=== PATIENT | female | born 1950 | race Caucasian/White ===

== ENCOUNTER 2016-10-21 10:14 | Inpatient (IN) | payer OTHER, MEDICARE ==
[~2016-10-21] VITALS: Ht 152.4 cm; Wt 81.5 kg
[~2016-10-21 10:14] MED LIST: ASPI81TA28 PO; Amaryl PO; Atorvastatin PO; DILT-113 PO; DILT30TA PO; Eliquis PO; Gabapentin PO; INSHNI SUBCON; Iron PO; LEVO75TA5 PO; Lasix PO; Lomotil PO; Medrol PO; OSEL75CA12 PO; POTA-65 PO; SITA100T3 PO
[2016-10-21] MEDS ORDERED: ONDANSETRON INJ 2 MG/ML 2 ML VIAL IV STA (10:34)
[2016-10-21] MEDS ORDERED: SODIUM CHLORIDE 0.9% 1000ML 1,000 ML IV STA (10:34)
--- NOTE | 2016-10-21 10:56 | EMERGENCY ROOM VISIT NOTE ---
History Report prepared by Amadou: Dylan Peter Under the Supervision of: Dr. Calixto Figueroa D.O. First contact with patient: 10:26 Chief Complaint: PEG TUBE REPLACEMENT Stated Complaint: PAIN IN AROUND AND IN PEG TUBE AREA History of Present Illness The patient is a 66 year old female who presents to the Emergency Room with complaints of persistent pain around her PEG tube for the past two days. The pain is worsened with movement of the tube. The patient was sent to the ED by Claudettekayy Tubbs for a possible infection around the PEG tube. She is staying at [facility] s/p mitral valve replacement at [facility]. The mitral valve surgical site has not healed. The tube was checked yesterday and did not appear to be infected then. Per nursing staff, the patient had a low-grade fever prior to arrival and was given 2 doses of Tylenol. The patient had the PEG tube placed 6- 7 weeks ago at [facility], as per the patient's . She is no longer using the tube and is eating normally. The patient has not followed up with her [facility] surgeon for the PEG tube. The patient denies chest pain, shortness of breath, nausea, or vomiting. She does note increased leg swelling bilaterally. The patient is on blood thinners. The patient has a history of diabetes mellitus, rheumatoid arthritis, and cancer. Source of History: patient, spouse/significant other, nursing staff Onset: two days ago Position: abdomen (PEG tube) Quality: other (pain around tube) Timing: other (persistent) Modifying Factors (Worsening): movement Associated Symptoms: + fevers, No SOB, No chest pain, No nausea, No vomiting Review of Systems See HPI for pertinent positives & negatives. A total of 10 systems reviewed and were otherwise negative. Past Medical & Surgical Medical Problems: (1) Abdominal pain (2) Diabetes (3) Rheumatoid arthritis Surgical Problems: (1) Mitral valve replaced Family History Patient reports no known family medical history. Social History Smoking Status: Never Smoker Drug Use: none Marital Status: Occupation Status: retired Current/Historical Medications Scheduled Acetaminophen (Tylenol), 325 MG PO Q4H Apixaban (Eliquis), 5 MG PO BID Aspirin (Aspirin Chewable), 81 MG PO DAILY Atorvastatin (Lipitor), 20 MG PO HS Cephalexin Monohydrate (Keflex), 500 MG PO TID Diltiazem Hcl (Cardizem), 30 MG PO Q6H Epoetin [place] (Procrit), 10,000 ML SQ q sharon Famotidine (Pepcid), 20 MG PO DAILY Furosemide (Lasix), 40 MG PO bid17 Gabapentin (Gabapentin), 1 CAP PO DAILY Insulin Human NPH (Novolin N), 10 UNITS SQ Q12 Insulin Lispro (Human) (Humalog Kwikpen), 8 UNITS SQ AC Ipratropium [place] (Atrovent Hfa), 2 PUFFS INH QID Levetiracetam (Keppra), 500 MG PO BID Levothyroxine Sodium (Synthroid), 1 TAB PO DAILY Methylprednisolone (Medrol), 4 MG PO DAILY Metoprolol Tartrate (Lopressor) (Lopressor), 1 TAB PO BID Oseltamivir Phosphate (Tamiflu), 75 MG PO DAILY Potassium Chloride (Micro-K Ext Rel), 10 MEQ PO DAILY Saline (Deep Sea Nasal [place]), 2 SPRAYS LESTER TID Trazodone Hcl (Trazodone), 50 MG PO HS Allergies Coded Allergies: No Known Allergies (Unverified , 10/21/16) Physical Exam Vital Signs Date Time Temp Pulse Resp B/P Pulse Ox O2 Delivery O2 Flow Rate FiO2 10/21/16 15:00 77 18 116/59 94 Nasal Cannula 1.0 10/21/16 13:34 82 12 104/52 96 Nasal Cannula 1.0 10/21/16 13:09 85 10/21/16 12:31 80 16 120/62 96 Nasal Cannula 1.0 10/21/16 11:16 93 Nasal Cannula 1.0 10/21/16 11:13 80 16 111/51 93 Nasal Cannula 1.0 10/21/16 10:22 36.7 78 20 99/49 94 Nasal Cannula 1.0 10/21/16 10:21 81 Physical Exam GENERAL: Patient is awake, alert, and in no acute distress. Patient is resting comfortably and showing no signs of anxiety EYES: The conjunctivae are clear. The pupils are round and reactive. EARS, NOSE, MOUTH AND THROAT: The nose is without any evidence of any deformity. Mucous membranes are moist tongue is midline NECK: The neck is nontender and supple. Healing scar in the suprasternal region , wound dressing in place. RESPIRATORY: Lung sounds diminished in the right lung field with rales in the right base. CARDIOVASCULAR: Regular rate and rhythm noted to auscultation, systolic murmur is suggested. GASTROINTESTINAL: Mildly distended and diffusely tender abdomen. Wound which was not healed under the right breast with purulent drainage. Dressed wound in the right upper quadrant. PEG site noted in the left side of thee abdomen, tender to palpation with mild erythema and scant discharge around he tube. Rectal examination showed brown stool trace heme positive. MUSCULOSKELETAL/EXTREMITIES: There is no evidence of gross deformity full range of motion is noted in the hips and shoulders SKIN: There is no obvious evidence of any rash. There are no petechiae, pallor or cyanosis noted. NEUROLOGIC: Patient is awake alert and oriented x3. Medical Decision & Procedures ER Provider Diagnostic Interpretation: X-ray results as stated below per interpretation by me and the radiologist. CHEST ONE VIEW PORTABLE CLINICAL HISTORY: Sepsis COMPARISON STUDY: No previous studies for comparison. FINDINGS: There is a left subclavian dual-chamber central venous pacemaker. There are postsurgical changes of a midline sternotomy. The heart is mildly enlarged. There is radiographic evidence of mild congestive failure. There is a small right pleural effusion. There is a small amount of fluid tracking into the minor fissure. There is no lobar consolidation.[ IMPRESSION: Cardiomegaly and mild congestive failure. Electronically signed by: Jose Antoine M.D. 10/21/2016 11:18 AM Dictated Date/Time: 10/21/2016 11:17 AM KUB CLINICAL HISTORY: pain in peg tube site COMPARISON STUDY: No previous studies for comparison. FINDINGS: Nonobstructive bowel pattern. PEG tube overlying left upper quadrant. Moderate degenerative change of the osseous structures. IMPRESSION: Negative study. PEG tube left upper quadrant overlying the gastric outline. Electronically signed by: Milan Ashraf M.D. 10/21/2016 11:18 AM Dictated Date/Time: 10/21/2016 11:17 AM Laboratory Results 10/21/16 10:50 Red Blood Count 2.70, Mean Corpuscular Volume 93.0, Mean Corpuscular Hemoglobin 30.0, Mean Corpuscular Hemoglobin Concent 32.3, Mean Platelet Volume 8.2, Neutrophils (%) (Auto) 58.6, Lymphocytes (%) (Auto) 34.4, Monocytes (%) (Auto) 6.2, Eosinophils (%) (Auto) 0.5, Basophils (%) (Auto) 0.3, Neutrophils # (Auto) 2.28, Lymphocytes # (Auto) 1.34, Monocytes # (Auto) 0.24, Eosinophils # (Auto) 0.02, Basophils # (Auto) 0.01 10/21/16 10:50 Test 10/21/16 10:50 10/21/16 10:57 10/21/16 13:10 White Blood Count 3.89 K/uL (4.8-10.8) Red Blood Count 2.70 M/uL (4.2-5.4) Hemoglobin 8.1 g/dL (12.0-16.0) Hematocrit 25.1 % (37-47) Mean Corpuscular Volume 93.0 fL (80-100) Mean Corpuscular Hemoglobin 30.0 pg (25-34) Mean Corpuscular Hemoglobin Concent 32.3 g/dl (32-36) Platelet Count 124 K/uL (130-400) Mean Platelet Volume 8.2 fL (7.4-10.4) Neutrophils (%) (Auto) 58.6 % Lymphocytes (%) (Auto) 34.4 % Monocytes (%) (Auto) 6.2 % Eosinophils (%) (Auto) 0.5 % Basophils (%) (Auto) 0.3 % Neutrophils # (Auto) 2.28 K/uL (1.4-6.5) Lymphocytes # (Auto) 1.34 K/uL (1.2-3.4) Monocytes # (Auto) 0.24 K/uL (0.11-0.59) Eosinophils # (Auto) 0.02 K/uL (0-0.5) Basophils # (Auto) 0.01 K/uL (0-0.2) RDW Standard Deviation 67.9 fL (36.4-46.3) RDW Coefficient of Variation 20.2 % (11.5-14.5) Immature Granulocyte % (Auto) 0.0 % Immature Granulocyte # (Auto) 0.00 K/uL (0.00-0.02) Anisocytosis PRESENT Erythrocyte Sedimentation Rate 20 mm/hr (0-21) Prothrombin Time 12.1 SECONDS (9.0-12.0) Prothromb Time International Ratio 1.1 (0.9-1.1) Activated Partial Thromboplast Time 31.7 SECONDS (21.0-31.0) Partial Thromboplastin Ratio 1.2 Anion Gap 7.0 mmol/L (3-11) Est Creatinine Clear Calc Drug Dose 60.9 ml/min Estimated GFR () 77.2 Estimated GFR (Non- 66.6 BUN/Creatinine Ratio 19.8 (10-20) Calcium Level 8.0 mg/dl (8.5-10.1) Phosphorus Level 2.9 mg/dl (2.5-4.9) Magnesium Level 1.5 mg/dl (1.8-2.4) Total Bilirubin 0.7 mg/dl (0.2-1) Aspartate Amino Transf (AST/SGOT) 21 U/L (15-37) Alanine Aminotransferase (ALT/SGPT) 16 U/L (12-78) Alkaline Phosphatase 70 U/L (45-117) Total Creatine Kinase 9 U/L (26-192) Creatine Kinase MB < 0.5 ng/ml (0.5-3.6) Creatine Kinase MB Ratio (0-3.0) Troponin I < 0.015 ng/ml (0-0.045) C-Reactive Protein 2.46 mg/dl (0-0.29) Pro-B-Type Natriuretic Peptide 3246 pg/ml (0-900) Total Protein 6.4 gm/dl (6.4-8.2) Albumin 2.8 gm/dl (3.4-5.0) Globulin 3.6 gm/dl (2.5-4.0) Albumin/Globulin Ratio 0.8 (0.9-2) Lipase 172 U/L (73-393) Bedside Lactic Acid Venous 1.11 mmol/L (0.90-1.70) Urine Color YELLOW Urine Appearance CLEAR (CLEAR) Urine pH 5.0 (4.5-7.5) Urine Specific [place] 1.002 (1.000-1.030) Urine Protein NEG (NEG) Urine Glucose (UA) NEG (NEG) Urine Ketones NEG (NEG) Urine Occult Blood 2+ (NEG) Urine Nitrite NEG (NEG) Urine Bilirubin NEG (NEG) Urine Urobilinogen NEG (NEG) Urine Leukocyte Esterase SMALL (NEG) Urine WBC (Auto) 1-5 /hpf (0-5) Urine RBC (Auto) 0-4 /hpf (0-4) Urine Hyaline Casts (Auto) 1-5 /lpf (0-5) Urine Epithelial Cells (Auto) 5-10 /lpf (0-5) Urine Bacteria (Auto) NEG (NEG) Laboratory results per my review. Medications Administered Medications (Trade) Dose Ordered Sig/Shirley Route Start Time Stop Time Status Last Admin Dose Admin Sodium Chloride (Nss 1000ml) 1,000 ml @ 125 mls/hr Q8H STAT IV 10/21/16 10:34 10/21/16 18:33 DC 10/21/16 11:10 125 MLS/HR Morphine Sulfate (MoRPHine SULFATE INJ) 4 mg Q15M PRN IV 10/21/16 10:45 11/04/16 10:44 10/21/16 11:11 4 MG Ondansetron HCl (Zofran Inj) 4 mg NOW STAT IV 10/21/16 10:34 10/21/16 10:38 DC 10/21/16 11:11 4 MG Famotidine 20 mg 20 mg ONE STAT IV 10/21/16 13:57 10/21/16 13:59 DC 10/21/16 15:16 20 MG Pantoprazole Sodium/Syringe (Protonix Inj/ Syringe) 10 ml @ 5 mls/min NOW ONCE IV 10/21/16 14:00 10/21/16 14:01 DC 10/21/16 15:16 5 MLS/MIN Magnesium Sulfate (Magnesium Sulfate) 1 gm NOW STAT IV 10/21/16 14:10 10/21/16 14:11 DC 10/21/16 18:05 1 GM Diltiazem HCl (Cardizem Tab) 30 mg Q6H PO 10/21/16 15:30 11/20/16 15:29 10/21/16 18:04 30 MG ECG Indication: abdominal pain Rate (beats per minute): 79 Rhythm: other (dual chamber pacemaker) Findings: no ectopy (no PVC), other (ventricular paced beats noted) Comparison ECG Date: no prior available ED Course 1030: The patient was evaluated in room B9. A complete history and physical examination were performed. 1034: Zofran 4 mg IV, NSS 1000 ml @ 125 mls/hr. 1045: Morphine Sulfate 4 mg IV. 1328: Spoke with Dr. Schmitt, General Surgeon. He agreed to consult on the case. 1345: Rectal examination performed. 1357: Famotidine 20 mg IV. 1400: Protonix 40 mg / syringe 10 ml @ 5 mls/hr. 1408: [facility] The patient will be evaluated. 1410: Magnesium Sulfate 1 gm IV. Medical Decision Prior records/ancillary studies reviewed. Triage Nursing notes reviewed. Additional history obtained from . The patient's history was concerning for fever. Differential diagnosis: Etiologies such as viral syndrome, otitis, pharyngitis, pneumonia, influenza, meningitis, urinary tract infection, sepsis, bacteremia, as well as others were entertained. The patient is a 66-year-old female who presented to the emergency department for an evaluation of multiple complaints. The patient recently had a mitral valve replacement in her postoperative course was very complicated. She had a feeding tube placed but at this time appears to be eating and drinking well. She is concerned because the erythema around the feeding tube site and the drainage. The patient also has a nonhealing wound under her right breast. This is currently being evaluated the wound care center. The patient was also found have anemia and signs of upper GI bleeding on rectal exam. The patient has multiple issues at this time. I discussed patient's laboratory and radiographic studies with her and her . I also discussed his case with the on-call general surgeon as well as the on-call [facility]. They've agreed to evaluate the patient for further management and disposition. Consults Time Called: 1320 Consulting Physician: Dr. Schmitt General Surgeon. Returned Call: [phone]: Spoke with Dr. Schmitt General Surgeon. He agreed to consult on the case. Additional Consults: Time Called: 1400 [facility] Return[facility] Call: 1408 Additional Comments: 1408: [facility] The patient will be evaluated. Impression Primary Impression: Anemia Additional Impressions: Upper GI bleeding Infection of PEG site Diffuse abdominal pain Scribe Attestation The scribe's documentation has been prepared under my direction and personally reviewed by me in its entirety. I confirm that the note above accurately reflects all work, treatment, procedures, and medical decision making performed by me. Departure Information Dispostion Being Evaluated By Hospitalist Referrals Aneesh Palm M.D. (PCP) Patient Instructions My [facility] Problem Qualifiers Primary Impression: Anemia Anemia type: unspecified type Qualified Codes: D64.9 - Anemia, unspecified
[2016-10-21 11:07] LABS: BASO % 0.3 %; BASO ABS # 0.01 K/uL (0-0.2); EOS % 0.5 %; HEMATOCRIT 25.1 % (37-47); LYMPH % 34.4 %; LYMPH ABS # 1.34 K/uL (1.2-3.4); MEAN CORPUSCULAR HGB CONC 32.3 g/dl (32-36); MEAN PLATELET VOLUME 8.2 fL (7.4-10.4); MONO % 6.2 %; NEUT % 58.6 %; PLATELET COUNT 124 K/uL (130-400); WHITE BLOOD COUNT 3.89 K/uL (4.8-10.8)
[2016-10-21] MEDS: MoRPHine SULFATE 4 MG/ML 1 ML CARP\\VIAL IV PRN ×3 (11:11→23:57)
[2016-10-21 11:17] LABS: INR 1.1 (0.9-1.1); PARTIAL THROMBOPLASTIN RATIO 1.2; PROTHROMBIN TIME (PATIENT) 12.1 SECONDS (9.0-12.0)
--- NOTE | 2016-10-21 11:19 | DIAGNOSTIC IMAGING REPORT ---
KUB CLINICAL HISTORY: pain in peg tube site COMPARISON STUDY: No previous studies for comparison. FINDINGS: Nonobstructive bowel pattern. PEG tube overlying left upper quadrant. Moderate degenerative change of the osseous structures. IMPRESSION: Negative study. PEG tube left upper quadrant overlying the gastric outline. Electronically signed by: Milan Ashraf M.D. 10/21/2016 11:18 AM Dictated Date/Time: 10/21/2016 11:17 AM
--- NOTE | 2016-10-21 11:19 | DIAGNOSTIC IMAGING REPORT ---
CHEST ONE VIEW PORTABLE CLINICAL HISTORY: Sepsis COMPARISON STUDY: No previous studies for comparison. FINDINGS: There is a left subclavian dual-chamber central venous pacemaker. There are postsurgical changes of a midline sternotomy. The heart is mildly enlarged. There is radiographic evidence of mild congestive failure. There is a small right pleural effusion. There is a small amount of fluid tracking into the minor fissure. There is no lobar consolidation.[ IMPRESSION: Cardiomegaly and mild congestive failure. Electronically signed by: Jose Antoine M.D. 10/21/2016 11:18 AM Dictated Date/Time: 10/21/2016 11:17 AM
[2016-10-21 11:25] LABS: ALT/SGPT 16 U/L (12-78); AST/SGOT 21 U/L (15-37); BLOOD UREA NITROGEN 18 mg/dl (7-18); BUN/CREATININE RATIO 19.8 (10-20); CARBON DIOXIDE 32 mmol/L (21-32); CHLORIDE 101 mmol/L (98-107); GLUCOSE 156 mg/dl (70-99); MAGNESIUM 1.5 mg/dl (1.8-2.4); POTASSIUM 3.8 mmol/L (3.5-5.1); SODIUM 140 mmol/L (136-145)
[2016-10-21 11:27] LABS: ALB/GLOB RATIO 0.8 (0.9-2); ALKALINE PHOSPHATASE 70 U/L (45-117); C-REACTIVE PROTEIN 2.46 mg/dl (0-0.29); PHOSPHORUS 2.9 mg/dl (2.5-4.9)
[2016-10-21 11:31] LABS: ANISOCYTOSIS PRESENT; COMPLETE YES
[2016-10-21] MEDS ORDERED: NF406 PO (11:49)
[2016-10-21] MEDS ORDERED: INSU100I2 SQ (11:49)
[2016-10-21] MEDS ORDERED: FURO40TA3 PO (11:49)
[2016-10-21] MEDS ORDERED: NVLNI SQ (11:49)
[2016-10-21] MEDS ORDERED: METH4TAB31 PO (11:49)
[2016-10-21] MEDS ORDERED: POTA10CA28 PO (11:49)
[2016-10-21] MEDS ORDERED: APIX1TAB3 PO (11:49)
[2016-10-21 13:51] LABS: URINE APPEARANCE CLEAR (CLEAR); URINE BILIRUBIN NEG (NEG); URINE COLOR YELLOW; URINE NITRITE NEG (NEG); URINE SPECIFIC GRAVITY 1.002 (1.000-1.030); UROBILINOGEN NEG (NEG); ZZUR CULT IF INDIC CLEAN CATCH NO
[2016-10-21 13:55] LABS: MANUAL MICROSCOPIC REQUIRED? NO; REVIEW REQ? NO
[2016-10-21] MEDS ORDERED: FAMOTIDINE 20MG/102 ML D5W IV STA (13:57)
[2016-10-21] MEDS ORDERED: PANTOprazole INJ 40 MG in SYRINGE 0 ML IV ONE (14:00)
[2016-10-21] MEDS ORDERED: MAGNESIUM SULFATE 1GM / D5W 1 GM BAG IV STA (14:10)
[2016-10-21] MEDS ORDERED: CEPH500C2 PO (15:11)
[2016-10-21] MEDS ORDERED: GLUCOSE 40% GEL 15 GM TUBE PO PRN (15:30)
[2016-10-21] MEDS ORDERED: GLUCAGON FOR INJ 1 MG VIAL SQ PRN (15:30)
[2016-10-21] MEDS ORDERED: ONDANSETRON INJ 2 MG/ML 2 ML VIAL IV PRN (15:30)
[2016-10-21] MEDS ORDERED: DEXTROSE 50% 50 ML SYR IV PRN (15:30)
[2016-10-21] MEDS ORDERED: MAGNESIUM HYDROXIDE SUSP 30 ML UDC PO PRN (15:30)
[2016-10-21] MEDS ORDERED: DILTIAZEM HCL 30 MG TAB PO SCH (15:30)
[2016-10-21] MEDS ORDERED: ACETAMINOPHEN 325 MG TAB PO PRN ×2 (15:30)
[2016-10-21] MEDS ORDERED: ALUMINUM/MAGNESIUM/SIMETH (MAALOX MAX) 30 ML UDC PO PRN (15:30)
[2016-10-21] MEDS ORDERED: GLUCOSE 10 TABS/TUBE PO PRN (15:30)
--- NOTE | 2016-10-21 16:10 | Pharmacy Progress Note ---
Pharmacy Antibiotic Consult Date of Service: Oct 21, 2016. Pharmacy Dosing Scope Pharmacy is consulted to initiate vancomycin IV dosing therapy, order appropriate labs and adjust drug dose/frequency. Subjective The patient is a 66 year old female admitted on 10-21. Objective Height (Feet): 5 Height (Inches): 0 Weight (Kilograms): 88.500 Lab Results (24hrs): Laboratory Tests Test 10/21/16 10:50 BUN/Creatinine Ratio 19.8 Blood Urea Nitrogen 18 mg/dl Creatinine 0.90 mg/dl White Blood Count 3.89 K/uL Red Blood Count 2.70 M/uL Hemoglobin 8.1 g/dL Hematocrit 25.1 % Mean Corpuscular Volume 93.0 fL Mean Corpuscular Hemoglobin 30.0 pg Mean Corpuscular Hemoglobin Concent 32.3 g/dl Platelet Count 124 K/uL Mean Platelet Volume 8.2 fL Neutrophils (%) (Auto) 58.6 % Lymphocytes (%) (Auto) 34.4 % Monocytes (%) (Auto) 6.2 % Eosinophils (%) (Auto) 0.5 % Basophils (%) (Auto) 0.3 % Neutrophils # (Auto) 2.28 K/uL Lymphocytes # (Auto) 1.34 K/uL Monocytes # (Auto) 0.24 K/uL Eosinophils # (Auto) 0.02 K/uL Basophils # (Auto) 0.01 K/uL Assessment & Plan Patient started on vancomycin empirically for possible infection around PEG tube. BC x 2 are ordered. Vancomycin: * [place] 2200 mg (~25 mg/kg) iv x 1 * Will start MD of 1 gm (~11 mg/kg) iv q 18 hrs to achieve an estimated trough 15-20 mcg/ml * Estimated kinetics: t/12~14 hrs, ke~0.06 hr-1 * If abx are to be continued >48 hrs will consider monitoring trough level Pharmacy will continue to follow and will adjust dose/frequency as necessary. Thank you
[2016-10-21] MEDS ORDERED: VANCOMYCIN CONSULT ACTIVE PRN (16:15)
--- NOTE | 2016-10-21 16:23 | History and Physical ---
History & Physical Date & Time of Service: Oct 21, 2016 at 14:34 Chief Complaint: Pain In Around And In Peg Tube Area Primary Care Physician: Aneesh Palm M.D. History of Present Illness Source: patient, family Patient is a 66 year old female that presents from [facility] with a 2 day history of abdominal pain. 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 2 Days ago the patient began to have abdominal pain surrounding the site of her Peg tube. The pain began Tuesday morning when she woke up and when they tried to get her out of bed and she had a left sided burning abdominal pain. She also described a fever since Tuesday as well. Last night the pain acutely worsened, and this morning when the nursing staff came to see the patient they felt the Peg site was acutely infected. The patient received tylenol for the pain and said it slightly helped with the pain. The PEG tube remains in place since her surgery ( described below) but the patient has been eating and drinking well. Her HPI from [facility] states that the patient was admitted to [facility] in [place] on August 26 for a tricuspid and mitral valve replacement via transthoracic approach under the right breast. After surgery the patient had multiple post-operative complications including ARDS/respiratory failure, prolonged ventilation, tracheostomy placement and PEG tube placement. She was transferred to [facility] in [place] on . There she was treated for pneumonia with IV antibiotics and subsequently developed C Diff and was discharged on oral vancomycin to [facility] on . The patient also suffered seizures postoperatively and was placed on Keppra. She has not experienced any seizures since discharge and EEGs have been negative. Since coming off of the Ventilator at [facility] the patient has required oxygen therapy. Patient has had chronic anemia 2/2 chemotherapy and received Procrit Injections 1-2x/week. She also received a blood transfusion [facility]. Hgb usually around 9 during hospitalization. Patient denies nausea, vomiting, diarrhea, chills, lightheadedness, chest pain, burning with urination. Past Medical/Surgical History Medical Problems: (1) Diabetes Status: Chronic (2) Rheumatoid arthritis Status: Chronic Surgical Problems: (1) Mitral valve replaced Status: Chronic Family History Patient reports no known family medical history. Social History Smoking Status: Never Smoker Drug Use: none Marital Status: Occupational Status: retired Immunizations History of Influenza Vaccine: Yes Influenza Vaccine Date: Jul 22, 2015 History of Tetanus Vaccine?: Unknown History of Pneumococcal: Yes Pneumococcal Date: Jul 22, 2015 History of Hepatitis B Vaccine: Unknown Multi-Drug Resistant Organisms History of MDRO: Yes Type of MDRO: MRSA Allergies Coded Allergies: No Known Allergies (Unverified , 10/21/16) Home Medications Scheduled Acetaminophen (Tylenol), 325 MG PO Q4H Apixaban (Eliquis), 5 MG PO BID Aspirin (Aspirin Chewable), 81 MG PO DAILY Atorvastatin (Lipitor), 20 MG PO HS Cephalexin Monohydrate (Keflex), 500 MG PO TID Diltiazem Hcl (Cardizem), 30 MG PO Q6H Epoetin [place] (Procrit), 10,000 ML SQ q sharon Famotidine (Pepcid), 20 MG PO DAILY Furosemide (Lasix), 40 MG PO bid17 Gabapentin (Gabapentin), 1 CAP PO DAILY Insulin Human NPH (Novolin N), 10 UNITS SQ Q12 Insulin Lispro (Human) (Humalog Kwikpen), 8 UNITS SQ AC Ipratropium [place] (Atrovent Hfa), 2 PUFFS INH QID Levetiracetam (Keppra), 500 MG PO BID Levothyroxine Sodium (Synthroid), 1 TAB PO DAILY Methylprednisolone (Medrol), 4 MG PO DAILY Metoprolol Tartrate (Lopressor) (Lopressor), 1 TAB PO BID Oseltamivir Phosphate (Tamiflu), 75 MG PO DAILY Potassium Chloride (Micro-K Ext Rel), 10 MEQ PO DAILY Saline (Deep Sea Nasal [place]), 2 SPRAYS ELSTER TID Trazodone Hcl (Trazodone), 50 MG PO HS Review of Systems Constitutional: No chills, No fever Respiratory: No cough, No shortness of breath Cardiovascular: No chest pain Abdomen: + pain, No GI bleeding, No constipation, No diarrhea, No nausea, No vomiting Genitourinary - Female: No dysuria Physical Exam Vital Signs Date Time Temp Pulse Resp B/P Pulse Ox O2 Delivery O2 Flow Rate FiO2 10/21/16 13:34 82 12 104/52 96 Nasal Cannula 1.0 10/21/16 13:09 85 10/21/16 12:31 80 16 120/62 96 Nasal Cannula 1.0 10/21/16 11:16 93 Nasal Cannula 1.0 10/21/16 11:13 80 16 111/51 93 Nasal Cannula 1.0 10/21/16 10:22 36.7 78 20 99/49 94 Nasal Cannula 1.0 10/21/16 10:21 81 General Appearance: WD/WN, + mild distress Respiratory/Chest: chest non-tender, lungs clear, normal breath sounds, + pertinent finding (6cm x 2cm ulcerative wound inferior to right breast at site of surgical entry for previous surgery. There is purulent discharge over the wound with minor erythema. No bleeding evident.) Cardiovascular: no gallop, + extra beats, + abnormal rhythm Abdomen/GI: normal bowel sounds, soft, + tenderness (Tenderness around PEG tube site at LUQ, Tenderness on left side of abdomen with deep palpation), + pertinent finding (Ecchymosis at left lower quadrant, PEG tube at LUQ) Extremities/Musculoskelatal: + pertinent finding (Edema of the legs moving up to the pelvis bilaterally, pitting up to the knees) Neurologic/Psych: alert, normal mood/affect, oriented x 3 Diagnostics Laboratory Results Results Past 24 Hours Test 10/21/16 10:50 10/21/16 10:57 10/21/16 13:10 Range/Units White Blood Count 3.89 4.8-10.8 K/uL Red Blood Count 2.70 4.2-5.4 M/uL Hemoglobin 8.1 12.0-16.0 g/dL Hematocrit 25.1 37-47 % Mean Corpuscular Volume 93.0 80-100 fL Mean Corpuscular Hemoglobin 30.0 25-34 pg Mean Corpuscular Hemoglobin Concent 32.3 32-36 g/dl Platelet Count 124 130-400 K/uL Mean Platelet Volume 8.2 7.4-10.4 fL Neutrophils (%) (Auto) 58.6 % Lymphocytes (%) (Auto) 34.4 % Monocytes (%) (Auto) 6.2 % Eosinophils (%) (Auto) 0.5 % Basophils (%) (Auto) 0.3 % Neutrophils # (Auto) 2.28 1.4-6.5 K/uL Lymphocytes # (Auto) 1.34 1.2-3.4 K/uL Monocytes # (Auto) 0.24 0.11-0.59 K/uL Eosinophils # (Auto) 0.02 0-0.5 K/uL Basophils # (Auto) 0.01 0-0.2 K/uL RDW Standard Deviation 67.9 36.4-46.3 fL RDW Coefficient of Variation 20.2 11.5-14.5 % Immature Granulocyte % (Auto) 0.0 % Immature Granulocyte # (Auto) 0.00 0.00-0.02 K/uL Anisocytosis PRESENT Erythrocyte Sedimentation Rate 20 0-21 mm/hr Prothrombin Time 12.1 9.0-12.0 SECONDS Prothromb Time International Ratio 1.1 0.9-1.1 Activated Partial Thromboplast Time 31.7 21.0-31.0 SECONDS Partial Thromboplastin Ratio 1.2 Sodium Level 140 136-145 mmol/L Potassium Level 3.8 3.5-5.1 mmol/L Chloride Level 101 98-107 mmol/L Carbon Dioxide Level 32 21-32 mmol/L Anion Gap 7.0 3-11 mmol/L Blood Urea Nitrogen 18 7-18 mg/dl Creatinine 0.90 0.60-1.20 mg/dl Est Creatinine Clear Calc Drug Dose 60.9 ml/min Estimated GFR () 77.2 Estimated GFR (Non- 66.6 BUN/Creatinine Ratio 19.8 10-20 Random Glucose 156 70-99 mg/dl Calcium Level 8.0 8.5-10.1 mg/dl Phosphorus Level 2.9 2.5-4.9 mg/dl Magnesium Level 1.5 1.8-2.4 mg/dl Total Bilirubin 0.7 0.2-1 mg/dl Aspartate Amino Transf (AST/SGOT) 21 15-37 U/L Alanine Aminotransferase (ALT/SGPT) 16 12-78 U/L Alkaline Phosphatase 70 45-117 U/L Total Creatine Kinase 9 26-192 U/L Creatine Kinase MB < 0.5 0.5-3.6 ng/ml Creatine Kinase MB Ratio 0-3.0 Troponin I < 0.015 0-0.045 ng/ml C-Reactive Protein 2.46 0-0.29 mg/dl Pro-B-Type Natriuretic Peptide 3246 0-900 pg/ml Total Protein 6.4 6.4-8.2 gm/dl Albumin 2.8 3.4-5.0 gm/dl Globulin 3.6 2.5-4.0 gm/dl Albumin/Globulin Ratio 0.8 0.9-2 Lipase 172 73-393 U/L Bedside Lactic Acid Venous 1.11 0.90-1.70 mmol/L Urine Color YELLOW Urine Appearance CLEAR CLEAR Urine pH 5.0 4.5-7.5 Urine Specific [place] 1.002 1.000-1.030 Urine Protein NEG NEG Urine Glucose (UA) NEG NEG Urine Ketones NEG NEG Urine Occult Blood 2+ NEG Urine Nitrite NEG NEG Urine Bilirubin NEG NEG Urine Urobilinogen NEG NEG Urine Leukocyte Esterase SMALL NEG Urine WBC (Auto) 1-5 0-5 /hpf Urine RBC (Auto) 0-4 0-4 /hpf Urine Hyaline Casts (Auto) 1-5 0-5 /lpf Urine Epithelial Cells (Auto) 5-10 0-5 /lpf Urine Bacteria (Auto) NEG NEG Microbiology Results 10/21/16 Blood Culture, Received Pending 10/21/16 Blood Culture, Received Pending Normal EKG Impression Assessment and Plan Patient is a 66 year old female that presents with a 2 day history of abdominal pain 1) Surgical Site Infection - Vancomycin IV - NPO After Midnight - Holding Eliquis - Heparin 5,000 units q12 - Consult to Dr. Schmitt for potential PEG removal tomorrow 2) Wound Infection - Right Sided wound located at the inferior right breast fold at location of entry for valve repair surgery - Wound Care Consult - Possible wound vac placement during this stay - Vancomycin IV 3) Diabetes - 15 Units Lantus BID - Accuchecks with Novolog coverage - Diabetic Diet 4) Atrial Fibrillation - Cardizem - Metoprolol - Holding Eliquis prior to surgery - Admit to telemetry 5) Post-operative Seizures - Keppra 6) Chronic Anemia - Heme in Stool - History of Anemia 2/2 Chemotherapy - Hgb 8.1 - Make sure to evaluate for Procrit Injection because in history was scheduled to receive injection this Tuesday 7) History of C Diff - Stool C Diff Toxin ordered - No current complaints of diarrhea - Recent treatment with Oral Vancomycin 8) Hypertension - Lasix 9) Rheumatoid Arthritis/ Sarcoidosis - Methylprednisolone 10) Hyperlipidemia - Atorvastatin 11) GERD - Pepcid 12) Hypothyroidism - Synthroid 13) Insomnia - Trazodone 14) Flu Virus - Day 5 of Tamiflu 15) DVT - Heparin 5,000 units q12 16) Disposition - [facility] on discharge, has called facility to try to hold a bed at this time Level of Care Telemetry Resuscitation Status FULL RESUSCITATION VTE Prophylaxis Given or contraindicated: Unfractionated heparin SQ
[2016-10-21 16:30] VITALS: BP 107/62; PULSE 86; TEMP 36.5; O2SAT 93; Ht 152.4 cm; Wt 81.5 kg
[2016-10-21] MEDS ORDERED: FUROSEMIDE 40 MG TAB PO SCH (17:00)
[2016-10-21] MEDS ORDERED: VANCOMYCIN INJ 2,200 MG in SODIUM CHLORIDE 0.9% 500ML 500 ML IV ONE (17:30)
[2016-10-21] MEDS: IPRATROPIUM BROMIDE HFA INHALER INH SCH ×2 (18:05→21:06)
[2016-10-21] MEDS: INSULIN ASPART 100 UNITS/ML 3 ML PEN SC SCH ×2 (18:57→22:02)
[2016-10-21 20:00] VITALS: O2SAT 93
[2016-10-21 20:10] VITALS: BP 117/63; PULSE 80; TEMP 36.5; O2SAT 97
[2016-10-21] MEDS: METOPROLOL TARTRATE 25 MG TAB PO SCH (21:05)
[2016-10-21] MEDS: LEVETIRACETAM 500 MG TAB PO SCH (21:05)
[2016-10-21] MEDS: ATORVASTATIN 20 MG TAB PO SCH (21:06)
[2016-10-21] MEDS: TRAZODONE HCL 50 MG TAB PO SCH (21:06)
[2016-10-21] MEDS: HEPARIN SOD 5000 UNIT/0.5 ML CARP SQ SCH (21:07)
--- NOTE | 2016-10-21 21:37 | DIAGNOSTIC IMAGING REPORT ---
CT SCAN OF THE CHEST WITHOUT IV CONTRAST CLINICAL HISTORY: Surgical site infection in the right chest. COMPARISON STUDY: Chest x-ray dated 10/21/2016. TECHNIQUE: CT scan of the thorax was performed from the thoracic inlet to the upper abdomen. Images are reviewed in the axial, sagittal, and coronal planes. IV contrast was not administered for this examination as per the referring clinician. Note that the examination was performed in suboptimal fashion without IV contrast for the reported clinical history. CT DOSE: 789.26 mGy.cm FINDINGS: Thyroid: Imaged portions of the thyroid gland are normal in size and attenuation. Thoracic aorta: There is atherosclerotic calcification of the thoracic aorta, which is normal in caliber and demonstrates standard 3-vessel arch anatomy. Heart: The patient is status post midline sternotomy. A 2-lead cardiac pacemaker is present in left chest wall. Leads terminate in the right atrial appendage and the right ventricle. The heart is enlarged and without pericardial effusion. Postoperative change is suggested involving the aortic and mitral valves. The coronary arteries are densely calcified. The pulmonary trunk is dilated, measuring 4.3 cm in diameter. This suggests pulmonary artery hypertension. Lungs and pleural spaces: There are small pleural effusions with bibasilar atelectasis, right greater than left. Intralobular septal thickening is noted. There are patchy groundglass opacities present throughout both lungs. No pneumothorax is seen. The trachea and central airways are clear. Mediastinum: There are scattered subcentimeter mediastinal lymph nodes. These are not pathologically enlarged by size criteria. Debbie: Not well assessed without IV contrast. Axillae: There is no axillary lymphadenopathy. Upper abdomen: A gastrostomy tube is noted in the stomach. The spleen is enlarged. A tiny hiatal hernia is identified. Skeletal structures: The skeletal structures are osteopenic. No lytic or blastic bony lesions are seen. Arthritic change is noted in the shoulders. There are healed right-sided rib fractures. Soft tissues: There is induration of the deep soft tissues of the right chest wall and right breast with small foci of subcutaneous gas. No organized fluid collection is identified. IMPRESSION: 1. Cardiomegaly and cardiac pacemaker. Intralobular septal thickening suggests congestive failure. 2. There are bilateral patchy groundglass opacities. This likely represents a component of interstitial edema. An infectious or inflammatory pneumonitis could have a similar appearance and clinical correlation will be required. 3. Small pleural effusions with bibasilar atelectasis, right larger than left. 4. There is induration of the deep soft tissues of the right chest wall and right breast with small foci of subcutaneous gas. This could represent normal postoperative change if there has been recent surgery. Infection would be impossible to exclude as clinically queried. No organized fluid collection is seen on this unenhanced examination to suggest abscess. 5. Splenomegaly. 6. Additional findings as above. Electronically signed by: Aaron Higgins M.D. 10/21/2016 9:36 PM Dictated Date/Time: 10/21/2016 9:29 PM
[2016-10-21] MEDS ORDERED: NURSING VERBAL MED ORDER ONE (22:00)
[2016-10-21] MEDS: INSULIN GLARGINE SOLOSTAR 100 UNITS/ML 3 ML PEN SC SCH (22:02)
--- NOTE | 2016-10-21 23:28 | SURGICAL CONSULTATION ---
DATE OF CONSULTATION: 10/21/2016 I have been asked by Dr. Lacey to see this 66-year-old female who was a resident at [facility]. Her history goes back to the beginning of August when she underwent a transthoracic mitral valve and triscuspid valve replacement. She previously had had 2 aortic valve replacements. She had multiple complications following that procedure that included 21 days in the intensive care unit with prolonged ventilation and placement of tracheostomy and a PEG tube. She at one point developed pneumonia and developed C. diff after being placed on antibiotics for that. That is all resolved. She has a history of chronic anemia, felt to be due to long-term effects of chemotherapy for colon cancer that was treated in 2008. She was complaining of pain in the site of the PEG tube. She said that at one time 2 days ago it was erythematous. The discomfort was exacerbated when she moves. She has not required use of the PEG tube and has been taking a regular diet for some time, but the PEG tube was only placed about 6 weeks ago. She stated that there was some drainage. There was no nausea or vomiting. She thinks she had a fever over the last 2 days. Her bowels have been moving without melena or hematochezia. PAST MEDICAL HISTORY: Includes the valvular heart disease, pneumonia, C. diff, diabetes type 2 requiring insulin, atrial fibrillation, chronic anemia, hypertension, rheumatoid arthritis, sarcoidosis, TIA, peptic ulcer disease, and GERD. PAST SURGICAL HISTORY: Two aortic valve replacements, mitral valve replacement, tricuspid valve replacement, cholecystectomy, 2 C-sections, colon resection. MEDICATIONS AT HOME: Included Eliquis, Lipitor, Keflex, Cardizem, Procrit, Pepcid, Lasix, gabapentin, Humalog, Novolin, Atrovent, Keppra, Synthroid, Medrol, Lopressor, Tamiflu, Micro-K, trazodone, Tylenol. ALLERGIES: No known drug allergies. PHYSICAL EXAMINATION: GENERAL: Reveals an overweight female who appears in no acute distress. VITAL SIGNS: Blood pressure 117/63, heart rate 80, respirations 17, temperature 36.5. Pulse oximetry is 97% on 1 liter nasal cannula. HEENT: Reveals the sclerae to be anicteric. Mucous membranes are moist. HEART: Has irregularity to it. ABDOMEN: Has normoactive bowel sounds. It is soft and nondistended. The PEG site has no erythema, fluctuance, although it is tender. There is no diffuse abdominal tenderness. LABORATORY DATA: WBC 3.89, H\T\H is 8.1 and 25.1, platelet count 124,000. Sodium 140, potassium 3.8, chloride 101, CO2 of 32, BUN 18, creatinine 0.9, glucose 156. Liver function tests are normal. ASSESSMENT AND PLAN: The PEG tube site is painful, but there is no obvious infection at the present time. She is not using it, so it can be removed at some point, but she would need to be off her Eliquis for at least 3-4 days. The timing for that will need to be discussed with GI. Add only 6 weeks if there is a chance that there is not adherent adequate enough of the stomach wall to the abdominal wall, and if it was removed, then the stomach wall could fall away, then would require surgical intervention to close the gastrotomy site. I will discuss this with GI. Thank you for allowing me to see this patient and participate in her care.
[2016-10-21 23:44] VITALS: BP 113/60; PULSE 80; TEMP 36.9; O2SAT 72
[2016-10-21 23:48] VITALS: O2SAT 92
[2016-10-21] MEDS: DILTIAZEM HCL 30 MG TAB PO SCH (23:57)
[2016-10-22] VITALS (8 sets, daily range): BP systolic 106–114; BP diastolic 54–65; PULSE 80–81; TEMP 36.8–37.8; O2SAT 93–97
[2016-10-22] MEDS: VANCOMYCIN INJ 1,000 MG in SODIUM CHLORIDE 0.9% 250ML 250 ML IV SCH ×2 (04:00→22:00)
[2016-10-22] MEDS: DILTIAZEM HCL 30 MG TAB PO SCH ×3 (05:58→17:47)
[2016-10-22] MEDS: LEVOTHYROXINE 25 MCG TAB PO SCH (05:58)
[2016-10-22 06:13] LABS: BASO % 0.3 %; BASO ABS # 0.01 K/uL (0-0.2); COMPLETE YES; EOS % 1.8 %; HEMATOCRIT 28.9 % (37-47); IG% 0.3 %; LYMPH % 32.2 %; LYMPH ABS # 1.05 K/uL (1.2-3.4); MEAN CELL VOLUME 95.1 fL (80-100); MEAN CORPUSCULAR HEMOGLOBIN 29.9 pg (25-34); MEAN CORPUSCULAR HGB CONC 31.5 g/dl (32-36); MEAN PLATELET VOLUME 8.9 fL (7.4-10.4); MONO % 4.9 %; NEUT % 60.5 %; PLATELET COUNT 126 K/uL (130-400); RED BLOOD COUNT 3.04 M/uL (4.2-5.4); WHITE BLOOD COUNT 3.26 K/uL (4.8-10.8)
[2016-10-22 06:40] LABS: BUN/CREATININE RATIO 20.3 (10-20); CALCIUM 8.3 mg/dl (8.5-10.1); CREATININE 0.76 mg/dl (0.60-1.20); MAGNESIUM 1.8 mg/dl (1.8-2.4); POTASSIUM 3.6 mmol/L (3.5-5.1)
[2016-10-22] MEDS: INSULIN ASPART 100 UNITS/ML 3 ML PEN SC SCH ×4 (07:00→21:00)
[2016-10-22] MEDS: ASPIRIN 81 MG ECTAB PO SCH (09:00)
[2016-10-22] MEDS: IPRATROPIUM BROMIDE HFA INHALER INH SCH ×4 (09:00→20:43)
[2016-10-22] MEDS: HEPARIN SOD 5000 UNIT/0.5 ML CARP SQ SCH ×2 (09:00→21:00)
[2016-10-22] MEDS: METOPROLOL TARTRATE 25 MG TAB PO SCH ×2 (09:00→20:47)
[2016-10-22] MEDS: INSULIN GLARGINE SOLOSTAR 100 UNITS/ML 3 ML PEN SC SCH ×2 (09:00→21:00)
[2016-10-22] MEDS ORDERED: OSELTAMIVIR PHOSPHATE 75 MG CAP PO SCH (09:00)
[2016-10-22] MEDS: GABAPENTIN 300 MG CAP PO SCH (09:00)
[2016-10-22] MEDS ORDERED: METHYLPREDNISOLONE 4 MG TAB PO SCH (09:00)
[2016-10-22] MEDS ORDERED: FAMOTIDINE 20 MG TAB PO SCH (09:00)
[2016-10-22] MEDS: LEVETIRACETAM 500 MG TAB PO SCH ×2 (09:00→20:48)
[2016-10-22] MEDS ORDERED: POTASSIUM CHLORIDE 10 MEQ TABCR PO SCH (09:00)
[2016-10-22] MEDS ORDERED: CEROVITE ADV FORMULA TAB PO ONE (12:30)
[2016-10-22] MEDS: MAGNESIUM OXIDE 400 MG TAB PO SCH (12:30)
[2016-10-22] MEDS: POTASSIUM CHLORIDE 20 MEQ TABCR PO SCH ×2 (12:30→20:48)
--- NOTE | 2016-10-22 13:05 | Gastrointestinal Consultation ---
Gastrointestinal Consultation Date of Consultation: Oct 22, 2016 Attending Physician: Buddy Valdez Consulting Physician: Lc Lowe Reason for Consultation: PEG site pain History of Present Illness Patient is a 66 year old female seen today for c/o PEG site pain. She underwent a mitral and tricuspid valve replacement at [facility] in [place] on 08/26/16. She had multiple post op complications including ARDS/ respiratory failure requiring prolonged ventilation, tracheostomy and PEG tube placement for nutrition. She also had developed Cdiff and pneumonia recently, just transferred to [place]. She had been not using the PEG tube, and having good PO intake of food, fluids. Her tracheostomy is also now removed. She is c/o pain at PEG site w movement. Denies any pain after eating, nor nausea , vomiting. She denies any fever, chills. 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 Past Surgical History: Aortic valve replacement x 2, mitral valve replacement, tracheostomy, PEG placement. Family History Patient reports no known family medical history. Unrelated to current admission Social History Smoking Status: Never Smoker Drug Use: none Marital Status: Occupation Status: retired Allergies Coded Allergies: No Known Allergies (Unverified , 10/21/16) Current Medications Home Meds and Scripts Medications Dose Route/Sig Max Daily Dose Days Date Category Keflex (Cephalexin Monohydrate) 500 Mg Cap 500 Mg PO TID 10/21/16 Reported Micro-K Ext Rel (Potassium Chloride) 10 Meq Capcr 10 Meq PO DAILY 10/21/16 Reported Tamiflu (Oseltamivir Phosphate) 75 Mg Cap 75 Mg PO DAILY 10/21/16 Reported Novolin N (Insulin Human NPH) 100 Units/Ml Susp 10 Units SQ Q12 10/21/16 Reported Medrol (Methylprednisolone) 4 Mg Tab 4 Mg PO DAILY 10/21/16 Reported Synthroid (Levothyroxine Sodium) 25 Mcg Tab 1 Tab PO DAILY 30 10/21/16 Reported Keppra (Levetiracetam) 500 Mg Tab 500 Mg PO BID 10/21/16 Reported Humalog Kwikpen (Insulin Lispro (Human)) 100 Unit/Ml Inj 8 Units SQ AC 10/21/16 Reported Gabapentin 300 Mg Cap 1 Cap PO DAILY 10/21/16 Reported Lasix (Furosemide) 40 Mg Tab 40 Mg PO BID17 10/21/16 Reported Eliquis (Apixaban) 5 Mg Tab 5 Mg PO BID 10/21/16 Reported Deep Sea Nasal [place] (Saline) 0.65 % Spr 2 Sprays LESTER TID 10/21/16 Reported Lipitor (Atorvastatin) 20 Mg Tab 20 Mg PO HS 10/21/16 Reported Aspirin Chewable (Aspirin) 81 Mg Chew 81 Mg PO DAILY 10/21/16 Reported Atrovent Hfa (Ipratropium [place]) 200 Puffs/3400 Mcg Aers 2 Puffs INH QID 10/19/16 Reported Procrit (Epoetin [place]) 2,000 Units Inj 10,000 Ml SQ Q Tuesday10/19/16 Reported Cardizem (Diltiazem Hcl) 30 Mg Tab 30 Mg PO Q6H 10/19/16 Reported Lopressor (Metoprolol Tartrate) 25 Mg Tab 1 Tab PO BID 90 10/19/16 Reported Pepcid (Famotidine) 20 Mg Tab 20 Mg PO DAILY 10/19/16 Reported Trazodone (Trazodone HCl) 50 Mg Tab 50 Mg PO HS 10/19/16 Reported Tylenol (Acetaminophen) 325 Mg Tab 325 Mg PO Q4H 10/19/16 Reported Review of Systems Constitutional: No chills, No fever Abdomen: + pain, + see HPI, No nausea, No vomiting Physical Exam Date Time Temp Pulse Resp B/P Pulse Ox O2 Delivery O2 Flow Rate FiO2 10/22/16 12:00 Nasal Cannula 1.5 10/22/16 11:54 37.6 81 16 106/57 96 Nasal Cannula 2.0 10/22/16 08:13 37.7 80 16 114/62 97 Room Air 10/22/16 08:00 Nasal Cannula 1.5 10/22/16 04:02 93 Room Air 10/22/16 03:56 37.0 81 15 112/54 95 Nasal Cannula 1.5 10/22/16 00:00 93 Room Air 10/21/16 23:48 92 Nasal Cannula 1.0 10/21/16 23:44 36.9 80 15 113/60 72 Room Air 10/21/16 20:10 36.5 80 17 117/63 97 Nasal Cannula 1.0 10/21/16 20:00 93 Room Air 10/21/16 16:30 36.5 86 17 107/62 93 Nasal Cannula 2.0 10/21/16 16:11 79 15 114/59 95 10/21/16 15:00 77 18 116/59 94 Nasal Cannula 1.0 10/21/16 13:34 82 12 104/52 96 Nasal Cannula 1.0 10/21/16 13:09 85 General Appearance: WD/WN, no apparent distress Neck: supple, no JVD, trachea midline Abdomen: + pertinent finding (PEG site w residual tape, bumper is very tight, causing a wound into abd skin which is erythematous. No signs of bleeding or infection, warmth. PEG flushes easil w/o signs of leaking or pain. ) Neurologic/Psych: alert, normal mood/affect, oriented x 3 Laboratory Results Last 24 Hours Test 10/21/16 13:10 10/21/16 17:13 10/21/16 21:59 10/22/16 05:55 Urine Color YELLOW Urine Appearance CLEAR Urine pH 5.0 Urine Specific [place] 1.002 Urine Protein NEG Urine Glucose (UA) NEG Urine Ketones NEG Urine Occult Blood 2+ Urine Nitrite NEG Urine Bilirubin NEG Urine Urobilinogen NEG Urine Leukocyte Esterase SMALL Urine WBC (Auto) 1-5 /hpf Urine RBC (Auto) 0-4 /hpf Urine Hyaline Casts (Auto) 1-5 /lpf Urine Epithelial Cells (Auto) 5-10 /lpf Urine Bacteria (Auto) NEG Bedside Glucose 203 mg/dl 165 mg/dl White Blood Count 3.26 K/uL Red Blood Count 3.04 M/uL Hemoglobin 9.1 g/dL Hematocrit 28.9 % Mean Corpuscular Volume 95.1 fL Mean Corpuscular Hemoglobin 29.9 pg Mean Corpuscular Hemoglobin Concent 31.5 g/dl Platelet Count 126 K/uL Mean Platelet Volume 8.9 fL Neutrophils (%) (Auto) 60.5 % Lymphocytes (%) (Auto) 32.2 % Monocytes (%) (Auto) 4.9 % Eosinophils (%) (Auto) 1.8 % Basophils (%) (Auto) 0.3 % Neutrophils # (Auto) 1.97 K/uL Lymphocytes # (Auto) 1.05 K/uL Monocytes # (Auto) 0.16 K/uL Eosinophils # (Auto) 0.06 K/uL Basophils # (Auto) 0.01 K/uL RDW Standard Deviation 68.4 fL RDW Coefficient of Variation 19.8 % Immature Granulocyte % (Auto) 0.3 % Immature Granulocyte # (Auto) 0.01 K/uL Sodium Level 141 mmol/L Potassium Level 3.6 mmol/L Chloride Level 102 mmol/L Carbon Dioxide Level 32 mmol/L Anion Gap 7.0 mmol/L Blood Urea Nitrogen 15 mg/dl Creatinine 0.76 mg/dl Est Creatinine Clear Calc Drug Dose 72.1 ml/min Estimated GFR () 94.7 Estimated GFR (Non- 81.7 BUN/Creatinine Ratio 20.3 Random Glucose 102 mg/dl Calcium Level 8.3 mg/dl Phosphorus Level 3.0 mg/dl Magnesium Level 1.8 mg/dl Test 10/22/16 06:49 Bedside Glucose 118 mg/dl Impression Patient is a 66 year old female seen today for c/o PEG site pain. She had complicated post op course after tricuspid and mitral valve replacements done 08/26/16. PEG was place for nutritional support and she hasn't been using it since she is having good PO intake of food/fluid. Upon eval, PEG site w/o s/s of infection, though bumper appears to be tight, causing a wound to develop on abd skin. PEG flushes well w/o leaking or pain Plan - Check PEG position w Gastrograffin KUB - Bumper loosened from 4.5 to 5 marker. - Flush PEG per protocol - Trial adding PPI. - If persisting abd pain, especially w eating may consider EGD eval to r/o PUD. - Call if new questions or concerns arise. I have seen and evaluated the patient. She had a feeding tube placed about 6 weeks ago during a prolonged hospitalization after complications of cardiac surgery. She notes having abdominal discomfort which localizes to the site of the feeding tube. Physical examination No obvious distress, feeding tube appears to be tight Impression Patient with abdominal discomfort possibly related to over tightening of the feeding tube bumper. Today we loosened the feeding tube to have approximately 1 cm of play between the skin and the bumper. If the patient's symptoms persist I would suggest a CT of the abdomen for further evaluation to look for evidence of buried bumper syndrome. Should her symptoms not improve over the weekend we could consider endoscopic evaluation as well on Tuesday Recommendations Consider CT of abdomen if symptoms persist Consider use of Protonix 40 mg per day Please call with any questions or concerns
--- NOTE | 2016-10-22 13:23 | DIAGNOSTIC IMAGING REPORT ---
KUB PEG TUBE CHECK CLINICAL HISTORY: PEG tube check. FINDINGS: 2 AP abdominal radiographs are obtained following the injection of 30 cc of Gastrografin into the PEG tube. Comparison is made to study dated 10/21/2016. A PEG tube is present in the left upper quadrant. Enteric contrast is noted in the stomach and duodenum. There is no evidence of extraluminal contrast. Reflux of contrast is noted into the distal esophagus. There is a nonobstructed abdominal bowel gas pattern. Retained enteric contrast is seen within several right-sided colonic diverticula. No evidence of intraperitoneal free air is seen. There are no abnormal abdominal calcifications. Suture material is identified in the left lower quadrant. Vascular calcifications are observed in the pelvis. The skeletal structures are osteopenic. Mild lumbosacral spondylosis is identified. IMPRESSION: 1. A PEG tube is present in left upper quadrant. Injected contrast is seen in the stomach and duodenum. There is no evidence of extraluminal leakage. 2. Reflux is noted into the distal esophagus. 3. Nonobstructed abdominal bowel gas pattern. 4. Scattered colonic diverticula are observed. Electronically signed by: Aaron Higgins M.D. 10/22/2016 1:22 PM Dictated Date/Time: 10/22/2016 1:09 PM
[2016-10-22] MEDS: METHYLPREDNISOLONE 4 MG TAB PO SCH ×2 (13:55→20:43)
[2016-10-22] MEDS ORDERED: FUROSEMIDE INJ 40 MG in SYRINGE 0 ML IV ONE (14:00)
[2016-10-22] MEDS ORDERED: PERFLUTREN LIPID MICROSPHERE (DEFINITY) IV ONE (15:05)
--- NOTE | 2016-10-22 15:09 | Progress Note ---
Subjective Date of Service: Oct 22, 2016. Subjective Pt evaluation today including: conversation w/ patient, conversation w/ family ( at bedside), physical exam, chart review, lab review, review of studies (PEG tube study, CT chest), conversation w/ budget consultant (GI, gen surg), review of inpatient medication list Pain: near PEG tube site - better than yesterday, however PO Intake: npo Voiding: no voiding problems Pt states when she was released from [facility] in August she was d/c on oxygen via [place]. Has remained on it since then. Has had peripheral edema since her discharge as well. c/o dyspnea on exertion - chronic issue while at [facility] and while at SNF ([facility]). She has not used her PEG tube in 3-4 weeks. Taking meds and nutrition by mouth. Did have trach but has been decannulated. Problem List Medical Problems: (1) Anemia Status: Acute (2) Diffuse abdominal pain Status: Acute (3) Infection of PEG site Status: Acute (4) Upper GI bleeding Status: Acute Review of Systems Constitutional: + fever Respiratory: + dyspnea on exertion, No cough Cardiac: + edema, + orthopnea, No chest pain Abdomen: + pain, No diarrhea, No nausea, No vomiting Objective Vital Signs Date Time Temp Pulse Resp B/P Pulse Ox O2 Delivery O2 Flow Rate FiO2 10/22/16 12:00 Nasal Cannula 1.5 10/22/16 11:54 37.6 81 16 106/57 96 Nasal Cannula 2.0 10/22/16 08:13 37.7 80 16 114/62 97 Room Air 10/22/16 08:00 Nasal Cannula 1.5 10/22/16 04:02 93 Room Air 10/22/16 03:56 37.0 81 15 112/54 95 Nasal Cannula 1.5 10/22/16 00:00 93 Room Air 10/21/16 23:48 92 Nasal Cannula 1.0 10/21/16 23:44 36.9 80 15 113/60 72 Room Air 10/21/16 20:10 36.5 80 17 117/63 97 Nasal Cannula 1.0 10/21/16 20:00 93 Room Air 10/21/16 16:30 36.5 86 17 107/62 93 Nasal Cannula 2.0 10/21/16 16:11 79 15 114/59 95 10/21/16 15:00 77 18 116/59 94 Nasal Cannula 1.0 Physical Exam General Appearance: no apparent distress ENT: pharynx normal Neck: + JVD (2/3 way up neck) Respiratory/Chest: no respiratory distress, no accessory muscle use, + crackles (both bases) Cardiovascular: regular rate, rhythm, no gallop, no murmur Abdomen: normal bowel sounds, non tender, soft, no organomegaly, + pertinent finding (PEG tube in place, left abdomen; no associated swelling, erythema or drainage) Extremities: + pedal edema, + swelling (2+ b/l legs) Neurologic/Psychiatric: alert, oriented x 3 Skin: + pertinent finding (wound vac in place over right breast at inferior border) Laboratory Results Last 24 Hours Test 10/21/16 17:13 10/21/16 21:59 10/22/16 05:55 10/22/16 06:49 Bedside Glucose 203 mg/dl 165 mg/dl 118 mg/dl White Blood Count 3.26 K/uL Red Blood Count 3.04 M/uL Hemoglobin 9.1 g/dL Hematocrit 28.9 % Mean Corpuscular Volume 95.1 fL Mean Corpuscular Hemoglobin 29.9 pg Mean Corpuscular Hemoglobin Concent 31.5 g/dl Platelet Count 126 K/uL Mean Platelet Volume 8.9 fL Neutrophils (%) (Auto) 60.5 % Lymphocytes (%) (Auto) 32.2 % Monocytes (%) (Auto) 4.9 % Eosinophils (%) (Auto) 1.8 % Basophils (%) (Auto) 0.3 % Neutrophils # (Auto) 1.97 K/uL Lymphocytes # (Auto) 1.05 K/uL Monocytes # (Auto) 0.16 K/uL Eosinophils # (Auto) 0.06 K/uL Basophils # (Auto) 0.01 K/uL RDW Standard Deviation 68.4 fL RDW Coefficient of Variation 19.8 % Immature Granulocyte % (Auto) 0.3 % Immature Granulocyte # (Auto) 0.01 K/uL Sodium Level 141 mmol/L Potassium Level 3.6 mmol/L Chloride Level 102 mmol/L Carbon Dioxide Level 32 mmol/L Anion Gap 7.0 mmol/L Blood Urea Nitrogen 15 mg/dl Creatinine 0.76 mg/dl Est Creatinine Clear Calc Drug Dose 72.1 ml/min Estimated GFR () 94.7 Estimated GFR (Non- 81.7 BUN/Creatinine Ratio 20.3 Random Glucose 102 mg/dl Calcium Level 8.3 mg/dl Phosphorus Level 3.0 mg/dl Magnesium Level 1.8 mg/dl Assessment and Plan 66yo female with: 1. right breast wound with infection - defer management to wound care nurse & provider; appreciate their assistance. Most recent cx from late September showed guerra-sens staph aureus. Repeat cx also growing staph aureus, sens pending. On vanco. Wound vac in place. Add MVI/zinc/vit C to enhance healing. 2. abdominal pain 2nd to PEG tube - spoke with GI and gen surg. Although it would be convenient to pull the tube now it is too early to do so. have to wait about 4 more weeks per GI. Tube study shows tube is in proper position. The tube bumper was very tight and this was adjusted by GI today. No evidence of abscess or infection at tube site. If pain persists then would need CT abd. Add PPI. 3. acute/chronic CHF - start lasix IV BID. Unknown EF and unknown status of replaced valves. Will obtain echo. place on salt & fluid restriction. 4. valvular heart disease s/p MVR and TVR - echo to assess valves. 5. h/o AVR - echo to assess valve. 6. pancytopenia - exact cause not known, but apparently has been followed by heme/onc in past for this. Has received procrit shots for chronic disease anemia. CBC every 2-3 days for stability. 7. 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 Appears to have decompensated CHF. Perhaps after diuresis we may make headway with her O2 requirement. 8. hypomagnesemia - replaced, now normal. Will put on maintenance mag oxide due to IV lasix. 9. mild protein calorie malnutrition - add boost BID w/ meals. Add MVI. 10. DVT proph - eliquis to be held; place on heparin SC in meantime for DVT proph. 11. h/o RA and sarcoid - will need to get more information about the history of these conditions. She appears to be steroid dependent on methylprednisolone 4mg daily? Will give stress doses due to active infection. Increase to TID dosing for now. 12. h/o a. fib - noted; has pacer in place and is being paced. Eliquis on hold due to possible need for intervention of PEG tube. On BB and CCB; latter is short acting; this needs conversion to long-acting. 13. HTN - controlled. 14. T2DM - controlled with lantus / novolog. 15. hypothyroidism - check TSH in am to ensure compensated thyroid. cont synthroid in meantime. dispo - pt was at [facility] for rehab. There was talk of her going home soon. Pt/ desire d/c home when ready from [place]. SW aware of that desire. PT OT consults appreciated. Continued [facility] stay due to: abnormal vital signs, ambulation difficulties, multiple IV medications needed Discharge planning: home with home health
--- NOTE | 2016-10-22 17:05 | ECHOCARDIOGRAM REPORT ---
*NOTICE TO RECEIVING [employer] This information is strictly Confidential and protected under [place] law. [place] law prohibits you from making any further disclosure of this information unless further disclosure is expressly permitted by the written consent of the person to whom it pertains or is authorized by law. A general authorization for the release of medical or other information is not sufficient for this purpose. Hospital accepts no responsibility if the information is made available to any other person, INCLUDING THE PATIENT. Interpretation Summary * Name: DORON BERRY Study Date: 10/22/2016 03:42 PM BP: 106/57 mmHg * Patient Location: C.2T\S\S236\S\1 HR: 81 * : 1950 (M/d/yyyy) Gender: Female Height: 60 in * Age: 66 yrs Ethnicity: CA Weight: 185 lb * Ordering Physician: Buddy Dunn * Referring Physician: Self, Referred * Performed By: Rosalva Birch RDCS * * Reason For Study: VALVULAR HEART DISEASE * BSA: 1.8 m2 * History: VALVULAR HEART DISEASE * -- Conclusions -- * Left ventricular systolic function is mildly reduced. * The right ventricular systolic function is mildly reduced. * The left atrium is moderately dilated. * There is a bioprosthetic aortic valve. * There is a bioprosthetic mitral valve. * There is mild to moderate tricuspid regurgitation. * Right ventricular systolic pressure is elevated at 40-50mmHg. * Normal transvalvular gradients Procedure Details * A contrast injection of Definity was performed to improve assessment of LV function. * Contrast was injected into an intravenous site in the right arm. * One vial of Definity ultrasound contrast was diluted in normal saline to a total volume of 10 ml. A total of '2' ml of solution was administered during imaging. * Lot # [id number] of Definity utilized for procedure. * Expiration date 1 OCT 09. * The attending nurse who injected the contrast agent was TANYA GARCIA RN. Left Ventricle * The left ventricle is normal in size. * There is normal left ventricular wall thickness. * Ejection Fraction = 50-55%. * Left ventricular systolic function is mildly reduced. * Apical wall motion abnormality may reflect pacemaker activation. Right Ventricle * The right ventricle is grossly normal size. * There is a pacemaker lead in the right ventricle. * The right ventricular systolic function is mildly reduced. Atria * The left atrium is moderately dilated. * Right atrium not well visualized. Mitral Valve * There is a bioprosthetic mitral valve. * Prosthetic mitral valve peak and/or mean gradients are normal. * Mean gradient 6.5 mmHg Tricuspid Valve * There is mild to moderate tricuspid regurgitation. * Right ventricular systolic pressure is elevated at 40-50mmHg. Aortic Valve * There is no significant aortic regurgitation. * There is a bioprosthetic aortic valve. * The gradient is normal for this prosthetic aortic valve. Pericardium/Pleural * There is no pericardial effusion. MMode 2D Measurements and Calculations IVSd 0.83 cm IVSs 1.3 cm LVIDd 5.0 cm LVIDs 3.8 cm LVPWd 1.8 cm LVPWs 2.1 cm IVS/LVPW 0.47 FS 23.5 % EDV(Teich) 115.6 ml ESV(Teich) 61.5 ml EF(Teich) 46.8 % EDV(cubed) 121.3 ml ESV(cubed) 54.4 ml EF(cubed) 55.2 % % IVS thick 52.4 % % LVPW thick 16.0 % LV mass(C)d 260.3 grams LV mass(C)dI 144.2 grams/m\S\2 LV mass(C)s 256.8 grams LV mass(C)sI 142.3 grams/m\S\2 SV(Teich) 54.0 ml SI(Teich) 29.9 ml/m\S\2 SV(cubed) 66.9 ml SI(cubed) 37.1 ml/m\S\2 LVAd ap4 35.5 cm\S\2 LVLd ap4 8.2 cm EDV(MOD-sp4) 128.9 ml EDV(sp4-el) 130.6 ml LVAs ap4 22.3 cm\S\2 LVLs ap4 6.8 cm ESV(MOD-sp4) 58.6 ml ESV(sp4-el) 62.2 ml EF(MOD-sp4) 54.5 % EF(sp4-el) 52.3 % LVAd ap2 26.9 cm\S\2 LVLd ap2 7.3 cm EDV(MOD-sp2) 81.7 ml EDV(sp2-el) 83.8 ml LVAs ap2 18.3 cm\S\2 LVLs ap2 6.6 cm ESV(MOD-sp2) 42.5 ml ESV(sp2-el) 43.0 ml EF(MOD-sp2) 47.9 % EF(sp2-el) 48.7 % LVLd %diff -11.35 % EDV(MOD-bp) 102.4 ml LVLs %diff -2.75 % ESV(MOD-bp) 49.6 ml EF(MOD-bp) 51.6 % SV(MOD-sp4) 70.3 ml SI(MOD-sp4) 38.9 ml/m\S\2 SV(MOD-sp2) 39.1 ml SI(MOD-sp2) 21.7 ml/m\S\2 SV(MOD-bp) 52.8 ml SI(MOD-bp) 29.3 ml/m\S\2 SV(sp4-el) 68.3 ml SI(sp4-el) 37.9 ml/m\S\2 SV(sp2-el) 40.8 ml SI(sp2-el) 22.6 ml/m\S\2 Doppler Measurements and Calculations Ao V2 max 210.6 cm/sec Ao max PG 17.7 mmHg Ao max PG (full) 9.2 mmHg Ao V2 mean 146.2 cm/sec Ao mean PG 9.7 mmHg Ao mean PG (full) 4.8 mmHg Ao V2 VTI 38.6 cm LV V1 max PG 8.5 mmHg LV V1 mean PG 4.9 mmHg LV V1 max 146.0 cm/sec LV V1 mean 102.2 cm/sec LV V1 VTI 29.3 cm TR max eliezer 307.2 cm/sec
[2016-10-22] MEDS: ATORVASTATIN 20 MG TAB PO SCH (20:46)
[2016-10-22] MEDS: TRAZODONE HCL 50 MG TAB PO SCH (20:47)
[2016-10-23] MEDS: DILTIAZEM HCL 30 MG TAB PO SCH ×2 (00:18→05:56)
[2016-10-23 03:36] VITALS: BP 125/66; PULSE 80; TEMP 36.5; O2SAT 98
[2016-10-23] MEDS: LEVOTHYROXINE 25 MCG TAB PO SCH (05:56)
[2016-10-23 06:43] LABS: BUN/CREATININE RATIO 25.7 (10-20); CALCIUM 8.3 mg/dl (8.5-10.1); CREATININE 0.84 mg/dl (0.60-1.20); MAGNESIUM 1.9 mg/dl (1.8-2.4); POTASSIUM 4.3 mmol/L (3.5-5.1)
[2016-10-23 06:47] LABS: THYROID STIMULATING HORMONE 1.56 uIu/ml (0.300-4.500)
[2016-10-23 07:54] VITALS: BP 106/64; PULSE 79; TEMP 36.8; O2SAT 99
[2016-10-23] MEDS: METHYLPREDNISOLONE 4 MG TAB PO SCH ×3 (08:43→21:58)
[2016-10-23] MEDS: METOPROLOL TARTRATE 25 MG TAB PO SCH ×2 (08:43→21:58)
[2016-10-23] MEDS: GABAPENTIN 300 MG CAP PO SCH (08:44)
[2016-10-23] MEDS: ASCORBIC ACID 500 MG TAB PO SCH (08:44)
[2016-10-23] MEDS: CEROVITE ADV FORMULA TAB PO SCH (08:44)
[2016-10-23] MEDS: ASPIRIN 81 MG ECTAB PO SCH (08:44)
[2016-10-23] MEDS: ZINC SULFATE 220 MG CAP PO SCH (08:45)
[2016-10-23] MEDS: MAGNESIUM OXIDE 400 MG TAB PO SCH (08:45)
[2016-10-23] MEDS: POTASSIUM CHLORIDE 20 MEQ TABCR PO SCH ×2 (08:46→22:02)
[2016-10-23] MEDS: PANTOprazole SOD 40 MG TAB PO SCH (08:46)
[2016-10-23] MEDS: LEVETIRACETAM 500 MG TAB PO SCH ×2 (08:46→21:58)
[2016-10-23] MEDS: IPRATROPIUM BROMIDE HFA INHALER INH SCH ×4 (08:47→21:59)
[2016-10-23] MEDS: INSULIN ASPART 100 UNITS/ML 3 ML PEN SC SCH ×4 (08:50→22:01)
[2016-10-23] MEDS: INSULIN GLARGINE SOLOSTAR 100 UNITS/ML 3 ML PEN SC SCH ×2 (08:51→22:00)
[2016-10-23] MEDS: HEPARIN SOD 5000 UNIT/0.5 ML CARP SQ SCH (08:51)
[2016-10-23] MEDS: APIXABAN 2.5 MG TAB PO SCH ×2 (10:30→21:58)
[2016-10-23 11:46] VITALS: BP 105/63; PULSE 79; TEMP 36.6; O2SAT 96
[2016-10-23] MEDS: CEFAZOLIN IV 1,000 MG in DEXTROSE 5% 50ML 50 ML IV SCH ×2 (12:08→21:58)
[2016-10-23] MEDS ORDERED: FUROSEMIDE INJ 60 MG in SYRINGE 0 ML IV ONE (15:15)
[2016-10-23 15:35] VITALS: BP 115/66; PULSE 71; TEMP 36.8; O2SAT 97
--- NOTE | 2016-10-23 18:54 | DIAGNOSTIC IMAGING REPORT ---
ULTRASOUND BILATERAL LOWER EXTREMITY VENOUS CLINICAL HISTORY: Lower extremity edema. COMPARISON STUDY: No priors. TECHNIQUE: Real-time, grayscale, and color Doppler sonography of the deep veins of the right and left lower extremity was performed from the inguinal crease to the calf. Compression and augmentation were utilized. FINDINGS: A small intraluminal filling defect is identified in the left common femoral vein. This may represent trace chronic thrombus. The left common femoral vein is otherwise patent and normally compressible. There is no sonographic evidence of acute deep venous thrombosis identified in the right or left lower extremity. Right common femoral vein is clear. The superficial femoral and popliteal veins are patent and normally compressible bilaterally. The greater saphenous vein and the profunda femoris vein at the junction with the common femoral vein are clear in both legs. The visualized calf veins are patent bilaterally. There is a 2.9 x 1.8 x 5.5 cm simple appearing and nonvascular fluid collection identified in the right groin. Subcutaneous soft tissue edema is present in both legs. IMPRESSION: 1. There is no sonographic evidence of acute deep venous thrombosis identified in the right or left lower extremity. 2. A small filling defect within the left common femoral vein likely represents trace chronic thrombus. 3. A simple appearing and nonvascular fluid collection is identified in the right groin, likely representing a seroma. Clinical correlation will be required. Electronically signed by: Aaron Higgins M.D. 10/23/2016 6:53 PM Dictated Date/Time: 10/23/2016 6:50 PM
[2016-10-23 19:40] VITALS: BP 151/69; PULSE 78; TEMP 36.4; O2SAT 100
--- NOTE | 2016-10-23 20:07 | Progress Note ---
Subjective Date of Service: Oct 23, 2016. Subjective Pt evaluation today including: conversation w/ patient, conversation w/ family ( at bedside), physical exam, chart review, lab review, review of studies (dopplers of legs), review of inpatient medication list Pain: denies abd pain today PO Intake: improved Voiding: no voiding problems telemetry stable - paced 100% of time she overall feels better today nurses report 1000cc of UOP with lasix IV yesterday has not had PT but OT saw her yesterday wound vac with minimal drainage Problem List Medical Problems: (1) Anemia Status: Acute (2) Diffuse abdominal pain Status: Acute (3) Infection of PEG site Status: Acute (4) Upper GI bleeding Status: Acute Review of Systems Constitutional: No fever Respiratory: + dyspnea on exertion, No shortness of breath Cardiac: No chest pain, No orthopnea Abdomen: No pain Objective Vital Signs Date Time Temp Pulse Resp B/P Pulse Ox O2 Delivery O2 Flow Rate FiO2 10/23/16 19:40 36.4 78 16 151/69 100 2.0 10/23/16 16:00 Nasal Cannula 2.0 10/23/16 15:35 36.8 71 16 115/66 97 Nasal Cannula 2.0 10/23/16 12:00 Nasal Cannula 2.0 10/23/16 11:46 36.6 79 18 105/63 96 Nasal Cannula 2.0 10/23/16 08:00 Nasal Cannula 2.0 10/23/16 07:54 36.8 79 20 106/64 99 Room Air 10/23/16 04:38 Nasal Cannula 2.0 10/23/16 03:36 36.5 80 19 125/66 98 Nasal Cannula 2.0 10/23/16 00:36 Nasal Cannula 2.0 10/22/16 23:13 36.8 80 16 108/61 97 Nasal Cannula 2.0 10/22/16 20:00 Nasal Cannula 2.0 10/22/16 19:56 37.1 80 18 109/63 94 Nasal Cannula 2.0 Physical Exam General Appearance: no apparent distress, + pertinent finding (looks better today) ENT: pharynx normal Neck: + JVD (2/3 way up neck with +hepatojugular reflex) Respiratory/Chest: no respiratory distress, no accessory muscle use, + rales ( bibasilar; no increased WOB) Cardiovascular: regular rate, rhythm, no gallop, + systolic murmur Abdomen: normal bowel sounds, non tender, soft, no organomegaly, + pertinent finding (PEG tube in place; site clean, dry, intact) Extremities: + pedal edema (2-3+ b/l ), + swelling Neurologic/Psychiatric: alert, oriented x 3 Skin: + pertinent finding (wound vac in place, right chest) Laboratory Results Last 24 Hours Test 10/23/16 05:25 10/23/16 06:54 10/23/16 11:19 10/23/16 16:06 Sodium Level 140 mmol/L Potassium Level 4.3 mmol/L Chloride Level 101 mmol/L Carbon Dioxide Level 32 mmol/L Anion Gap 7.0 mmol/L Blood Urea Nitrogen 22 mg/dl Creatinine 0.84 mg/dl Est Creatinine Clear Calc Drug Dose 63.3 ml/min Estimated GFR () 83.9 Estimated GFR (Non- 72.4 BUN/Creatinine Ratio 25.7 Random Glucose 174 mg/dl Calcium Level 8.3 mg/dl Magnesium Level 1.9 mg/dl Thyroid Stimulating Hormone (TSH) 1.560 uIu/ml Bedside Glucose 197 mg/dl 236 mg/dl 149 mg/dl Assessment and Plan 66yo female with: 1. right breast wound with infection - defer management to wound care nurse & provider; appreciate their assistance. Both wound cx's + for guerra-sens staph aureus. Stop vanco. Start ancef 1 gm TID. Fevers resolved. 2. abdominal pain 2nd to PEG tube - may have been due to tight "bumper." Bumper adjusted; pain better. Tube study was normal. On PPI. Plan - remove PEG in 4 weeks. Appreciate GI/gen surg consults. 3. acute/chronic systolic/diastolic CHF - continue IV lasix. Try 60mg IV x 1 today and follow weight/UOP. 4. valvular heart disease s/p MVR and TVR - echo with normal functioning valves. 5. h/o AVR - normal valve function. 6. pancytopenia - exact cause not known, but apparently has been followed by heme/onc in past for this. Has received procrit shots for chronic disease anemia. CBC in AM for stability. 7. 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 Appears to have decompensated CHF. ECHO with moderate pulmonary HTN as well. Diurese and reassess. 8. hypomagnesemia - replaced, now normal. Will put on maintenance mag oxide due to IV lasix. 9. mild protein calorie malnutrition - added boost BID w/ meals. Added MVI. 10. DVT proph - resume eliquis. 11. h/o RA and sarcoid - sarcoid dx 1980s - quiet at this time. Is on medrol chronically for RA. On stress doses due to #1. Taper steroids in am. 12. h/o a. fib - noted; has pacer in place and is being paced. resume eliquis. cont BB. unsure if CCB is needed; due to severe edema will stop. 13. HTN - controlled. 14. T2DM - controlled with lantus / novolog. 15. hypothyroidism - compensated; TSH nl. cont synthroid in meantime. 16. LE edema - suspect 2nd to acute CHF, but checked dopplers - negative for DVT. CCB probably contributing too; CCB discontinued. dispo - pt was at [facility] for rehab. There was talk of her going home soon. Pt/ desire d/c home when ready from [facility]. SW aware of that desire. PT OT consults appreciated. Continued [facility] stay due to: ambulation difficulties, multiple IV medications needed Discharge planning: home with home health
[2016-10-23] MEDS: TRAZODONE HCL 50 MG TAB PO SCH (21:58)
[2016-10-23] MEDS: ATORVASTATIN 20 MG TAB PO SCH (21:58)
[2016-10-23 23:40] VITALS: BP 127/71; PULSE 85; TEMP 36.5; O2SAT 99
[2016-10-24 03:36] VITALS: BP 132/65; PULSE 73; TEMP 36.4; O2SAT 99
[2016-10-24] MEDS: CEFAZOLIN IV 1,000 MG in DEXTROSE 5% 50ML 50 ML IV SCH ×3 (04:00→19:54)
[2016-10-24] MEDS: LEVOTHYROXINE 25 MCG TAB PO SCH (06:04)
[2016-10-24 06:12] LABS: COMPLETE YES; EOS % 1.1 %; HEMATOCRIT 27.7 % (37-47); LYMPH % 39.8 %; LYMPH ABS # 1.13 K/uL (1.2-3.4); MEAN CELL VOLUME 91.4 fL (80-100); MEAN CORPUSCULAR HEMOGLOBIN 29.7 pg (25-34); MEAN CORPUSCULAR HGB CONC 32.5 g/dl (32-36); MEAN PLATELET VOLUME 8.6 fL (7.4-10.4); NEUT % 53.1 %; PLATELET COUNT 137 K/uL (130-400); RED BLOOD COUNT 3.03 M/uL (4.2-5.4); WHITE BLOOD COUNT 2.84 K/uL (4.8-10.8)
[2016-10-24 06:38] LABS: BUN/CREATININE RATIO 22.8 (10-20); CALCIUM 8.8 mg/dl (8.5-10.1); CREATININE 0.99 mg/dl (0.60-1.20); POTASSIUM 4.1 mmol/L (3.5-5.1)
[2016-10-24 07:24] VITALS: BP 133/72; PULSE 80; TEMP 36.6; O2SAT 100
[2016-10-24 08:59] VITALS: PULSE 82; O2SAT 97
[2016-10-24] MEDS: METHYLPREDNISOLONE 4 MG TAB PO SCH ×2 (09:11→21:28)
[2016-10-24] MEDS: IPRATROPIUM BROMIDE HFA INHALER INH SCH ×4 (09:11→20:51)
[2016-10-24] MEDS: GABAPENTIN 300 MG CAP PO SCH (09:11)
[2016-10-24] MEDS: CEROVITE ADV FORMULA TAB PO SCH (09:12)
[2016-10-24] MEDS: MAGNESIUM OXIDE 400 MG TAB PO SCH (09:12)
[2016-10-24] MEDS: ASPIRIN 81 MG ECTAB PO SCH (09:12)
[2016-10-24] MEDS: METOPROLOL TARTRATE 25 MG TAB PO SCH ×2 (09:12→21:27)
[2016-10-24] MEDS: PANTOprazole SOD 40 MG TAB PO SCH (09:12)
[2016-10-24] MEDS: ASCORBIC ACID 500 MG TAB PO SCH (09:12)
[2016-10-24] MEDS: LEVETIRACETAM 500 MG TAB PO SCH ×2 (09:13→21:25)
[2016-10-24] MEDS: ZINC SULFATE 220 MG CAP PO SCH (09:13)
[2016-10-24] MEDS: APIXABAN 2.5 MG TAB PO SCH ×2 (09:13→21:28)
[2016-10-24] MEDS: POTASSIUM CHLORIDE 20 MEQ TABCR PO SCH ×2 (09:13→21:40)
[2016-10-24] MEDS: INSULIN ASPART 100 UNITS/ML 3 ML PEN SC SCH ×4 (09:16→21:31)
[2016-10-24] MEDS: INSULIN GLARGINE SOLOSTAR 100 UNITS/ML 3 ML PEN SC SCH ×2 (09:17→21:32)
[2016-10-24] MEDS ORDERED: FUROSEMIDE INJ 60 MG in SYRINGE 0 ML IV ONE (09:30)
[2016-10-24 11:45] VITALS: BP 120/68; PULSE 79; TEMP 36.4; O2SAT 98
[2016-10-24 15:06] VITALS: BP 117/67; PULSE 16; PULSE 81; TEMP 36.5; O2SAT 98
--- NOTE | 2016-10-24 19:12 | Progress Note ---
Subjective Date of Service: Oct 24, 2016. Subjective Pt evaluation today including: conversation w/ patient, conversation w/ family ( by phone), physical exam, chart review, lab review, review of inpatient medication list Pain: denies abd pain today PO Intake: improved Voiding: no voiding problems tele with paced rhythm and PVCs only patient states "I feel good" had good diuresis yesterday from lasix denies any dyspnea denies any abdominal pain Problem List Medical Problems: (1) Anemia Status: Acute (2) Diffuse abdominal pain Status: Acute (3) Infection of PEG site Status: Acute (4) Upper GI bleeding Status: Acute Review of Systems Constitutional: No fever Respiratory: No dyspnea on exertion, No shortness of breath Cardiac: No chest pain, No orthopnea Abdomen: No diarrhea, No nausea, No pain, No vomiting Objective Vital Signs Date Time Temp Pulse Resp B/P Pulse Ox O2 Delivery O2 Flow Rate FiO2 10/24/16 16:00 Nasal Cannula 2.0 10/24/16 15:06 36.5 81 16 117/67 98 10/24/16 11:45 36.4 79 18 120/68 98 Nasal Cannula 2.0 10/24/16 08:59 82 97 10/24/16 08:00 Nasal Cannula 2.0 10/24/16 07:24 36.6 80 20 133/72 100 Nasal Cannula 2.0 10/24/16 04:14 Nasal Cannula 10/24/16 03:36 36.4 73 18 132/65 99 Nasal Cannula 2.0 10/24/16 00:02 Nasal Cannula 10/23/16 23:40 36.5 85 18 127/71 99 Nasal Cannula 2.0 10/23/16 20:00 Nasal Cannula 10/23/16 19:40 36.4 78 16 151/69 100 2.0 Physical Exam General Appearance: no apparent distress ENT: pharynx normal Neck: + JVD (9-10cm) Respiratory/Chest: no respiratory distress, no accessory muscle use, + rales ( bases - fine) Cardiovascular: regular rate, rhythm, no gallop, + pertinent finding ( bioprosthetic closure sound noted with s2) Abdomen: normal bowel sounds, non tender, soft, no organomegaly, + pertinent finding (PEG site clean, no drainage) Extremities: + pedal edema (2-3+ b/l, maybe slightly better today) Neurologic/Psychiatric: alert, oriented x 3 Skin: + pertinent finding (wound vac in place, right breast/lower chest wall area ) Laboratory Results Last 24 Hours Test 10/23/16 20:10 10/24/16 05:57 10/24/16 06:41 10/24/16 11:30 Bedside Glucose 241 mg/dl 169 mg/dl 215 mg/dl White Blood Count 2.84 K/uL Red Blood Count 3.03 M/uL Hemoglobin 9.0 g/dL Hematocrit 27.7 % Mean Corpuscular Volume 91.4 fL Mean Corpuscular Hemoglobin 29.7 pg Mean Corpuscular Hemoglobin Concent 32.5 g/dl Platelet Count 137 K/uL Mean Platelet Volume 8.6 fL Neutrophils (%) (Auto) 53.1 % Lymphocytes (%) (Auto) 39.8 % Monocytes (%) (Auto) 6.0 % Eosinophils (%) (Auto) 1.1 % Basophils (%) (Auto) 0.0 % Neutrophils # (Auto) 1.51 K/uL Lymphocytes # (Auto) 1.13 K/uL Monocytes # (Auto) 0.17 K/uL Eosinophils # (Auto) 0.03 K/uL Basophils # (Auto) 0.00 K/uL RDW Standard Deviation 61.4 fL RDW Coefficient of Variation 18.5 % Immature Granulocyte % (Auto) 0.0 % Immature Granulocyte # (Auto) 0.00 K/uL Sodium Level 141 mmol/L Potassium Level 4.1 mmol/L Chloride Level 100 mmol/L Carbon Dioxide Level 33 mmol/L Anion Gap 8.0 mmol/L Blood Urea Nitrogen 23 mg/dl Creatinine 0.99 mg/dl Est Creatinine Clear Calc Drug Dose 53.0 ml/min Estimated GFR () 68.8 Estimated GFR (Non- 59.4 BUN/Creatinine Ratio 22.8 Random Glucose 155 mg/dl Calcium Level 8.8 mg/dl Magnesium Level 2.0 mg/dl Test 10/24/16 16:48 Bedside Glucose 203 mg/dl Assessment and Plan 66yo female with: 1. right breast wound with infection - defer management to wound care nurse & provider; appreciate their assistance. Both wound cx's + for guerra-sens staph aureus. Cont ancef 1 gm TID. Fevers resolved. Blood cx's negative. Suspect we can transition to keflex on 10/25/16. 2. abdominal pain 2nd to PEG tube - may have been due to tight "bumper" on abdominal wall. Bumper adjusted; pain resolved. Tube study was normal. On PPI. Plan - remove PEG in 4 weeks. Appreciate GI/gen surg consults. 3. acute/chronic systolic/diastolic CHF - continue IV lasix 60mg daily. Daily BMP, mag. Follow UOP, weights, etc. 4. valvular heart disease s/p MVR and TVR - echo with normal functioning valves. 5. h/o AVR - normal valve function. 6. pancytopenia - exact cause not known, but apparently has been followed by heme/onc in past for this. Has received procrit shots for chronic disease anemia. CBC today again stable. 7. 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 Appears to have decompensated CHF. ECHO with moderate pulmonary HTN as well. Diurese and reassess need for O2 prior to d/c. 8. hypomagnesemia - resolved. 9. mild protein calorie malnutrition - added boost BID w/ meals. Added MVI. 10. DVT proph - resumed eliquis. 11. h/o RA and sarcoid - sarcoid dx 1980s - quiet at this time. Is on medrol chronically for RA. On stress doses due to #1. Taper steroids from TID to BID today. Back to once daily on 10/25/16. 12. h/o a. fib - noted; has pacer in place and is being paced. resumed eliquis. cont BB. we have d/c the calcium channel darby. 13. HTN - controlled. 14. T2DM - modestly uncontrolled; adjust novolog today; continue lantus as is. 15. hypothyroidism - compensated; TSH nl. cont synthroid in meantime. 16. LE edema - dopplers neg for DVT. TSH is normal. albumin mildly low. suspect 2nd to CHF and previous diltiazem use; former likely main culprit. 17. seroma, right groin - seen incidentally on doppler study. she has NO pain or symptoms. she had a heart cath at [facility] in August; likely femoral/groin access used for that procedure. would follow given lack of symptoms. dispo - pt was at [facility] for rehab. There was talk of her going home soon from that facility. Pt/ desire d/c home when ready from [facility]. SW aware of that desire. PT OT consults appreciated. ok to d/c tele; transfer to med/surg Continued [facility] stay due to: ambulation difficulties, multiple IV medications needed, other (acute/chronic CHF) Discharge planning: home with home health (vs SNF; hopefully former)
[2016-10-24 21:25] VITALS: BP 116/68; PULSE 81
[2016-10-24] MEDS: TRAZODONE HCL 50 MG TAB PO SCH (21:26)
[2016-10-24] MEDS: ATORVASTATIN 20 MG TAB PO SCH (21:26)
[2016-10-25] VITALS: BP 113/64; PULSE 80; TEMP 36.2; O2SAT 98
[2016-10-25] MEDS: CEFAZOLIN IV 1,000 MG in DEXTROSE 5% 50ML 50 ML IV SCH (03:42)
[2016-10-25] MEDS: LEVOTHYROXINE 25 MCG TAB PO SCH (06:24)
[2016-10-25 06:38] LABS: BUN/CREATININE RATIO 24.2 (10-20); CALCIUM 8.6 mg/dl (8.5-10.1); CREATININE 0.96 mg/dl (0.60-1.20); POTASSIUM 4.2 mmol/L (3.5-5.1)
[2016-10-25 07:20] VITALS: BP 128/62; PULSE 80; TEMP 36.7; O2SAT 95
[2016-10-25] MEDS: INSULIN ASPART 100 UNITS/ML 3 ML PEN SC SCH ×2 (08:12→11:55)
[2016-10-25] MEDS: IPRATROPIUM BROMIDE HFA INHALER INH SCH ×2 (08:16→11:54)
[2016-10-25] MEDS: ASPIRIN 81 MG ECTAB PO SCH (08:16)
[2016-10-25] MEDS: POTASSIUM CHLORIDE 20 MEQ TABCR PO SCH (08:16)
[2016-10-25] MEDS: LEVETIRACETAM 500 MG TAB PO SCH (08:16)
[2016-10-25] MEDS: APIXABAN 2.5 MG TAB PO SCH (08:16)
[2016-10-25] MEDS: METOPROLOL TARTRATE 25 MG TAB PO SCH (08:17)
[2016-10-25] MEDS: GABAPENTIN 300 MG CAP PO SCH (08:17)
[2016-10-25] MEDS: MAGNESIUM OXIDE 400 MG TAB PO SCH (08:17)
[2016-10-25] MEDS: PANTOprazole SOD 40 MG TAB PO SCH (08:17)
[2016-10-25] MEDS: CEROVITE ADV FORMULA TAB PO SCH (08:17)
[2016-10-25] MEDS: ASCORBIC ACID 500 MG TAB PO SCH (08:17)
[2016-10-25] MEDS: METHYLPREDNISOLONE 4 MG TAB PO SCH (08:17)
[2016-10-25] MEDS: ZINC SULFATE 220 MG CAP PO SCH (08:17)
[2016-10-25] MEDS: INSULIN GLARGINE SOLOSTAR 100 UNITS/ML 3 ML PEN SC SCH (08:21)
[2016-10-25] MEDS ORDERED: FUROSEMIDE 40 MG TAB PO SCH (09:00)
--- NOTE | 2016-10-25 11:41 | PROGRESS NOTE ---
DATE: 10/22/2016 INPATIENT PROGRESS NOTE SUBJECTIVE: The patient was recently hospitalized for the management of abdominal pain. The patient currently is not having any discomfort. The patient has been under the care of the wound center and my staff for a nonhealing postsurgical wound under the right breast region. There is no increased pain, swelling or drainage from this area. The patient was recently seen 3 days prior in the clinic where a debridement was performed with anticipation of wound VAC therapy to follow. OBJECTIVE: The patient's vital signs were reviewed and found to be unremarkable. The patient is currently afebrile. The wound site today shows no evidence of any significant central slough, active drainage or periwound erythema. The wound measures 1.6 x 6.5 x 2.5 cm. ASSESSMENT: Nonhealing postsurgical wound, right chest wall. PLAN: At this time, no debridement is indicated. It is now recommended that a wound VAC be placed, black foam, 125 mm of negative pressure. Wound VAC change Tuesday, Tuesday, Tuesday. The patient will continue to be monitored during her hospital course and will be followed up in the outpatient clinic upon discharge.
[2016-10-25] MEDS ORDERED: MCRK20 PO (12:52)
[2016-10-25] MEDS ORDERED: CEPH500C2 PO (12:52)
--- NOTE | 2016-10-25 13:02 | Discharge Instructions ---
Discharge Instructions Date of Service Oct 25, 2016. Admission Reason for Admission: Abdominal Pain related to PEG tube placement Discharge Discharge Diagnosis / Problem: Abdominal pain, acute on chronic heart failure, right chest wound Discharge Goals Goal(s): Improve function, Therapeutic intervention (follow up with wound clinic) Activity Recommendations Activity Limitations: resume your previous activity Lifting Limitations: none Exercise/Sports Limitations: as tolerated May Resume Sexual Activity: when tolerated Shower/Bathe: keep incision dry (do not soak in tub) . Instructions / Follow-Up Instructions / Follow-Up Medications: - KEFLEX: new prescription for 500mg three times a day, please take for 10 more days, you received 4 days of IV antibiotics while hospitalized - POTASSIUM: please note that your dose was changed to 20mEq and frequency was increased to twice a day, this is to offset the loss of potassium due to Lasix - DILTIAZEM: please note that this was stopped Acute on chronic diastolic and systolic heart failure: resolved currently, your lungs are clear and you have diuresed with Lasix IV. you need to go home and weigh yourself and record the weight every morning when you get up please weigh yourself after you urinate and before you eat breakfast and record weight if at any time you are 3 or more pounds up from the weight you are today, please call your primary care physician to see if you should increase Lasix briefly Chronic respiratory failure with hypoxia: you had a ambulatory oxygen saturation test that showed that you do not need oxygen at home Right chest/breast wound from surgery: continue with wound vac, needs changed Tuesday, Tuesday and Tuesday, home nursing arranged. Please follow up with Dr. Campa in clinic. you will be prescribed the Keflex above for 10 more days Abdominal pain: due to misplacement of bumper on PEG tube. Please follow up with gastroenterology for PEG removal in 4 weeks. Chronic steroid use: you can resume previous dose of Medrol 4mg daily, you received higher doses while in the hospital due to stress of illness FOLLOW UP - please call office of Dr. Palm for appointment in next 5-7 days for hospital follow up and transition of care - follow up with Dr. Campa in wound clinic as previously scheduled - follow up with gastroenterology for PEG removal in 4 weeks Call 911 and go to the Emergency Room if: * You have tightness or pain in your chest that does not go away with rest or Nitroglycerin * You are very short of breath even with rest Call your doctor if any of the following symptoms or problems start or get worse: * Shortness of breath or difficulty breathing * Wake up at night short of breath * Chest pain * Cough * Swelling of your hands, fee, or legs * More fatigued or tired with your normal activity * Palpitations - sudden fast heart beats WEIGHT * Weigh yourself every morning after using the bathroom. * Use the same scale. * Wear the same amount of clothing. * Write your weight down on your chart. * Call your doctor if you gain more than 2-3 pounds in 1-2 days. MEDICATIONS * Use this discharge instruction sheet for instructions. * Take your medications at the time your doctor ordered. * Do not skip a dose of your medicines. * If you miss a dose of medicine, take as soon as possible, but DO NOT DOUBLE A DOSE. * Read your medicine information when you get home. * Know all of the side effects of your medicine. * Call your doctor's office if you have any side effects. * Be sure all of your doctors know what medicine and herbs you take (including cold, flu, and herbal medicine). * Pain Medicine: If you do not get relief from your pain, please call your doctor for help. Take the following with you to your follow-up doctor appointments: * Weight Chart * Medication List * List of questions Do not drink excessive alcohol, beer or wine. Current Hospital Diet Patient's current hospital diet: Diabetes Type 2 Diet Discharge Diet Recommended Diet: Low Sodium Diet (2gm Na), Diabetes Type 2 Diet Procedures Procedures Performed: none Pending Studies Studies pending at discharge: no Laboratory Results Last Resulted CBC 10/24/16 05:57 Red Blood Count 3.03, Mean Corpuscular Volume 91.4, Mean Corpuscular Hemoglobin 29.7, Mean Corpuscular Hemoglobin Concent 32.5, Mean Platelet Volume 8.6, Neutrophils (%) (Auto) 53.1, Lymphocytes (%) (Auto) 39.8, Monocytes (%) (Auto) 6.0, Eosinophils (%) (Auto) 1.1, Basophils (%) (Auto) 0.0, Neutrophils # (Auto) 1.51, Lymphocytes # (Auto) 1.13, Monocytes # (Auto) 0.17, Eosinophils # (Auto) 0.03, Basophils # (Auto) 0.00 Last Resulted BMP 10/25/16 06:02 Medical Emergencies . Who to Call and When: Medical Emergencies: If at any time you feel your situation is an emergency, please call 911 immediately. . Non-Emergent Contact Non-Emergency issues call your: Primary Care Provider Call Non-Emergent contact if: you have a fever, your pain is concerning you, you have any medication questions . . "Provider Documentation" section prepared by Justus Melendrez. VTE Core Measure Inpt VTE Proph given/why not?: Other Anticoagulation (Eliquis) [place] Drug Monitoring Program Search Results: no issues identified
[2016-10-25 13:54] VITALS: BP 128/62; PULSE 80; TEMP 36.7; O2SAT 95
[2016-10-25] MEDS ORDERED: SITA50TA3 PO (15:36)
[2016-10-25] MEDS ORDERED: GLIM2TAB PO (15:36)
--- NOTE | 2016-10-25 15:53 | Discharge Summary ---
Discharge Summary Date of Service Oct 25, 2016. Discharge Summary Admission Date: Oct 21, 2016 at 15:40 Discharge Date: Oct 25, 2016 Discharge Disposition: Home with services Principal Diagnosis: Acute on chronic diastolic and systolic heart failure Problems/Secondary Diagnoses: Right chest / breast wound Abdominal pain due to PEG tube misplacement Chronic atrial fibrillation s/p MVR and TVR s/p AVR chronic respiratory failure after experience ARDS after surgery, resolved DM type II Immunizations: Have You Had Influenza Vaccine: Yes Influenza Vaccine Date: Jul 22, 2015 History of Tetanus Vaccine?: Unknown History of Pneumococcal: Yes Pneumococcal Date: Jul 22, 2015 History of Hepatitis B Vaccine: Unknown Procedures: Bumper on PEG loosened Wound vac placement and exchange Consultations: Gastroenterology Wound care provider Medication Reconciliation New Medications: Glimepiride (Amaryl) 2 Mg Tab 2 MG PO DAILY for 30 Days, #30 TAB Sitagliptin (Januvia) 50 Mg Tab 50 MG PO DAILY for 30 Days, #30 TAB Potassium Chloride (Klor-Con M20) 20 Meq Tabcr 20 MEQ PO BID, #60 TABS 3 Refills Continued Medications: Acetaminophen (Tylenol) 325 Mg Tab 325 MG PO Q4H, TAB Apixaban (Eliquis) 5 Mg Tab 5 MG PO BID, TAB Aspirin (Aspirin Chewable) 81 Mg Chew 81 MG PO DAILY, TAB Atorvastatin (Lipitor) 20 Mg Tab 20 MG PO HS, TAB Cephalexin Monohydrate (Keflex) 500 Mg Cap 500 MG PO TID, #30 CAP 0 Refills (This prescription has been renewed) Epoetin [place] (Procrit) 2,000 Units Inj 18740 ML SQ q tuesday for stop if HGB is greator than 10 Famotidine (Pepcid) 20 Mg Tab 20 MG PO DAILY, TAB Furosemide (Lasix) 40 Mg Tab 40 MG PO bid17, TAB Gabapentin (Gabapentin) 300 Mg Cap 1 CAP PO DAILY Ipratropium Bailey (Atrovent Hfa) 200 Puffs/3400 Mcg Aers 2 PUFFS INH QID, #12.9 GM 5 Refills Levetiracetam (Keppra) 500 Mg Tab 500 MG PO BID, TAB Levothyroxine Sodium (Synthroid) 25 Mcg Tab 1 TAB PO DAILY for 30 Days, #30 TAB 5 Refills Methylprednisolone (Medrol) 4 Mg Tab 4 MG PO DAILY, TAB Metoprolol Tartrate (Lopressor) (Lopressor) 25 Mg Tab 1 TAB PO BID for 90 Days, #180 TAB 1 Refill Saline (Deep Sea Nasal [place]) 0.65 % Spr 2 SPRAYS LESTER TID Trazodone Hcl (Trazodone) 50 Mg Tab 50 MG PO HS for Sleep, TAB Discontinued Medications: Diltiazem Hcl (Cardizem) 30 Mg Tab 30 MG PO Q6H, TAB Oseltamivir Phosphate (Tamiflu) 75 Mg Cap 75 MG PO DAILY, #10 CAP Potassium Chloride (Micro-K Ext Rel) 10 Meq Capcr 10 MEQ PO DAILY, CAP Discharge Exam Patient feeling quite well this AM. Oxygen was at 2L so it was removed and she was breathing comfortably. She had a two step that showed that she did not require oxygen at home. She was eating well, no abdominal pain. Had no other complaints and was anxious to go home. Long talk with patient and her regarding plans for discharge and medications upon discharge. All questions answered. Review of Systems: Constitutional: + chills, + fatigue, + fever, + sweats, + weakness (overall , but improving) Eyes: No diplopia, No discharge, No eye pain, No problem reported, No redness, No worsening of vision ENT: No dental problems, No hearing loss, No nasal symptoms, No problem reported, No sore throat, No tinnitus, No trouble swallowing, No unusual epistaxis Respiratory: + dyspnea on exertion (minimal, improving daily), No cough, No dyspnea at rest, No hemoptysis, No shortness of breath, No sputum, No wheezing Cardiovascular: + chest pain (right chest with wound, minimal), No PND, No claudication, No edema, No orthopnea, No palpitations, No problem reported Abdomen: + problem reported (PEG in place), No constipation, No diarrhea, No nausea, No pain, No vomiting Musculoskeletal: No calf pain, No joint pain, No muscle pain, No problem reported, No swelling Genitourinary - Female: No dysuria, No urinary frequency, No urinary incontinence, No urinary urgency Neurologic: No balance problems, No memory loss, No numbness/tingling, No paralysis, No problem reported, No vertigo, No weakness Psychiatric: No anhedonism, No anxiety, No depression symptoms, No insomnia , No problem reported, No substance abuse Endocrine: No excessive thirst, No excessive urination, No fatigue, No problem reported Hematologic / Lymphatic: No abnormal bleeding/bruising, No clotting problems , No night sweats, No problem reported, No swollen lymph nodes Integumentary: No bleeding, No color change, No itch, No new/changing skin lesions, No problem reported, No rash Physical Exam: General Appearance: WD/WN, no apparent distress Eyes: normal inspection, EOMI, sclerae normal ENT: normal ENT inspection, hearing grossly normal, pharynx normal Neck: supple, no adenopathy, no JVD, trachea midline Respiratory/Chest: chest non-tender, lungs clear, normal breath sounds, no respiratory distress, no accessory muscle use Cardiovascular: no gallop, no JVD, no murmur, normal peripheral pulses, + irregularly irregular, + pertinent finding (artifical valve sounds) Abdomen / GI: normal bowel sounds, non tender, soft, no organomegaly Extremities: normal inspection, no calf tenderness, normal capillary refill , normal range of motion, pelvis stable, + pedal edema (trace bilaterally, non- pitting) Neurologic/Psychiatric: top cleaner II-XII nml as tested, no motor/sensory deficits , alert, normal mood/affect, normal reflexes, oriented x 3 Skin: normal color, warm/dry, no rash Lymphatic: no adenopathy Hospital Course 66yo female with: 1. right breast wound with infection - wound was caused after she was coughing excessively after surgery, was site of incision for valve replacement defer management to wound care nurse & provider; appreciate their assistance. Both wound cx's + for guerra-sens staph aureus. Cont ancef 1 gm TID. Fevers resolved. Blood cx's negative. Will d/c on Keflex 500mg TID x 10 more days for 14 days total home nursing for wound vac changes follow up in one week with Dr. Campa in clinic 2. abdominal pain 2nd to PEG tube - was due to tight "bumper" on abdominal wall. Bumper adjusted; pain resolved. Tube study was normal. On PPI. Plan - remove PEG in 4 weeks. patient would like to see [facility] for removal, provided with their contact information 3. acute/chronic systolic/diastolic CHF - treated with IV lasix 60mg daily. excellent diuresis and weight going down resume Lasix 40mg PO BID, follow up BMP as outpatient 4. valvular heart disease s/p MVR and TVR - echo with normal functioning valves. 5. h/o AVR - normal valve function. 6. pancytopenia - exact cause not known, but apparently has been followed by heme/onc in past for this, chronic and stable Has received procrit shots for chronic disease anemia. CBC today again stable. 7. chronic resp failure - has required O2 since she developed ARDS following her MVR/TVR surgeries earlier this year at [facility] in [place]. Appears to have decompensated CHF. ECHO with moderate pulmonary HTN as well. after aggressive diuresis, she had a two step that showed she did NOT require home oxygen, discharged on room air 8. hypomagnesemia - resolved. 9. mild protein calorie malnutrition - added boost BID w/ meals. Added MVI. 10. DVT proph - resumed eliquis. 11. h/o RA and sarcoid - sarcoid dx 1980s - quiet at this time. Is on medrol chronically for RA. On stress doses due to #1. Taper steroids from TID to BID yesterday Back to once daily today on discharge 12. h/o a. fib - noted; has pacer in place and is being paced. continue eliquis. cont BB. was previously taking Diltiazem 30mg q6, this was stopped several days ago, no episodes of tachycardia 13. HTN - controlled. 14. T2DM - treated with Lantus and novolog while admitted patient previously on Amaryl and Januvia, will resume these on discharge she will follow up with PCP 15. hypothyroidism - compensated; TSH nl. cont synthroid in meantime. 16. LE edema - dopplers neg for DVT. TSH is normal. albumin mildly low. suspect 2nd to CHF and previous diltiazem use; former likely main culprit. 17. seroma, right groin - seen incidentally on doppler study. she has NO pain or symptoms. she had a heart cath at [facility] in August; likely femoral/groin access used for that procedure. would follow given lack of symptoms. dispo - pt was at [facility] for rehab. There was talk of her going home soon from that facility. Pt/ desire d/c home when ready from [facility]. SW aware of that desire. PT OT consults appreciated, cleared to go home with home health will d/c to home today with home nursing Total Time Spent: Greater than 30 minutes This includes examination of the patient, discharge planning, medication reconciliation, and communication with other providers. Discharge Instructions Please refer to the electronic Patient Visit Report (Discharge Instructions) for additional information. Follow-Up Dr. Palm in one week Dr. Campa next Tuesday Emily SMART in one month for PEG removal Dr. John at [facility], was supposed to see today, she will call for first available appt Cardiothoracic surgery at [facility] at the end of the month Additional Copies To Lc Lowe DO; Dillon John D.O.; Aneesh Palm M.D.; Milan Campa, DO
[2016-10-25] MEDS ORDERED: CEPHALEXIN MONOHYDRATE 500 MG CAP PO SCH (21:00)
[2016-10-26] MEDS ORDERED: METHYLPREDNISOLONE 4 MG TAB PO SCH (09:00)
[2016-11-19] MEDS ORDERED: CIPR1TAB11 PO (09:04)
[2016-12-21] MEDS ORDERED: LEVE500T13 PO (11:49)
[2016-12-21] MEDS ORDERED: NRN300 PO (11:49)
[2016-12-21] MEDS ORDERED: ASPCH81X PO (11:49)
[2016-12-21] MEDS ORDERED: SALI0.6517 NAE (11:49)
[2016-12-21] MEDS ORDERED: ATOR-54 PO (11:49)
[2016-12-21] MEDS ORDERED: LEVO25TA PO (11:49)
== END 2016-10-25 18:55 | disposition home health service (06) | DRG 862 ==
LOC: ENRESERVTM → ENRESERVDT → EDBD 10:14 → C.EDB 10:15 → C.2T 15:40 → C.MED 10-24 11:45
PROVIDERS: ADMIT Student in an Organized Health Care Education/Training Program; ATTEND Internal Medicine
DX: T81.4XXA Infection following a procedure, initial encounter (principal); I50.43 Acute on chronic combined systolic (congestive) and diastolic (congestive) heart failure; D61.1 Drug-induced aplastic anemia; D61.818 Other pancytopenia; E44.1 Mild protein-calorie malnutrition; L76.34 Postprocedural seroma of skin and subcutaneous tissue following other procedure; J96.10 Chronic respiratory failure, unspecified whether with hypoxia or hypercapnia; B95.61 Methicillin susceptible Staphylococcus aureus infection as the cause of diseases classified elsewhere; Y83.2 Surgical operation with anastomosis, bypass or graft as the cause of abnormal reaction of the patient, or of later complication, without mention of misadventure at the time of the procedure; R10.9 Unspecified abdominal pain; K94.29 Other complications of gastrostomy; Y84.5 Insertion of gastric or duodenal sound as the cause of abnormal reaction of the patient, or of later complication, without mention of misadventure at the time of the procedure; Y73.2 Prosthetic and other implants, materials and accessory gastroenterology and urology devices associated with adverse incidents; Y84.0 Cardiac catheterization as the cause of abnormal reaction of the patient, or of later complication, without mention of misadventure at the time of the procedure; T45.1X5S Adverse effect of antineoplastic and immunosuppressive drugs, sequela; R56.9 Unspecified convulsions; E11.9 Type 2 diabetes mellitus without complications; I27.2 Other secondary pulmonary hypertension; E83.42 Hypomagnesemia; R60.0 Localized edema; D63.8 Anemia in other chronic diseases classified elsewhere; I48.2 Chronic atrial fibrillation; J11.1 Influenza due to unidentified influenza virus with other respiratory manifestations; I11.0 Hypertensive heart disease with heart failure; E03.9 Hypothyroidism, unspecified; M06.9 Rheumatoid arthritis, unspecified; D86.9 Sarcoidosis, unspecified; K21.9 Gastro-esophageal reflux disease without esophagitis; E78.5 Hyperlipidemia, unspecified; G47.00 Insomnia, unspecified; Z68.35 Body mass index [BMI] 35.0-35.9, adult; Z99.81 Dependence on supplemental oxygen; Z95.0 Presence of cardiac pacemaker; Z95.3 Presence of xenogenic heart valve; Z79.01 Long term (current) use of anticoagulants; Z79.82 Long term (current) use of aspirin; Z79.4 Long term (current) use of insulin; Z79.52 Long term (current) use of systemic steroids; Z79.899 Other long term (current) drug therapy; Z86.73 Personal history of transient ischemic attack (TIA), and cerebral infarction without residual deficits; Z85.038 Personal history of other malignant neoplasm of large intestine

== ENCOUNTER → 2016-11-04 | Outpatient (CLI) | payer OTHER, MEDICARE ==
[~2016-11-04] MED LIST changes: +ACET-1311 PO; +AMOX875T PO; +APIX1TAB3 PO; +ASPCH81X PO; -ASPI81TA28 PO; +ATOR-54 PO; +ATRIN INH; -Amaryl PO; -Atorvastatin PO; +CEFD300C3 PO; +CEPH500C2 PO; +CIPR1TAB11 PO; -DILT-113 PO; -DILT30TA PO; +EPGI2M SQ; -Eliquis PO; +FAMO20TA11 PO; +FERR1TAB13 PO; +FURO-85 PO; +FURO40TA3 PO; +GLIM1TAB2 PO; +GLIM2TAB PO; -Gabapentin PO; +INSDGIPEN SC; -INSHNI SUBCON; -Iron PO; +LEVE500T13 PO; +LEVO25TA PO; -LEVO75TA5 PO; -Lasix PO; -Lomotil PO; +MCRK20 PO; +MELATAB2 PO; +METH4TAB31 PO; +METO25TA56 PO; -Medrol PO; +NRN300 PO; +NYSP TOP; -OSEL75CA12 PO; -POTA-65 PO; +PRED10TA PO; +SACC250C PO; +SALI0.6517 NAE; +SITA50TA3 PO; +SPIR25TA PO; +SPIR25TA89 PO; +SULF800T23 PO; +TRAM-10 PO; +TRAZ50TA35 PO; +VNCS125 PO; +XPNINS1255 INH
--- NOTE | 2016-11-04 14:41 | DIAGNOSTIC IMAGING REPORT ---
CT SCAN OF THE ABDOMEN WITH IV CONTRAST CLINICAL HISTORY: Abdominal wall pain at the site of PEG tube insertion. COMPARISON STUDY: KUB dated 10/22/2016. TECHNIQUE: Following the IV administration of 115 cc of Optiray 320, CT scan of the abdomen is performed from the lung bases to the pelvic inlet. Images are reviewed in the axial, sagittal, and coronal planes. IV contrast was administered without complication. Automated dose control exposure was utilized. CT DOSE: 412.13 mGy.cm FINDINGS: Lung bases: The patient is status post midline sternotomy. Pacemaker leads are noted. Findings suggest mitral valve surgery. The heart is enlarged and without pericardial effusion. Linear atelectasis versus scarring is present at both lung bases. Liver: The contrast-enhanced liver is cirrhotic in morphology and heterogeneous in attenuation. There is nodularity of the hepatic surface contour. There is mild central intrahepatic biliary ductal dilatation. The hepatic veins and portal veins are patent. There are small perigastric and perisplenic varices. Gallbladder: Surgically absent. Spleen: The spleen is enlarged, measuring 15 cm in length. Pancreas: Moderately atrophic and grossly unremarkable. Adrenal glands: Unremarkable. Kidneys: The contrast enhanced kidneys are normal in size and without hydronephrosis. The kidneys enhance symmetrically. Small nonobstructing left renal calculi are identified. Abdominal vasculature: The abdominal aorta is normal in course and caliber noting moderate atherosclerotic calcification. Stomach and bowel: The stomach and duodenum are normal in configuration. A percutaneous gastrostomy tube is located in the stomach. No abnormality is seen at the PEG tube insertion site. Postoperative change suggest previous partial colectomy. This is only partially imaged. Scattered colonic diverticula are observed. There is no evidence of bowel obstruction. Peritoneum: There is no intraperitoneal free air or abdominal ascites. Lymphadenopathy: None. Skeletal structures: The skeletal structures are osteopenic. Mild lumbosacral spondylosis is observed. No lytic or blastic lesions are seen. IMPRESSION: 1. A gastrostomy tube is in place. No abnormality is seen at the gastrostomy site. 2. Cirrhotic liver morphology with evidence of portal hypertension including splenomegaly as well as perigastric and perisplenic varices. 3. Cardiomegaly. 4. Nonobstructing left renal calculi. 5. Findings suggest previous left colon resection. No bowel obstruction is seen. Electronically signed by: Aaron Higgins M.D. 11/04/2016 2:39 PM Dictated Date/Time: 11/04/2016 2:33 PM
== END | disposition home or self-care (01) ==
LOC: C.CTS 13:05
PROVIDERS: ATTEND Internal Medicine Hematology & Oncology
DX: N18.9 Chronic kidney disease, unspecified (principal); D63.1 Anemia in chronic kidney disease; Z93.1 Gastrostomy status; K74.60 Unspecified cirrhosis of liver; R16.1 Splenomegaly, not elsewhere classified; N20.0 Calculus of kidney

== ENCOUNTER 2016-12-05 14:54 | Inpatient (IN) | payer OTHER, MEDICARE ==
[~2016-12-05] VITALS: Ht 152.4 cm; Wt 93.9 kg
[~2016-12-05 14:54] MED LIST changes: -ACET-1311 PO; -AMOX875T PO; -ASPCH81X PO; -ATOR-54 PO; -ATRIN INH; -CEFD300C3 PO; -CEPH500C2 PO; -CIPR1TAB11 PO; -EPGI2M SQ; -FAMO20TA11 PO; -FERR1TAB13 PO; -FURO-85 PO; -GLIM1TAB2 PO; -GLIM2TAB PO; -INSDGIPEN SC; -LEVE500T13 PO; -LEVO25TA PO; -MELATAB2 PO; -METO25TA56 PO; -NRN300 PO; -NYSP TOP; -PRED10TA PO; -SACC250C PO; -SALI0.6517 NAE; -SITA100T3 PO; -SITA50TA3 PO; -SPIR25TA PO; -SPIR25TA89 PO; -SULF800T23 PO; -TRAM-10 PO; -TRAZ50TA35 PO; -VNCS125 PO; -XPNINS1255 INH
[2016-12-05] MEDS ORDERED: ONDANSETRON INJ 2 MG/ML 2 ML VIAL IV STA (15:29)
[2016-12-05] MEDS ORDERED: PIPERACILLIN/TAZOBACTAM 4.5 GM/100ML D5W IV STA (15:29)
[2016-12-05] MEDS ORDERED: SODIUM CHLORIDE 0.9% 1000ML 1,000 ML IV STA (15:29)
[2016-12-05 15:38] LABS: HEMATOCRIT 27.4 % (37-47); MEAN CELL VOLUME 85.9 fL (80-100); MEAN CORPUSCULAR HEMOGLOBIN 28.8 pg (25-34); MEAN CORPUSCULAR HGB CONC 33.6 g/dl (32-36); MEAN PLATELET VOLUME 9.6 fL (7.4-10.4); PLATELET COUNT 155 K/uL (130-400); RED BLOOD COUNT 3.19 M/uL (4.2-5.4); WHITE BLOOD COUNT 9.37 K/uL (4.8-10.8)
[2016-12-05 15:46] LABS: INR 1.2 (0.9-1.1); PROTHROMBIN TIME (PATIENT) 13.1 SECONDS (9.0-12.0)
[2016-12-05] MEDS ORDERED: TRAM-10 PO (15:56)
[2016-12-05] MEDS ORDERED: FERR1TAB13 PO (15:56)
[2016-12-05] MEDS ORDERED: SULF800T23 PO (15:56)
[2016-12-05] MEDS ORDERED: SACC250C PO (15:56)
[2016-12-05] MEDS ORDERED: SPIR25TA PO (15:56)
[2016-12-05 15:59] LABS: BASO % 0.1 %; BASO ABS # 0.01 K/uL (0-0.2); COMPLETE YES; EOS % 0.1 %; IG% 0.1 %; LYMPH % 29.3 %; LYMPH ABS # 2.75 K/uL (1.2-3.4); NEUT % 65.4 %
[2016-12-05 16:02] LABS: BUN/CREATININE RATIO 19.6 (10-20); CALCIUM 7.9 mg/dl (8.5-10.1); CREATININE 1.8 mg/dl (0.60-1.20); MAGNESIUM 1.6 mg/dl (1.8-2.4); POTASSIUM 3.6 mmol/L (3.5-5.1)
--- NOTE | 2016-12-05 16:09 | DIAGNOSTIC IMAGING REPORT ---
SINGLE VIEW CHEST CLINICAL HISTORY: Fever. FINDINGS: An AP, portable, upright chest radiograph is compared to study dated 10/21/2016 and correlated with chest CT dated 10/21/2016. The examination is degraded by portable technique and patient rotation. A 2-lead cardiac pacemaker is unchanged in position and largely obscures the left lower chest. The patient is status post midline sternotomy. The heart is enlarged and there is atherosclerotic calcification of the thoracic ureter. There is pulmonary vessel congestion and interstitial edema. There are small pleural effusions with bibasilar atelectasis. No pneumothorax is seen. The skeletal structures are osteopenic. The bony thorax is grossly intact. IMPRESSION: 1. Cardiomegaly and cardiac pacemaker. There is evidence of congestive failure and interstitial edema. 2. Small pleural effusions are identified. Electronically signed by: Aaron Higgins M.D. 12/05/2016 4:06 PM Dictated Date/Time: 12/05/2016 4:05 PM
[2016-12-05] MEDS ORDERED: OPTIRAY 320 IV PRN (16:15)
[2016-12-05 16:46] LABS: URINE APPEARANCE CLOUDY (CLEAR); URINE COLOR DK YELLOW; URINE EPITHELIAL CELL AUTO >30 /lpf (0-5); URINE NITRITE POS (NEG); URINE SPECIFIC GRAVITY 1.016 (1.000-1.030); UROBILINOGEN NEG (NEG); ZZURINE CULT IF INDIC CATH YES
[2016-12-05 16:50] LABS: MANUAL MICROSCOPIC REQUIRED? NO; REVIEW REQ? YES
[2016-12-05 16:57] LABS: URINE BILIRUBIN NEG (NEG)
[2016-12-05 17:07] LABS: URINE PATH CASTS 0-3 GRANULAR CASTS /lpf (0)
--- NOTE | 2016-12-05 17:20 | DIAGNOSTIC IMAGING REPORT ---
CT SCAN OF THE BRAIN WITHOUT IV CONTRAST CLINICAL HISTORY: Trauma. Fall. COMPARISON STUDY: No priors. TECHNIQUE: Unenhanced axial CT scan of the brain is performed from the vertex to the skull base. FINDINGS: Brain parenchyma: There are age-related involutional changes noting mild subcortical and periventricular microangiopathic change. There is no hemorrhage, mass effect, or evidence of acute territorial ischemia by CT criteria. Davies-white matter is preserved. No extra-axial fluid collection is seen. Ventricles, sulci, cisterns: Prominent secondary to involutional change. Intracranial vasculature: There is atherosclerotic calcification of the cavernous carotid and vertebral arteries. Calvarium: The skeletal structures are osteopenic. No depressed calvarial fracture is seen. Sinuses and mastoids: Trace mucosal thickening is seen within the right sphenoid sinus. The remaining visualized paranasal sinuses are clear. There is a small right mastoid effusion. The left mastoid air cells are well pneumatized. Orbits: The bony orbits are grossly intact. There are bilateral ocular lens implants. IMPRESSION: There is no hemorrhage, mass effect, or evidence of acute territorial ischemia by CT criteria. Electronically signed by: Aaron Higgins M.D. 12/05/2016 5:18 PM Dictated Date/Time: 12/05/2016 5:16 PM
--- NOTE | 2016-12-05 17:27 | DIAGNOSTIC IMAGING REPORT ---
CT SCAN OF THE CERVICAL SPINE CLINICAL HISTORY: Fall. Neck pain. COMPARISON STUDY: No priors. TECHNIQUE: CT scan of the cervical spine is performed from the skull base to the upper thoracic spine. Images are reviewed in the axial, sagittal, and coronal planes. IV contrast was not administered for this examination. FINDINGS: Skeletal structures: The skeletal structures are osteopenic. There is incomplete bony fusion of the posterior ring of C1, likely on a congenital basis. There is no evidence of fracture or subluxation involving the cervical spine. Vertebral body height and alignment are maintained. The odontoid process and lateral masses are intact. The atlantoaxial articulation is preserved noting productive degenerative change. The spinous processes appear intact. Small anterior osteophytes are noted in the lower cervical region. There is mild to moderate multilevel cervical spondylosis. Uncovertebral and facet arthropathy intervertebral foraminal narrowing at several levels. Chronic appearing posttraumatic deformity is identified in the right clavicle. Intervertebral discs: The disc spaces are well maintained. Central canal: Widely patent. Soft tissues: The prevertebral and paraspinous soft tissues are within normal limits. Pacemaker leads are noted in the left axilla. There is atherosclerotic calcification of the carotid bulbs. Calvarium: The visualized calvarium at the skull base appears intact. Brain parenchyma: Partially visualized brain parenchyma the skull base is within normal limits. Sinuses and mastoids: Mild mucosal thickening is seen in the right sphenoid sinus. The remaining visualized paranasal sinuses are clear. There is a small right mastoid effusion. The left mastoid air cells are well pneumatized. Lung apices: Clear as visualized. IMPRESSION: 1. There is no evidence of fracture or subluxation involving the cervical spine. 2. Osteopenia and spondylotic change as above. Electronically signed by: Aaron Higgins M.D. 12/05/2016 5:25 PM Dictated Date/Time: 12/05/2016 5:21 PM
--- NOTE | 2016-12-05 17:39 | DIAGNOSTIC IMAGING REPORT ---
CT SCAN OF THE ABDOMEN AND PELVIS WITH IV CONTRAST CLINICAL HISTORY: Fall. Elevated bilirubin and hepatic transaminases. COMPARISON STUDY: Abdominal CT dated 11/04/2016. TECHNIQUE: Following the IV administration of 115 cc of Optiray 320, CT scan of the abdomen AND PELVIS is performed from the lung bases to the proximal femora. Images are reviewed in the axial, sagittal, and coronal planes. IV contrast was administered without complication. Automated dose control exposure was utilized. CT DOSE: 2560.60 mGy.cm FINDINGS: Lung bases: The patient is status post midline sternotomy. Pacemaker leads are noted. The heart is enlarged and without pericardial effusion. Dependent consolidation is noted. Linear atelectasis versus scarring is present at both lung bases. Liver: The contrast-enhanced liver is cirrhotic in morphology and heterogeneous in attenuation. There is nodularity of the hepatic surface contour. There is mild central intrahepatic biliary ductal dilatation. The hepatic veins and portal veins are patent. There are small perigastric and perisplenic varices. Gallbladder: Surgically absent. Spleen: The spleen is enlarged, measuring 15 cm in length. Pancreas: Moderately atrophic and grossly unremarkable. Adrenal glands: Unremarkable. Kidneys: The contrast enhanced kidneys are normal in size and without hydronephrosis. The kidneys enhance symmetrically. Small nonobstructing left renal calculi are identified. Abdominal vasculature: The abdominal aorta is normal in course and caliber noting moderate to advanced atherosclerotic calcification. Stomach and bowel: The stomach and duodenum are normal in configuration. A percutaneous gastrostomy tube has been removed from previous. Findings suggest partial resection of the left colon with colocolonic anastomosis. No bowel obstruction is seen. There is moderate colonic diverticulosis without CT evidence of acute diverticulitis. The appendix is well-visualized and normal. Peritoneum: There is no intraperitoneal free air or abdominal ascites. Lymphadenopathy: None. Pelvic viscera: Bladder is decompressed but appears mildly thick walled. The uterus and adnexa are normal as imaged. There is postoperative change in the right groin. A lobulated simple appearing fluid collection is noted in the right groin measuring approximately 2 x 4.5 cm. This likely represents a postoperative seroma. Skeletal structures: The skeletal structures are osteopenic. Mild lumbosacral spondylosis is observed. A large Schmorl's node is seen in the superior endplate of L5. No lytic or blastic lesions are seen. IMPRESSION: 1. Although decompressed, the bladder wall appears thickened and hyperemic. Correlate clinically and with urinalysis for evidence of cystitis. 2. The gastrostomy tube seen on 11/04/2016 has been removed. 3. The liver is cirrhotic in morphology and there is evidence of portal hypertension including splenomegaly as well as perigastric and perisplenic varices. 4. Cardiomegaly. 5. Nonobstructing left renal calculi. 6. There are postoperative changes consistent with partial left colon resection with colocolonic anastomosis. There is no bowel obstruction. 7. Moderate colonic diverticulosis without CT evidence of acute epiglottis. 8. A simple appearing fluid collection the right groin likely represents a postoperative seroma. Clinical correlation will be required. 9. Additional findings as above. Electronically signed by: Aaron Higgins M.D. 12/05/2016 5:37 PM Dictated Date/Time: 12/05/2016 5:29 PM
--- NOTE | 2016-12-05 18:09 | DIAGNOSTIC IMAGING REPORT ---
CT ANGIOGRAM OF THE CHEST CLINICAL HISTORY: Hypoxia. Fall. COMPARISON STUDY: Chest x-ray dated 12/05/2016. Chest CT dated 10/21/2016. TECHNIQUE: Following the IV administration of 115 cc of Optiray 320, CT angiogram of the chest was performed from the upper abdomen to the thoracic inlet utilizing the pulmonary embolus protocol. Images are reviewed in the axial, sagittal, and coronal planes. 3-D MIPS images are created and assessed. IV contrast was administered without complication. The examination is significantly compromised by motion artifact. CT DOSE: Reported separately under the concurrently performed CT scan of the abdomen and pelvis. FINDINGS: Thyroid: Mildly atrophic. Thoracic aorta: There is atherosclerotic calcification of the thoracic aorta is normal, which in caliber and demonstrates standard 3-vessel arch anatomy. No dissection is seen. Pulmonary vasculature: The pulmonary trunk is dilated, measuring 3.7 cm in transverse diameter. This suggests pulmonary artery hypertension. There are no filling defects identified in main, lobar, or proximal segmental pulmonary branches to suggest pulmonary embolus. Evaluation of the peripheral vessels is severely degraded by motion artifact. Heart: The patient is status post midline sternotomy. Findings suggest previous aortic and mitral valve surgery. The heart is enlarged and without pericardial effusion. A 2-lead cardiac pacemaker is present in the left chest wall. Leads terminate in the right atrial appendage and the right ventricle. Lungs and pleural spaces: Evaluation of the lung parenchyma is severely degraded by motion artifact. Patchy airspace opacities are identified in the left upper lobe. No pneumothorax or pleural effusion is seen. There is bibasilar airspace consolidation. Linear atelectasis versus scarring is present throughout both lungs. Mild intralobular septal thickening is noted. The trachea and central airways are clear. Mediastinum: There are numerous subcentimeter mediastinal lymph nodes. These are not pathologically enlarged by size criteria. Debbie: Clear. Axillae: There is no axillary lymphadenopathy. Upper abdomen: Cirrhotic liver morphology is noted. The spleen is enlarged. A gastrostomy tube tract is present anterior to the stomach. The gastrostomy tube has been removed. See report of abdominal CT performed concurrently for detailed intra-abdominal findings. Skeletal structures: The skeletal structures are osteopenic. Degenerative changes noted throughout the thoracic spine. No lytic or blastic bony lesions are seen. There are healed right-sided rib fractures. No acute fracture is suspected. Soft tissues: There is significant edema identified within the right breast and the right anterior/inferior chest wall. IMPRESSION: 1. Significantly motion compromised examination. 2. There is no evidence of central pulmonary embolus in the main, lobar, or proximal segmental pulmonary arteries. 3. Patchy airspace opacities are identified in the left upper lobe. Correlate clinically for evidence of an infectious/inflammatory pneumonitis. Large foci of linear atelectasis versus scarring are present throughout both lungs. 4. Cardiomegaly and cardiac pacemaker with evidence of pulmonary artery hypertension. Mild intralobular septal thickening suggests a component of congestive failure. Clinical correlation required. 5. Dense bibasilar airspace consolidation likely represents atelectasis. Clinical correlation will be required. 6. There is significant edema seen within the right breast and the anterior/inferior right chest wall. Correlate clinically for evidence of infection or contusion. Electronically signed by: Aaron Higgins M.D. 12/05/2016 6:06 PM Dictated Date/Time: 12/05/2016 5:55 PM
[2016-12-05] MEDS ORDERED: VANCOMYCIN HCL 150 MG/3 ML SOLN PO SCH (18:30)
[2016-12-05] MEDS ORDERED: RASPBERRY SYRUP 5 ML UDP PO ONE (18:45)
[2016-12-05] MEDS ORDERED: NON-FORMULARY MEDICATION (Melatonin (Melatonin Maximum Strengt) 1 TAB) PO PRN (19:00)
[2016-12-05] MEDS ORDERED: ACETAMINOPHEN 325 MG TAB PO PRN (19:00)
[2016-12-05] MEDS ORDERED: ZOLPIDEM TARTRATE 5 MG TAB PO PRN (19:00)
--- NOTE | 2016-12-05 19:11 | DIAGNOSTIC IMAGING REPORT ---
CT SCAN OF THE THORACIC SPINE WITHOUT IV CONTRAST CLINICAL HISTORY: Fall. Thoracic back pain. COMPARISON STUDY: Chest CT scans dated 12/05/2016 and 10/21/2016. TECHNIQUE: CT scan of the thoracic spine is performed from the lower cervical spine to the upper lumbar spine. Images are reviewed in the axial, sagittal, and coronal planes. IV contrast was not administered specifically for this examination. There is IV contrast present from the concurrently performed chest CT. FINDINGS: The skeletal structures are osteopenic. There is no evidence of fracture or malalignment. Vertebral body height and alignment are maintained throughout the thoracic spine. Calcification of the anterior longitudinal ligament suggests DISH. Small anterior osteophytes are seen throughout. The transverse and spinous processes are intact. No lytic or blastic lesions are seen. The posterior ribs appear intact as visualized. Degenerative disc space narrowing is noted throughout the thoracic spine. There is calcification of the nucleus pulposus at T7-T8. There is no evidence of large disc herniation. The central canal is clear as imaged. There is mild fatty atrophy of the paraspinous musculature. Significant dependent atelectasis is present at both lung bases. Mild patchy airspace opacities are questioned in the left upper lobe. See report of chest CT performed concurrently for detailed intrathoracic findings. The heart is enlarged and pacemaker leads are noted. IMPRESSION: 1. No acute bony abnormality is seen involving the thoracic spine. 2. Osteopenia and mild degenerative change as above. Electronically signed by: Aaron Higgins M.D. 12/05/2016 7:09 PM Dictated Date/Time: 12/05/2016 6:23 PM
[2016-12-05] MEDS ORDERED: GLUCAGON FOR INJ 1 MG VIAL SQ PRN (19:15)
[2016-12-05] MEDS ORDERED: GLUCOSE 10 TABS/TUBE PO PRN (19:15)
[2016-12-05] MEDS ORDERED: ONDANSETRON INJ 2 MG/ML 2 ML VIAL IV PRN ×2 (19:15)
[2016-12-05] MEDS ORDERED: LEVOFLOXACIN / D5W 500 MG in PREMIXED IN D5W 100 ML IV SCH (19:15)
[2016-12-05] MEDS ORDERED: DEXTROSE 50% 50 ML SYR IV PRN (19:15)
[2016-12-05] MEDS ORDERED: GLUCOSE 40% GEL 15 GM TUBE PO PRN (19:15)
[2016-12-05] MEDS: METHYLPREDNISOLONE IV 30 MG in SYRINGE 0 ML IV SCH (20:00)
[2016-12-05] MEDS ORDERED: VANCOMYCIN INJ 2,000 MG in SODIUM CHLORIDE 0.9% 500ML 500 ML IV STA (20:08)
[2016-12-05] MEDS ORDERED: VANCOMYCIN CONSULT ACTIVE PRN (20:15)
--- NOTE | 2016-12-05 20:15 | History and Physical ---
History & Physical Date & Time of Service: Dec 05, 2016 at 20:06 Chief Complaint: Acute Respiratory Failure With Hypoxia, Pneumonia Primary Care Physician: Aneesh Palm M.D. History of Present Illness Source: patient, spouse Past Medical/Surgical History Medical Problems: (1) Diabetes Status: Chronic (2) Rheumatoid arthritis Status: Chronic Surgical Problems: (1) Mitral valve replaced Status: Chronic Family History Patient reports no known family medical history. Social History Smoking Status: Never Smoker Smokeless Tobacco Use: No Alcohol Use: none Drug Use: none Marital Status: Housing status: lives with family Occupational Status: retired Immunizations History of Influenza Vaccine: Yes Influenza Vaccine Date: Jul 22, 2015 History of Tetanus Vaccine?: Unknown History of Pneumococcal: Yes Pneumococcal Date: Jul 22, 2015 History of Hepatitis B Vaccine: Unknown Multi-Drug Resistant Organisms History of MDRO: Yes Type of MDRO: MRSA Allergies Coded Allergies: No Known Allergies (Unverified , 12/05/16) Home Medications Scheduled Apixaban (Eliquis), 5 MG PO BID Aspirin (Aspirin Chewable), 81 MG PO DAILY Atorvastatin (Lipitor), 20 MG PO HS Epoetin [place] (Procrit), 10,000 ML SQ q tuesday Famotidine (Pepcid), 20 MG PO DAILY Ferrous Sulfate (Kp Ferrous Sulfate), 2 TAB PO QAM Ferrous Sulfate (Kp Ferrous Sulfate), 1 TAB PO QPM Furosemide (Lasix), 40 MG PO bid17 Gabapentin (Gabapentin), 1 CAP PO DAILY Glimepiride (Glimepiride), 1 TAB PO DAILY Ipratropium [place] (Atrovent Hfa), 2 PUFFS INH QID Levetiracetam (Keppra), 500 MG PO BID Levothyroxine Sodium (Synthroid), 1 TAB PO DAILY Methylprednisolone (Medrol), 4 MG PO DAILY Metoprolol Tartrate (Lopressor) (Lopressor), 1 TAB PO BID Potassium Chloride (Klor-Con M20), 20 MEQ PO BID Saccharomyces Boulardii (Florastor), 250 MG PO DAILY Saline (Deep Sea Nasal [place]), 2 SPRAYS LESTER TID Sitagliptin Phosphate (Januvia), 100 MG PO DAILY Spironolactone (Aldactone), 25 MG PO DAILY Sulfa/Trimethoprim (Bactrim Ds 800MG/160MG), 1 TAB PO BID Trazodone Hcl (Trazodone), 50 MG PO HS Scheduled PRN Acetaminophen (Tylenol), 325 MG PO Q4H PRN for irma Melatonin (Melatonin Maximum Strengt), 1 TAB PO HS PRN for Sleep Tramadol (Ultram), 50 MG PO Q6H PRN for Pain Review of Systems The patient denies palpitations, lower extremity swelling, vision change, hearing change, sore throat, fevers, chills, sweats, weight change, fatigue, nausea, vomiting, pelvic pain, blood in urine or stool, lightheadedness, dizziness, headache, memory loss, rash, abnormal bruising or bleeding, focal weakness, numbness or tingling in arms or legs, back or neck pain, night sweats , or allergy symptoms. The review of systems is otherwise negative other than for that already noted above, and at least 10 systems have been reviewed. Physical Exam Vital Signs Date Time Temp Pulse Resp B/P Pulse Ox O2 Delivery O2 Flow Rate FiO2 12/05/16 19:12 111 12/05/16 17:49 109 20 135/53 92 Nasal Cannula 4.0 12/05/16 15:30 96 Nasal Cannula 4.0 12/05/16 15:27 38.0 110 20 120/58 82 Room Air 12/05/16 15:20 83 Room Air 12/05/16 15:11 106 The patient is awake, confused, normocephalic and atraumatic, lying in bed and in no acute distress. HEENT--PERRL, EOMI, mucous membranes and oropharynx normal. Neck--supple, no JVD or bruits, thyroid normal, trachea midline, no adenopathy. Heart--normal S1 and S2, no extra beats, no murmurs, rubs or gallops. Lungs--coarse breath sounds bilaterally, no respiratory distress, no accessory muscle use. Abdomen--normal bowel sounds and soft, nontender and nondistended, no hernias or masses, no organomegaly. Extremities--no cyanosis, clubbing.there is bilaterally pretibial 2+ pitting edema. There are good distal pulses b/l. Dermatologic--normal skin turgor, normal color, warm and dry, no abnormal lymph nodes, no rash. Neurologic--cranial nerves II through XII grossly intact. Rheumatologic--normal range of motion, nontender, muscles and joints. Psychiatric--flat affect. Diagnostics Laboratory Results Results Past 24 Hours Test 12/05/16 14:50 12/05/16 16:32 12/05/16 19:07 Range/Units White Blood Count 9.37 4.8-10.8 K/uL Red Blood Count 3.19 4.2-5.4 M/uL Hemoglobin 9.2 12.0-16.0 g/dL Hematocrit 27.4 37-47 % Mean Corpuscular Volume 85.9 80-100 fL Mean Corpuscular Hemoglobin 28.8 25-34 pg Mean Corpuscular Hemoglobin Concent 33.6 32-36 g/dl Platelet Count 155 130-400 K/uL Mean Platelet Volume 9.6 7.4-10.4 fL Neutrophils (%) (Auto) 65.4 % Lymphocytes (%) (Auto) 29.3 % Monocytes (%) (Auto) 5.0 % Eosinophils (%) (Auto) 0.1 % Basophils (%) (Auto) 0.1 % Neutrophils # (Auto) 6.12 1.4-6.5 K/uL Lymphocytes # (Auto) 2.75 1.2-3.4 K/uL Monocytes # (Auto) 0.47 0.11-0.59 K/uL Eosinophils # (Auto) 0.01 0-0.5 K/uL Basophils # (Auto) 0.01 0-0.2 K/uL RDW Standard Deviation 52.2 36.4-46.3 fL RDW Coefficient of Variation 16.5 11.5-14.5 % Immature Granulocyte % (Auto) 0.1 % Immature Granulocyte # (Auto) 0.01 0.00-0.02 K/uL Prothrombin Time 13.1 9.0-12.0 SECONDS Prothromb Time International Ratio 1.2 0.9-1.1 Sodium Level 133 136-145 mmol/L Potassium Level 3.6 3.5-5.1 mmol/L Chloride Level 99 98-107 mmol/L Carbon Dioxide Level 23 21-32 mmol/L Anion Gap 11.0 3-11 mmol/L Blood Urea Nitrogen 35 7-18 mg/dl Creatinine 1.80 0.60-1.20 mg/dl Est Creatinine Clear Calc Drug Dose 31.5 ml/min Estimated GFR () 33.4 Estimated GFR (Non- 28.8 BUN/Creatinine Ratio 19.6 10-20 Random Glucose 224 70-99 mg/dl Calcium Level 7.9 8.5-10.1 mg/dl Magnesium Level 1.6 1.8-2.4 mg/dl Total Bilirubin 1.7 0.2-1 mg/dl Direct Bilirubin 0.8 0-0.2 mg/dl Aspartate Amino Transf (AST/SGOT) 50 15-37 U/L Alanine Aminotransferase (ALT/SGPT) 14 12-78 U/L Alkaline Phosphatase 61 45-117 U/L Total Creatine Kinase 2344 26-192 U/L Creatine Kinase MB 0.9 0.5-3.6 ng/ml Creatine Kinase MB Ratio 0.0 0-3.0 Troponin I 0.339 0-0.045 ng/ml Total Protein 6.3 6.4-8.2 gm/dl Albumin 3.0 3.4-5.0 gm/dl Urine Color DK YELLOW Urine Appearance CLOUDY CLEAR Urine pH 5.0 4.5-7.5 Urine Specific [place] 1.016 1.000-1.030 Urine Protein 2+ NEG Urine Glucose (UA) NEG NEG Urine Ketones NEG NEG Urine Occult Blood 3+ NEG Urine Nitrite POS NEG Urine Bilirubin NEG NEG Urine Urobilinogen NEG NEG Urine Leukocyte Esterase SMALL NEG Urine WBC (Auto) 5-10 0-5 /hpf Urine RBC (Auto) 10-30 0-4 /hpf Urine Hyaline Casts (Auto) 0-5 /lpf Urine Epithelial Cells (Auto) >30 0-5 /lpf Urine Bacteria (Auto) PRESENT NEG Urine Pathogenic Casts 0-3 GRANULAR CASTS 0 /lpf Urine Yeast (Auto) BUDDING NONE PRSENT Microbiology Results 12/05/16 Blood Culture, Received Pending 12/05/16 Blood Culture, Received Pending 12/05/16 C.difficile Toxin B Gene (PCR) - Final, Complete Positive for C. difficile toxin B gene 12/05/16 Urine Culture, Received Pending Diagnostic Radiology Patient Name: DORON BERRY Unit Number: [id number] Dictated: 12/05/161604 Transcribed: 12/05/161604 EV Printed Date/Time: [~ rep prt dt]/[~ rep prt tm] [~ rep ct labl] - [~ rep ct ivnm] [facility] [place] [place] [address] Dictated: 12/05/16 1605 Transcribed: 12/05/16 160 EV Printed Date/Time: [~ rep prt dt]/[~ rep prt tm] [~ rep ct labl] - [~ rep ct ivnm] SINGLE VIEW CHEST CLINICAL HISTORY: Fever. FINDINGS: An AP, portable, upright chest radiograph is compared to study dated 10/21/2016 and correlated with chest CT dated 10/21/2016. The examination is degraded by portable technique and patient rotation. A 2-lead cardiac pacemaker is unchanged in position and largely obscures the left lower chest. The patient is status post midline sternotomy. The heart is enlarged and there is atherosclerotic calcification of the thoracic ureter. There is pulmonary vessel congestion and interstitial edema. There are small pleural effusions with bibasilar atelectasis. No pneumothorax is seen. The skeletal structures are osteopenic. The bony thorax is grossly intact. IMPRESSION: 1. Cardiomegaly and cardiac pacemaker. There is evidence of congestive failure and interstitial edema. 2. Small pleural effusions are identified. Electronically signed by: Aaron Higgins M.D. 12/05/2016 4:06 PM Dictated Date/Time: 12/05/2016 4:05 PM The status of this report is Signed. Draft = Not yet reviewed or approved by Radiologist. Signed = Reviewed and approved by Radiologist. <AttendingPhy></AttendingPhy> <FamilyPhy>Aneesh Palm M.D.</FamilyPhy> < PrimaryPhy>Aneesh Palm M.D.</PrimaryPhy> <UnitNumber>[id number]</UnitNumber > <VisitNumber>[id number]</VisitNumber> <PatientName>DORON BERRY</ PatientName> <DateOfBirth>1950</DateOfBirth> <Location>[facility]</Location> < ServiceDate>12/05/16</ServiceDate> <MNE>ESINDI</MNE> <OrderingPhy>Jaime Sykes DO</OrderingPhy> <OrderingPhyMNE>f rep ord dr stephen</OrderingPhyMNE> < DictatingPhyMNE>f rep dict dr stephen</DictatingPhyMNE> <CCListMNE>f rep ct mne</ CCListMNE> <AdmittingPhyMNE>f pt admit dr stephen</AdmittingPhyMNE> <AttendingPhyMNE >f pt attend dr stephen</AttendingPhyMNE> <ConsultingPhyMNE>f pt consult dr stephen</ConsultingPhyMNE> <FamilyPhyMNE>f pt fam dr stephen</FamilyPhyMNE> <OtherPhyMNE>f pt other dr stephen</OtherPhyMNE> < PrimaryPhyMNE>f pt prim care dr stephen</PrimaryPhyMNE> <ReferringPhyMNE>f pt referring dr stephen</ReferringPhyMNE> Patient Name: DORON BERRY Unit Number: [id number] Dictated: 12/05/161822 Transcribed: 12/05/161822 EV Printed Date/Time: [~ rep prt dt]/[~ rep prt tm] [~ rep ct labl] - [~ rep ct ivnm] [facility] Radiology Department [place], [place] [id number] Dictated: 12/05/161822 Transcribed: 12/05/161822 EV Printed Date/Time: [~ rep prt dt]/[~ rep prt tm] [~ rep ct labl] - [~ rep ct ivnm] [~ rep ct add3]] CT SCAN OF THE THORACIC SPINE WITHOUT IV CONTRAST CLINICAL HISTORY: Fall. Thoracic back pain. COMPARISON STUDY: Chest CT scans dated 12/05/2016 and 10/21/2016. TECHNIQUE: CT scan of the thoracic spine is performed from the lower cervical spine to the upper lumbar spine. Images are reviewed in the axial, sagittal, and coronal planes. IV contrast was not administered specifically for this examination. There is IV contrast present from the concurrently performed chest CT. FINDINGS: The skeletal structures are osteopenic. There is no evidence of fracture or malalignment. Vertebral body height and alignment are maintained throughout the thoracic spine. Calcification of the anterior longitudinal ligament suggests DISH. Small anterior osteophytes are seen throughout. The transverse and spinous processes are intact. No lytic or blastic lesions are seen. The posterior ribs appear intact as visualized. Degenerative disc space narrowing is noted throughout the thoracic spine. There is calcification of the nucleus pulposus at T7-T8. There is no evidence of large disc herniation. The central canal is clear as imaged. There is mild fatty atrophy of the paraspinous musculature. Significant dependent atelectasis is present at both lung bases. Mild patchy airspace opacities are questioned in the left upper lobe. See report of chest CT performed concurrently for detailed intrathoracic findings. The heart is enlarged and pacemaker leads are noted. IMPRESSION: 1. No acute bony abnormality is seen involving the thoracic spine. 2. Osteopenia and mild degenerative change as above. Electronically signed by: Aaron Higgins M.D. 12/05/2016 7:09 PM Dictated Date/Time: 12/05/2016 6:23 PM The status of this report is Signed. Draft = Not yet reviewed or approved by Radiologist. Signed = Reviewed and approved by Radiologist. <AttendingPhy></AttendingPhy> <FamilyPhy>Aneesh Palm M.D.</FamilyPhy> < PrimaryPhy>Aneesh Palm M.D.</PrimaryPhy> <UnitNumber>[id number]</UnitNumber > <VisitNumber>[id number]</VisitNumber> <PatientName>DORON BERRY</ PatientName> <DateOfBirth>1950</DateOfBirth> <Location>[facility]</Location> < ServiceDate>12/05/16</ServiceDate> <MNE>ESINDI</MNE> <OrderingPhy>Jaime Sykes DO</OrderingPhy> <OrderingPhyMNE>f rep ord dr stephen</OrderingPhyMNE> < DictatingPhyMNE>f rep dict dr stephen</DictatingPhyMNE> <CCListMNE>f rep ct hailee</ CCListMNE> <AdmittingPhyMNE>f pt admit dr stephen</AdmittingPhyMNE> <AttendingPhyMNE >f pt attend dr stephen</AttendingPhyMNE> <ConsultingPhyMNE>f pt consult dr stephen</ConsultingPhyMNE> <FamilyPhyMNE>f pt fam dr stephen</FamilyPhyMNE> <OtherPhyMNE>f pt other dr stephen</OtherPhyMNE> < PrimaryPhyMNE>f pt prim care dr stephen</PrimaryPhyMNE> <ReferringPhyMNE>f pt referring dr stephen</ReferringPhyMNE> Patient Name: DORON BERRY Unit Number: [id number] Dictated: 12/05/161715 Transcribed: 12/05/161715 EV Printed Date/Time: [~ rep prt dt]/[~ rep prt tm] [~ rep ct labl] - [~ rep ct ivnm] [facility] [place] [place] [address] Dictated: 12/05/161715 Transcribed: 12/05/161715 EV Printed Date/Time: [~ rep prt dt]/[~ rep prt tm] [~ rep ct labl] - [~ rep ct ivnm] CT SCAN OF THE BRAIN WITHOUT IV CONTRAST CLINICAL HISTORY: Trauma. Fall. COMPARISON STUDY: No priors. TECHNIQUE: Unenhanced axial CT scan of the brain is performed from the vertex to the skull base. FINDINGS: Brain parenchyma: There are age-related involutional changes noting mild subcortical and periventricular microangiopathic change. There is no hemorrhage, mass effect, or evidence of acute territorial ischemia by CT criteria. Davies-white matter is preserved. No extra-axial fluid collection is seen. Ventricles, sulci, cisterns: Prominent secondary to involutional change. Intracranial vasculature: There is atherosclerotic calcification of the cavernous carotid and vertebral arteries. Calvarium: The skeletal structures are osteopenic. No depressed calvarial fracture is seen. Sinuses and mastoids: Trace mucosal thickening is seen within the right sphenoid sinus. The remaining visualized paranasal sinuses are clear. There is a small right mastoid effusion. The left mastoid air cells are well pneumatized. Orbits: The bony orbits are grossly intact. There are bilateral ocular lens implants. IMPRESSION: There is no hemorrhage, mass effect, or evidence of acute territorial ischemia by CT criteria. Electronically signed by: Aaron Higgins M.D. 12/05/2016 5:18 PM Dictated Date/Time: 12/05/2016 5:16 PM The status of this report is Signed. Draft = Not yet reviewed or approved by Radiologist. Signed = Reviewed and approved by Radiologist. <AttendingPhy></AttendingPhy> <FamilyPhy>Aneesh Palm M.D.</FamilyPhy> < PrimaryPhy>Aneesh Palm M.D.</PrimaryPhy> <UnitNumber>[id number]</UnitNumber > <VisitNumber>[id number]</VisitNumber> <PatientName>DORON BERRY</ PatientName> <DateOfBirth>1950</DateOfBirth> <Location>[facility]</Location> < ServiceDate>12/05/16</ServiceDate> <MNE>ESINDI</MNE> <OrderingPhy>Jaime Sykes DO</OrderingPhy> <OrderingPhyMNE>f rep ord dr stephen</OrderingPhyMNE> < DictatingPhyMNE>f rep dict dr stephen</DictatingPhyMNE> <CCListMNE>f rep ct mne</ CCListMNE> <AdmittingPhyMNE>f pt admit dr stephen</AdmittingPhyMNE> <AttendingPhyMNE >f pt attend dr stephen</AttendingPhyMNE> <ConsultingPhyMNE>f pt consult dr stephen</ConsultingPhyMNE> <FamilyPhyMNE>f pt fam dr stephen</FamilyPhyMNE> <OtherPhyMNE>f pt other dr stephen</OtherPhyMNE> < PrimaryPhyMNE>f pt prim care dr stephen</PrimaryPhyMNE> <ReferringPhyMNE>f pt referring dr stephen</ReferringPhyMNE> Patient Name: DORON BERRY Unit Number: [id number] Dictated: 12/05/161754 Transcribed: 12/05/161802 EV Printed Date/Time: [~ rep prt dt]/[~ rep prt tm] [~ rep ct labl] - [~ rep ct ivnm] [facility] [place] [address] Dictated: 12/05/161754 Transcribed: 12/05/161802 EV Printed Date/Time: [~ rep prt dt]/[~ rep prt tm] [~ rep ct labl] - [~ rep ct ivnm] CT ANGIOGRAM OF THE CHEST CLINICAL HISTORY: Hypoxia. Fall. COMPARISON STUDY: Chest x-ray dated 12/05/2016. Chest CT dated 10/21/2016. TECHNIQUE: Following the IV administration of 115 cc of Optiray 320, CT angiogram of the chest was performed from the upper abdomen to the thoracic inlet utilizing the pulmonary embolus protocol. Images are reviewed in the axial, sagittal, and coronal planes. 3-D MIPS images are created and assessed. IV contrast was administered without complication. The examination is significantly compromised by motion artifact. CT DOSE: Reported separately under the concurrently performed CT scan of the abdomen and pelvis. FINDINGS: Thyroid: Mildly atrophic. Thoracic aorta: There is atherosclerotic calcification of the thoracic aorta is normal, which in caliber and demonstrates standard 3-vessel arch anatomy. No dissection is seen. Pulmonary vasculature: The pulmonary trunk is dilated, measuring 3.7 cm in transverse diameter. This suggests pulmonary artery hypertension. There are no filling defects identified in main, lobar, or proximal segmental pulmonary branches to suggest pulmonary embolus. Evaluation of the peripheral vessels is severely degraded by motion artifact. Heart: The patient is status post midline sternotomy. Findings suggest previous aortic and mitral valve surgery. The heart is enlarged and without pericardial effusion. A 2-lead cardiac pacemaker is present in the left chest wall. Leads terminate in the right atrial appendage and the right ventricle. Lungs and pleural spaces: Evaluation of the lung parenchyma is severely degraded by motion artifact. Patchy airspace opacities are identified in the left upper lobe. No pneumothorax or pleural effusion is seen. There is bibasilar airspace consolidation. Linear atelectasis versus scarring is present throughout both lungs. Mild intralobular septal thickening is noted. The trachea and central airways are clear. Mediastinum: There are numerous subcentimeter mediastinal lymph nodes. These are not pathologically enlarged by size criteria. Debbie: Clear. Axillae: There is no axillary lymphadenopathy. Upper abdomen: Cirrhotic liver morphology is noted. The spleen is enlarged. A gastrostomy tube tract is present anterior to the stomach. The gastrostomy tube has been removed. See report of abdominal CT performed concurrently for detailed intra-abdominal findings. Skeletal structures: The skeletal structures are osteopenic. Degenerative changes noted throughout the thoracic spine. No lytic or blastic bony lesions are seen. There are healed right-sided rib fractures. No acute fracture is suspected. Soft tissues: There is significant edema identified within the right breast and the right anterior/inferior chest wall. IMPRESSION: 1. Significantly motion compromised examination. 2. There is no evidence of central pulmonary embolus in the main, lobar, or proximal segmental pulmonary arteries. 3. Patchy airspace opacities are identified in the left upper lobe. Correlate clinically for evidence of an infectious/inflammatory pneumonitis. Large foci of linear atelectasis versus scarring are present throughout both lungs. 4. Cardiomegaly and cardiac pacemaker with evidence of pulmonary artery hypertension. Mild intralobular septal thickening suggests a component of congestive failure. Clinical correlation required. 5. Dense bibasilar airspace consolidation likely represents atelectasis. Clinical correlation will be required. 6. There is significant edema seen within the right breast and the anterior/inferior right chest wall. Correlate clinically for evidence of infection or contusion. Electronically signed by: Aaron Higgins M.D. 12/05/2016 6:06 PM Dictated Date/Time: 12/05/2016 5:55 PM The status of this report is Signed. Draft = Not yet reviewed or approved by Radiologist. Signed = Reviewed and approved by Radiologist. <AttendingPhy></AttendingPhy> <FamilyPhy>Aneesh Palm M.D.</FamilyPhy> < PrimaryPhy>Aneesh Palm M.D.</PrimaryPhy> <UnitNumber>[id number]</UnitNumber > <VisitNumber>[id number]</VisitNumber> <PatientName>JAMALDORON</ PatientName> <DateOfBirth>1950</DateOfBirth> <Location>[facility]</Location> < ServiceDate>12/05/16</ServiceDate> <MNE>ESINDI</MNE> <OrderingPhy>Jaime Sykes DO</OrderingPhy> <OrderingPhyMNE>f rep ord dr stephen</OrderingPhyMNE> < DictatingPhyMNE>f rep dict dr stephen</DictatingPhyMNE> <CCListMNE>f rep ct belene</ CCListMNE> <AdmittingPhyMNE>f pt admit dr stephen</AdmittingPhyMNE> <AttendingPhyMNE >f pt attend dr stephen</AttendingPhyMNE> <ConsultingPhyMNE>f pt consult dr stephen</ConsultingPhyMNE> <FamilyPhyMNE>f pt fam dr stehpen</FamilyPhyMNE> <OtherPhyMNE>f pt other dr stephen</OtherPhyMNE> < PrimaryPhyMNE>f pt prim care dr stephen</PrimaryPhyMNE> <ReferringPhyMNE>f pt referring dr stephen</ReferringPhyMNE> Patient Name: DORON BERRY Unit Number: [id number] Dictated: 12/05/161720 Transcribed: 12/05/161720 EV Printed Date/Time: [~ rep prt dt]/[~ rep prt tm] [~ rep ct labl] - [~ rep ct ivnm] [facility] [place] [place] [address] Dictated: 12/05/161720 Transcribed: 12/05/161720 EV Printed Date/Time: [~ rep prt dt]/[~ rep prt tm] [~ rep ct labl] - [~ rep ct ivnm] [~ rep ct add3]] CT SCAN OF THE CERVICAL SPINE CLINICAL HISTORY: Fall. Neck pain. COMPARISON STUDY: No priors. TECHNIQUE: CT scan of the cervical spine is performed from the skull base to the upper thoracic spine. Images are reviewed in the axial, sagittal, and coronal planes. IV contrast was not administered for this examination. FINDINGS: Skeletal structures: The skeletal structures are osteopenic. There is incomplete bony fusion of the posterior ring of C1, likely on a congenital basis. There is no evidence of fracture or subluxation involving the cervical spine. Vertebral body height and alignment are maintained. The odontoid process and lateral masses are intact. The atlantoaxial articulation is preserved noting productive degenerative change. The spinous processes appear intact. Small anterior osteophytes are noted in the lower cervical region. There is mild to moderate multilevel cervical spondylosis. Uncovertebral and facet arthropathy intervertebral foraminal narrowing at several levels. Chronic appearing posttraumatic deformity is identified in the right clavicle. Intervertebral discs: The disc spaces are well maintained. Central canal: Widely patent. Soft tissues: The prevertebral and paraspinous soft tissues are within normal limits. Pacemaker leads are noted in the left axilla. There is atherosclerotic calcification of the carotid bulbs. Calvarium: The visualized calvarium at the skull base appears intact. Brain parenchyma: Partially visualized brain parenchyma the skull base is within normal limits. Sinuses and mastoids: Mild mucosal thickening is seen in the right sphenoid sinus. The remaining visualized paranasal sinuses are clear. There is a small right mastoid effusion. The left mastoid air cells are well pneumatized. Lung apices: Clear as visualized. IMPRESSION: 1. There is no evidence of fracture or subluxation involving the cervical spine. 2. Osteopenia and spondylotic change as above. Electronically signed by: Aaron Higgins M.D. 12/05/2016 5:25 PM Dictated Date/Time: 12/05/2016 5:21 PM The status of this report is Signed. Draft = Not yet reviewed or approved by Radiologist. Signed = Reviewed and approved by Radiologist. <AttendingPhy></AttendingPhy> <FamilyPhy>Aneesh Palm M.D.</FamilyPhy> < PrimaryPhy>Aneesh Palm M.D.</PrimaryPhy> <UnitNumber>[id number]</UnitNumber > <VisitNumber>[id number]</VisitNumber> <PatientName>DORON BERRY</ PatientName> <DateOfBirth>1950</DateOfBirth> <Location>[facility]</Location> < ServiceDate>12/05/16</ServiceDate> <MNE>ESINDI</MNE> <OrderingPhy>Jaime Sykes DO</OrderingPhy> <OrderingPhyMNE>f rep ord dr stephen</OrderingPhyMNE> < DictatingPhyMNE>f rep dict dr stephen</DictatingPhyMNE> <CCListMNE>f rep ct belene</ CCListMNE> <AdmittingPhyMNE>f pt admit dr stephen</AdmittingPhyMNE> <AttendingPhyMNE >f pt attend dr stephen</AttendingPhyMNE> <ConsultingPhyMNE>f pt consult dr stephen</ConsultingPhyMNE> <FamilyPhyMNE>f pt fam dr stephen</FamilyPhyMNE> <OtherPhyMNE>f pt other dr stephen</OtherPhyMNE> < PrimaryPhyMNE>f pt prim care dr stephen</PrimaryPhyMNE> <ReferringPhyMNE>f pt referring dr stephen</ReferringPhyMNE> Patient Name: DORON BERRY Unit Number: [id number] Dictated: 12/05/161728 Transcribed: 12/05/161728 EV Printed Date/Time: [~ rep prt dt]/[~ rep prt tm] [~ rep ct labl] - [~ rep ct ivnm] [facility] [place] [address] Dictated: 12/05/161728 Transcribed: 12/05/161728 EV Printed Date/Time: [~ rep prt dt]/[~ rep prt tm] [~ rep ct labl] - [~ rep ct ivnm] [~ rep ct add3]] CT SCAN OF THE ABDOMEN AND PELVIS WITH IV CONTRAST CLINICAL HISTORY: Fall. Elevated bilirubin and hepatic transaminases. COMPARISON STUDY: Abdominal CT dated 11/04/2016. TECHNIQUE: Following the IV administration of 115 cc of Optiray 320, CT scan of the abdomen AND PELVIS is performed from the lung bases to the proximal femora. Images are reviewed in the axial, sagittal, and coronal planes. IV contrast was administered without complication. Automated dose control exposure was utilized. CT DOSE: 2560.60 mGy.cm FINDINGS: Lung bases: The patient is status post midline sternotomy. Pacemaker leads are noted. The heart is enlarged and without pericardial effusion. Dependent consolidation is noted. Linear atelectasis versus scarring is present at both lung bases. Liver: The contrast-enhanced liver is cirrhotic in morphology and heterogeneous in attenuation. There is nodularity of the hepatic surface contour. There is mild central intrahepatic biliary ductal dilatation. The hepatic veins and portal veins are patent. There are small perigastric and perisplenic varices. Gallbladder: Surgically absent. Spleen: The spleen is enlarged, measuring 15 cm in length. Pancreas: Moderately atrophic and grossly unremarkable. Adrenal glands: Unremarkable. Kidneys: The contrast enhanced kidneys are normal in size and without hydronephrosis. The kidneys enhance symmetrically. Small nonobstructing left renal calculi are identified. Abdominal vasculature: The abdominal aorta is normal in course and caliber noting moderate to advanced atherosclerotic calcification. Stomach and bowel: The stomach and duodenum are normal in configuration. A percutaneous gastrostomy tube has been removed from previous. Findings suggest partial resection of the left colon with colocolonic anastomosis. No bowel obstruction is seen. There is moderate colonic diverticulosis without CT evidence of acute diverticulitis. The appendix is well-visualized and normal. Peritoneum: There is no intraperitoneal free air or abdominal ascites. Lymphadenopathy: None. Pelvic viscera: Bladder is decompressed but appears mildly thick walled. The uterus and adnexa are normal as imaged. There is postoperative change in the right groin. A lobulated simple appearing fluid collection is noted in the right groin measuring approximately 2 x 4.5 cm. This likely represents a postoperative seroma. Skeletal structures: The skeletal structures are osteopenic. Mild lumbosacral spondylosis is observed. A large Schmorl's node is seen in the superior endplate of L5. No lytic or blastic lesions are seen. IMPRESSION: 1. Although decompressed, the bladder wall appears thickened and hyperemic. Correlate clinically and with urinalysis for evidence of cystitis. 2. The gastrostomy tube seen on 11/04/2016 has been removed. 3. The liver is cirrhotic in morphology and there is evidence of portal hypertension including splenomegaly as well as perigastric and perisplenic varices. 4. Cardiomegaly. 5. Nonobstructing left renal calculi. 6. There are postoperative changes consistent with partial left colon resection with colocolonic anastomosis. There is no bowel obstruction. 7. Moderate colonic diverticulosis without CT evidence of acute epiglottis. 8. A simple appearing fluid collection the right groin likely represents a postoperative seroma. Clinical correlation will be required. 9. Additional findings as above. Electronically signed by: Aaron Higgins M.D. 12/05/2016 5:37 PM Dictated Date/Time: 12/05/2016 5:29 PM The status of this report is Signed. Draft = Not yet reviewed or approved by Radiologist. Signed = Reviewed and approved by Radiologist. <AttendingPhy></AttendingPhy> <FamilyPhy>Aneesh Palm M.D.</FamilyPhy> < PrimaryPhy>Aneesh Palm M.D.</PrimaryPhy> <UnitNumber>[id number]</UnitNumber > <VisitNumber>[id number]</VisitNumber> <PatientName>DORON BERRY</ PatientName> <DateOfBirth>1950</DateOfBirth> <Location>[facility]</Location> < ServiceDate>12/05/16</ServiceDate> <MNE>ESINDI</MNE> <OrderingPhy>Jaime Sykes DO</OrderingPhy> <OrderingPhyMNE>f rep ord dr stephen</OrderingPhyMNE> < DictatingPhyMNE>f rep dict dr stephen</DictatingPhyMNE> <CCListMNE>f rep ct hailee</ CCListMNE> <AdmittingPhyMNE>f pt admit dr stephen</AdmittingPhyMNE> <AttendingPhyMNE >f pt attend dr stephen</AttendingPhyMNE> <ConsultingPhyMNE>f pt consult dr stephen</ConsultingPhyMNE> <FamilyPhyMNE>f pt fam dr stephen</FamilyPhyMNE> <OtherPhyMNE>f pt other dr stephen</OtherPhyMNE> < PrimaryPhyMNE>f pt prim care dr stephen</PrimaryPhyMNE> <ReferringPhyMNE>f pt referring dr stephen</ReferringPhyMNE> EKG EKG shows atrial fibrillation with RVR with a rate 108 bpm, left axis deviation , intraventricular conduction delay. Impression Assessment and Plan Acute respiratory failure with hypoxia secondary to bibasilar pneumonia and left upper lobe pneumonia--patient was admitted to the telemetry for close oxygen monitoring. She'll placed on Vancomycin IV, Zosyn IV, levofloxacin IV, Xopenex with Atrovent nebulizers every 6hrs while awake and every 2hrs when necessary. I observed the patient choking consistently when she tried to drink water, I believe she is aspirating at this time, and she'll be therefore made nothing by mouth except medications. Atrial fibrillation with RVR/IVCD/status post pacemaker/cardiomyopathy/systolic CHF/status post prior prosthetic aortic valve and mitral valve/elevated troponin of 0.339--the patient be admitted to the telemetry unit for serial cardiac enzymes, cardiac rhythm monitoring and a 2-D echocardiogram with Dopplers. Will hold all current medications until swallowing studies been performed. We'll place on Lopressor 5 mg IV every 4 hours when necessary heart rate greater than 110 or systolic blood pressure greater than 150. Hold Eliquis 5 mg by mouth twice a day. We'll need to discuss with pharmacy when she may changed to IV heparin in the interim until swallowing assessed. C. difficile colitis--start vancomycin 250 mg by mouth 4 times a day. Hypomagnesemia--replaced with 2 g of mag IV. Chronic renal insufficiency--creatinine 1.8 is within her normal range. Diabetes mellitus--hold Januvia and glimeperide, place and Accu-Cheks before meals and at bedtime with NovoLog coverage per scale. Liver cirrhosis/portal hypertension/gastric and esophageal varices/splenomegaly- -hold current medications until swallowing studies completed. Nutrition--previous percutaneous gastrostomy tube has been removed since previous admission of 10/21/2016. For now we'll place on normal saline IV fluids. Seizure disorder ever Keppra 500 mg by mouth twice a day to 500 mg IV twice a day. Anemia--receives Procrit 10,000 ML subcutaneous every Tuesday. Peripheral neuropathy-- hold gabapentin. Hypercholesterolemia--hold atorvastatin. Level of Care Telemetry Advanced Directives Existing Advance Directive: No Existing Living Will: No Existing Power of Wire Turning Machine Operator: No Resuscitation Status FULL RESUSCITATION VTE Prophylaxis VTE Risk Assessment Done? Y/N: Yes Risk Level: Moderate Given or contraindicated: SCD's
[2016-12-05] MEDS: MAGNESIUM SULFATE 1GM / D5W 1 GM in PREMIXED IN D5W 100 ML IV SCH (20:27)
[2016-12-05] MEDS: SODIUM CHLORIDE 0.9% 1000ML 1,000 ML IV SCH (20:27)
[2016-12-05] MEDS ORDERED: PIPERACILL/TAZOBAC CONSULT ACTIVE PRN (20:30)
[2016-12-05] MEDS ORDERED: LEVOFLOXACIN CONSULT ACTIVE PRN (20:30)
[2016-12-05 20:39] VITALS: BP 128/51; PULSE 111; TEMP 39.1; O2SAT 93; BMI 30.8
[2016-12-05] MEDS: LEVETIRACETAM 500 MG TAB PO SCH (20:48)
[2016-12-05] MEDS ORDERED: LEVOFLOXACIN 750MG / D5W IV SCH (21:00)
[2016-12-05] MEDS ORDERED: LEVALBUTEROL/IPRATROPIUM NEB INH SCH (21:00)
[2016-12-05] MEDS ORDERED: TRAZODONE HCL 50 MG TAB PO SCH (21:00)
[2016-12-05] MEDS: LEVALBUTEROL 1.25MG/0.5ML NEB INH SCH (21:00)
[2016-12-05] MEDS: INSULIN ASPART 100 UNITS/ML 3 ML PEN SC SCH (21:00)
[2016-12-05] MEDS: SODIUM CHLORIDE 0.65% NA SOLN 45 ML (OCEAN) NAE SCH (21:00)
[2016-12-05] MEDS: IPRATROPIUM BROMIDE NEB SOLN 0.02% 2.5 ML VIAL INH SCH (21:00)
[2016-12-05] MEDS ORDERED: METOPROLOL TARTRATE 25 MG TAB PO SCH (21:00)
--- NOTE | 2016-12-05 21:09 | Pharmacy Progress Note ---
Pharmacy Antibiotic Consult Date of Service: Dec 05, 2016. Pharmacy Dosing Scope Pharmacy is consulted to initiate Vancomycin, Zosyn, and Levaquin IV dosing therapy, order appropriate labs and adjust drug dose/frequency. Subjective The patient is a 66 year old female admitted on Dec 05, 2016 at 19:03. Objective Height (Feet): 5 Height (Inches): 4.00 Weight (Kilograms): 80.000 Lab Results (24hrs): Laboratory Tests Test 12/05/16 14:50 BUN/Creatinine Ratio 19.6 Blood Urea Nitrogen 35 mg/dl Creatinine 1.80 mg/dl White Blood Count 9.37 K/uL Red Blood Count 3.19 M/uL Hemoglobin 9.2 g/dL Hematocrit 27.4 % Mean Corpuscular Volume 85.9 fL Mean Corpuscular Hemoglobin 28.8 pg Mean Corpuscular Hemoglobin Concent 33.6 g/dl Platelet Count 155 K/uL Mean Platelet Volume 9.6 fL Neutrophils (%) (Auto) 65.4 % Lymphocytes (%) (Auto) 29.3 % Monocytes (%) (Auto) 5.0 % Eosinophils (%) (Auto) 0.1 % Basophils (%) (Auto) 0.1 % Neutrophils # (Auto) 6.12 K/uL Lymphocytes # (Auto) 2.75 K/uL Monocytes # (Auto) 0.47 K/uL Eosinophils # (Auto) 0.01 K/uL Basophils # (Auto) 0.01 K/uL Micro Results: Item Value Date Time Urine Culture Received 12/05/16 1632 Urine,Catheterized Pending Blood Culture Received 12/05/16 1600 Blood Pending C.difficile Toxin B Gene (PCR) - Final Complete 12/05/16 1556 Stool Positive for C. difficile toxin B gene Blood Culture Received 12/05/16 1550 Blood Pending Assessment & Plan Assessment * 66 y/o F on empiric IV Vancomycin, Zosyn, and Levaquin for pneumonia ( possible secondary to aspiration). She was previously staying at [facility], but is apparently living at home now. She was recently admitted at [facility] 10/21-10/25. * Patient appears to be in acute renal failure. Baseline sCr seems to be ~1 mg/ dL. Most recent sCr = 1.8 mg/dL with estimated CrCl ~31 mL/min. Due to TEA, unable to initiate maintenance regimen as anticipate changing renal function. Will check random levels for now and dose accordingly. Plan VANCOMYCIN * Give Vancomycin 2000mg (~25mg/kg) IV x 1 as a loading dose * Goal Vancomycin "trough" level 15-20 mcg/mL * Check random level with AM labs on 12/06/16 * Re-dose when appropriate * MRSA nasal swab ordered to assist with de-escalation of antibiotics ZOSYN * Patient received Zosyn 4.5g IV x 1 as a loading dose in the ED * Initiate Zosyn 3.375g IV q8 (extended infusion over 4 hours) with CrCl >20 mL/ min LEVAQUIN * Initiate Levaquin 750mg IV q48 for CrCl <50 mL/min with indication of pneumonia * Of note, QTc is prolonged; will discuss with provider on 12/06/16 Pharmacy will continue to follow and will adjust dose/frequency as necessary. Thank you
[2016-12-05 21:30] VITALS: TEMP 37.6
--- NOTE | 2016-12-05 21:37 | EMERGENCY ROOM VISIT NOTE ---
History Report prepared by Amadou: Lisseth Desouza Under the Supervision of: Dr. Jaime Sykes D.O. First contact with patient: 15:15 Chief Complaint: RESPIRATORY DISTRESS Stated Complaint: URINARY SYMPTOMS History of Present Illness The patient is a 66 year old female who presents to the Emergency Room with complaints of constant respiratory symptoms since this morning. The patient had open heart surgery in August and had some complications after her surgery. Her states that the patient was at [facility] for rehab after her surgery and has been home for a month now. The patient was diagnosed with a UTI at [facility] 1 week ago. She was started on antibiotics and is still taking antibiotics, but she cannot remember which one. Last night the patient became much weaker than usual. She fell 3 times since 6pm yesterday evening. The patient states that she feels tired and does not have any energy. She also reports back pain secondary to her falls, nausea, and diarrhea. Her diarrhea has been going on for 4 days and she is having about 3 bowel movements per day. She rates her pain as a 5/10 in severity. She has had fevers with temperatures around 102. Her notes that she is more confused than usual and slightly slurring her words. She hit her head last night when she fell. Today the patient's found the patient to be very short of breath, so he called 911. When EMS arrived the patient pulse ox was 82% on room air. She does not wear oxygen at home. EMS put the patient on oxygen and her symptoms improved. Her pulse ox was in the 90s upon arrival to the ED. The patient denies headache, chest pain, and visual symptoms. She states that she is not currently feeling short of breath. She takes Eliquis for atrial fibrillation but did not take it this morning. Source of History: patient, spouse/significant other, EMS Onset: this morning Position: chest (respiratory) Symptom Intensity: 5/10 Timing: constant Modifying Factors (Relieving): oxygen Associated Symptoms: + back pain, + diarrhea, + fatigue, + fevers, + nausea , + urinary symptoms, + weakness, No chest pain, No headache Note: Pt is more confused than usual and slurring some words. Pt denies visual symptoms. Review of Systems See HPI for pertinent positives & negatives. A total of 10 systems reviewed and were otherwise negative. Past Medical & Surgical Medical Problems: (1) Abdominal pain (2) Acute respiratory failure with hypoxia (3) Diabetes (4) Pneumonia (5) Rheumatoid arthritis Surgical Problems: (1) Mitral valve replaced Family History Patient reports no known family medical history. Social History Smoking Status: Never Smoker Drug Use: none Marital Status: Housing Status: lives with significant other Occupation Status: retired Current/Historical Medications Scheduled Apixaban (Eliquis), 5 MG PO BID Aspirin (Aspirin Chewable), 81 MG PO DAILY Atorvastatin (Lipitor), 20 MG PO HS Epoetin Selwyn (Procrit), 10,000 ML SQ q tuesday Famotidine (Pepcid), 20 MG PO DAILY Ferrous Sulfate (Kp Ferrous Sulfate), 2 TAB PO QAM Ferrous Sulfate (Kp Ferrous Sulfate), 1 TAB PO QPM Furosemide (Lasix), 40 MG PO bid17 Gabapentin (Gabapentin), 1 CAP PO DAILY Glimepiride (Glimepiride), 1 TAB PO DAILY Ipratropium Pinetta (Atrovent Hfa), 2 PUFFS INH QID Levetiracetam (Keppra), 500 MG PO BID Levothyroxine Sodium (Synthroid), 1 TAB PO DAILY Methylprednisolone (Medrol), 4 MG PO DAILY Metoprolol Tartrate (Lopressor) (Lopressor), 1 TAB PO BID Potassium Chloride (Klor-Con M20), 20 MEQ PO BID Saccharomyces Boulardii (Florastor), 250 MG PO DAILY Saline (Deep Sea Nasal Varney), 2 SPRAYS LESTER TID Sitagliptin Phosphate (Januvia), 100 MG PO DAILY Spironolactone (Aldactone), 25 MG PO DAILY Sulfa/Trimethoprim (Bactrim Ds 800MG/160MG), 1 TAB PO BID Trazodone Hcl (Trazodone), 50 MG PO HS Scheduled PRN Acetaminophen (Tylenol), 325 MG PO Q4H PRN for irma Melatonin (Melatonin Maximum Strengt), 1 TAB PO HS PRN for Sleep Tramadol (Ultram), 50 MG PO Q6H PRN for Pain Allergies Coded Allergies: No Known Allergies (Unverified , 12/05/16) Physical Exam Vital Signs Date Time Temp Pulse Resp B/P Pulse Ox O2 Delivery O2 Flow Rate FiO2 12/05/16 17:49 109 20 135/53 92 Nasal Cannula 4.0 12/05/16 15:30 96 Nasal Cannula 4.0 12/05/16 15:27 38.0 110 20 120/58 82 Room Air 12/05/16 15:20 83 Room Air 12/05/16 15:11 106 Physical Exam GENERAL: alert, sitting up in bed, chronically ill appearing, disheveled, well nourished, mild distress, non-toxic EYE EXAM: normal conjunctiva, PERRL and EOM's intact OROPHARYNX: no exudate, no erythema, lips, buccal mucosa, and tongue normal and mucous membranes are moist NECK: supple, no nuchal rigidity, no adenopathy, mild mid-line tenderness of cervical spine tracking through the mid-thoracic region. LUNGS: Clear to auscultation. Normal chest wall mechanics HEART: positive systolic ejection murmur, S1 normal and S2 normal ABDOMEN: abdomen soft, non-tender, normo-active bowel sounds, no masses, no rebound or guarding. BACK: Back is symmetrical on inspection and there is no deformity, cervical and thoracic tenderness. SKIN: no rashes, diffuse bruising of the chest and upper extremities. UPPER EXTREMITIES: upper extremities are grossly normal. LOWER EXTREMITIES: No pitting edema. NEURO EXAM: Alert and oriented to place, not month. Intermittent slurring of words, cranial nerves 2-12 otherwise grossly intact. Slight drift with left upper extremity. Medical Decision & Procedures ER Provider Diagnostic Interpretation: Radiology results as stated below per my review and the radiologist's interpretation: SINGLE VIEW CHEST CLINICAL HISTORY: Fever. FINDINGS: An AP, portable, upright chest radiograph is compared to study dated 10/21/2016 and correlated with chest CT dated 10/21/2016. The examination is degraded by portable technique and patient rotation. A 2-lead cardiac pacemaker is unchanged in position and largely obscures the left lower chest. The patient is status post midline sternotomy. The heart is enlarged and there is atherosclerotic calcification of the thoracic ureter. There is pulmonary vessel congestion and interstitial edema. There are small pleural effusions with bibasilar atelectasis. No pneumothorax is seen. The skeletal structures are osteopenic. The bony thorax is grossly intact. IMPRESSION: 1. Cardiomegaly and cardiac pacemaker. There is evidence of congestive failure and interstitial edema. 2. Small pleural effusions are identified. Electronically signed by: Aaron Higgins M.D. 12/05/2016 4:06 PM Dictated Date/Time: 12/05/2016 4:[address] SCAN OF THE BRAIN WITHOUT IV CONTRAST CLINICAL HISTORY: Trauma. Fall. COMPARISON STUDY: No priors. TECHNIQUE: Unenhanced axial CT scan of the brain is performed from the vertex to the skull base. FINDINGS: Brain parenchyma: There are age-related involutional changes noting mild subcortical and periventricular microangiopathic change. There is no hemorrhage, mass effect, or evidence of acute territorial ischemia by CT criteria. Davies-white matter is preserved. No extra-axial fluid collection is seen. Ventricles, sulci, cisterns: Prominent secondary to involutional change. Intracranial vasculature: There is atherosclerotic calcification of the cavernous carotid and vertebral arteries. Calvarium: The skeletal structures are osteopenic. No depressed calvarial fracture is seen. Sinuses and mastoids: Trace mucosal thickening is seen within the right sphenoid sinus. The remaining visualized paranasal sinuses are clear. There is a small right mastoid effusion. The left mastoid air cells are well pneumatized. Orbits: The bony orbits are grossly intact. There are bilateral ocular lens implants. IMPRESSION: There is no hemorrhage, mass effect, or evidence of acute territorial ischemia by CT criteria. Electronically signed by: Aaron Higgins M.D. 12/05/2016 5:18 PM Dictated Date/Time: 12/05/2016 5:[address] ANGIOGRAM OF THE CHEST CLINICAL HISTORY: Hypoxia. Fall. COMPARISON STUDY: Chest x-ray dated 12/05/2016. Chest CT dated 10/21/2016. TECHNIQUE: Following the IV administration of 115 cc of Optiray 320, CT angiogram of the chest was performed from the upper abdomen to the thoracic inlet utilizing the pulmonary embolus protocol. Images are reviewed in the axial, sagittal, and coronal planes. 3-D MIPS images are created and assessed. IV contrast was administered without complication. The examination is significantly compromised by motion artifact. CT DOSE: Reported separately under the concurrently performed CT scan of the abdomen and pelvis. FINDINGS: Thyroid: Mildly atrophic. Thoracic aorta: There is atherosclerotic calcification of the thoracic aorta is normal, which in caliber and demonstrates standard 3-vessel arch anatomy. No dissection is seen. Pulmonary vasculature: The pulmonary trunk is dilated, measuring 3.7 cm in transverse diameter. This suggests pulmonary artery hypertension. There are no filling defects identified in main, lobar, or proximal segmental pulmonary branches to suggest pulmonary embolus. Evaluation of the peripheral vessels is severely degraded by motion artifact. Heart: The patient is status post midline sternotomy. Findings suggest previous aortic and mitral valve surgery. The heart is enlarged and without pericardial effusion. A 2-lead cardiac pacemaker is present in the left chest wall. Leads terminate in the right atrial appendage and the right ventricle. Lungs and pleural spaces: Evaluation of the lung parenchyma is severely degraded by motion artifact. Patchy airspace opacities are identified in the left upper lobe. No pneumothorax or pleural effusion is seen. There is bibasilar airspace consolidation. Linear atelectasis versus scarring is present throughout both lungs. Mild intralobular septal thickening is noted. The trachea and central airways are clear. Mediastinum: There are numerous subcentimeter mediastinal lymph nodes. These are not pathologically enlarged by size criteria. Debbie: Clear. Axillae: There is no axillary lymphadenopathy. Upper abdomen: Cirrhotic liver morphology is noted. The spleen is enlarged. A gastrostomy tube tract is present anterior to the stomach. The gastrostomy tube has been removed. See report of abdominal CT performed concurrently for detailed intra-abdominal findings. Skeletal structures: The skeletal structures are osteopenic. Degenerative changes noted throughout the thoracic spine. No lytic or blastic bony lesions are seen. There are healed right-sided rib fractures. No acute fracture is suspected. Soft tissues: There is significant edema identified within the right breast and the right anterior/inferior chest wall. IMPRESSION: 1. Significantly motion compromised examination. 2. There is no evidence of central pulmonary embolus in the main, lobar, or proximal segmental pulmonary arteries. 3. Patchy airspace opacities are identified in the left upper lobe. Correlate clinically for evidence of an infectious/inflammatory pneumonitis. Large foci of linear atelectasis versus scarring are present throughout both lungs. 4. Cardiomegaly and cardiac pacemaker with evidence of pulmonary artery hypertension. Mild intralobular septal thickening suggests a component of congestive failure. Clinical correlation required. 5. Dense bibasilar airspace consolidation likely represents atelectasis. Clinical correlation will be required. 6. There is significant edema seen within the right breast and the anterior/inferior right chest wall. Correlate clinically for evidence of infection or contusion. Electronically signed by: Aaron Higgins M.D. 12/05/2016 6:06 PM Dictated Date/Time: 12/05/2016 5:[address] SCAN OF THE CERVICAL SPINE CLINICAL HISTORY: Fall. Neck pain. COMPARISON STUDY: No priors. TECHNIQUE: CT scan of the cervical spine is performed from the skull base to the upper thoracic spine. Images are reviewed in the axial, sagittal, and coronal planes. IV contrast was not administered for this examination. FINDINGS: Skeletal structures: The skeletal structures are osteopenic. There is incomplete bony fusion of the posterior ring of C1, likely on a congenital basis. There is no evidence of fracture or subluxation involving the cervical spine. Vertebral body height and alignment are maintained. The odontoid process and lateral masses are intact. The atlantoaxial articulation is preserved noting productive degenerative change. The spinous processes appear intact. Small anterior osteophytes are noted in the lower cervical region. There is mild to moderate multilevel cervical spondylosis. Uncovertebral and facet arthropathy intervertebral foraminal narrowing at several levels. Chronic appearing posttraumatic deformity is identified in the right clavicle. Intervertebral discs: The disc spaces are well maintained. Central canal: Widely patent. Soft tissues: The prevertebral and paraspinous soft tissues are within normal limits. Pacemaker leads are noted in the left axilla. There is atherosclerotic calcification of the carotid bulbs. Calvarium: The visualized calvarium at the skull base appears intact. Brain parenchyma: Partially visualized brain parenchyma the skull base is within normal limits. Sinuses and mastoids: Mild mucosal thickening is seen in the right sphenoid sinus. The remaining visualized paranasal sinuses are clear. There is a small right mastoid effusion. The left mastoid air cells are well pneumatized. Lung apices: Clear as visualized. IMPRESSION: 1. There is no evidence of fracture or subluxation involving the cervical spine. 2. Osteopenia and spondylotic change as above. Electronically signed by: Aaron Higgins M.D. 12/05/2016 5:25 PM Dictated Date/Time: 12/05/2016 5:[address] SCAN OF THE ABDOMEN AND PELVIS WITH IV CONTRAST CLINICAL HISTORY: Fall. Elevated bilirubin and hepatic transaminases. COMPARISON STUDY: Abdominal CT dated 11/04/2016. TECHNIQUE: Following the IV administration of 115 cc of Optiray 320, CT scan of the abdomen AND PELVIS is performed from the lung bases to the proximal femora. Images are reviewed in the axial, sagittal, and coronal planes. IV contrast was administered without complication. Automated dose control exposure was utilized. CT DOSE: 2560.60 mGy.cm FINDINGS: Lung bases: The patient is status post midline sternotomy. Pacemaker leads are noted. The heart is enlarged and without pericardial effusion. Dependent consolidation is noted. Linear atelectasis versus scarring is present at both lung bases. Liver: The contrast-enhanced liver is cirrhotic in morphology and heterogeneous in attenuation. There is nodularity of the hepatic surface contour. There is mild central intrahepatic biliary ductal dilatation. The hepatic veins and portal veins are patent. There are small perigastric and perisplenic varices. Gallbladder: Surgically absent. Spleen: The spleen is enlarged, measuring 15 cm in length. Pancreas: Moderately atrophic and grossly unremarkable. Adrenal glands: Unremarkable. Kidneys: The contrast enhanced kidneys are normal in size and without hydronephrosis. The kidneys enhance symmetrically. Small nonobstructing left renal calculi are identified. Abdominal vasculature: The abdominal aorta is normal in course and caliber noting moderate to advanced atherosclerotic calcification. Stomach and bowel: The stomach and duodenum are normal in configuration. A percutaneous gastrostomy tube has been removed from previous. Findings suggest partial resection of the left colon with colocolonic anastomosis. No bowel obstruction is seen. There is moderate colonic diverticulosis without CT evidence of acute diverticulitis. The appendix is well-visualized and normal. Peritoneum: There is no intraperitoneal free air or abdominal ascites. Lymphadenopathy: None. Pelvic viscera: Bladder is decompressed but appears mildly thick walled. The uterus and adnexa are normal as imaged. There is postoperative change in the right groin. A lobulated simple appearing fluid collection is noted in the right groin measuring approximately 2 x 4.5 cm. This likely represents a postoperative seroma. Skeletal structures: The skeletal structures are osteopenic. Mild lumbosacral spondylosis is observed. A large Schmorl's node is seen in the superior endplate of L5. No lytic or blastic lesions are seen. IMPRESSION: 1. Although decompressed, the bladder wall appears thickened and hyperemic. Correlate clinically and with urinalysis for evidence of cystitis. 2. The gastrostomy tube seen on 11/04/2016 has been removed. 3. The liver is cirrhotic in morphology and there is evidence of portal hypertension including splenomegaly as well as perigastric and perisplenic varices. 4. Cardiomegaly. 5. Nonobstructing left renal calculi. 6. There are postoperative changes consistent with partial left colon resection with colocolonic anastomosis. There is no bowel obstruction. 7. Moderate colonic diverticulosis without CT evidence of acute epiglottis. 8. A simple appearing fluid collection the right groin likely represents a postoperative seroma. Clinical correlation will be required. 9. Additional findings as above. Electronically signed by: Aaron Higgins M.D. 12/05/2016 5:37 PM Dictated Date/Time: 12/05/2016 5:29 PM Laboratory Results 12/05/16 14:50 Red Blood Count 3.19, Mean Corpuscular Volume 85.9, Mean Corpuscular Hemoglobin 28.8, Mean Corpuscular Hemoglobin Concent 33.6, Mean Platelet Volume 9.6, Neutrophils (%) (Auto) 65.4, Lymphocytes (%) (Auto) 29.3, Monocytes (%) (Auto) 5.0, Eosinophils (%) (Auto) 0.1, Basophils (%) (Auto) 0.1, Neutrophils # (Auto) 6.12, Lymphocytes # (Auto) 2.75, Monocytes # (Auto) 0.47, Eosinophils # (Auto) 0.01, Basophils # (Auto) 0.01 12/05/16 14:50 Test 12/05/16 14:50 12/05/16 16:32 White Blood Count 9.37 K/uL (4.8-10.8) Red Blood Count 3.19 M/uL (4.2-5.4) Hemoglobin 9.2 g/dL (12.0-16.0) Hematocrit 27.4 % (37-47) Mean Corpuscular Volume 85.9 fL (80-100) Mean Corpuscular Hemoglobin 28.8 pg (25-34) Mean Corpuscular Hemoglobin Concent 33.6 g/dl (32-36) Platelet Count 155 K/uL (130-400) Mean Platelet Volume 9.6 fL (7.4-10.4) Neutrophils (%) (Auto) 65.4 % Lymphocytes (%) (Auto) 29.3 % Monocytes (%) (Auto) 5.0 % Eosinophils (%) (Auto) 0.1 % Basophils (%) (Auto) 0.1 % Neutrophils # (Auto) 6.12 K/uL (1.4-6.5) Lymphocytes # (Auto) 2.75 K/uL (1.2-3.4) Monocytes # (Auto) 0.47 K/uL (0.11-0.59) Eosinophils # (Auto) 0.01 K/uL (0-0.5) Basophils # (Auto) 0.01 K/uL (0-0.2) RDW Standard Deviation 52.2 fL (36.4-46.3) RDW Coefficient of Variation 16.5 % (11.5-14.5) Immature Granulocyte % (Auto) 0.1 % Immature Granulocyte # (Auto) 0.01 K/uL (0.00-0.02) Prothrombin Time 13.1 SECONDS (9.0-12.0) Prothromb Time International Ratio 1.2 (0.9-1.1) Anion Gap 11.0 mmol/L (3-11) Est Creatinine Clear Calc Drug Dose 31.5 ml/min Estimated GFR () 33.4 Estimated GFR (Non- 28.8 BUN/Creatinine Ratio 19.6 (10-20) Calcium Level 7.9 mg/dl (8.5-10.1) Magnesium Level 1.6 mg/dl (1.8-2.4) Total Bilirubin 1.7 mg/dl (0.2-1) Direct Bilirubin 0.8 mg/dl (0-0.2) Aspartate Amino Transf (AST/SGOT) 50 U/L (15-37) Alanine Aminotransferase (ALT/SGPT) 14 U/L (12-78) Alkaline Phosphatase 61 U/L (45-117) Total Protein 6.3 gm/dl (6.4-8.2) Albumin 3.0 gm/dl (3.4-5.0) Urine Color DK YELLOW Urine Appearance CLOUDY (CLEAR) Urine pH 5.0 (4.5-7.5) Urine Specific Corbin 1.016 (1.000-1.030) Urine Protein 2+ (NEG) Urine Glucose (UA) NEG (NEG) Urine Ketones NEG (NEG) Urine Occult Blood 3+ (NEG) Urine Nitrite POS (NEG) Urine Bilirubin NEG (NEG) Urine Urobilinogen NEG (NEG) Urine Leukocyte Esterase SMALL (NEG) Urine WBC (Auto) 5-10 /hpf (0-5) Urine RBC (Auto) 10-30 /hpf (0-4) Urine Hyaline Casts (Auto) /lpf (0-5) Urine Epithelial Cells (Auto) >30 /lpf (0-5) Urine Bacteria (Auto) PRESENT (NEG) Urine Pathogenic Casts 0-3 GRANULAR CASTS /lpf (0) Urine Yeast (Auto) BUDDING (NONE PRSENT) Date/Time Source Procedure Growth Status 12/05/16 15:56 Stool C.difficile Toxin B Gene (PCR) - Final Positive for C. difficile toxin B gene Complete Laboratory results per my review. Medications Administered Medications (Trade) Dose Ordered Sig/Shirley Route Start Time Stop Time Status Last Admin Dose Admin Sodium Chloride (Nss 1000ml) 1,000 ml @ 999 mls/hr Q1H1M STAT IV 12/05/16 15:29 12/05/16 16:29 DC 12/05/16 16:05 999 MLS/HR Ondansetron HCl (Zofran Inj) 4 mg NOW STAT IV 12/05/16 15:29 12/05/16 15:32 DC 12/05/16 16:12 4 MG Piperacillin Sod/ Tazobactam Sod (Zosyn Iv) 4.5 gm NOW STAT IV 12/05/16 15:29 12/05/16 15:32 DC 12/05/16 16:13 4.5 GM Vancomycin HCl (Vancomycin Oral Soln) 150 mg NOW PO 12/05/16 18:30 12/05/16 20:05 DC 12/05/16 19:07 150 MG Raspberry (Raspberry Syrup 5ml Cup) 5 ml ONE ONCE PO 12/05/16 18:45 12/05/16 18:46 DC 12/05/16 18:45 5 ML Acetaminophen (Tylenol Tab) 650 mg Q4H PRN PO 12/05/16 19:00 12/05/16 20:43 DC 12/05/16 20:32 650 MG ECG Indication: SOB/dyspnea Rate (beats per minute): 108 Rhythm: atrial fibrillation (with RVR) Findings: left axis deviation, prolonged QT ED Course ED COURSE: Vital signs were reviewed and showed tachycardic, hypoxic, febrile. The patients medical record was reviewed The above diagnostic studies were performed and reviewed. ED treatments and interventions as stated above. 1515: The patient was evaluated in room A12B. A complete history and physical examination was performed. 1529: Zosyn 4.5 gm IV, Zofran 4 mg IV, NSS 1000 ml @ 999 mls/hr IV 182: Upon reevaluation, the patient is resting comfortably. I discussed my findings with the patient and her . They understand and agree with the treatment plan. Based on the patients age, coexisting illnesses, exam and lab findings the decision to treat as an inpatient was made. The patient remained stable while under my care. The patient will be evaluated for further management. 183: Vancomycin 150 mg PO 1840: I spoke with Dr. Payton. We discussed the patients results and treatment plan. The patient will be evaluated by the [facility] for further management. 1844: Raspberry 5 ml PO Medical Decision Differential Diagnosis includes but is not limited to dehydration, stroke, anemia, hypoglycemia, hyponatremia, hypernatremia, urinary tract infection, pneumonia, bronchitis, sepsis, gastroenteritis, additional abdominal pathology, metabolic abnormalities and infections. Patient is a 66-year-old female who presents the ER for altered mental status and recurrent falls with past 24 hours. She was previously treated for UTI and is currently still on antibiotics. notes that she has been confused and she is taking a Xa inhibitor but is uncertain if she has been taking it regularly. Patient was able to state that she has missed a couple doses. Upon presentation she was found to be hypoxic and tachycardic along with febrile. Hemoglobin 9.2. Rectal was heme positive. BMP shows a creatinine 1.8 along with elevation in the total bilirubin and troponin at 0.3. UA shows positive nitrates along with white cells, esterase and greater than 30 epithelial cells. Upon initial presentation with her vitals she was covered with IV broad- spectrum antibiotics and given 2 L normal saline. With that diffuse bruising and blood thinners I performed a CT of the head, cervical spine which were negative. CT of the chest was performed with the hypoxia and history of missing doses of her blood thinners. This did show pneumonia. CT of abdomen and pelvis shows no acute pathology. Stool is positive for C. difficile as well. Patient was given oral vancomycin following this. Patient was admitted to internal medicine with sepsis secondary to pneumonia, UTI and C. difficile. Consults Time Called: 1834 Consulting Physician: Dr. Payton Returned Call: [address] Payton. We discussed the patients results and treatment plan. The patient will be evaluated by the [facility] for further management. Impression Primary Impression: Sepsis Additional Impressions: Pneumonia UTI (urinary tract infection) C. difficile colitis GI bleed Scribe Attestation The scribe's documentation has been prepared under my direction and personally reviewed by me in its entirety. I confirm that the note above accurately reflects all work, treatment, procedures, and medical decision making performed by me. Departure Information Dispostion Being Evaluated By Hospitalist Aneesh Lauren M.D. (PCP) Patient Instructions Asthma - [facility], COPD - [facility], Croup - [facility], My [facility] Problem Qualifiers Primary Impression: Sepsis Sepsis type: sepsis due to unspecified organism Qualified Codes: A41.9 - Sepsis, unspecified organism Additional Impressions: Pneumonia Pneumonia type: due to unspecified organism Laterality: left Lung location : unspecified part of lung Qualified Codes: J18.9 - Pneumonia, unspecified organism UTI (urinary tract infection) Urinary tract infection type: site unspecified Hematuria presence: with hematuria Qualified Codes: N39.0 - Urinary tract infection, site not specified ; R31.9 - Hematuria, unspecified GI bleed GI bleed type/associated pathology: unspecified gastrointestinal hemorrhage type Qualified Codes: K92.2 - Gastrointestinal hemorrhage, unspecified
[2016-12-05] MEDS: PIPERACILL/TAZOBAC IV 3.375 GM in DEXTROSE 5% 100ML 100 ML IV SCH (22:26)
[2016-12-05 23:00] VITALS: TEMP 36.7
[2016-12-05] MEDS: VANCOMYCIN HCL 250 MG/5 ML SOLN PO SCH (23:00)
[2016-12-05] MEDS: RASPBERRY SYRUP 5 ML UDP PO SCH (23:00)
[2016-12-06] VITALS (15 sets, daily range): BP systolic 92–111; BP diastolic 44–50; PULSE 80–97; TEMP 36.4–36.6; O2SAT 94–99
[2016-12-06] MEDS: LEVALBUTEROL 1.25MG/0.5ML NEB INH SCH ×4 (02:01→19:10)
[2016-12-06] MEDS: IPRATROPIUM BROMIDE NEB SOLN 0.02% 2.5 ML VIAL INH SCH ×4 (02:01→19:10)
[2016-12-06 03:36] LABS: HEMATOCRIT 25.8 % (37-47); MEAN CELL VOLUME 87.2 fL (80-100); MEAN CORPUSCULAR HEMOGLOBIN 29.1 pg (25-34); MEAN CORPUSCULAR HGB CONC 33.3 g/dl (32-36); MEAN PLATELET VOLUME 8.9 fL (7.4-10.4); PLATELET COUNT 134 K/uL (130-400); RED BLOOD COUNT 2.96 M/uL (4.2-5.4); WHITE BLOOD COUNT 7.22 K/uL (4.8-10.8)
[2016-12-06 03:50] LABS: INR 1.2 (0.9-1.1); PARTIAL THROMBOPLASTIN RATIO 1.7; PROTHROMBIN TIME (PATIENT) 12.6 SECONDS (9.0-12.0)
[2016-12-06] MEDS: METHYLPREDNISOLONE IV 30 MG in SYRINGE 0 ML IV SCH ×3 (04:00→20:53)
[2016-12-06 04:03] LABS: BUN/CREATININE RATIO 21.5 (10-20); CALCIUM 7.5 mg/dl (8.5-10.1); CREATININE 1.5 mg/dl (0.60-1.20); MAGNESIUM 2.4 mg/dl (1.8-2.4); POTASSIUM 3.9 mmol/L (3.5-5.1)
[2016-12-06 04:04] LABS: BASO % 0.1 %; BASO ABS # 0.01 K/uL (0-0.2); COMPLETE YES; IG% 0.3 %; LYMPH % 15.9 %; LYMPH ABS # 1.15 K/uL (1.2-3.4); MONO % 3.2 %; NEUT % 80.5 %
[2016-12-06 04:26] LABS: CKMB/CK RATIO 0.1 (0-3.0)
[2016-12-06] MEDS: PIPERACILL/TAZOBAC IV 3.375 GM in DEXTROSE 5% 100ML 100 ML IV SCH ×3 (06:13→22:18)
[2016-12-06] MEDS ORDERED: PERFLUTREN LIPID MICROSPHERE (DEFINITY) IV ONE (07:15)
[2016-12-06] MEDS: SODIUM CHLORIDE 0.9% 1000ML 1,000 ML IV SCH ×2 (07:54→20:56)
[2016-12-06] MEDS: SODIUM CHLORIDE 0.65% NA SOLN 45 ML (OCEAN) NAE SCH ×3 (07:55→21:00)
[2016-12-06] MEDS: LEVETIRACETAM 500 MG TAB PO SCH ×2 (07:55→20:53)
[2016-12-06] MEDS: RASPBERRY SYRUP 5 ML UDP PO SCH ×4 (07:57→20:56)
[2016-12-06] MEDS: VANCOMYCIN HCL 250 MG/5 ML SOLN PO SCH ×4 (07:57→20:56)
[2016-12-06] MEDS: INSULIN ASPART 100 UNITS/ML 3 ML PEN SC SCH ×4 (08:00→21:00)
--- NOTE | 2016-12-06 08:51 | ECHOCARDIOGRAM REPORT ---
*NOTICE TO RECEIVING [employer] This information is strictly Confidential and protected under [place] law. [place] law prohibits you from making any further disclosure of this information unless further disclosure is expressly permitted by the written consent of the person to whom it pertains or is authorized by law. A general authorization for the release of medical or other information is not sufficient for this purpose. Hospital accepts no responsibility if the information is made available to any other person, INCLUDING THE PATIENT. Interpretation Summary * Name: DORON BERRY Study Date: 12/06/2016 06:47 AM BP: 101/46 mmHg * Patient Location: 210 HR: 95 * : 1950 (M/d/yyyy) Gender: Female Height: 64 in * Age: 66 yrs Ethnicity: [place] Weight: 176 lb * Ordering Physician: Braeden Payton * Performed By: Sherie Potter * * Reason For Study: ELEVATED TROPONIN * BSA: 1.9 m2 * -- Conclusions -- * Limited views were obtained. * There is borderline concentric left ventricular hypertrophy. * Left ventricular systolic function is normal. * There is septal akinesis. * There is a bioprosthetic aortic valve. * There is a bioprosthetic mitral valve. * Dilated inferior vena cava with reduced collapsability with sniff indicates an elevated right atrial pressure of 15 mmHg * Compared to study performed 5 weeks ago, and given the limited views obtained, the LV systolic function now appears normal. Procedure Details * A contrast injection of Definity was performed to improve assessment of LV function. * Contrast was injected into an intravenous site in the right arm. * One vial of Definity ultrasound contrast was diluted in normal saline to a total volume of 10 ml. A total of '1' ml of solution was administered during imaging. * Expiration date 12/07. * Lot # [id number] of Definity utilized for procedure. * Limited views were obtained. Left Ventricle * The left ventricle is grossly normal size. * There is borderline concentric left ventricular hypertrophy. * Ejection Fraction = 55-60%. * Left ventricular systolic function is normal. * There is septal akinesis. Right Ventricle * The right ventricle is grossly normal size. * There is a pacemaker lead in the right ventricle. Mitral Valve * There is a bioprosthetic mitral valve. Aortic Valve * There is a bioprosthetic aortic valve. Pericardium/Pleural * There is no pericardial effusion. Great Vessels * Dilated inferior vena cava with reduced collapsability with sniff indicates an elevated right atrial pressure of 15 mmHg MMode 2D Measurements and Calculations IVSd 1.2 cm IVSs 2.4 cm LVIDd 5.3 cm LVIDs 3.6 cm LVPWd 1.3 cm LVPWs 1.8 cm IVS/LVPW 0.95 FS 31.5 % EDV(Teich) 135.0 ml ESV(Teich) 55.4 ml EF(Teich) 58.9 % EDV(cubed) 148.4 ml ESV(cubed) 47.7 ml EF(cubed) 67.8 % % IVS thick 98.5 % % LVPW thick 43.8 % LV mass(C)d 262.3 grams LV mass(C)dI 141.6 grams/m\S\2 LV mass(C)s 354.0 grams LV mass(C)sI 191.0 grams/m\S\2 SV(Teich) 79.5 ml SI(Teich) 42.9 ml/m\S\2 SV(cubed) 100.6 ml SI(cubed) 54.3 ml/m\S\2 LVAd ap4 36.9 cm\S\2 LVLd ap4 8.2 cm EDV(MOD-sp4) 134.8 ml EDV(sp4-el) 141.9 ml LVAs ap4 21.2 cm\S\2 LVLs ap4 6.8 cm ESV(MOD-sp4) 54.1 ml ESV(sp4-el) 55.8 ml EF(MOD-sp4) 59.9 % EF(sp4-el) 60.7 % LVAd ap2 33.9 cm\S\2 LVLd ap2 8.0 cm EDV(MOD-sp2) 117.3 ml EDV(sp2-el) 121.7 ml LVAs ap2 19.3 cm\S\2 LVLs ap2 6.6 cm ESV(MOD-sp2) 44.9 ml ESV(sp2-el) 47.6 ml EF(MOD-sp2) 61.7 % EF(sp2-el) 60.9 % LVLd %diff -1.73 % EDV(MOD-bp) 126.6 ml LVLs %diff -2.58 % ESV(MOD-bp) 49.0 ml EF(MOD-bp) 61.3 % SV(MOD-sp4) 80.7 ml SI(MOD-sp4) 43.5 ml/m\S\2 SV(MOD-sp2) 72.4 ml SI(MOD-sp2) 39.1 ml/m\S\2 SV(MOD-bp) 77.6 ml SI(MOD-bp) 41.9 ml/m\S\2 SV(sp4-el) 86.0 ml SI(sp4-el) 46.4 ml/m\S\2 SV(sp2-el) 74.1 ml SI(sp2-el) 40.0 ml/m\S\2
[2016-12-06] MEDS ORDERED: SACCHAROMYCES BOUL (FLORASTOR) 250 MG CAP PO SCH (09:00)
[2016-12-06 12:18] LABS: CKMB/CK RATIO 0.2 (0-3.0)
[2016-12-06] MEDS ORDERED: PHARMACY GLYCEMIC MGMT CONSULT PRN (12:45)
[2016-12-06] MEDS ORDERED: INSULIN GLARGINE SOLOSTAR 100 UNITS/ML 3 ML PEN SC ONE (12:45)
--- NOTE | 2016-12-06 12:56 | Clinical Documentation Query ---
QUERY 1 OF [address] GARAY, In your clinical opinion is this patient being managed for: ( ) Chronic diastolic CHF ( ) Chronic systolic CHF ( ) Chronic systolic and diastolic CHF ( ) Other explanation of clinical findings (Please Explain) ( ) Unable to determine (Please Define) ( ) Need to Discuss ( ) Not Agree The medical record reflects the following clinical findings, treatment, and risk factors. Clinical Indicators: 66 yo female presenting with increasing difficulty breathing and diarrhea. Diagnosed with pneumonia. H/P indicates pt with systolic CHF. Hypoxic (82%) on room air at time of ER arrival. CXR showed evidence of congestive failure and interstitial edema with small pleural effusions. ECHO showed EF 55-60%. Treatment: O2 support, tele monitoring, atrovent nebs, xopenex nebs, chronic po lasix at home. 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 Clinical Indicators: Initial BUN 35, Cr 1.80, which has improved to Cr 1.50. Documentation reflects chronic renal insufficiency baseline Cr 1.8 within pt's normal range. Review of pt's historical Cr range showed 0.84-1.0 within the past 2-3 months with GFR range 58.7-81.7. Treatment: monitor PRP's, IV fluids, tele monitoring, O2 support Risk Factors: age, DM, cardiomyopathy, pneumonia, Please clarify and document your clinical opinion in the progress notes and discharge summary. Terms such as "probable", "suspected", "likely", "questionable", "possible", or "still to be ruled out" are acceptable. IF IN AGREEMENT, YOU MUST DOCUMENT ABOVE DIAGNOSTIC STATEMENT IN DAILY PROGRESS NOTES AND DISCHARGE SUMMARY. This document is not part of the patient's record. Thank You, Lisa King, BUDDY [phone]
--- NOTE | 2016-12-06 14:05 | Pharmacy Progress Note ---
Glycemic Control Intl Consult Date of Service Dec 06, 2016. Scope Glycemic Pharmacist consulted by Dr Hull on 12/06/16 for glycemic control and to write orders per formerly [facility] inpatient glycemic control protocol Objective Weight (Kilograms): 80.900 Accuchecks BSG (last 24hrs): Test 12/05/16 14:50 12/05/16 20:17 12/06/16 03:25 12/06/16 07:16 Random Glucose 224 mg/dl (70-99) 220 mg/dl (70-99) Bedside Glucose 208 mg/dl (70-90) 242 mg/dl (70-90) 262 mg/dl (70-90) Test 12/06/16 11:51 Bedside Glucose 345 mg/dl (70-90) Laboratory Data (last 24hrs) Test 12/05/16 14:50 12/06/16 03:25 Anion Gap 11.0 mmol/L 9.0 mmol/L BUN/Creatinine Ratio 19.6 21.5 Blood Urea Nitrogen 35 mg/dl 32 mg/dl Creatinine 1.80 mg/dl 1.50 mg/dl Potassium Level 3.6 mmol/L 3.9 mmol/L Sodium Level 133 mmol/L 138 mmol/L White Blood Count 9.37 K/uL 7.22 K/uL Red Blood Count 3.19 M/uL 2.96 M/uL Hemoglobin 9.2 g/dL 8.6 g/dL Hematocrit 27.4 % 25.8 % Mean Corpuscular Volume 85.9 fL 87.2 fL Mean Corpuscular Hemoglobin 28.8 pg 29.1 pg Mean Corpuscular Hemoglobin Concent 33.6 g/dl 33.3 g/dl Platelet Count 155 K/uL 134 K/uL Mean Platelet Volume 9.6 fL 8.9 fL Neutrophils (%) (Auto) 65.4 % 80.5 % Lymphocytes (%) (Auto) 29.3 % 15.9 % Monocytes (%) (Auto) 5.0 % 3.2 % Eosinophils (%) (Auto) 0.1 % 0.0 % Basophils (%) (Auto) 0.1 % 0.1 % Neutrophils # (Auto) 6.12 K/uL 5.81 K/uL Lymphocytes # (Auto) 2.75 K/uL 1.15 K/uL Monocytes # (Auto) 0.47 K/uL 0.23 K/uL Eosinophils # (Auto) 0.01 K/uL 0.00 K/uL Basophils # (Auto) 0.01 K/uL 0.01 K/uL Recent Pertinent Medications Outpatient Anti-diabetic Regimen: * Amaryl 1 mg PO daily * Januvia 100 mg PO daily * A1c unknown The patient is currently receiving: * Correctional Insulin: Novolog Correction per scale ACHS Goal Range: Low 100 mg/dL - High 150 mg/dL Correction Factor: 30 mg/dL/unit * Prandial insulin: Per carb ratio of 1 unit per 10 grams CHO consumed * Oral Agents: on hold Risk Factors for Insulin Resistance: * Steroids * Infection * IVF * Diet Assessment & Plan ASSESSMENT: * 66 yo diabetic F admitted with pneumonia, placed on broad spectrum antibiotics and high-dose IV steroids * Since admission last night, BSGs have continued to trend up, with lunch BSG > 350 mg/dL * Pt is maintained on oral antidiabetic agents as an outpatient * Oral agents are not recommended for inpatient use d/t drug interactions, changing PO intake, and difficulty titrating for acute hyper/hypoglycemia. ADA recommends re-initiating outpatient oral agents 1-2 days prior to discharge if/ when appropriate if they were held on admission. * Will hold oral agents for admission and utilize SQ basal bolus insulin regimen which is the recommended regimen for inpatient glycemic control. * In previous admissions, without IV steroids, she required weight-based ( stress of 2) Lantus and Novolog to keep BSGs within goal range * My plan will be to start weight-based Lantus now and tighten Novolog from stress of 2 to stress of 3 * Add additional checks overnight for steroid-induced hyperglycemia * Add A1c to AM labs to assess outpatient glycemic control * ADA & AACE recommend a goal blood sugar range 140-180 mg/dl for the majority of critically ill & non-critically ill patients. However, more stringent targets may be selected in individual cases. Will utilize more stringent goal of 100-140 mg/dl based on patient age & comorbidities. Additionally, tighter glycemic control is warranted to facilitate treatment of infection. PLAN FOR INPATIENT GLYCEMIC CONTROL: * Hold outpatient oral diabetes medications * Initiate basal insulin with LANTUS 15 units SQ BID, first dose NOW * Tighten NOVOLOG per scale ACHS or Q6hrs while NPO + 00,04 checks * Goal Range: Low 100 mg/dL - High 140 mg/dL * Correction Factor: 20 mg/dL/unit * Nutritional / Prandial insulin per carb ratio of 1 unit per 7 grams CHO consumed * Please note that the plan above was derived based on current level of insulin resistance and hospital stress. These recommendations are appropriate for inpatient admission only. Plan of care upon discharge will need to be reassessed to avoid potential outpatient hypo/hyperglycemia. Thank you.
--- NOTE | 2016-12-06 14:34 | Medical Consult ---
Consultation Date of Consultation: Dec 06, 2016. Attending Physician: Braeden Payton M.D. Reason for Consultation: pneumonia, frequent UTI History of Present Illness Patient is a 66 yo female who presented to the ED with concerns of SOB and respiratory symptoms. The patient has recent history of open heart surgery in August, after which she had multiple complications including wound infection. She had a wound vac in place on her right chest wall wound up until last week according to the patient. Her previous wound images were reviewed today. She also recently was diagnosed with recurrent UTI at [facility] last Tuesday. She was previously on PO Cipro, but was changed to PO Bactrim for 10 days last Tuesday and had been on that medication up until admission. The patient states that she started to have diarrhea about 4-5 days ago. She called her PCP initially and was told to take PO Imodium which did help her symptoms at first but then they acutely worsened. The patient does also have history of anemia for which she receives Procrit weekly. She also is chronically on low dose steroid for RA. She had also been experiencing debilitating fatigue at home along with fever, nausea, abdominal upset, and mild confusion. The patient was noted to have fever of 38 C on admission and her O2 Saturation was 82 on Room air. The patient was placed on 4 L nasal cannula O2 and has had improved saturation. WBC count has been normal at 9.37 on admission. Her Hgb today was 8.6. CK level was 2344 on admission, and troponin went up to 0.608, but has since trended down to 0.165. Urine culture is currently showing no growth. Blood cultures are pending. C. Diff toxin is positive, and patient states that she did also have C. Diff in August or September. MRSA nasal screen was negative. Patient is currently on IV Vancomycin, Zosyn, Levaquin, and PO Vancomycin 250 mg QID. She also does not have known history of exposure to TB, but she did have a "bad episode of sarcoid" a few years ago. Past Medical/Surgical History Medical Problems: (1) Anemia Status: Acute (2) C. difficile colitis Status: Acute (3) Diffuse abdominal pain Status: Acute (4) GI bleed Status: Acute (5) Infection of PEG site Status: Acute (6) Sepsis Status: Acute (7) Upper GI bleeding Status: Acute (8) UTI (urinary tract infection) Status: Acute Medical Problems: (1) Abdominal pain (2) Acute respiratory failure with hypoxia (3) Diabetes (4) Pneumonia (5) Rheumatoid arthritis Surgical Problems: (1) Mitral valve replaced Family History Patient reports no known family medical history. Noncontributory Social History Smoking Status: Never Smoker Smokeless Tobacco Use: No Alcohol Use: none Drug Use: none Marital Status: Housing Status: lives with significant other Occupation Status: retired Allergies Coded Allergies: No Known Allergies (Unverified , 12/05/16) Home Medications Reported Home Medications Medications Dose Route/Sig Max Daily Dose Days Date Category Bactrim Ds 800MG/160MG (Trimethoprim/Sulfamethoxazole) Tab 1 Tab PO BID 12/05/16 Reported Glimepiride 1 Mg Tab 1 Tab PO DAILY 90 12/05/16 Reported Aldactone (Spironolactone) 25 Mg Tab 25 Mg PO DAILY 12/05/16 Reported Januvia (Sitagliptin Phosphate) 100 Mg Tab 100 Mg PO DAILY 12/05/16 Reported Ultram (Tramadol HCl) 50 Mg Tab 50 Mg PO Q6H PRN 12/05/16 Reported Kp Ferrous Sulfate (Ferrous Sulfate) 325 Mg Tab 1 Tab PO QPM 30 12/05/16 Reported Kp Ferrous Sulfate (Ferrous Sulfate) 325 Mg Tab 2 Tab PO QAM 30 12/05/16 Reported Melatonin Maximum Strengt (Melatonin) 5 Mg Tab 1 Tab PO HS PRN 30 12/05/16 Reported Florastor (Saccharomyces Boulardii) 250 Mg Cap 250 Mg PO DAILY 12/05/16 Reported Klor-Con M20 (Potassium Chloride) 20 Meq Tabcr 20 Meq PO BID 10/25/16 Rx Medrol (Methylprednisolone) 4 Mg Tab 4 Mg PO DAILY 10/21/16 Reported Synthroid (Levothyroxine Sodium) 25 Mcg Tab 1 Tab PO DAILY 30 10/21/16 Reported Keppra (Levetiracetam) 500 Mg Tab 500 Mg PO BID 10/21/16 Reported Gabapentin 300 Mg Cap 1 Cap PO DAILY 10/21/16 Reported Lasix (Furosemide) 40 Mg Tab 40 Mg PO BID17 10/21/16 Reported Eliquis (Apixaban) 5 Mg Tab 5 Mg PO BID 10/21/16 Reported Deep Sea Nasal [place] (Saline) 0.65 % Spr 2 Sprays LESTER TID 10/21/16 Reported Lipitor (Atorvastatin) 20 Mg Tab 20 Mg PO HS 10/21/16 Reported Aspirin Chewable (Aspirin) 81 Mg Chew 81 Mg PO DAILY 10/21/16 Reported Atrovent Hfa (Ipratropium [place]) 200 Puffs/3400 Mcg Aers 2 Puffs INH QID 10/19/16 Reported Procrit (Epoetin [place]) 2,000 Units Inj 10,000 Ml SQ Q Tuesday10/19/16 Reported Lopressor (Metoprolol Tartrate) 25 Mg Tab 1 Tab PO BID 90 10/19/16 Reported Pepcid (Famotidine) 20 Mg Tab 20 Mg PO DAILY 10/19/16 Reported Trazodone (Trazodone HCl) 50 Mg Tab 50 Mg PO HS 10/19/16 Reported Tylenol (Acetaminophen) 325 Mg Tab 325 Mg PO Q4H PRN 10/19/16 Reported Current Inpatient Medications Current Inpatient Medications Medications (Trade) Dose Ordered Sig/Shirley Route Start Time Stop Time Status Last Admin Dose Admin Ioversol (Optiray 320) 116 ml UD PRN IV 12/05/16 16:15 12/09/16 16:14 Levetiracetam (Keppra Tab) 500 mg BID PO 12/05/16 21:00 01/04/17 20:59 12/06/16 07:55 500 MG Sodium Chloride ([place]rison Nasal [place]) 2 sprays TID LESTER 12/05/16 21:00 01/04/17 20:59 12/06/16 13:27 2 SPRAYS Ondansetron HCl (Zofran Inj) 4 mg Q6H PRN IV 12/05/16 19:15 01/04/17 19:14 Insulin Aspart (novoLOG ASPART) SLIDING SCALE If C... ACHS SC 12/05/16 21:00 01/04/17 20:59 12/06/16 11:54 12 UNITS Glucose (Glucose 40% Gel) UD PRN PO 12/05/16 19:15 01/04/17 19:14 Glucose (Glucose Chew Tab) 1 tabs UD PRN PO 12/05/16 19:15 01/04/17 19:14 Dextrose (Dextrose 50% 50ML Syringe) 50 ml UD PRN IV 12/05/16 19:15 01/04/17 19:14 Glucagon 1 mg 1 mg UD PRN SQ 12/05/16 19:15 01/04/17 19:14 Piperacillin Sod/ Tazobactam Sod 3.375 gm/Dextrose 115 ml @ 28.75 mls/ hr Q8H IV 12/05/16 22:00 12/12/16 21:59 12/06/16 13:30 28.75 MLS/HR Methylprednisolone Sodium Succinate/ Syringe (Solu-Medrol IV/ Syringe) 0.48 ml @ 1.5 mls/min Q8H IV 12/05/16 20:00 01/04/17 19:59 12/06/16 11:55 1.5 MLS/MIN Vancomycin HCl 250 mg 250 mg QID PO 12/05/16 21:00 12/19/16 20:59 12/06/16 13:27 250 MG Sodium Chloride (Nss 1000ml) 1,000 ml @ 80 mls/hr [id number] IV 12/05/16 19:15 01/04/17 19:14 12/06/16 07:54 80 MLS/HR Ipratropium [place] (Atrovent 0.02% 0.5MG/2.5ML Neb) 0.5 mg Q6R INH 12/05/16 21:00 01/04/17 20:59 12/06/16 07:49 0.5 MG Levalbuterol (Xopenex 1.25MG/ 0.5ML Neb) 1.25 mg Q6R INH 12/05/16 21:00 01/04/17 20:59 12/06/16 07:49 1.25 MG Raspberry (Raspberry Syrup 5ml Cup) 5 ml QID PO 12/05/16 21:00 12/19/16 20:59 12/06/16 13:27 5 ML Vancomycin HCl (Consult) 1 ea UD PRN N/A 12/05/16 20:15 01/04/17 20:14 Piperacillin Sod/ Tazobactam Sod 1 ea 1 ea UD PRN N/A 12/05/16 20:30 01/04/17 20:29 Levofloxacin/Prmx (Levaquin / D5W/ Premixed D5W) 150 ml @ 100 mls/hr Q2D@2100 IV 12/05/16 21:00 12/12/16 20:59 12/05/16 22:13 100 MLS/HR Levofloxacin (Consult) 1 ea UD PRN N/A 12/05/16 20:30 01/04/17 20:29 Miscellaneous Information (Consult Glycemic Management Pharmacy) 1 ea UD PRN N/A 12/06/16 12:45 01/05/17 12:44 Insulin Glargine (Lantus Solostar Pen) 15 unit BID SC 12/06/16 21:00 01/05/17 20:59 Insulin Aspart (novoLOG ASPART) SLIDING SCALE If C... 0000,0400 SC 12/07/16 00:00 01/06/17 00:00 Physical Exam Date Time Temp Pulse Resp B/P Pulse Ox O2 Delivery O2 Flow Rate FiO2 12/06/16 12:00 95 Nasal Cannula 4.0 12/06/16 11:21 36.5 84 20 92/50 95 Nasal Cannula 4.0 12/06/16 08:00 95 Nasal Cannula 4.0 12/06/16 07:51 36.6 97 20 101/47 94 Nasal Cannula 4.0 12/06/16 07:49 84 14 95 Nasal Cannula 4.0 12/06/16 04:00 95 Nasal Cannula 3.0 12/06/16 03:10 36.6 95 18 101/46 95 Nasal Cannula 4.0 12/06/16 02:01 95 14 96 Nasal Cannula 5.0 12/06/16 00:00 95 Nasal Cannula 3.0 12/05/16 23:00 36.7 12/05/16 21:30 37.6 12/05/16 20:39 39.1 111 30 128/51 93 Nasal Cannula 4.0 12/05/16 19:12 111 12/05/16 17:49 109 20 135/53 92 Nasal Cannula 4.0 12/05/16 15:30 96 Nasal Cannula 4.0 12/05/16 15:27 38.0 110 20 120/58 82 Room Air 12/05/16 15:20 83 Room Air 12/05/16 15:[address] ANGIOGRAM OF THE CHEST CLINICAL HISTORY: Hypoxia. Fall. COMPARISON STUDY: Chest x-ray dated 12/05/2016. Chest CT dated 10/21/2016. TECHNIQUE: Following the IV administration of 115 cc of Optiray 320, CT angiogram of the chest was performed from the upper abdomen to the thoracic inlet utilizing the pulmonary embolus protocol. Images are reviewed in the axial, sagittal, and coronal planes. 3-D MIPS images are created and assessed. IV contrast was administered without complication. The examination is significantly compromised by motion artifact. CT DOSE: Reported separately under the concurrently performed CT scan of the abdomen and pelvis. FINDINGS: Thyroid: Mildly atrophic. Thoracic aorta: There is atherosclerotic calcification of the thoracic aorta is normal, which in caliber and demonstrates standard 3-vessel arch anatomy. No dissection is seen. Pulmonary vasculature: The pulmonary trunk is dilated, measuring 3.7 cm in transverse diameter. This suggests pulmonary artery hypertension. There are no filling defects identified in main, lobar, or proximal segmental pulmonary branches to suggest pulmonary embolus. Evaluation of the peripheral vessels is severely degraded by motion artifact. Heart: The patient is status post midline sternotomy. Findings suggest previous aortic and mitral valve surgery. The heart is enlarged and without pericardial effusion. A 2-lead cardiac pacemaker is present in the left chest wall. Leads terminate in the right atrial appendage and the right ventricle. Lungs and pleural spaces: Evaluation of the lung parenchyma is severely degraded by motion artifact. Patchy airspace opacities are identified in the left upper lobe. No pneumothorax or pleural effusion is seen. There is bibasilar airspace consolidation. Linear atelectasis versus scarring is present throughout both lungs. Mild intralobular septal thickening is noted. The trachea and central airways are clear. Mediastinum: There are numerous subcentimeter mediastinal lymph nodes. These are not pathologically enlarged by size criteria. Debbie: Clear. Axillae: There is no axillary lymphadenopathy. Upper abdomen: Cirrhotic liver morphology is noted. The spleen is enlarged. A gastrostomy tube tract is present anterior to the stomach. The gastrostomy tube has been removed. See report of abdominal CT performed concurrently for detailed intra-abdominal findings. Skeletal structures: The skeletal structures are osteopenic. Degenerative changes noted throughout the thoracic spine. No lytic or blastic bony lesions are seen. There are healed right-sided rib fractures. No acute fracture is suspected. Soft tissues: There is significant edema identified within the right breast and the right anterior/inferior chest wall. IMPRESSION: 1. Significantly motion compromised examination. 2. There is no evidence of central pulmonary embolus in the main, lobar, or proximal segmental pulmonary arteries. 3. Patchy airspace opacities are identified in the left upper lobe. Correlate clinically for evidence of an infectious/inflammatory pneumonitis. Large foci of linear atelectasis versus scarring are present throughout both lungs. 4. Cardiomegaly and cardiac pacemaker with evidence of pulmonary artery hypertension. Mild intralobular septal thickening suggests a component of congestive failure. Clinical correlation required. 5. Dense bibasilar airspace consolidation likely represents atelectasis. Clinical correlation will be required. 6. There is significant edema seen within the right breast and the anterior/inferior right chest wall. Correlate clinically for evidence of infection or contusion. CT SCAN OF THE ABDOMEN AND PELVIS WITH IV CONTRAST CLINICAL HISTORY: Fall. Elevated bilirubin and hepatic transaminases. COMPARISON STUDY: Abdominal CT dated 11/04/2016. TECHNIQUE: Following the IV administration of 115 cc of Optiray 320, CT scan of the abdomen AND PELVIS is performed from the lung bases to the proximal femora. Images are reviewed in the axial, sagittal, and coronal planes. IV contrast was administered without complication. Automated dose control exposure was utilized. CT DOSE: 2560.60 mGy.cm FINDINGS: Lung bases: The patient is status post midline sternotomy. Pacemaker leads are noted. The heart is enlarged and without pericardial effusion. Dependent consolidation is noted. Linear atelectasis versus scarring is present at both lung bases. Liver: The contrast-enhanced liver is cirrhotic in morphology and heterogeneous in attenuation. There is nodularity of the hepatic surface contour. There is mild central intrahepatic biliary ductal dilatation. The hepatic veins and portal veins are patent. There are small perigastric and perisplenic varices. Gallbladder: Surgically absent. Spleen: The spleen is enlarged, measuring 15 cm in length. Pancreas: Moderately atrophic and grossly unremarkable. Adrenal glands: Unremarkable. Kidneys: The contrast enhanced kidneys are normal in size and without hydronephrosis. The kidneys enhance symmetrically. Small nonobstructing left renal calculi are identified. Abdominal vasculature: The abdominal aorta is normal in course and caliber noting moderate to advanced atherosclerotic calcification. Stomach and bowel: The stomach and duodenum are normal in configuration. A percutaneous gastrostomy tube has been removed from previous. Findings suggest partial resection of the left colon with colocolonic anastomosis. No bowel obstruction is seen. There is moderate colonic diverticulosis without CT evidence of acute diverticulitis. The appendix is well-visualized and normal. Peritoneum: There is no intraperitoneal free air or abdominal ascites. Lymphadenopathy: None. Pelvic viscera: Bladder is decompressed but appears mildly thick walled. The uterus and adnexa are normal as imaged. There is postoperative change in the right groin. A lobulated simple appearing fluid collection is noted in the right groin measuring approximately 2 x 4.5 cm. This likely represents a postoperative seroma. Skeletal structures: The skeletal structures are osteopenic. Mild lumbosacral spondylosis is observed. A large Schmorl's node is seen in the superior endplate of L5. No lytic or blastic lesions are seen. IMPRESSION: 1. Although decompressed, the bladder wall appears thickened and hyperemic. Correlate clinically and with urinalysis for evidence of cystitis. 2. The gastrostomy tube seen on 11/04/2016 has been removed. 3. The liver is cirrhotic in morphology and there is evidence of portal hypertension including splenomegaly as well as perigastric and perisplenic varices. 4. Cardiomegaly. 5. Nonobstructing left renal calculi. 6. There are postoperative changes consistent with partial left colon resection with colocolonic anastomosis. There is no bowel obstruction. 7. Moderate colonic diverticulosis without CT evidence of acute epiglottis. 8. A simple appearing fluid collection the right groin likely represents a postoperative seroma. Clinical correlation will be required. 9. Additional findings as above. Item Value Date Time Urine Culture - Preliminary Resulted 12/05/16 1632 Urine,Catheterized NO GROWTH - LESS THAN 1,000 COLONIES/... Blood Culture Received 12/05/16 1600 Blood Pending C.difficile Toxin B Gene (PCR) - Final Complete 12/05/16 1556 Stool Positive for C. difficile toxin B gene Blood Culture Received 12/05/16 1550 Blood Pending MRSA DNA Surveillance Screen - Final Complete 12/05/16 0000 Nasal Specimen Negative for MRSA by DNA Probe Last 24 Hours Test 12/05/16 14:50 12/05/16 16:32 12/05/16 20:17 12/05/16 20:40 White Blood Count 9.37 K/uL Red Blood Count 3.19 M/uL Hemoglobin 9.2 g/dL Hematocrit 27.4 % Mean Corpuscular Volume 85.9 fL Mean Corpuscular Hemoglobin 28.8 pg Mean Corpuscular Hemoglobin Concent 33.6 g/dl Platelet Count 155 K/uL Mean Platelet Volume 9.6 fL Neutrophils (%) (Auto) 65.4 % Lymphocytes (%) (Auto) 29.3 % Monocytes (%) (Auto) 5.0 % Eosinophils (%) (Auto) 0.1 % Basophils (%) (Auto) 0.1 % Neutrophils # (Auto) 6.12 K/uL Lymphocytes # (Auto) 2.75 K/uL Monocytes # (Auto) 0.47 K/uL Eosinophils # (Auto) 0.01 K/uL Basophils # (Auto) 0.01 K/uL RDW Standard Deviation 52.2 fL RDW Coefficient of Variation 16.5 % Immature Granulocyte % (Auto) 0.1 % Immature Granulocyte # (Auto) 0.01 K/uL Prothrombin Time 13.1 SECONDS Prothromb Time International Ratio 1.2 Sodium Level 133 mmol/L Potassium Level 3.6 mmol/L Chloride Level 99 mmol/L Carbon Dioxide Level 23 mmol/L Anion Gap 11.0 mmol/L Blood Urea Nitrogen 35 mg/dl Creatinine 1.80 mg/dl Est Creatinine Clear Calc Drug Dose 31.5 ml/min Estimated GFR () 33.4 Estimated GFR (Non- 28.8 BUN/Creatinine Ratio 19.6 Random Glucose 224 mg/dl Calcium Level 7.9 mg/dl Magnesium Level 1.6 mg/dl Total Bilirubin 1.7 mg/dl Direct Bilirubin 0.8 mg/dl Aspartate Amino Transf (AST/SGOT) 50 U/L Alanine Aminotransferase (ALT/SGPT) 14 U/L Alkaline Phosphatase 61 U/L Total Creatine Kinase 2344 U/L 1752 U/L Creatine Kinase MB 0.9 ng/ml 0.7 ng/ml Creatine Kinase MB Ratio 0.0 0.0 Troponin I 0.339 ng/ml 0.608 ng/ml Total Protein 6.3 gm/dl Albumin 3.0 gm/dl Urine Color DK YELLOW Urine Appearance CLOUDY Urine pH 5.0 Urine Specific [place] 1.016 Urine Protein 2+ Urine Glucose (UA) NEG Urine Ketones NEG Urine Occult Blood 3+ Urine Nitrite POS Urine Bilirubin NEG Urine Urobilinogen NEG Urine Leukocyte Esterase SMALL Urine WBC (Auto) 5-10 /hpf Urine RBC (Auto) 10-30 /hpf Urine Hyaline Casts (Auto) /lpf Urine Epithelial Cells (Auto) >30 /lpf Urine Bacteria (Auto) PRESENT Urine Pathogenic Casts 0-3 GRANULAR CASTS /lpf Urine Yeast (Auto) BUDDING Bedside Glucose 208 mg/dl Hepatitis C Antibody Screen NEG Test 12/06/16 03:25 12/06/16 07:16 12/06/16 11:10 12/06/16 11:51 White Blood Count 7.22 K/uL Red Blood Count 2.96 M/uL Hemoglobin 8.6 g/dL Hematocrit 25.8 % Mean Corpuscular Volume 87.2 fL Mean Corpuscular Hemoglobin 29.1 pg Mean Corpuscular Hemoglobin Concent 33.3 g/dl Platelet Count 134 K/uL Mean Platelet Volume 8.9 fL Neutrophils (%) (Auto) 80.5 % Lymphocytes (%) (Auto) 15.9 % Monocytes (%) (Auto) 3.2 % Eosinophils (%) (Auto) 0.0 % Basophils (%) (Auto) 0.1 % Neutrophils # (Auto) 5.81 K/uL Lymphocytes # (Auto) 1.15 K/uL Monocytes # (Auto) 0.23 K/uL Eosinophils # (Auto) 0.00 K/uL Basophils # (Auto) 0.01 K/uL RDW Standard Deviation 53.3 fL RDW Coefficient of Variation 16.6 % Immature Granulocyte % (Auto) 0.3 % Immature Granulocyte # (Auto) 0.02 K/uL Red Blood Cell Morphology Unremarkable Prothrombin Time 12.6 SECONDS Prothromb Time International Ratio 1.2 Activated Partial Thromboplast Time 43.2 SECONDS Partial Thromboplastin Ratio 1.7 Sodium Level 138 mmol/L Potassium Level 3.9 mmol/L Chloride Level 105 mmol/L Carbon Dioxide Level 24 mmol/L Anion Gap 9.0 mmol/L Blood Urea Nitrogen 32 mg/dl Creatinine 1.50 mg/dl Est Creatinine Clear Calc Drug Dose 38.1 ml/min Estimated GFR () 41.6 Estimated GFR (Non- 35.9 BUN/Creatinine Ratio 21.5 Bedside Glucose 242 mg/dl 262 mg/dl 345 mg/dl Random Glucose 220 mg/dl Calcium Level 7.5 mg/dl Magnesium Level 2.4 mg/dl Total Bilirubin 1.5 mg/dl Direct Bilirubin 0.9 mg/dl Aspartate Amino Transf (AST/SGOT) 41 U/L Alanine Aminotransferase (ALT/SGPT) 13 U/L Alkaline Phosphatase 53 U/L Total Creatine Kinase 1076 U/L 524 U/L Creatine Kinase MB 0.9 ng/ml 1.3 ng/ml Creatine Kinase MB Ratio 0.1 0.2 Troponin I 0.314 ng/ml 0.165 ng/ml Total Protein 6.1 gm/dl Albumin 2.4 gm/dl Random Vancomycin Level 23.0 mcg/ml Test 12/06/16 13:16 Assessment & Plan Diabetic female with Afib with RBR and acute respiratory failure on admission with C. Diff colitis, possible UTI, and possible left upper lobe pneumonitis. She is currently on IV Vancomycin, Zosyn, Levaquin, and PO Vancomycin 250 mg QID. Her diarrhea has improved, therefore will decreased to PO Vancomycin 125 mg QID- she likely will need a prolonged tapering course due to recurrence. MRSA swab was negative- will D/C IV Vancomycin and Levaquin. Continue Zosyn for now pending further improvement of lung function. Feel that likely her main problem is recurrent C. Diff, but we will follow. Case reviewed and agree with above assessment.
--- NOTE | 2016-12-06 18:11 | Hospitalist Progress Note ---
Hospitalist Progress Note Date of Service Dec 06, 2016. Subjective Pt evaluation today including: conversation w/ patient patient feels better no difficulty swallowing Objective Vital Signs Date Time Temp Pulse Resp B/P Pulse Ox O2 Delivery O2 Flow Rate FiO2 12/06/16 16:00 95 Nasal Cannula 4.0 12/06/16 15:42 36.4 80 18 111/45 99 Nasal Cannula 12/06/16 12:00 95 Nasal Cannula 4.0 12/06/16 11:21 36.5 84 20 92/50 95 Nasal Cannula 4.0 12/06/16 08:00 95 Nasal Cannula 4.0 12/06/16 07:51 36.6 97 20 101/47 94 Nasal Cannula 4.0 12/06/16 07:49 84 14 95 Nasal Cannula 4.0 12/06/16 04:00 95 Nasal Cannula 3.0 12/06/16 03:10 36.6 95 18 101/46 95 Nasal Cannula 4.0 12/06/16 02:01 95 14 96 Nasal Cannula 5.0 12/06/16 00:00 95 Nasal Cannula 3.0 12/05/16 23:00 36.7 12/05/16 21:30 37.6 12/05/16 20:39 39.1 111 30 128/51 93 Nasal Cannula 4.0 12/05/16 19:12 111 Physical Exam General Appearance: WD/WN ENT: hearing grossly normal Neck: supple, trachea midline Respiratory/Chest: lungs clear Cardiovascular: regular rate, rhythm Abdomen: normal bowel sounds Extremities: normal range of motion Laboratory Results Last 24 Hours Test 12/05/16 20:17 12/05/16 20:40 12/06/16 03:25 12/06/16 07:16 Bedside Glucose 208 mg/dl 242 mg/dl 262 mg/dl Total Creatine Kinase 1752 U/L 1076 U/L Creatine Kinase MB 0.7 ng/ml 0.9 ng/ml Creatine Kinase MB Ratio 0.0 0.1 Troponin I 0.608 ng/ml 0.314 ng/ml Hepatitis C Antibody Screen NEG White Blood Count 7.22 K/uL Red Blood Count 2.96 M/uL Hemoglobin 8.6 g/dL Hematocrit 25.8 % Mean Corpuscular Volume 87.2 fL Mean Corpuscular Hemoglobin 29.1 pg Mean Corpuscular Hemoglobin Concent 33.3 g/dl Platelet Count 134 K/uL Mean Platelet Volume 8.9 fL Neutrophils (%) (Auto) 80.5 % Lymphocytes (%) (Auto) 15.9 % Monocytes (%) (Auto) 3.2 % Eosinophils (%) (Auto) 0.0 % Basophils (%) (Auto) 0.1 % Neutrophils # (Auto) 5.81 K/uL Lymphocytes # (Auto) 1.15 K/uL Monocytes # (Auto) 0.23 K/uL Eosinophils # (Auto) 0.00 K/uL Basophils # (Auto) 0.01 K/uL RDW Standard Deviation 53.3 fL RDW Coefficient of Variation 16.6 % Immature Granulocyte % (Auto) 0.3 % Immature Granulocyte # (Auto) 0.02 K/uL Red Blood Cell Morphology Unremarkable Prothrombin Time 12.6 SECONDS Prothromb Time International Ratio 1.2 Activated Partial Thromboplast Time 43.2 SECONDS Partial Thromboplastin Ratio 1.7 Sodium Level 138 mmol/L Potassium Level 3.9 mmol/L Chloride Level 105 mmol/L Carbon Dioxide Level 24 mmol/L Anion Gap 9.0 mmol/L Blood Urea Nitrogen 32 mg/dl Creatinine 1.50 mg/dl Est Creatinine Clear Calc Drug Dose 38.1 ml/min Estimated GFR () 41.6 Estimated GFR (Non- 35.9 BUN/Creatinine Ratio 21.5 Random Glucose 220 mg/dl Calcium Level 7.5 mg/dl Magnesium Level 2.4 mg/dl Total Bilirubin 1.5 mg/dl Direct Bilirubin 0.9 mg/dl Aspartate Amino Transf (AST/SGOT) 41 U/L Alanine Aminotransferase (ALT/SGPT) 13 U/L Alkaline Phosphatase 53 U/L Total Protein 6.1 gm/dl Albumin 2.4 gm/dl Random Vancomycin Level 23.0 mcg/ml Test 12/06/16 11:10 12/06/16 11:51 12/06/16 13:16 12/06/16 16:12 Total Creatine Kinase 524 U/L Creatine Kinase MB 1.3 ng/ml Creatine Kinase MB Ratio 0.2 Troponin I 0.165 ng/ml Bedside Glucose 345 mg/dl 329 mg/dl Random Vancomycin Level 16.8 mcg/ml Assessment and Plan (1) Pneumonia Assessment & Plan: Will ask infectious disease to see for recurrent UTI/ Pneumonia with c. diff. (2) C. difficile colitis Assessment & Plan: continue vanco po (3) UTI (urinary tract infection) (4) Rheumatoid arthritis (5) Diabetes Problem Qualifiers (1) Pneumonia: Pneumonia type: due to unspecified organism Laterality: left Lung location: unspecified part of lung Qualified Codes: J18.9 - Pneumonia, unspecified organism (2) UTI (urinary tract infection): Urinary tract infection type: site unspecified Hematuria presence: with hematuria Qualified Codes: N39.0 - Urinary tract infection, site not specified ; R31.9 - Hematuria, unspecified
[2016-12-06] MEDS: INSULIN GLARGINE SOLOSTAR 100 UNITS/ML 3 ML PEN SC SCH (21:00)
[2016-12-07] VITALS (23 sets, daily range): BP systolic 100–124; BP diastolic 43–78; PULSE 70–88; TEMP 36.4–36.9; O2SAT 90–98; Ht 152.4 cm; Wt 93.9 kg
[2016-12-07] MEDS ORDERED: hydrOXYzine HCL 25 MG TAB PO STA (01:19)
[2016-12-07] MEDS: LEVALBUTEROL 1.25MG/0.5ML NEB INH SCH ×4 (02:00→19:38)
[2016-12-07] MEDS: IPRATROPIUM BROMIDE NEB SOLN 0.02% 2.5 ML VIAL INH SCH ×4 (02:00→19:38)
[2016-12-07] MEDS: METHYLPREDNISOLONE IV 30 MG in SYRINGE 0 ML IV SCH ×3 (04:00→20:21)
[2016-12-07] MEDS: INSULIN ASPART 100 UNITS/ML 3 ML PEN SC SCH ×6 (04:55→20:29)
[2016-12-07] MEDS: PIPERACILL/TAZOBAC IV 3.375 GM in DEXTROSE 5% 100ML 100 ML IV SCH ×3 (06:23→22:30)
[2016-12-07 06:29] LABS: HEMATOCRIT 22.9 % (37-47); IG% 0.4 %; LYMPH % 12.7 %; LYMPH ABS # 0.64 K/uL (1.2-3.4); MEAN CELL VOLUME 86.7 fL (80-100); MEAN CORPUSCULAR HEMOGLOBIN 28.8 pg (25-34); MEAN CORPUSCULAR HGB CONC 33.2 g/dl (32-36); MEAN PLATELET VOLUME 9.7 fL (7.4-10.4); MONO % 2.6 %; NEUT % 84.3 %; PLATELET COUNT 147 K/uL (130-400); RED BLOOD COUNT 2.64 M/uL (4.2-5.4); WHITE BLOOD COUNT 5.05 K/uL (4.8-10.8)
[2016-12-07 06:40] LABS: INR 1.1 (0.9-1.1); PARTIAL THROMBOPLASTIN RATIO 1.3; PROTHROMBIN TIME (PATIENT) 11.3 SECONDS (9.0-12.0)
[2016-12-07 07:02] LABS: BUN/CREATININE RATIO 31.5 (10-20); CALCIUM 7.9 mg/dl (8.5-10.1); CREATININE 1.6 mg/dl (0.60-1.20); MAGNESIUM 2.7 mg/dl (1.8-2.4); POTASSIUM 3.7 mmol/L (3.5-5.1)
[2016-12-07 07:04] LABS: COMPLETE YES; ECHINOCYTES 1+
[2016-12-07 08:17] LABS: ESTIMATED AVERAGE GLUCOSE 120 mg/dl; HA1C FLAG Normal (Normal)
[2016-12-07] MEDS ORDERED: NURSING VERBAL MED ORDER ONE ×3 (08:30→22:15)
[2016-12-07] MEDS: SODIUM CHLORIDE 0.9% 1000ML 1,000 ML IV SCH (08:45)
[2016-12-07] MEDS ORDERED: FUROSEMIDE INJ 10 MG in SYRINGE 0 ML IV SCH (09:00)
[2016-12-07] MEDS: LEVETIRACETAM 500 MG TAB PO SCH ×2 (09:17→20:20)
[2016-12-07] MEDS: RASPBERRY SYRUP 5 ML UDP PO SCH ×4 (09:18→20:20)
[2016-12-07] MEDS: VANCOMYCIN HCL 250 MG/5 ML SOLN PO SCH ×4 (09:18→20:20)
[2016-12-07] MEDS: SODIUM CHLORIDE 0.65% NA SOLN 45 ML (OCEAN) NAE SCH ×3 (09:18→20:19)
[2016-12-07] MEDS: INSULIN GLARGINE SOLOSTAR 100 UNITS/ML 3 ML PEN SC SCH ×2 (09:21→20:30)
--- NOTE | 2016-12-07 10:04 | Infectious Disease Progress Nt ---
Progress Note Date of Service Dec 07, 2016. Subjective Pt evaluation today including: conversation w/ patient, physical exam, chart review, lab review, review of studies, review of inpatient medication list WBC count 5.05 today and Hgb was 7.6 this morning and patient is currently receiving a blood transfusion. Creatinine was 1.60. Blood cultures and urine cultures showing no growth. She has been afebrile. She states that her shoulders and back are achy this morning because of her recent fall but otherwise she is having no abdominal pain today. She had a formed BM this morning. She otherwise is starting to feel better. All Other Systems: Reviewed and Negative Medications Current Inpatient Medications Medications (Trade) Dose Ordered Sig/Shirley Route Start Time Stop Time Status Last Admin Dose Admin Ioversol (Optiray 320) 116 ml UD PRN IV 12/05/16 16:15 12/09/16 16:14 Levetiracetam (Keppra Tab) 500 mg BID PO 12/05/16 21:00 01/04/17 20:59 12/07/16 09:17 500 MG Sodium Chloride ([place] Nasal [place]) 2 sprays TID LESTER 12/05/16 21:00 01/04/17 20:59 12/07/16 09:18 2 SPRAYS Ondansetron HCl (Zofran Inj) 4 mg Q6H PRN IV 12/05/16 19:15 01/04/17 19:14 Insulin Aspart (novoLOG ASPART) SLIDING SCALE If C... ACHS SC 12/05/16 21:00 01/04/17 20:59 12/07/16 07:00 13 UNITS Glucose (Glucose 40% Gel) UD PRN PO 12/05/16 19:15 01/04/17 19:14 Glucose (Glucose Chew Tab) 1 tabs UD PRN PO 12/05/16 19:15 01/04/17 19:14 Dextrose (Dextrose 50% 50ML Syringe) 50 ml UD PRN IV 12/05/16 19:15 01/04/17 19:14 Glucagon 1 mg 1 mg UD PRN SQ 12/05/16 19:15 01/04/17 19:14 Piperacillin Sod/ Tazobactam Sod 3.375 gm/Dextrose 115 ml @ 28.75 mls/ hr Q8H IV 12/05/16 22:00 12/12/16 21:59 12/07/16 06:23 28.75 MLS/HR Methylprednisolone Sodium Succinate/ Syringe (Solu-Medrol IV/ Syringe) 0.48 ml @ 1.5 mls/min Q8H IV 12/05/16 20:00 01/04/17 19:59 12/07/16 04:00 1.5 MLS/MIN Vancomycin HCl 250 mg 250 mg QID PO 12/05/16 21:00 12/19/16 20:59 12/07/16 09:18 250 MG Sodium Chloride (Nss 1000ml) 1,000 ml @ 80 mls/hr [id number] IV 12/05/16 19:15 01/04/17 19:14 12/07/16 08:45 80 MLS/HR Ipratropium Excel (Atrovent 0.02% 0.5MG/2.5ML Neb) 0.5 mg Q6R INH 12/05/16 21:00 01/04/17 20:59 12/07/16 07:26 0.5 MG Levalbuterol (Xopenex 1.25MG/ 0.5ML Neb) 1.25 mg Q6R INH 12/05/16 21:00 01/04/17 20:59 12/07/16 07:26 1.25 MG Raspberry (Raspberry Syrup 5ml Cup) 5 ml QID PO 12/05/16 21:00 12/19/16 20:59 12/07/16 09:18 5 ML Piperacillin Sod/ Tazobactam Sod (Consult) 1 ea UD PRN N/A 12/05/16 20:30 01/04/17 20:29 Miscellaneous Information (Consult Glycemic Management Pharmacy) 1 UD PRN N/A 12/06/16 12:45 01/05/17 12:44 Insulin Glargine (Lantus Solostar Pen) 15 unit BID SC 12/06/16 21:00 01/05/17 20:59 12/07/16 09:21 15 UNIT Insulin Aspart (novoLOG ASPART) SLIDING SCALE If C... 0000,0400 SC 12/07/16 00:00 01/06/17 00:00 12/07/16 04:55 3 UNITS Diphenhydramine HCl 25 mg 25 mg TODAY@0900 PO 12/07/16 09:00 12/07/16 23:59 12/07/16 09:18 25 MG Furosemide/Syringe (Lasix Inj/ Syringe) 1 ml @ 4 mls/min TODAY@0900 IV 12/07/16 09:00 12/07/16 23:59 Objective Vital Signs Date Time Temp Pulse Resp B/P Pulse Ox O2 Delivery O2 Flow Rate FiO2 12/07/16 09:08 36.5 82 20 105/43 90 12/07/16 08:00 95 Nasal Cannula 4.0 12/07/16 07:27 82 16 92 Room Air 12/07/16 07:14 36.4 80 16 102/46 92 12/07/16 04:00 95 Nasal Cannula 3.0 12/07/16 03:05 36.5 80 18 124/50 92 Room Air 12/07/16 02:00 80 14 98 Nasal Cannula 2.0 12/07/16 00:00 95 Nasal Cannula 3.0 12/06/16 23:25 36.5 81 20 109/49 97 Nasal Cannula 2.0 12/06/16 20:00 95 Nasal Cannula 3.0 12/06/16 19:46 36.4 85 24 95/44 96 Nasal Cannula 2.0 12/06/16 19:10 80 16 99 Nasal Cannula 4.0 12/06/16 16:00 95 Nasal Cannula 4.0 12/06/16 15:42 36.4 80 18 111/45 99 Nasal Cannula 12/06/16 12:00 95 Nasal Cannula 4.0 12/06/16 11:21 36.5 84 20 92/50 95 Nasal Cannula 4.0 Physical Exam General Appearance: WD/WN, no apparent distress Eyes: normal inspection, sclerae normal ENT: hearing grossly normal Neck: supple, trachea midline Respiratory/Chest: no respiratory distress, no accessory muscle use, + decreased breath sounds Cardiovascular: + pertinent finding (paced rhythm) Abdomen: normal bowel sounds, non tender, soft Extremities: normal range of motion Neurologic/Psychiatric: alert, normal mood/affect Skin: normal color, warm/dry, no rash Laboratory Results Item Value Date Time Urine Culture - Preliminary Resulted 12/05/16 1632 Urine,Catheterized NO GROWTH - LESS THAN 1,000 COLONIES/... Blood Culture - Preliminary Resulted 12/05/16 1600 Blood NO GROWTH TO DATE. MRSA DNA Surveillance Screen - Final Complete 12/05/16 0000 Nasal Specimen Negative for MRSA by DNA Probe Blood Culture - Preliminary Resulted 12/05/16 1550 Blood NO GROWTH TO DATE. Last 24 Hours Test 12/06/16 11:10 12/06/16 11:51 12/06/16 13:16 12/06/16 16:12 Total Creatine Kinase 524 U/L Creatine Kinase MB 1.3 ng/ml Creatine Kinase MB Ratio 0.2 Troponin I 0.165 ng/ml Bedside Glucose 345 mg/dl 329 mg/dl Random Vancomycin Level 16.8 mcg/ml Test 12/06/16 20:34 12/07/16 00:09 12/07/16 04:51 12/07/16 06:03 Bedside Glucose 329 mg/dl 206 mg/dl 197 mg/dl White Blood Count 5.05 K/uL Red Blood Count 2.64 M/uL Hemoglobin 7.6 g/dL Hematocrit 22.9 % Mean Corpuscular Volume 86.7 fL Mean Corpuscular Hemoglobin 28.8 pg Mean Corpuscular Hemoglobin Concent 33.2 g/dl Platelet Count 147 K/uL Mean Platelet Volume 9.7 fL Neutrophils (%) (Auto) 84.3 % Lymphocytes (%) (Auto) 12.7 % Monocytes (%) (Auto) 2.6 % Eosinophils (%) (Auto) 0.0 % Basophils (%) (Auto) 0.0 % Neutrophils # (Auto) 4.26 K/uL Lymphocytes # (Auto) 0.64 K/uL Monocytes # (Auto) 0.13 K/uL Eosinophils # (Auto) 0.00 K/uL Basophils # (Auto) 0.00 K/uL RDW Standard Deviation 52.9 fL RDW Coefficient of Variation 16.5 % Immature Granulocyte % (Auto) 0.4 % Immature Granulocyte # (Auto) 0.02 K/uL Echinocytes 1+ Prothrombin Time 11.3 SECONDS Prothromb Time International Ratio 1.1 Activated Partial Thromboplast Time 34.4 SECONDS Partial Thromboplastin Ratio 1.3 Sodium Level 138 mmol/L Potassium Level 3.7 mmol/L Chloride Level 107 mmol/L Carbon Dioxide Level 20 mmol/L Anion Gap 11.0 mmol/L Blood Urea Nitrogen 50 mg/dl Creatinine 1.60 mg/dl Est Creatinine Clear Calc Drug Dose 32.6 ml/min Estimated GFR () 38.5 Estimated GFR (Non- 33.2 BUN/Creatinine Ratio 31.5 Random Glucose 175 mg/dl Estimated Average Glucose 120 mg/dl Hemoglobin A1c 5.8 % Calcium Level 7.9 mg/dl Magnesium Level 2.7 mg/dl Total Bilirubin 0.7 mg/dl Direct Bilirubin 0.3 mg/dl Aspartate Amino Transf (AST/SGOT) 25 U/L Alanine Aminotransferase (ALT/SGPT) 13 U/L Alkaline Phosphatase 46 U/L Total Protein 6.1 gm/dl Albumin 2.4 gm/dl Test 12/07/16 06:34 12/07/16 07:07 12/07/16 08:30 12/07/16 08:55 Bedside Glucose 189 mg/dl 193 mg/dl Acetaminophen Level < 2 ug/ml Assessment and Plan (1) Pneumonia (2) C. difficile colitis Status: Acute (3) UTI (urinary tract infection) Status: Acute (4) Rheumatoid arthritis Status: Chronic (5) Diabetes Status: Chronic Diabetic female with Afib with RVR and acute respiratory failure on admission with C. Diff colitis, possible UTI, and possible left upper lobe pneumonitis. She is currently on IV Zosyn and PO Vancomycin 125 mg QID. Her diarrhea has resolved, but she likely will need a prolonged tapering course of PO Vancomycin. Recommend repeat CXR today or tomorrow. We will continue to follow. Case reviewed and agree with above assessment.
--- NOTE | 2016-12-07 10:24 | ONCOLOGY CONSULTATION ---
DATE OF CONSULTATION: 12/07/2016 REASON FOR CONSULTATION: Chronic anemia. HISTORY OF PRESENT ILLNESS: Lindsay is a very pleasant but somewhat complex 66-year-old female patient who was admitted through the Emergency Room on 12/06/2016 with frequent falls, decline in status and intractable diarrhea. Again, Lisa has multiple comorbid issues including recent open heart surgery in August 2016, suffered multiple complications including wound infection. Apparently, she was recently diagnosed with urinary tract infection at [facility] last Tuesday. She was initially started on Cipro and changed to Bactrim. She developed liquidy diarrhea approximately 4-5 days prior to admission. Apparently over the weekend became profoundly weak and suffered multiple falls at home. On admission, her labs were remarkable for ongoing anemia. Stool was positive for Clostridium difficile. Radiographic studies suggest emerging pneumonia. Lindsay is well [facility] with a remote history of early stage colorectal cancer. I also follow her for chronic anemia which I believe in her case is multifactorial including chronic disease, renal insufficiency and a component of iron deficiency. She reports no active gastrointestinal or genitourinary bleeding. During her hospitalization in [place] underwent a full GI workup including EGD and colonoscopy which were otherwise unremarkable. I have been asked to assist in the care of Mrs. Dunaway for persistent anemia. She continues to receive supplemental erythropoietin 40,000 units subQ every 2 weeks for hemoglobin less than 11 grams per deciliter. Her last dose of Procrit was administered on Tuesday of this past week. PAST MEDICAL HISTORY: Significant for anemia of chronic renal insufficiency/chronic disease, remote history of colorectal cancer, Clostridium difficile colitis, PICC site infection, sepsis, urinary tract infection. She also suffers from rheumatoid arthritis, hypothyroidism and type 2 diabetes mellitus. PAST SURGICAL HISTORY: Mitral valve replacement in August 2016, lithotripsy, cholecystectomy and hemicolectomy in 2008. HOME MEDICATIONS: Include Bactrim 1 tablet p.o. b.i.d., glyburide 1 mg p.o. daily, Aldactone 25 mg p.o. daily, Januvia 100 mg p.o. daily, Ultram 50 mg p.o. q. 6 hours p.r.n., ferrous sulfate 325 mg p.o. b.i.d., melatonin 5 mg p.o. at bedtime, Florastor 250 mg p.o. every day, potassium chloride 20 mEq p.o. every day, Medrol 4 mg p.o. every day, Synthroid 25 mcg p.o. every day, Keppra 500 mg p.o. b.i.d., gabapentin 300 mg p.o. every day, Lasix 40 mg p.o. b.i.d., Eliquis 5 mg p.o. b.i.d., Lipitor 20 mg p.o. at bedtime, aspirin 81 mg p.o. daily, Atrovent 2 puffs inhaled q.i.d., Procrit 40,000 units subQ every 2 weeks, metoprolol 25 mg p.o. b.i.d., Pepcid 20 mg p.o. daily, trazodone 50 mg p.o. at bedtime. SOCIAL HISTORY: She is , retired. She is a nonsmoker, nondrinker, negative for drug abuse. FAMILY HISTORY: Negative. REVIEW OF SYSTEMS: As per HPI CONSTITUTIONAL: Generalized weakness, decreased appetite. Denied any preceding fevers, chills or sweats. SKIN: No rashes or lesions. No history of dermatosis. HEENT: Negative for headaches. She had been lightheaded without vertigo. No acute visual or hearing deficits. No sinus symptoms, sore throat or dysphagia. LYMPH: No history of lymphoproliferative disorder. HEART: Coronary history as per HPI. No current chest pain, angina or palpitations. PULMONARY: Newly diagnosed pneumonia. She denies any shortness of breath, dyspnea on exertion at present. GASTROINTESTINAL: Positive for diarrhea. Negative for abdominal pain. No active hematochezia, melena or osman rectal bleeding. GENITOURINARY: Positive history of UTI. No current dysuria, hematuria or nocturia. MUSCULOSKELETAL: Suffers from rheumatoid arthritis. Denies any muscle weakness or arthralgias or myalgias at present. NEUROLOGIC: Positive for seizure disorder by history. Negative for migraine headaches or history of stroke. PSYCHIATRIC: Positive for anxiety. ENDOCRINE: Positive for diabetes mellitus. HEMATOLOGIC: Lindsay suffers from anemia of chronic disease, renal insufficiency and iron deficiency. PHYSICAL EXAMINATION: GENERAL: Very pleasant 66-year-old female patient, answers questions appropriately, in no acute distress. VITAL SIGNS: Temperature 36.4, pulse 80, respirations 16, blood pressure 102/46. SKIN: Warm, dry, and noncyanotic with petechia, rash or ecchymosis. HEAD: Atraumatic, normocephalic. ENT: Eyes, PERRLA, EOMI. Sclerae nonicteric. No conjunctival injection. Nares patent without rhinorrhea or discharge. Throat clear. Tongue midline. Mucous membranes are moist. NECK: Supple without JVD or thyromegaly. LYMPH: No cervical, supraclavicular, axillary palpable nodes. HEART: Regular rate and rhythm. No clicks, rubs or murmurs. LUNGS: Clear to auscultation; however, breath sounds are diminished. I cannot appreciate rales or rhonchi; however. ABDOMEN: Soft, nontender, nondistended. No palpable hepatosplenomegaly. EXTREMITIES: Musculoskeletal strength and pulses are equal. No clubbing, cyanosis or edema otherwise. NEUROLOGICAL: She is awake, alert and oriented x3. Her cranial nerves are intact. No gross motor or sensory deficits are noted. LABORATORY DATA: Sodium 138, potassium 3.7, chloride 107, carbon dioxide 20, creatinine 1.60. BUN is pending. Albumin decreased 2.4. Coags slightly elevated PTT at 34.4 seconds. WBC count 5050, hemoglobin 7.6, platelet count 147,000. RADIOGRAPHIC DATA: CT scan of the abdomen and pelvis reveals cirrhotic appearing liver with translated splenomegaly nonobstructing left renal calculi. Postoperative changes consistent with prior left hemicolectomy, diverticular disease. CT scan of the chest patchy airspace opacities identified in the left upper lobe, negative for pulmonary embolism. CT scan of the head negative for hemorrhage, mass effect or ischemia. IMPRESSION: 1. Lobar pneumonia. 2. Clostridium difficile colitis. 3. Anemia of chronic renal insufficiency/chronic disease. 4. Remote history of colorectal cancer. 5. Diabetes mellitus. 6. Hypothyroidism. 7. Hypoalbuminemia. PLAN: In summary, Lindsay is a pleasant 66-year-old female patient well known to [facility], currently being followed for remote history of colorectal cancer and chronic anemia. She receives erythropoietin every 2 weeks 40,000 units subQ for hemoglobin less than 11 grams per deciliter. For the most part, her hemoglobins have remained stable with her baseline around 10 grams per deciliter. Her current hemoglobin at 7.6. I suspect is multifactorial with her ongoing infection and slight increase in creatinine are contributing factors. There is no evidence of active bleeding at this time. At this juncture it is a little too soon to redose her with erythropoietin however, 2 units of transfused blood would be appropriate and helpful. Lindsay is already well established within the [facility] and will resume erythropoietin post-discharge. Her medical issues are currently being managed appropriately and I have nothing further to add at this point. Will continue to follow up with Lindsay periodically during her hospital stay. Thank you for assisting me in the care of this very pleasant patient. If you have any further questions or concerns, feel free to contact me at any time. ROMAN
--- NOTE | 2016-12-07 11:58 | Pharmacy Progress Note ---
Glycemic Control: Progress Nt Date of Service Dec 07, 2016. Scope Glycemic Pharmacist consulted by Dr Hull on 12/06/16 for glycemic control and to write orders per [facility] inpatient glycemic control protocol. Objective Accuchecks BSG (last 24hrs): Test 12/06/16 11:51 12/06/16 16:12 12/06/16 20:34 12/07/16 00:09 Bedside Glucose 345 mg/dl (70-90) 329 mg/dl (70-90) 329 mg/dl (70-90) 206 mg/dl (70-90) Test 12/07/16 04:51 12/07/16 06:03 12/07/16 06:34 12/07/16 07:07 Bedside Glucose 197 mg/dl (70-90) 189 mg/dl (70-90) 193 mg/dl (70-90) Random Glucose 175 mg/dl (70-99) Test 12/07/16 11:28 Bedside Glucose 236 mg/dl (70-90) Laboratory Data (last 24hrs) Test 12/07/16 06:03 Anion Gap 11.0 mmol/L BUN/Creatinine Ratio 31.5 Blood Urea Nitrogen 50 mg/dl Creatinine 1.60 mg/dl Hemoglobin A1c 5.8 % Potassium Level 3.7 mmol/L Sodium Level 138 mmol/L White Blood Count 5.05 K/uL Red Blood Count 2.64 M/uL Hemoglobin 7.6 g/dL Hematocrit 22.9 % Mean Corpuscular Volume 86.7 fL Mean Corpuscular Hemoglobin 28.8 pg Mean Corpuscular Hemoglobin Concent 33.2 g/dl Platelet Count 147 K/uL Mean Platelet Volume 9.7 fL Neutrophils (%) (Auto) 84.3 % Lymphocytes (%) (Auto) 12.7 % Monocytes (%) (Auto) 2.6 % Eosinophils (%) (Auto) 0.0 % Basophils (%) (Auto) 0.0 % Neutrophils # (Auto) 4.26 K/uL Lymphocytes # (Auto) 0.64 K/uL Monocytes # (Auto) 0.13 K/uL Eosinophils # (Auto) 0.00 K/uL Basophils # (Auto) 0.00 K/uL HbA1c: Test 12/07/16 06:03 Hemoglobin A1c 5.8 % (4.5-5.6) H Recent Pertinent Medications Outpatient Anti-diabetic Regimen: * Amaryl 1 mg PO daily * Januvia 100 mg PO daily Risk Factors for Insulin Resistance: * Steroids * Infection * Diet Assessment & Plan ASSESSMENT: 12/07/16 * 66 yo diabetic F admitted with pneumonia, placed on broad spectrum antibiotics and high-dose IV steroids * BSG >350 mg/dL at lunch yesterday * Novolog tightened, Lantus initiated (weight-based) * Today, fasting BSG 193 mg/dL and lunch BSG 236 mg/dL * Both values nearly 100 points better today than yesterday * Continue current regimen as Lantus is not yet to steady state and steroids will likely soon taper * A1c 5.8% with AM labs indicative of good glycemic control as an outpatient * ADA & AACE recommend a goal blood sugar range 140-180 mg/dl for the majority of critically ill & non-critically ill patients. However, more stringent targets may be selected in individual cases. Will utilize more stringent goal of 100-140 mg/dl based on patient age & comorbidities. Additionally, tighter glycemic control is warranted to facilitate treatment of infection. PLAN FOR INPATIENT GLYCEMIC CONTROL: * Continue to hold outpatient oral diabetes medications * Continue basal insulin with LANTUS 15 units SQ BID * Continue NOVOLOG per scale ACHS or Q6hrs while NPO + 00,04 checks * Goal Range: Low 100 mg/dL - High 140 mg/dL * Correction Factor: 20 mg/dL/unit * Nutritional / Prandial insulin per carb ratio of 1 unit per 7 grams CHO consumed * A1c added to D/C instructions * Please note that the plan above was derived based on current level of insulin resistance and hospital stress. These recommendations are appropriate for inpatient admission only. Plan of care upon discharge will need to be reassessed to avoid potential outpatient hypo/hyperglycemia. Thank you.
[2016-12-07 13:23] LABS: HEMATOCRIT 26.5 % (37-47)
--- NOTE | 2016-12-07 14:59 | Hospitalist Progress Note ---
Hospitalist Progress Note Date of Service Dec 07, 2016. Subjective Pt evaluation today including: conversation w/ patient patient with no complaints feels better All Other Systems: Reviewed and Negative Objective Vital Signs Date Time Temp Pulse Resp B/P Pulse Ox O2 Delivery O2 Flow Rate FiO2 12/07/16 14:41 79 16 95 Room Air 12/07/16 13:51 36.8 80 18 101/68 92 12/07/16 13:21 36.9 72 16 100/48 90 12/07/16 13:06 36.9 84 18 109/53 92 12/07/16 12:51 36.9 80 20 109/53 93 12/07/16 12:00 95 Nasal Cannula 4.0 12/07/16 11:53 36.8 70 18 110/68 92 12/07/16 10:53 36.9 74 18 102/78 91 12/07/16 09:53 36.7 88 20 100/46 92 12/07/16 09:23 36.8 80 18 114/68 93 12/07/16 09:08 36.5 82 20 105/43 90 12/07/16 08:00 95 Nasal Cannula 4.0 12/07/16 07:27 82 16 92 Room Air 12/07/16 07:14 36.4 80 16 102/46 92 12/07/16 04:00 95 Nasal Cannula 3.0 12/07/16 03:05 36.5 80 18 124/50 92 Room Air 12/07/16 02:00 80 14 98 Nasal Cannula 2.0 12/07/16 00:00 95 Nasal Cannula 3.0 12/06/16 23:25 36.5 81 20 109/49 97 Nasal Cannula 2.0 12/06/16 20:00 95 Nasal Cannula 3.0 12/06/16 19:46 36.4 85 24 95/44 96 Nasal Cannula 2.0 12/06/16 19:10 80 16 99 Nasal Cannula 4.0 12/06/16 16:00 95 Nasal Cannula 4.0 12/06/16 15:42 36.4 80 18 111/45 99 Nasal Cannula Physical Exam General Appearance: no apparent distress Eyes: normal inspection ENT: hearing grossly normal Neck: trachea midline Respiratory/Chest: lungs clear Cardiovascular: regular rate, rhythm Abdomen: non tender Extremities: normal inspection Laboratory Results Last 24 Hours Test 12/06/16 16:12 12/06/16 20:34 12/07/16 00:09 12/07/16 04:51 Bedside Glucose 329 mg/dl 329 mg/dl 206 mg/dl 197 mg/dl Test 12/07/16 06:03 12/07/16 06:34 12/07/16 07:07 12/07/16 08:30 White Blood Count 5.05 K/uL Red Blood Count 2.64 M/uL Hemoglobin 7.6 g/dL Hematocrit 22.9 % Mean Corpuscular Volume 86.7 fL Mean Corpuscular Hemoglobin 28.8 pg Mean Corpuscular Hemoglobin Concent 33.2 g/dl Platelet Count 147 K/uL Mean Platelet Volume 9.7 fL Neutrophils (%) (Auto) 84.3 % Lymphocytes (%) (Auto) 12.7 % Monocytes (%) (Auto) 2.6 % Eosinophils (%) (Auto) 0.0 % Basophils (%) (Auto) 0.0 % Neutrophils # (Auto) 4.26 K/uL Lymphocytes # (Auto) 0.64 K/uL Monocytes # (Auto) 0.13 K/uL Eosinophils # (Auto) 0.00 K/uL Basophils # (Auto) 0.00 K/uL RDW Standard Deviation 52.9 fL RDW Coefficient of Variation 16.5 % Immature Granulocyte % (Auto) 0.4 % Immature Granulocyte # (Auto) 0.02 K/uL Echinocytes 1+ Prothrombin Time 11.3 SECONDS Prothromb Time International Ratio 1.1 Activated Partial Thromboplast Time 34.4 SECONDS Partial Thromboplastin Ratio 1.3 Sodium Level 138 mmol/L Potassium Level 3.7 mmol/L Chloride Level 107 mmol/L Carbon Dioxide Level 20 mmol/L Anion Gap 11.0 mmol/L Blood Urea Nitrogen 50 mg/dl Creatinine 1.60 mg/dl Est Creatinine Clear Calc Drug Dose 32.6 ml/min Estimated GFR () 38.5 Estimated GFR (Non- 33.2 BUN/Creatinine Ratio 31.5 Random Glucose 175 mg/dl Estimated Average Glucose 120 mg/dl Hemoglobin A1c 5.8 % Calcium Level 7.9 mg/dl Magnesium Level 2.7 mg/dl Total Bilirubin 0.7 mg/dl Direct Bilirubin 0.3 mg/dl Aspartate Amino Transf (AST/SGOT) 25 U/L Alanine Aminotransferase (ALT/SGPT) 13 U/L Alkaline Phosphatase 46 U/L Total Protein 6.1 gm/dl Albumin 2.4 gm/dl Bedside Glucose 189 mg/dl 193 mg/dl Test 12/07/16 08:55 12/07/16 11:28 12/07/16 12:50 Acetaminophen Level < 2 ug/ml Bedside Glucose 236 mg/dl Hemoglobin 8.6 g/dL Hematocrit 26.5 % Assessment and Plan (1) Pneumonia Assessment & Plan: continue zosyn (2) C. difficile colitis Assessment & Plan: oral vanco (3) UTI (urinary tract infection) (4) Rheumatoid arthritis (5) Diabetes (6) Anemia requiring transfusions Assessment & Plan: Oncology's help appreciated will transfuse 2 units prco Problem Qualifiers (1) Pneumonia: Pneumonia type: due to unspecified organism Laterality: left Lung location: unspecified part of lung Qualified Codes: J18.9 - Pneumonia, unspecified organism (2) UTI (urinary tract infection): Urinary tract infection type: site unspecified Hematuria presence: with hematuria Qualified Codes: N39.0 - Urinary tract infection, site not specified ; R31.9 - Hematuria, unspecified
[2016-12-07] MEDS ORDERED: ACETAMINOPHEN 325 MG TAB PO PRN (22:30)
[2016-12-07] MEDS: hydrOXYzine HCL 25 MG TAB PO PRN (22:39)
[2016-12-08] VITALS (13 sets, daily range): BP systolic 109–133; BP diastolic 48–61; PULSE 73–86; TEMP 36.4–36.5; O2SAT 91–99
[2016-12-08] MEDS: SODIUM CHLORIDE 0.9% 1000ML 1,000 ML IV SCH ×3 (00:46→21:28)
[2016-12-08] MEDS: INSULIN ASPART 100 UNITS/ML 3 ML PEN SC SCH ×6 (00:47→20:49)
[2016-12-08] MEDS: LEVALBUTEROL 1.25MG/0.5ML NEB INH SCH ×4 (02:39→19:16)
[2016-12-08] MEDS: IPRATROPIUM BROMIDE NEB SOLN 0.02% 2.5 ML VIAL INH SCH ×4 (02:39→19:16)
[2016-12-08] MEDS: METHYLPREDNISOLONE IV 30 MG in SYRINGE 0 ML IV SCH ×2 (04:18→12:01)
[2016-12-08] MEDS: PIPERACILL/TAZOBAC IV 3.375 GM in DEXTROSE 5% 100ML 100 ML IV SCH ×3 (05:45→21:28)
[2016-12-08 06:17] LABS: BASO % 0.2 %; BASO ABS # 0.01 K/uL (0-0.2); COMPLETE YES; HEMATOCRIT 28.1 % (37-47); IG% 0.6 %; LYMPH % 10.7 %; LYMPH ABS # 0.54 K/uL (1.2-3.4); MEAN CELL VOLUME 89.8 fL (80-100); MEAN CORPUSCULAR HEMOGLOBIN 29.7 pg (25-34); MEAN CORPUSCULAR HGB CONC 33.1 g/dl (32-36); MEAN PLATELET VOLUME 10.2 fL (7.4-10.4); MONO % 2.8 %; NEUT % 85.7 %; PLATELET COUNT 159 K/uL (130-400); RED BLOOD COUNT 3.13 M/uL (4.2-5.4); WHITE BLOOD COUNT 5.05 K/uL (4.8-10.8)
[2016-12-08 06:36] LABS: PARTIAL THROMBOPLASTIN RATIO 1.1; PROTHROMBIN TIME (PATIENT) 10.6 SECONDS (9.0-12.0)
[2016-12-08 06:57] LABS: BUN/CREATININE RATIO 30.3 (10-20); CALCIUM 8.3 mg/dl (8.5-10.1); MAGNESIUM 2.6 mg/dl (1.8-2.4); POTASSIUM 3.5 mmol/L (3.5-5.1)
[2016-12-08] MEDS: LEVETIRACETAM 500 MG TAB PO SCH ×2 (08:26→20:23)
[2016-12-08] MEDS: SODIUM CHLORIDE 0.65% NA SOLN 45 ML (OCEAN) NAE SCH ×3 (08:26→20:23)
[2016-12-08] MEDS: RASPBERRY SYRUP 5 ML UDP PO SCH ×4 (08:27→20:22)
[2016-12-08] MEDS: VANCOMYCIN HCL 250 MG/5 ML SOLN PO SCH ×4 (08:27→20:22)
--- NOTE | 2016-12-08 08:29 | HEME/ONC PROGRESS NOTE ---
DATE: 12/08/2016 DIAGNOSES: 1. Anemia of chronic renal insufficiency/chronic disease. 2. Lobar pneumonia. 3. Clostridium difficile colitis. HOSPITAL COURSE: Lisa is a very pleasant and complex 66-year-old female patient admitted through the Emergency Room with frequent falls, declining status and intractable diarrhea. I was asked to see her because of her history of chronic anemia. Lisa had been receiving intermittent erythropoietin q. 2 weeks in the office. During this admission, found to be profoundly anemic. She just received her last course of erythropoietin a little less than a week ago. Recommended and she received 2 units of packed RBCs, transfused. Tolerated well. Clinically, she is making slow recovery. Diarrhea has slowed. Tolerating diet. Otherwise, no complaints. PHYSICAL EXAMINATION: GENERAL: She is in no acute distress. VITAL SIGNS: Temperature 36.5, pulse 80, respirations 22, blood pressure 109/50. SKIN: Scattered ecchymoses suffered from previous fall. Otherwise, no rash or lesions. HEENT: Oral mucosa without erythema or ulceration. NECK: Supple. HEART: Regular rate and rhythm. LUNGS: Diminished breath sounds in the right posterior base but otherwise clear. ABDOMEN: Soft, nontender, nondistended. EXTREMITIES: No clubbing, cyanosis or edema. NEUROLOGIC: Grossly intact. LABORATORY DATA: WBC count 5050, hemoglobin 9.3, platelet count 159,000. Sodium 141, potassium 3.5, chloride 111, carbon dioxide 19, creatinine 2, BUN 61. IMPRESSION: 1. Acute on chronic renal insufficiency. 2. Lobar pneumonia. 3. Clostridium difficile colitis. 4. Anemia of chronic renal insufficiency/chronic disease. PLAN: Lisa is on hospital day #2, admitted for intractable diarrhea, diagnosed with C. diff colitis and lobar pneumonia. She continues antimicrobials as ordered by the medical service. She received 2 units packed RBCs which was well tolerated. Again, we will hold off on further erythropoietin until she is outpatient. I agree with her current medical management; however, I am somewhat troubled with her increasing creatinine. We will continue to follow her periodically during her hospital stay again. Thank you again for assisting me in the care of this very pleasant and complex patient.
[2016-12-08] MEDS: INSULIN GLARGINE SOLOSTAR 100 UNITS/ML 3 ML PEN SC SCH ×2 (08:31→20:51)
--- NOTE | 2016-12-08 11:02 | DIAGNOSTIC IMAGING REPORT ---
CHEST 2 VIEWS ROUTINE CLINICAL HISTORY: Pneumonia COMPARISON STUDY: 12/05/2016 FINDINGS: The heart remains enlarged. There are postsurgical changes of a midline sternotomy. There is a left subclavian dual-chamber central venous pacemaker present. There is a small right pleural effusion. There is improving pulmonary vascular congestion.[ IMPRESSION: Improving congestive failure. Small right pleural effusion. No evidence of lobar consolidation. Electronically signed by: Jose Antoine M.D. 12/08/2016 10:59 AM Dictated Date/Time: 12/08/2016 10:59 AM
--- NOTE | 2016-12-08 11:27 | Nephrology Consultation ---
Nephrology Consultation Date & Providers Date of Consultation: Dec 08, 2016. Primary Care Provider: Aneesh Palm M.D. Referring Provider: Reason for Consultation Evaluation of acute on chronic kidney injury History of Present Illness Mrs. Dunaway is a 66 year old white female who is seen at the request of Dr. Hull for evaluation of acute on chronic kidney injury. Medical records in the hospital EMR were reviewed today and are summarized as follows: Mrs. Dunaway has chronic kidney disease w/ baseline creatinine 1.0, kidney stones, AODM (no retinopathy), HTN, Anemia, Sarcoidosis, RA, hypothyroidism, chronic atrial fibrillation and a remote h/o colorectal cancer s/p partial colectomy. In August 2016 Mrs. Dunaway underwent MVR at [facility] in [facility], [place] by Dr. Garcia. She had a prolonged ICU stay requiring PEG tube placement and a wound vac for a nonhealing surgical incision beneath her right breast. She recovered and had the PEG tube removed. She was then transferred to [facility] for ongoing physical therapy. Earlier this month Mrs. Dunaway was seen at [facility] for a UTI. She was placed on Cipro therapy. She subsequently developed recurrent diarrhea, dehydration, fever and weakness. She suffered several falls. On 12/05/16 Mrs. Dunaway was admitted to [facility] for evaluation of Clostridium Difficile colitis, dehydration and ARUNA pneumonia. Upon presentation to the hospital she was hypoxemic. Chest and abdominal CT w/ IV contrast was negative for PE. Chest CT did reveal ARUNA patchy infiltrate. Abdominal CT revealed nonobstructing left kidney stones. Patient's hospital course has also been complicated by relative hypotension and anemia. Serum creatinine has risen from 1.0 to 2.0. Patient remains nonoliguric. Past Medical/Surgical History Medical: # CKD w/ baseline creatinine 1.0 # Kidney stones - Dr. Hunt Urologist # AODM (no retinopathy) # HTN # Sarcoidosis # RA # Hypothyroidism # Colorectal CA s/p partial colectomy # Anemia - on Procrit therapy q [address] Sloan # Chronic atrial fibrillation on anticoagulation therapy # Bioprosthetic mitral valve and pacemaker Surgical: # Bioprosthetic MVR 09/07 # Pacemaker # Lithotripsy # Cholecystectomy # Hemicolectomy 2008 Allergies Coded Allergies: No Known Allergies (Unverified , 12/05/16) Inpatient Medications Current Inpatient Medications Medications (Trade) Dose Ordered Sig/Shirley Route Start Time Stop Time Status Last Admin Dose Admin Ioversol (Optiray 320) 116 ml UD PRN IV 12/05/16 16:15 12/09/16 16:14 Levetiracetam (Keppra Tab) 500 mg BID PO 12/05/16 21:00 01/04/17 20:59 12/08/16 08:26 500 MG Sodium Chloride ([place] Nasal [place]) 2 sprays TID LESTER 12/05/16 21:00 01/04/17 20:59 12/08/16 08:26 2 SPRAYS Ondansetron HCl (Zofran Inj) 4 mg Q6H PRN IV 12/05/16 19:15 01/04/17 19:14 Insulin Aspart (novoLOG ASPART) SLIDING SCALE If C... ACHS SC 12/05/16 21:00 01/04/17 20:59 12/08/16 08:30 13 UNITS Glucose (Glucose 40% Gel) UD PRN PO 12/05/16 19:15 01/04/17 19:14 Glucose (Glucose Chew Tab) 1 tabs UD PRN PO 12/05/16 19:15 01/04/17 19:14 Dextrose (Dextrose 50% 50ML Syringe) 50 ml UD PRN IV 12/05/16 19:15 01/04/17 19:14 Glucagon 1 mg 1 mg UD PRN SQ 12/05/16 19:15 01/04/17 19:14 Piperacillin Sod/ Tazobactam Sod 3.375 gm/Dextrose 115 ml @ 28.75 mls/ hr Q8H IV 12/05/16 22:00 12/12/16 21:59 12/08/16 05:45 28.75 MLS/HR Methylprednisolone Sodium Succinate/ Syringe (Solu-Medrol IV/ Syringe) 0.48 ml @ 1.5 mls/min Q8H IV 12/05/16 20:00 01/04/17 19:59 12/08/16 04:18 1.5 MLS/MIN Vancomycin HCl 250 mg 250 mg QID PO 12/05/16 21:00 12/19/16 20:59 12/08/16 08:27 250 MG Sodium Chloride (Nss 1000ml) 1,000 ml @ 80 mls/hr [id number] IV 12/05/16 19:15 01/04/17 19:14 12/08/16 09:45 80 MLS/HR Ipratropium [place] (Atrovent 0.02% 0.5MG/2.5ML Neb) 0.5 mg Q6R INH 12/05/16 21:00 01/04/17 20:59 12/08/16 07:22 0.5 MG Levalbuterol (Xopenex 1.25MG/ 0.5ML Neb) 1.25 mg Q6R INH 12/05/16 21:00 01/04/17 20:59 12/08/16 07:22 1.25 MG Raspberry (Raspberry Syrup 5ml Cup) 5 ml QID PO 12/05/16 21:00 12/19/16 20:59 12/08/16 08:27 5 ML Piperacillin Sod/ Tazobactam Sod (Consult) 1 ea UD PRN N/A 12/05/16 20:30 01/04/17 20:29 Miscellaneous Information (Consult Glycemic Management Pharmacy) 1 ea UD PRN N/A 12/06/16 12:45 01/05/17 12:44 Insulin Glargine (Lantus Solostar Pen) 15 unit BID SC 12/06/16 21:00 01/05/17 20:59 12/08/16 08:31 15 UNIT Insulin Aspart (novoLOG ASPART) SLIDING SCALE If C... 0000,0400 SC 12/07/16 00:00 01/06/17 00:00 12/08/16 04:26 6 UNITS Hydroxyzine HCl (Vistaril Tab) 25 mg HS PRN PO 12/07/16 22:30 01/06/17 22:29 12/07/16 22:39 25 MG Acetaminophen (Tylenol Tab) 650 mg QID PRN PO 12/07/16 22:30 01/06/17 22:29 Family History Patient reports no known family medical history. Negative for CKD / ESRD Social History Smoking Status: Never Smoker Smokeless Tobacco Use: No Alcohol Use: none Drug Use: none Marital Status: Housing Status: lives with family Occupation: retired . Retired. 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 Review of Systems Constitutional: No fever Respiratory: No cough Cardiovascular: No chest pain Abdomen: No nausea, No pain, No vomiting A complete review of systems was performed. Pertinent positives are noted above. All other systems are negative. Physical Exam Date Time Temp Pulse Resp B/P Pulse Ox O2 Delivery O2 Flow Rate FiO2 12/08/16 08:25 36.4 86 16 114/54 91 12/08/16 08:00 95 Room Air 12/08/16 07:22 80 14 98 Room Air 12/08/16 04:02 36.5 80 22 109/50 94 Room Air 12/08/16 04:00 Room Air 12/08/16 02:39 73 14 94 Room Air 12/08/16 00:06 36.5 80 26 121/51 96 Room Air 12/07/16 23:59 Room Air 12/07/16 20:13 36.4 80 22 115/55 92 Room Air 12/07/16 20:00 Room Air 12/07/16 19:44 80 16 93 Room Air 12/07/16 16:00 92 Nasal Cannula 12/07/16 15:20 36.4 80 24 112/49 93 Room Air 12/07/16 14:51 36.7 80 20 112/64 92 12/07/16 14:41 79 16 95 Room Air 12/07/16 13:51 36.8 80 18 101/68 92 12/07/16 13:21 36.9 72 16 100/48 90 12/07/16 13:06 36.9 84 18 109/53 92 12/07/16 12:51 36.9 80 20 109/53 93 12/07/16 12:00 95 Room Air 12/07/16 11:53 36.8 70 18 110/68 92 12/07/16 10:53 36.9 74 18 102/78 91 General Appearance: no apparent distress Head: normocephalic, atraumatic Eyes: PERRL, EOMI Neck: supple, no adenopathy Respiratory/Chest: lungs clear Cardiovascular: regular rate, rhythm Abdomen/GI: normal bowel sounds, non tender, soft Extremities/Musculoskelatal: no calf tenderness, no pedal edema Neurologic/Psych: alert, oriented x 3 Laboratory Results Last 24 Hours Test 12/07/16 11:28 4/18/17 12:50 12/07/16 15:39 12/07/16 19:47 Bedside Glucose 236 mg/dl 216 mg/dl 243 mg/dl Hemoglobin 8.6 g/dL Hematocrit 26.5 % Test 12/08/16 00:24 12/08/16 04:01 12/08/16 05:39 12/08/16 06:29 Bedside Glucose 339 mg/dl 242 mg/dl 188 mg/dl White Blood Count 5.05 K/uL Red Blood Count 3.13 M/uL Hemoglobin 9.3 g/dL Hematocrit 28.1 % Mean Corpuscular Volume 89.8 fL Mean Corpuscular Hemoglobin 29.7 pg Mean Corpuscular Hemoglobin Concent 33.1 g/dl Platelet Count 159 K/uL Mean Platelet Volume 10.2 fL Neutrophils (%) (Auto) 85.7 % Lymphocytes (%) (Auto) 10.7 % Monocytes (%) (Auto) 2.8 % Eosinophils (%) (Auto) 0.0 % Basophils (%) (Auto) 0.2 % Neutrophils # (Auto) 4.33 K/uL Lymphocytes # (Auto) 0.54 K/uL Monocytes # (Auto) 0.14 K/uL Eosinophils # (Auto) 0.00 K/uL Basophils # (Auto) 0.01 K/uL RDW Standard Deviation 51.8 fL RDW Coefficient of Variation 15.9 % Immature Granulocyte % (Auto) 0.6 % Immature Granulocyte # (Auto) 0.03 K/uL Prothrombin Time 10.6 SECONDS Prothromb Time International Ratio 1.0 Activated Partial Thromboplast Time 28.8 SECONDS Partial Thromboplastin Ratio 1.1 Sodium Level 141 mmol/L Potassium Level 3.5 mmol/L Chloride Level 111 mmol/L Carbon Dioxide Level 19 mmol/L Anion Gap 11.0 mmol/L Blood Urea Nitrogen 61 mg/dl Creatinine 2.00 mg/dl Est Creatinine Clear Calc Drug Dose 26.1 ml/min Estimated GFR () 29.4 Estimated GFR (Non- 25.4 BUN/Creatinine Ratio 30.3 Random Glucose 203 mg/dl Calcium Level 8.3 mg/dl Magnesium Level 2.6 mg/dl Total Bilirubin 0.6 mg/dl Direct Bilirubin 0.2 mg/dl Aspartate Amino Transf (AST/SGOT) 22 U/L Alanine Aminotransferase (ALT/SGPT) 16 U/L Alkaline Phosphatase 55 U/L Total Protein 6.2 gm/dl Albumin 2.5 gm/dl Impression (1) Acute kidney injury (2) Chronic kidney disease (CKD) stage G3b/A1, moderately decreased glomerular filtration rate (GFR) between 30-44 mL/min/1.73 square meter and albuminuria creatinine ratio less than 30 mg/g (3) Dehydration (4) C. difficile colitis (5) Pneumonia (6) Anemia (7) Diabetes Mrs. Dunaway was admitted to the hospital for management of Clostridium Difficile colitis and dehydration. Her hospitalization has been complicated by IV contrast administration, relative hypotension, anemia and acute on chronic kidney injury. Urine sediment 12/05/16 revealed granular casts c/w ATN PMH - CKD w/ baseline creatinine 1.0, kidney stones (Dr. Hunt Urologist), AODM (no retinopathy), HTN, Sarcoidosis, RA, Hypothyroidism, Colorectal CA s/p partial colectomy, Anemia (on Procrit therapy q [address] Sloan), Chronic atrial fibrillation on anticoagulation therapy, Bioprosthetic mitral valve and pacemaker Recommendations ACUTE KIDNEY INJURY: -- Avoid IV contrast and known nephrotoxic agents -- Continue gentle hydration w/ 0.9NS -- Will order renal US -- Will recheck urinalysis and UPCR -- Monitor PRP -- Azotemia in part related to steroid therapy CHRONIC KIDNEY DISEASE: -- Baseline creatinine 1.0 ANEMIA: -- Procrit as per Hematology ID: -- Oral Vancomycin for Clostridium difficile -- IV Zosyn for ARUNA pneumonia as per ID community health consultant
[2016-12-08 12:07] LABS: URINE APPEARANCE TURBID (CLEAR); URINE BILIRUBIN NEG (NEG); URINE COLOR YELLOW; URINE EPITHELIAL CELL AUTO >30 /lpf (0-5); URINE NITRITE NEG (NEG); URINE SPECIFIC GRAVITY 1.022 (1.000-1.030); UROBILINOGEN NEG (NEG)
[2016-12-08 12:10] LABS: MANUAL MICROSCOPIC REQUIRED? NO; REVIEW REQ? YES
[2016-12-08 12:42] LABS: URINE PROTIEN/CREAT RATIO 0.5 (0-0.2); URINE TOTAL PROTEIN 40.8 mg/dl (0-11.9)
--- NOTE | 2016-12-08 15:32 | DIAGNOSTIC IMAGING REPORT ---
ULTRASOUND KIDNEYS AND BLADDER CLINICAL HISTORY: Acute on chronic renal insufficiency. COMPARISON STUDY: Abdominal CT dated 12/05/2016. TECHNIQUE: Real-time, grayscale, and color flow sonography of the kidneys and bladder is performed. Images are reviewed in the transverse and longitudinal planes. FINDINGS: Kidneys: The kidneys demonstrate cortical atrophy. The right kidney measures 11.8 x 5.0 x 5.2 cm and the left kidney measures 10.0 x 6.3 x 6.0 cm. There is no hydronephrosis. No shadowing renal calculi are identified. There is no sonographic evidence of contour deforming renal mass lesion. No perinephric fluid is identified. Bladder: The bladder is decompressed around a Patel catheter and could not be assessed. IMPRESSION: 1. The kidneys demonstrate cortical atrophy and are without hydronephrosis. 2. The bladder was decompressed around a Patel catheter and could not be assessed. Electronically signed by: Aaron Higgins M.D. 12/08/2016 3:29 PM Dictated Date/Time: 12/08/2016 3:28 PM
--- NOTE | 2016-12-08 15:57 | Pharmacy Progress Note ---
Glycemic Control: Progress Nt Date of Service Dec 08, 2016. Scope Glycemic Pharmacist consulted by Dr Hull on 12/06/2016 for glycemic control and to write orders per [facility] inpatient glycemic control protocol. Objective Accuchecks BSG (last 24hrs): Test 12/07/16 19:47 12/08/16 00:24 12/08/16 04:01 12/08/16 05:39 Bedside Glucose 243 mg/dl (70-90) 339 mg/dl (70-90) 242 mg/dl (70-90) Random Glucose 203 mg/dl (70-99) Test 12/08/16 06:29 12/08/16 11:10 Bedside Glucose 188 mg/dl (70-90) 225 mg/dl (70-90) Laboratory Data (last 24hrs) Test 12/08/16 05:39 Anion Gap 11.0 mmol/L BUN/Creatinine Ratio 30.3 Blood Urea Nitrogen 61 mg/dl Creatinine 2.00 mg/dl Potassium Level 3.5 mmol/L Sodium Level 141 mmol/L White Blood Count 5.05 K/uL Red Blood Count 3.13 M/uL Hemoglobin 9.3 g/dL Hematocrit 28.1 % Mean Corpuscular Volume 89.8 fL Mean Corpuscular Hemoglobin 29.7 pg Mean Corpuscular Hemoglobin Concent 33.1 g/dl Platelet Count 159 K/uL Mean Platelet Volume 10.2 fL Neutrophils (%) (Auto) 85.7 % Lymphocytes (%) (Auto) 10.7 % Monocytes (%) (Auto) 2.8 % Eosinophils (%) (Auto) 0.0 % Basophils (%) (Auto) 0.2 % Neutrophils # (Auto) 4.33 K/uL Lymphocytes # (Auto) 0.54 K/uL Monocytes # (Auto) 0.14 K/uL Eosinophils # (Auto) 0.00 K/uL Basophils # (Auto) 0.01 K/uL HbA1c: Test 12/07/16 06:03 Hemoglobin A1c 5.8 % (4.5-5.6) H Recent Pertinent Medications Outpatient Anti-diabetic Regimen: * Amaryl 1 mg daily plus Januvia 100 mg PO daily * A1c = 5.8 % 12/07/2016 The patient is currently receiving: * Basal insulin: Lantus 15 units every 12 hours * Correctional Insulin: Novolog Correction per scale ACHS Goal Range: Low 100 mg/dL - High 140 mg/dL Correction Factor: 20 mg/dL/unit * Prandial insulin: Per carb ratio of 1 unit per 7 grams CHO consumed Risk Factors for Insulin Resistance: * Steroids: Solu-Medrol 30 mg IV q8 hours d/c'ed today after 2 doses today then prednisone 50 mg PO daily starting tomorrow * Infection: PNA plus C difficle infection * Diet: type 2 diabetic diet Assessment & Plan ASSESSMENT: * ADA & AACE recommend a goal blood sugar range 140-180 mg/dl for the majority of critically ill & non-critically ill patients. However, more stringent targets may be selected in individual cases. Will utilize more stringent goal of 110-140 mg/dl based on patient age & comorbidities. Additionally, tighter glycemic control is warranted to facilitate treatment of infection. * Ms Dunaway is a 66 y/o F with well controlled diabetes as an outpatient on oral medications who was admitted with pneumonia. She now has a Clostridium difficile infection. She has been treated with high dose IV steroids x 3 days. The patient's insulin has been titrated upwards quickly as a result. * Today, her fasting blood sugar was similar to yesterday's at 188 mg/dL but her lunch elevated to 225 mg/dL. As a result, her carbohydrate ratio was tightened to 1:6 as steroids primarily affect the post-prandial blood sugar. * With the change from IV steroids to PO, the correction factor and carbohydrate ratio was loosened to weight-based and a stress of 2 recommended dosing. Lantus dosing was loosened to a scale to prevent a basal heavy regimen. PLAN FOR INPATIENT GLYCEMIC CONTROL: * Decreasing Lantus to 10-15 units SQ BID (give Lantus 10 units if blood sugar is less than 200 mg/dL and 15 units if blood sugar greater than or equal to 200 mg/dL) * TIGHTENING correction factor to 30 mg/dl/unit * TIGHTENING carb ratio to 1 unit per 10 grams CHO consumed * TIGHTENING goal range to Low 110 mg/dL - High 140 mg/dL * Please note that the plan above was derived based on current level of insulin resistance and hospital stress. These recommendations are appropriate for inpatient admission only. Plan of care upon discharge will need to be reassessed to avoid potential outpatient hypo/hyperglycemia. Thank you.
--- NOTE | 2016-12-08 20:31 | Hospitalist Progress Note ---
Hospitalist Progress Note Date of Service Dec 08, 2016. Subjective Pt evaluation today including: conversation w/ patient patient with no complaints Medications Last Resulted CBC 12/08/16 05:39 Red Blood Count 3.13, Mean Corpuscular Volume 89.8, Mean Corpuscular Hemoglobin 29.7, Mean Corpuscular Hemoglobin Concent 33.1, Mean Platelet Volume 10.2, Neutrophils (%) (Auto) 85.7, Lymphocytes (%) (Auto) 10.7, Monocytes (%) (Auto) 2.8, Eosinophils (%) (Auto) 0.0, Basophils (%) (Auto) 0.2, Neutrophils # (Auto) 4.33, Lymphocytes # (Auto) 0.54, Monocytes # (Auto) 0.14, Eosinophils # (Auto) 0.00, Basophils # (Auto) 0.01 Last Resulted BMP 12/08/16 05:39 Medications (Trade) Dose Ordered Sig/Shirley Route Start Time Stop Time Status Last Admin Dose Admin Hydroxyzine HCl (Vistaril Tab) 25 mg HS PRN PO 12/07/16 22:30 01/06/17 22:29 12/07/16 22:39 25 MG Objective Vital Signs Date Time Temp Pulse Resp B/P Pulse Ox O2 Delivery O2 Flow Rate FiO2 12/08/16 20:00 Room Air 12/08/16 20:00 36.5 80 18 133/61 99 Room Air 12/08/16 19:16 81 14 96 Room Air 12/08/16 16:38 36.5 81 24 122/52 94 Room Air 12/08/16 16:00 94 Room Air 12/08/16 14:24 84 14 98 Room Air 12/08/16 12:03 36.5 80 18 115/48 95 Room Air 12/08/16 12:00 95 Room Air 12/08/16 08:25 36.4 86 16 114/54 91 12/08/16 08:00 95 Room Air 12/08/16 07:22 80 14 98 Room Air 12/08/16 04:02 36.5 80 22 109/50 94 Room Air 12/08/16 04:00 Room Air 12/08/16 02:39 73 14 94 Room Air 12/08/16 00:06 36.5 80 26 121/51 96 Room Air 12/07/16 23:59 Room Air Physical Exam General Appearance: no apparent distress Eyes: sclerae normal ENT: hearing grossly normal Neck: trachea midline Respiratory/Chest: lungs clear Cardiovascular: regular rate, rhythm Abdomen: normal bowel sounds, non tender Extremities: normal range of motion Neurologic/Psychiatric: alert Laboratory Results Last 24 Hours Test 12/08/16 00:00 12/08/16 00:24 12/08/16 04:01 12/08/16 05:39 Urine Color YELLOW Urine Appearance TURBID Urine pH 5.0 Urine Specific [place] 1.022 Urine Protein NEG Urine Glucose (UA) NEG Urine Ketones NEG Urine Occult Blood 1+ Urine Nitrite NEG Urine Bilirubin NEG Urine Urobilinogen NEG Urine Leukocyte Esterase SMALL Urine WBC (Auto) 5-10 /hpf Urine RBC (Auto) 0-4 /hpf Urine Hyaline Casts (Auto) 1-5 /lpf Urine Epithelial Cells (Auto) >30 /lpf Urine Bacteria (Auto) NEG Urine Renal Epithelial Cells 0-5 /lpf Urine Crystals UNIDENTIFIED Urine Yeast (Auto) Urine Random Creatinine 76.0 mg/dl Urine Random Total Protein 40.8 mg/dl Urine Protein/Creatinine Ratio 0.5 Bedside Glucose 339 mg/dl 242 mg/dl White Blood Count 5.05 K/uL Red Blood Count 3.13 M/uL Hemoglobin 9.3 g/dL Hematocrit 28.1 % Mean Corpuscular Volume 89.8 fL Mean Corpuscular Hemoglobin 29.7 pg Mean Corpuscular Hemoglobin Concent 33.1 g/dl Platelet Count 159 K/uL Mean Platelet Volume 10.2 fL Neutrophils (%) (Auto) 85.7 % Lymphocytes (%) (Auto) 10.7 % Monocytes (%) (Auto) 2.8 % Eosinophils (%) (Auto) 0.0 % Basophils (%) (Auto) 0.2 % Neutrophils # (Auto) 4.33 K/uL Lymphocytes # (Auto) 0.54 K/uL Monocytes # (Auto) 0.14 K/uL Eosinophils # (Auto) 0.00 K/uL Basophils # (Auto) 0.01 K/uL RDW Standard Deviation 51.8 fL RDW Coefficient of Variation 15.9 % Immature Granulocyte % (Auto) 0.6 % Immature Granulocyte # (Auto) 0.03 K/uL Prothrombin Time 10.6 SECONDS Prothromb Time International Ratio 1.0 Activated Partial Thromboplast Time 28.8 SECONDS Partial Thromboplastin Ratio 1.1 Sodium Level 141 mmol/L Potassium Level 3.5 mmol/L Chloride Level 111 mmol/L Carbon Dioxide Level 19 mmol/L Anion Gap 11.0 mmol/L Blood Urea Nitrogen 61 mg/dl Creatinine 2.00 mg/dl Est Creatinine Clear Calc Drug Dose 26.1 ml/min Estimated GFR () 29.4 Estimated GFR (Non- 25.4 BUN/Creatinine Ratio 30.3 Random Glucose 203 mg/dl Calcium Level 8.3 mg/dl Magnesium Level 2.6 mg/dl Total Bilirubin 0.6 mg/dl Direct Bilirubin 0.2 mg/dl Aspartate Amino Transf (AST/SGOT) 22 U/L Alanine Aminotransferase (ALT/SGPT) 16 U/L Alkaline Phosphatase 55 U/L Total Protein 6.2 gm/dl Albumin 2.5 gm/dl Test 12/08/16 06:29 12/08/16 11:10 12/08/16 14:30 12/08/16 16:00 Bedside Glucose 188 mg/dl 225 mg/dl 197 mg/dl Stool Occult Blood POSITIVE Assessment and Plan (1) Pneumonia Assessment & Plan: continue Zosyn change to oral prednisone (2) C. difficile colitis (3) UTI (urinary tract infection) (4) Rheumatoid arthritis (5) Diabetes (6) Anemia requiring transfusions (7) Chronic kidney disease (CKD) stage G3b/A1, moderately decreased glomerular filtration rate (GFR) between 30-44 mL/min/1.73 square meter and albuminuria creatinine ratio less than 30 mg/g (8) Acute kidney injury Assessment & Plan: Multifactorial ATN Dr. Miller help appreciated. Problem Qualifiers (1) Pneumonia: Pneumonia type: due to unspecified organism Laterality: left Lung location: unspecified part of lung Qualified Codes: J18.9 - Pneumonia, unspecified organism (2) UTI (urinary tract infection): Urinary tract infection type: site unspecified Hematuria presence: with hematuria Qualified Codes: N39.0 - Urinary tract infection, site not specified ; R31.9 - Hematuria, unspecified
[2016-12-08] MEDS: hydrOXYzine HCL 25 MG TAB PO PRN (21:42)
[2016-12-09] VITALS (13 sets, daily range): BP systolic 111–134; BP diastolic 51–77; PULSE 76–84; TEMP 36.5–37; O2SAT 92–96
[2016-12-09] MEDS: LEVALBUTEROL 1.25MG/0.5ML NEB INH SCH ×4 (02:01→19:33)
[2016-12-09] MEDS: IPRATROPIUM BROMIDE NEB SOLN 0.02% 2.5 ML VIAL INH SCH ×4 (02:01→19:33)
[2016-12-09] MEDS: PIPERACILL/TAZOBAC IV 3.375 GM in DEXTROSE 5% 100ML 100 ML IV SCH ×3 (05:07→22:11)
[2016-12-09 07:17] LABS: HEMATOCRIT 29.7 % (37-47); MEAN CORPUSCULAR HEMOGLOBIN 29.1 pg (25-34); MEAN CORPUSCULAR HGB CONC 32.3 g/dl (32-36); MEAN PLATELET VOLUME 9.2 fL (7.4-10.4); PLATELET COUNT 140 K/uL (130-400); WHITE BLOOD COUNT 4.22 K/uL (4.8-10.8)
[2016-12-09 07:53] LABS: BUN/CREATININE RATIO 29.5 (10-20); CALCIUM 8.4 mg/dl (8.5-10.1); CREATININE 1.9 mg/dl (0.60-1.20); POTASSIUM 3.3 mmol/L (3.5-5.1)
[2016-12-09] MEDS: LEVETIRACETAM 500 MG TAB PO SCH ×2 (08:34→21:33)
[2016-12-09] MEDS: SODIUM CHLORIDE 0.65% NA SOLN 45 ML (OCEAN) NAE SCH ×3 (08:35→22:11)
[2016-12-09] MEDS: RASPBERRY SYRUP 5 ML UDP PO SCH ×4 (08:35→21:33)
[2016-12-09] MEDS: INSULIN ASPART 100 UNITS/ML 3 ML PEN SC SCH ×4 (08:39→21:35)
[2016-12-09] MEDS: INSULIN GLARGINE SOLOSTAR 100 UNITS/ML 3 ML PEN SC SCH (08:40)
[2016-12-09] MEDS: VANCOMYCIN HCL 250 MG/5 ML SOLN PO SCH ×4 (08:40→21:34)
--- NOTE | 2016-12-09 09:33 | Nephrology Progress Note ---
Nephrology Progress Note Date of Service Dec 09, 2016. Chief Complaint Evaluation of acute on chronic kidney injury Subjective Mrs. Dunaway was seen & examined in her hospital room this morning. She reports that she is still having loose stool but the volume has decreased. She was afebrile overnight and SBP has been 112 - 120 mmHg. She denies dyspnea or productive cough. She is subjectively improved. Review of Systems Constitutional: No fever Cardiovascular: No chest pain Respiratory: No productive cough Abdomen: No nausea, No pain, No vomiting Extremities: No leg edema A complete review of systems was performed. Pertinent positives are noted above. All other systems are negative. Vital Signs Last 8 Hrs Date Time Temp Pulse Resp B/P Pulse Ox O2 Delivery O2 Flow Rate FiO2 12/09/16 08:02 36.6 80 18 121/58 94 Room Air High Flow Oxygen 12/09/16 08:00 36.6 80 18 121/58 94 Room Air 12/09/16 07:15 80 12 95 Room Air 12/09/16 04:04 37.0 76 18 125/77 96 BiPAP 12/09/16 04:00 Room Air 12/09/16 02:02 82 14 92 Room Air I & O 24-Hour Column 12/09/16 08:00 Intake Total 1813 ml Output Total 950 ml Balance 863 ml Last Recorded Weight Weight (Kilograms): 87.300 Physical Exam General Appearance: no apparent distress Head: normocephalic, atraumatic Eyes: PERRL, EOMI Neck: no adenopathy, no JVD Respiratory/Chest: lungs clear, no respiratory distress Cardiovascular: regular rate, rhythm Abdomen/GI: normal bowel sounds, non tender, soft Genitourinary - Female: + pertinent finding (cook catheter in place draining clear yellow urine) Extremities/Musculoskelatal: no calf tenderness, + swelling (trace pretibial edema) Neurologic/Psych: alert, oriented x 3 Family History Patient reports no known family medical history. Negative for CKD / ESRD Social History Smokeless Tobacco Use: No Alcohol Use: none Drug Use: none Marital Status: Housing Status: lives with family Occupation: retired . Retired. 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 Laboratory Results Past 24 Hours 12/09/16 07:03 12/09/16 07:03 Test 12/08/16 11:10 12/08/16 14:30 12/08/16 16:00 12/08/16 20:10 Bedside Glucose 225 mg/dl (70-90) 197 mg/dl (70-90) 255 mg/dl (70-90) Stool Occult Blood POSITIVE (NEGATIVE) Test 12/09/16 06:50 12/09/16 07:03 Bedside Glucose 112 mg/dl (70-90) Red Blood Count 3.30 M/uL (4.2-5.4) Mean Corpuscular Volume 90.0 fL (80-100) Mean Corpuscular Hemoglobin 29.1 pg (25-34) Mean Corpuscular Hemoglobin Concent 32.3 g/dl (32-36) RDW Standard Deviation 53.4 fL (36.4-46.3) RDW Coefficient of Variation 16.2 % (11.5-14.5) Mean Platelet Volume 9.2 fL (7.4-10.4) Nucleated RBC Absolute Count (auto) 0.03 K/uL (0-0) Nucleated Red Blood Cells % 0.7 % Anion Gap 11.0 mmol/L (3-11) Est Creatinine Clear Calc Drug Dose 28.6 ml/min Estimated GFR () 31.3 Estimated GFR (Non- 27.0 BUN/Creatinine Ratio 29.5 (10-20) Calcium Level 8.4 mg/dl (8.5-10.1) Allergies Coded Allergies: No Known Allergies (Unverified , 12/05/16) Medications Current Inpatient Medications Medications (Trade) Dose Ordered Sig/Shirley Route Start Time Stop Time Status Last Admin Dose Admin Ioversol (Optiray 320) 116 ml UD PRN IV 12/05/16 16:15 12/09/16 16:14 Levetiracetam (Keppra Tab) 500 mg BID PO 12/05/16 21:00 01/04/17 20:59 12/09/16 08:34 500 MG Sodium Chloride ([place] Nasal [place]) 2 sprays TID LESTER 12/05/16 21:00 01/04/17 20:59 12/09/16 08:35 2 SPRAYS Ondansetron HCl (Zofran Inj) 4 mg Q6H PRN IV 12/05/16 19:15 01/04/17 19:14 Insulin Aspart (novoLOG ASPART) SLIDING SCALE If C... ACHS SC 12/05/16 21:00 01/04/17 20:59 12/09/16 08:39 5 UNITS Glucose (Glucose 40% Gel) UD PRN PO 12/05/16 19:15 01/04/17 19:14 Glucose (Glucose Chew Tab) 1 tabs UD PRN PO 12/05/16 19:15 01/04/17 19:14 Dextrose (Dextrose 50% 50ML Syringe) 50 ml UD PRN IV 12/05/16 19:15 01/04/17 19:14 Glucagon 1 mg 1 mg UD PRN SQ 12/05/16 19:15 01/04/17 19:14 Piperacillin Sod/ Tazobactam Sod/ Dextrose (Zosyn Iv/D5 100ml) 115 ml @ 28.75 mls/ hr Q8H IV 12/05/16 22:00 12/12/16 21:59 12/09/16 05:07 28.75 MLS/HR Vancomycin HCl 250 mg 250 mg QID PO 12/05/16 21:00 12/19/16 20:59 12/09/16 08:40 250 MG Sodium Chloride (Nss 1000ml) 1,000 ml @ 80 mls/hr [id number] IV 12/05/16 19:15 01/04/17 19:14 12/08/16 21:28 80 MLS/HR Ipratropium [place] (Atrovent 0.02% 0.5MG/2.5ML Neb) 0.5 mg Q6R INH 12/05/16 21:00 01/04/17 20:59 12/09/16 07:15 0.5 MG Levalbuterol (Xopenex 1.25MG/ 0.5ML Neb) 1.25 mg Q6R INH 12/05/16 21:00 01/04/17 20:59 12/09/16 07:15 1.25 MG Raspberry (Raspberry Syrup 5ml Cup) 5 ml QID PO 12/05/16 21:00 12/19/16 20:59 12/09/16 08:35 5 ML Piperacillin Sod/ Tazobactam Sod (Consult) 1 ea UD PRN N/A 12/05/16 20:30 01/04/17 20:29 Miscellaneous Information (Consult Glycemic Management Pharmacy) 1 ea UD PRN N/A 12/06/16 12:45 01/05/17 12:44 Hydroxyzine HCl (Vistaril Tab) 25 mg HS PRN PO 12/07/16 22:30 01/06/17 22:29 12/08/16 21:42 25 MG Acetaminophen (Tylenol Tab) 650 mg QID PRN PO 12/07/16 22:30 01/06/17 22:29 Insulin Glargine (Lantus Solostar Pen) SEE PROTOCOL TEXT BID SC 12/08/16 21:00 01/07/17 20:59 12/09/16 08:40 15 UNIT Prednisone (PredniSONE TAB) 50 mg DAILY PO 12/09/16 09:00 01/08/17 08:59 12/09/16 08:35 50 MG Impression (1) Acute kidney injury (2) Chronic kidney disease (CKD) stage G3b/A1, moderately decreased glomerular filtration rate (GFR) between 30-44 mL/min/1.73 square meter and albuminuria creatinine ratio less than 30 mg/g (3) Dehydration (4) C. difficile colitis (5) Pneumonia (6) Anemia (7) Diabetes Mrs. Dunaway was admitted to the hospital for management of Clostridium Difficile colitis and dehydration. Her hospitalization has been complicated by IV contrast administration, relative hypotension, anemia and acute on chronic kidney injury. Urine sediment 12/05/16 revealed granular casts c/w ATN PMH - CKD w/ baseline creatinine 1.0, kidney stones (Dr. Hunt Urologist), AODM (no retinopathy), HTN, Sarcoidosis, RA, Hypothyroidism, Colorectal CA s/p partial colectomy, Anemia (on Procrit therapy q [address] Sloan), Chronic atrial fibrillation on anticoagulation therapy, Bioprosthetic mitral valve and pacemaker Recommendations ACUTE KIDNEY INJURY: -- Avoid IV contrast and known nephrotoxic agents -- Continue gentle hydration w/ 0.9NS -- Renal US report reviewed today: mild renal asymmetry. No obstruction. -- Urinalysis w/ low grade proteinuria. No significant blood. Urine casts have cleared -- Monitor PRP CHRONIC KIDNEY DISEASE: -- Baseline creatinine 1.0 ANEMIA: -- Procrit as per Hematology ID: -- Oral Vancomycin for Clostridium difficile -- IV Zosyn for ARUNA pneumonia as per ID urban design consultant
--- NOTE | 2016-12-09 11:30 | HEME/ONC PROGRESS NOTE ---
DATE: 12/09/2016 DIAGNOSES: 1. Anemia of chronic renal insufficiency/chronic disease, acute renal injury. 2. Lobar pneumonia. 3. Clostridium difficile colitis. HOSPITAL COURSE: Lisa is a very pleasant and complex 66-year-old female who was admitted a few days prior with frequent falls, declining status, and intractable diarrhea. I was asked to visit Lisa because of her chronic anemia. I recommended and ordered 2 units of packed RBCs which were transfused and tolerated well. She continues to make steady clinical progress. Diarrhea is nearly aborted. She is tolerating her diet. She informs me she may be going to a rehabilitation facility for further recovery. PHYSICAL EXAMINATION: GENERAL: She is in no acute distress. VITAL SIGNS: Temperature 36.6, pulse 80, respirations 18, blood pressure 121/58. SKIN: Scattered ecchymoses noted. HEENT: Oral mucosa without erythema or ulceration. NECK: Supple. HEART: Regular rate and rhythm. LUNGS: Diminished breath sounds in the right posterior base. ABDOMEN: Soft, nontender, nondistended. EXTREMITIES: No clubbing, cyanosis or edema. NEUROLOGIC: Grossly intact. LABORATORY DATA: WBC count 4220, hemoglobin 9.6, platelet count 140,000. Sodium 146, potassium 3.3, chloride 115, carbon dioxide 20, BUN 56, creatinine 1.9. IMPRESSION: 1. Acute on chronic renal insufficiency. 2. Lobar pneumonia. 3. Anemia of chronic renal insufficiency/chronic disease. 4. Clostridium difficile colitis. PLAN: Lisa is now on hospital day #3. Diarrhea has almost completely subsided at this point. She continues oral vancomycin for C. difficile colitis. She received 2 units of packed RBCs and seems to be holding her hemoglobin reasonably well. She has a regular scheduled outpatient erythropoietin and will stick to that schedule as ordered. Appreciate nephrology's input. The patient informs me she may be heading to rehabilitation facility. I have nothing further to add and will officially sign off. Lisa will be seen in hematology clinic as previously scheduled. Thank you again for allowing me to participate in the care of this very pleasant lady.
--- NOTE | 2016-12-09 12:09 | Infectious Disease Progress Nt ---
Progress Note Date of Service Dec 09, 2016. Subjective Pt evaluation today including: conversation w/ patient, physical exam, chart review, lab review, review of studies, review of inpatient medication list Patient's white blood cell count today 4.22. Her hemoglobin was 9.6. Her creatinine was 1.90. It was noted that she did have a renal ultrasound which showed cortical atrophy without hydronephrosis of the kidneys and a decompressed bladder around her Patel catheter. The patient states that she is feeling well this morning, but she continues to have a cough. Her bowels have been moving and are soft, but not watery. She complains of no pain today. Her blood cultures continue to show no growth. All Other Systems: Reviewed and Negative Medications Current Inpatient Medications Medications (Trade) Dose Ordered Sig/Shirley Route Start Time Stop Time Status Last Admin Dose Admin Ioversol (Optiray 320) 116 ml UD PRN IV 12/05/16 16:15 12/09/16 16:14 Levetiracetam (Keppra Tab) 500 mg BID PO 12/05/16 21:00 01/04/17 20:59 12/09/16 08:34 500 MG Sodium Chloride ([place] Nasal [place]) 2 sprays TID LESTER 12/05/16 21:00 01/04/17 20:59 12/09/16 08:35 2 SPRAYS Ondansetron HCl (Zofran Inj) 4 mg Q6H PRN IV 12/05/16 19:15 01/04/17 19:14 Insulin Aspart (novoLOG ASPART) SLIDING SCALE If C... ACHS SC 12/05/16 21:00 01/04/17 20:59 12/09/16 08:39 5 UNITS Glucose (Glucose 40% Gel) UD PRN PO 12/05/16 19:15 01/04/17 19:14 Glucose (Glucose Chew Tab) 1 tabs UD PRN PO 12/05/16 19:15 01/04/17 19:14 Dextrose (Dextrose 50% 50ML Syringe) 50 ml UD PRN IV 12/05/16 19:15 01/04/17 19:14 Glucagon 1 mg 1 mg UD PRN SQ 12/05/16 19:15 01/04/17 19:14 Piperacillin Sod/ Tazobactam Sod/ Dextrose (Zosyn Iv/D5 100ml) 115 ml @ 28.75 mls/ hr Q8H IV 12/05/16 22:00 12/12/16 21:59 12/09/16 05:07 28.75 MLS/HR Vancomycin HCl 250 mg 250 mg QID PO 12/05/16 21:00 12/19/16 20:59 12/09/16 08:40 250 MG Sodium Chloride (Nss 1000ml) 1,000 ml @ 80 mls/hr [id number] IV 12/05/16 19:15 01/04/17 19:14 12/08/16 21:28 80 MLS/HR Ipratropium [place] (Atrovent 0.02% 0.5MG/2.5ML Neb) 0.5 mg Q6R INH 12/05/16 21:00 01/04/17 20:59 12/09/16 07:15 0.5 MG Levalbuterol (Xopenex 1.25MG/ 0.5ML Neb) 1.25 mg Q6R INH 12/05/16 21:00 01/04/17 20:59 12/09/16 07:15 1.25 MG Raspberry (Raspberry Syrup 5ml Cup) 5 ml QID PO 12/05/16 21:00 12/19/16 20:59 12/09/16 08:35 5 ML Piperacillin Sod/ Tazobactam Sod (Consult) 1 ea UD PRN N/A 12/05/16 20:30 01/04/17 20:29 Miscellaneous Information (Consult Glycemic Management Pharmacy) 1 ea UD PRN N/A 12/06/16 12:45 01/05/17 12:44 Hydroxyzine HCl (Vistaril Tab) 25 mg HS PRN PO 12/07/16 22:30 01/06/17 22:29 12/08/16 21:42 25 MG Acetaminophen (Tylenol Tab) 650 mg QID PRN PO 12/07/16 22:30 01/06/17 22:29 Prednisone (PredniSONE TAB) 50 mg DAILY PO 12/09/16 09:00 01/08/17 08:59 12/09/16 08:35 50 MG Insulin Glargine (Lantus Solostar Pen) SEE PROTOCOL TEXT DAILY SC 12/10/16 09:00 01/09/17 08:59 Objective Vital Signs Date Time Temp Pulse Resp B/P Pulse Ox O2 Delivery O2 Flow Rate FiO2 12/09/16 12:01 36.7 80 24 118/53 94 Room Air 12/09/16 08:02 36.6 80 18 121/58 94 Room Air High Flow Oxygen 12/09/16 08:00 36.6 80 18 121/58 94 Room Air 12/09/16 08:00 Room Air 12/09/16 07:15 80 12 95 Room Air 12/09/16 04:04 37.0 76 18 125/77 96 BiPAP 12/09/16 04:00 Room Air 12/09/16 02:02 82 14 92 Room Air 12/09/16 00:22 36.5 84 18 111/51 93 Room Air 12/09/16 00:01 Room Air 12/08/16 20:00 Room Air 12/08/16 20:00 36.5 80 18 133/61 99 Room Air 12/08/16 19:16 81 14 96 Room Air 12/08/16 16:38 36.5 81 24 122/52 94 Room Air 12/08/16 16:00 94 Room Air 12/08/16 14:24 84 14 98 Room Air Physical Exam General Appearance: WD/WN, no apparent distress Eyes: normal inspection, sclerae normal ENT: hearing grossly normal Neck: supple, trachea midline Respiratory/Chest: chest non-tender, no respiratory distress, no accessory muscle use, + decreased breath sounds Cardiovascular: regular rate, rhythm Abdomen: normal bowel sounds, non tender, soft Neurologic/Psychiatric: alert, normal mood/affect Skin: normal color, warm/dry, no rash Laboratory Results CHEST 2 VIEWS ROUTINE CLINICAL HISTORY: Pneumonia COMPARISON STUDY: 12/05/2016 FINDINGS: The heart remains enlarged. There are postsurgical changes of a midline sternotomy. There is a left subclavian dual-chamber central venous pacemaker present. There is a small right pleural effusion. There is improving pulmonary vascular congestion.[ IMPRESSION: Improving congestive failure. Small right pleural effusion. No evidence of lobar consolidation. Item Value Date Time Urine Culture - Final Complete 12/05/16 1632 Urine,Catheterized NO GROWTH - LESS THAN 1,000 COLONIES/ML Blood Culture - Preliminary Resulted 12/05/16 1600 Blood NO GROWTH TO DATE. Blood Culture - Preliminary Resulted 12/05/16 1550 Blood NO GROWTH TO DATE. MRSA DNA Surveillance Screen - Final Complete 12/05/16 0000 Nasal Specimen Negative for MRSA by DNA Probe Last 24 Hours Test 12/08/16 14:30 12/08/16 16:00 12/08/16 20:10 12/09/16 06:50 Stool Occult Blood POSITIVE Bedside Glucose 197 mg/dl 255 mg/dl 112 mg/dl Test 12/09/16 07:03 12/09/16 11:33 White Blood Count 4.22 K/uL Red Blood Count 3.30 M/uL Hemoglobin 9.6 g/dL Hematocrit 29.7 % Mean Corpuscular Volume 90.0 fL Mean Corpuscular Hemoglobin 29.1 pg Mean Corpuscular Hemoglobin Concent 32.3 g/dl RDW Standard Deviation 53.4 fL RDW Coefficient of Variation 16.2 % Platelet Count 140 K/uL Mean Platelet Volume 9.2 fL Nucleated RBC Absolute Count (auto) 0.03 K/uL Nucleated Red Blood Cells % 0.7 % Sodium Level 146 mmol/L Potassium Level 3.3 mmol/L Chloride Level 115 mmol/L Carbon Dioxide Level 20 mmol/L Anion Gap 11.0 mmol/L Blood Urea Nitrogen 56 mg/dl Creatinine 1.90 mg/dl Est Creatinine Clear Calc Drug Dose 28.6 ml/min Estimated GFR () 31.3 Estimated GFR (Non- 27.0 BUN/Creatinine Ratio 29.5 Random Glucose 107 mg/dl Calcium Level 8.4 mg/dl Bedside Glucose 125 mg/dl Assessment and Plan (1) Pneumonia (2) C. difficile colitis Status: Acute (3) UTI (urinary tract infection) Status: Acute (4) Diabetes Status: Chronic Diabetic female with acute respiratory failure on admission with C. Diff colitis , possible UTI, and possible left upper lobe pneumonitis. She is currently on IV Zosyn and PO Vancomycin 125 mg QID. Her diarrhea has resolved, but recommend 6 week tapering course of PO Vancomycin for this patient due to recurrence. Recommend continuing IV Zosyn while in house, but when ready for discharge likely could complete course for pneumonia with PO Augmentin (7-10 days). We will continue to follow. Case reviewed and agree with above assessment.
[2016-12-09] MEDS: SODIUM CHLORIDE 0.9% 1000ML 1,000 ML IV SCH (13:18)
--- NOTE | 2016-12-09 15:21 | Pharmacy Progress Note ---
Glycemic: Assessment & Plan Date of Service Dec 09, 2016. Assessment & Plan Outpatient Anti-diabetic Regimen: * Amaryl 1 mg daily plus Januvia 100 mg PO daily * A1c = 5.8 % 12/07/2016 ASSESSMENT: * BSGs are much improved over the past 24 hours (ranging from 107 - 255 mg/dL). * Steroids have been reduced: SoluMedrol 30mg IV q8h --> Prednisone 50mg PO daily. Expect that insulin needs will decrease with this change. * Will change Lantus from BID to once daily, in light of fasting BSG this morning below goal range. * ADA & AACE recommend a goal blood sugar range 140-180 mg/dl for the majority of critically ill & non-critically ill patients. However, more stringent targets may be selected in individual cases. Will utilize more stringent goal of 110-140 mg/dl based on patient age & comorbidities. Additionally, tighter glycemic control is warranted to facilitate treatment of infection. PLAN FOR INPATIENT GLYCEMIC CONTROL: * Decrease Lantus to 10-15 units SQ qAM * give Lantus 10 units if blood sugar is less than 200 mg/dL * give Lantus 15 units if blood sugar is 200 mg/dL or greater * Novolog per scale ACHS * Correction factor: 30 mg/dl/unit * Carb ratio to 1 unit per 10 grams CHO consumed * Goal range: Low 110 mg/dL - High 140 mg/dL * Please note that the plan above was derived based on current level of insulin resistance and hospital stress. These recommendations are appropriate for inpatient admission only. Plan of care upon discharge will need to be reassessed to avoid potential outpatient hypo/hyperglycemia. Thank you.
[2016-12-09] MEDS ORDERED: POTASSIUM CHLORIDE 10 MEQ TABCR PO ONE ×2 (15:22→21:00)
[2016-12-09] MEDS ORDERED: GUAIFENESIN/CODEINE 100MG/10MG 5ML UDC PO STA (15:35)
[2016-12-09] MEDS ORDERED: GUAIFENESIN/CODEINE 100MG/10MG 5ML UDC PO PRN (15:45)
--- NOTE | 2016-12-09 18:29 | Hospitalist Progress Note ---
Hospitalist Progress Note Date of Service Dec 09, 2016. Subjective Pt evaluation today including: conversation w/ patient patient complaining of coughing which kept her up last night All Other Systems: Reviewed and Negative Objective Vital Signs Date Time Temp Pulse Resp B/P Pulse Ox O2 Delivery O2 Flow Rate FiO2 12/09/16 16:09 36.6 80 18 130/58 94 Room Air 12/09/16 14:11 81 12 95 Room Air 12/09/16 12:01 36.7 80 24 118/53 94 Room Air 12/09/16 12:00 Room Air 12/09/16 08:02 36.6 80 18 121/58 94 Room Air High Flow Oxygen 12/09/16 08:00 36.6 80 18 121/58 94 Room Air 12/09/16 08:00 Room Air 12/09/16 07:15 80 12 95 Room Air 12/09/16 04:04 37.0 76 18 125/77 96 BiPAP 12/09/16 04:00 Room Air 12/09/16 02:02 82 14 92 Room Air 12/09/16 00:22 36.5 84 18 111/51 93 Room Air 12/09/16 00:01 Room Air 12/08/16 20:00 Room Air 12/08/16 20:00 36.5 80 18 133/61 99 Room Air 12/08/16 19:16 81 14 96 Room Air Physical Exam General Appearance: no apparent distress ENT: hearing grossly normal Neck: trachea midline Respiratory/Chest: lungs clear Cardiovascular: regular rate, rhythm Abdomen: non tender Neurologic/Psychiatric: oriented x 3 Laboratory Results Last 24 Hours Test 12/08/16 20:10 12/09/16 06:50 12/09/16 07:03 12/09/16 11:33 Bedside Glucose 255 mg/dl 112 mg/dl 125 mg/dl White Blood Count 4.22 K/uL Red Blood Count 3.30 M/uL Hemoglobin 9.6 g/dL Hematocrit 29.7 % Mean Corpuscular Volume 90.0 fL Mean Corpuscular Hemoglobin 29.1 pg Mean Corpuscular Hemoglobin Concent 32.3 g/dl RDW Standard Deviation 53.4 fL RDW Coefficient of Variation 16.2 % Platelet Count 140 K/uL Mean Platelet Volume 9.2 fL Nucleated RBC Absolute Count (auto) 0.03 K/uL Nucleated Red Blood Cells % 0.7 % Sodium Level 146 mmol/L Potassium Level 3.3 mmol/L Chloride Level 115 mmol/L Carbon Dioxide Level 20 mmol/L Anion Gap 11.0 mmol/L Blood Urea Nitrogen 56 mg/dl Creatinine 1.90 mg/dl Est Creatinine Clear Calc Drug Dose 28.6 ml/min Estimated GFR () 31.3 Estimated GFR (Non- 27.0 BUN/Creatinine Ratio 29.5 Random Glucose 107 mg/dl Calcium Level 8.4 mg/dl Test 12/09/16 16:08 Bedside Glucose 278 mg/dl Assessment and Plan (1) Pneumonia Assessment & Plan: continue zosyn while in hospital convert to augmentin on discharge will add cough medicine (2) C. difficile colitis Assessment & Plan: continue vanco po (3) UTI (urinary tract infection) (4) Rheumatoid arthritis (5) Diabetes (6) Anemia requiring transfusions (7) Chronic kidney disease (CKD) stage G3b/A1, moderately decreased glomerular filtration rate (GFR) between 30-44 mL/min/1.73 square meter and albuminuria creatinine ratio less than 30 mg/g (8) Acute kidney injury Problem Qualifiers (1) Pneumonia: Pneumonia type: due to unspecified organism Laterality: left Lung location: unspecified part of lung Qualified Codes: J18.9 - Pneumonia, unspecified organism (2) UTI (urinary tract infection): Urinary tract infection type: site unspecified Hematuria presence: with hematuria Qualified Codes: N39.0 - Urinary tract infection, site not specified ; R31.9 - Hematuria, unspecified
[2016-12-09] MEDS: TEMAZEPAM 15 MG CAP PO PRN (21:33)
[2016-12-09] MEDS: POTASSIUM CHLORIDE 10 MEQ TABCR PO SCH (22:13)
[2016-12-10] VITALS (12 sets, daily range): BP systolic 114–144; BP diastolic 50–65; PULSE 74–82; TEMP 36.5–37.1; O2SAT 93–99
[2016-12-10] MEDS: LEVALBUTEROL 1.25MG/0.5ML NEB INH SCH ×4 (01:57→19:41)
[2016-12-10] MEDS: IPRATROPIUM BROMIDE NEB SOLN 0.02% 2.5 ML VIAL INH SCH ×4 (01:57→19:41)
[2016-12-10] MEDS: SODIUM CHLORIDE 0.9% 1000ML 1,000 ML IV SCH ×2 (02:14→14:59)
[2016-12-10] MEDS: PIPERACILL/TAZOBAC IV 3.375 GM in DEXTROSE 5% 100ML 100 ML IV SCH ×3 (06:04→23:32)
[2016-12-10 06:18] LABS: HEMATOCRIT 28.9 % (37-47); MEAN CELL VOLUME 91.5 fL (80-100); MEAN CORPUSCULAR HEMOGLOBIN 29.1 pg (25-34); MEAN CORPUSCULAR HGB CONC 31.8 g/dl (32-36); MEAN PLATELET VOLUME 9.1 fL (7.4-10.4); PLATELET COUNT 130 K/uL (130-400); RED BLOOD COUNT 3.16 M/uL (4.2-5.4); WHITE BLOOD COUNT 3.04 K/uL (4.8-10.8)
[2016-12-10 07:10] LABS: BUN/CREATININE RATIO 29.7 (10-20); CALCIUM 8.4 mg/dl (8.5-10.1); CREATININE 1.5 mg/dl (0.60-1.20); POTASSIUM 4.1 mmol/L (3.5-5.1)
[2016-12-10] MEDS: VANCOMYCIN HCL 250 MG/5 ML SOLN PO SCH ×4 (08:18→20:33)
[2016-12-10] MEDS: RASPBERRY SYRUP 5 ML UDP PO SCH ×4 (08:18→20:33)
[2016-12-10] MEDS: LEVETIRACETAM 500 MG TAB PO SCH ×2 (08:19→20:33)
[2016-12-10] MEDS: POTASSIUM CHLORIDE 10 MEQ TABCR PO SCH ×2 (08:20→20:34)
[2016-12-10] MEDS: INSULIN GLARGINE SOLOSTAR 100 UNITS/ML 3 ML PEN SC SCH (08:25)
[2016-12-10] MEDS: INSULIN ASPART 100 UNITS/ML 3 ML PEN SC SCH ×4 (08:28→20:42)
[2016-12-10] MEDS: SODIUM CHLORIDE 0.65% NA SOLN 45 ML (OCEAN) NAE SCH ×3 (09:08→20:33)
--- NOTE | 2016-12-10 10:35 | Nephrology Progress Note ---
Nephrology Progress Note Date of Service Dec 10, 2016. Chief Complaint Evaluation of acute on chronic kidney injury Subjective Mrs. Dunaway was seen & examined in the PCU this morning. She reports that her diarrhea has resolved. She was afebrile overnight and SBP has been 115 - 130 mmHg. She denies dyspnea or productive cough. She is subjectively improved. Review of Systems Constitutional: No fever Cardiovascular: No chest pain Respiratory: No dyspnea at rest Abdomen: No diarrhea, No nausea, No pain Extremities: No leg edema A complete review of systems was performed. Pertinent positives are noted above. All other systems are negative. Vital Signs Last 8 Hrs Date Time Temp Pulse Resp B/P Pulse Ox O2 Delivery O2 Flow Rate FiO2 12/10/16 08:00 Room Air 12/10/16 08:00 36.5 80 16 114/56 94 12/10/16 07:13 74 16 99 BiPAP/CPAP 21 12/10/16 04:09 36.5 80 18 118/56 93 BiPAP 12/10/16 04:00 Room Air 4.0 I & O 24-Hour Column 12/10/16 08:00 Intake Total 1895 ml Output Total 1250 ml Balance 645 ml Last Recorded Weight Weight (Kilograms): 90.800 Physical Exam General Appearance: no apparent distress Head: normocephalic, atraumatic Eyes: PERRL, EOMI Neck: no adenopathy Respiratory/Chest: lungs clear Cardiovascular: regular rate, rhythm Back: no CVA tenderness Abdomen/GI: normal bowel sounds, non tender, soft Extremities/Musculoskelatal: no calf tenderness, no pedal edema Neurologic/Psych: alert, oriented x 3 Family History Patient reports no known family medical history. 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 Laboratory Results Past 24 Hours 12/10/16 05:50 12/10/16 05:50 Test 12/09/16 11:33 12/09/16 16:08 12/09/16 20:19 12/09/16 20:20 Bedside Glucose 125 mg/dl (70-90) 278 mg/dl (70-90) 314 mg/dl (70-90) 304 mg/dl (70-90) Test 12/10/16 05:50 12/10/16 06:41 Red Blood Count 3.16 M/uL (4.2-5.4) Mean Corpuscular Volume 91.5 fL (80-100) Mean Corpuscular Hemoglobin 29.1 pg (25-34) Mean Corpuscular Hemoglobin Concent 31.8 g/dl (32-36) RDW Standard Deviation 54.5 fL (36.4-46.3) RDW Coefficient of Variation 16.3 % (11.5-14.5) Mean Platelet Volume 9.1 fL (7.4-10.4) Nucleated RBC Absolute Count (auto) 0.03 K/uL (0-0) Nucleated Red Blood Cells % 0.8 % Anion Gap 10.0 mmol/L (3-11) Est Creatinine Clear Calc Drug Dose 37.1 ml/min Estimated GFR () 41.6 Estimated GFR (Non- 35.9 BUN/Creatinine Ratio 29.7 (10-20) Calcium Level 8.4 mg/dl (8.5-10.1) Bedside Glucose 151 mg/dl (70-90) Allergies Coded Allergies: No Known Allergies (Unverified , 12/05/16) Medications Current Inpatient Medications Medications (Trade) Dose Ordered Sig/Shirley Route Start Time Stop Time Status Last Admin Dose Admin Levetiracetam (Keppra Tab) 500 mg BID PO 12/05/16 21:00 01/04/17 20:59 12/10/16 08:19 500 MG Sodium Chloride ([place] Nasal [place]) 2 sprays TID LESTER 12/05/16 21:00 01/04/17 20:59 12/10/16 09:08 2 SPRAYS Ondansetron HCl (Zofran Inj) 4 mg Q6H PRN IV 12/05/16 19:15 01/04/17 19:14 Insulin Aspart (novoLOG ASPART) SLIDING SCALE If C... ACHS SC 12/05/16 21:00 01/04/17 20:59 12/10/16 08:28 9 UNITS Glucose (Glucose 40% Gel) UD PRN PO 12/05/16 19:15 01/04/17 19:14 Glucose (Glucose Chew Tab) 1 tabs UD PRN PO 12/05/16 19:15 01/04/17 19:14 Dextrose (Dextrose 50% 50ML Syringe) 50 ml UD PRN IV 12/05/16 19:15 01/04/17 19:14 Glucagon 1 mg 1 mg UD PRN SQ 12/05/16 19:15 01/04/17 19:14 Piperacillin Sod/ Tazobactam Sod/ Dextrose (Zosyn Iv/D5 100ml) 115 ml @ 28.75 mls/ hr Q8H IV 12/05/16 22:00 12/12/16 21:59 12/10/16 06:04 28.75 MLS/HR Vancomycin HCl 250 mg 250 mg QID PO 12/05/16 21:00 12/19/16 20:59 12/10/16 08:18 250 MG Sodium Chloride (Nss 1000ml) 1,000 ml @ 80 mls/hr [id number] IV 12/05/16 19:15 01/04/17 19:14 12/10/16 02:14 80 MLS/HR Ipratropium [place] (Atrovent 0.02% 0.5MG/2.5ML Neb) 0.5 mg Q6R INH 12/05/16 21:00 01/04/17 20:59 12/10/16 07:13 0.5 MG Levalbuterol (Xopenex 1.25MG/ 0.5ML Neb) 1.25 mg Q6R INH 12/05/16 21:00 01/04/17 20:59 12/10/16 07:13 1.25 MG Raspberry (Raspberry Syrup 5ml Cup) 5 ml QID PO 12/05/16 21:00 12/19/16 20:59 12/10/16 08:18 5 ML Piperacillin Sod/ Tazobactam Sod (Consult) 1 ea UD PRN N/A 12/05/16 20:30 01/04/17 20:29 Miscellaneous Information (Consult Glycemic Management Pharmacy) 1 ea UD PRN N/A 12/06/16 12:45 01/05/17 12:44 Acetaminophen (Tylenol Tab) 650 mg QID PRN PO 12/07/16 22:30 01/06/17 22:29 Prednisone (PredniSONE TAB) 50 mg DAILY PO 12/09/16 09:00 01/08/17 08:59 12/10/16 08:19 50 MG Insulin Glargine (Lantus Solostar Pen) SEE PROTOCOL TEXT DAILY SC 12/10/16 09:00 01/09/17 08:59 12/10/16 08:25 10 UNIT Potassium Chloride (Klor-Con M10) 20 meq BID PO 12/09/16 21:00 01/08/17 20:59 12/10/16 08:20 20 MEQ Codeine Phosphate/ Guaifenesin (Robitussin-AC Sugar Free Syrup) 10 ml Q6H PRN PO 12/09/16 15:45 01/08/17 15:44 Temazepam (Restoril Cap) 15 mg HS PRN PO 12/09/16 15:45 01/08/17 15:44 12/09/16 21:33 15 MG Impression (1) Acute kidney injury (2) Chronic kidney disease (CKD) stage G3b/A1, moderately decreased glomerular filtration rate (GFR) between 30-44 mL/min/1.73 square meter and albuminuria creatinine ratio less than 30 mg/g (3) Dehydration (4) C. difficile colitis (5) Pneumonia (6) Anemia (7) Diabetes Mrs. Dunaway was admitted to the hospital for management of Clostridium Difficile colitis and dehydration. Her hospitalization has been complicated by IV contrast administration, relative hypotension, anemia and acute on chronic kidney injury. Urine sediment 12/05/16 revealed granular casts c/w ATN PMH - CKD w/ baseline creatinine 1.0, kidney stones (Dr. Hunt Urologist), AODM (no retinopathy), HTN, Sarcoidosis, RA, Hypothyroidism, Colorectal CA s/p partial colectomy, Anemia (on Procrit therapy q [address] Sloan), Chronic atrial fibrillation on anticoagulation therapy, Bioprosthetic mitral valve and pacemaker Recommendations ACUTE KIDNEY INJURY: -- Avoid IV contrast and known nephrotoxic agents -- Continue gentle hydration w/ 0.9NS -- Renal US 12/09/16: mild renal asymmetry. No obstruction. -- Urinalysis w/ low grade proteinuria. No significant blood. Urine casts have cleared -- Monitor PRP -- Patient is nearing baseline kidney function. If improved tomorrow will be able to stop IVF and remove cook catheter CHRONIC KIDNEY DISEASE: -- Baseline creatinine 1.0 ANEMIA: -- Procrit as per Hematology ID: -- Oral Vancomycin for Clostridium difficile -- IV Zosyn for ARUNA pneumonia as per ID government operations consultant
[2016-12-10] MEDS: TEMAZEPAM 15 MG CAP PO PRN (20:33)
[2016-12-11] VITALS (12 sets, daily range): BP systolic 128–153; BP diastolic 55–84; PULSE 74–82; TEMP 36.4–36.7; O2SAT 94–97
--- NOTE | 2016-12-11 00:07 | Hospitalist Progress Note ---
Hospitalist Progress Note Date of Service Dec 10, 2016. Subjective Pt evaluation today including: conversation w/ patient, conversation w/ family patient feeling better stool is formed. All Other Systems: Reviewed and Negative Medications Medications (Trade) Dose Ordered Sig/Shirley Route Start Time Stop Time Status Last Admin Dose Admin Insulin Glargine (Lantus Solostar Pen) SEE PROTOCOL TEXT DAILY SC 12/10/16 09:00 01/09/17 08:59 12/10/16 08:25 10 UNIT Objective Vital Signs Date Time Temp Pulse Resp B/P Pulse Ox O2 Delivery O2 Flow Rate FiO2 12/10/16 23:56 36.7 82 18 129/62 97 BiPAP 12/10/16 21:09 96 12/10/16 20:00 Room Air 12/10/16 19:58 36.5 81 18 144/65 96 Room Air 12/10/16 19:48 81 16 96 Nasal Cannula 12/10/16 16:00 Room Air 12/10/16 15:33 36.7 80 18 140/65 94 Room Air 12/10/16 12:23 37.1 81 115/50 96 Room Air 12/10/16 12:00 Room Air 12/10/16 08:40 94 12/10/16 08:00 Room Air 12/10/16 08:00 36.5 80 16 114/56 94 12/10/16 07:13 74 16 99 BiPAP/CPAP 21 12/10/16 04:09 36.5 80 18 118/56 93 BiPAP 12/10/16 04:00 Room Air 4.0 12/10/16 01:58 74 95 21 12/10/16 01:57 74 16 95 BiPAP/CPAP 21 Laboratory Results Last 24 Hours Test 12/10/16 05:50 12/10/16 06:41 12/10/16 11:03 12/10/16 16:21 White Blood Count 3.04 K/uL Red Blood Count 3.16 M/uL Hemoglobin 9.2 g/dL Hematocrit 28.9 % Mean Corpuscular Volume 91.5 fL Mean Corpuscular Hemoglobin 29.1 pg Mean Corpuscular Hemoglobin Concent 31.8 g/dl RDW Standard Deviation 54.5 fL RDW Coefficient of Variation 16.3 % Platelet Count 130 K/uL Mean Platelet Volume 9.1 fL Nucleated RBC Absolute Count (auto) 0.03 K/uL Nucleated Red Blood Cells % 0.8 % Sodium Level 145 mmol/L Potassium Level 4.1 mmol/L Chloride Level 116 mmol/L Carbon Dioxide Level 19 mmol/L Anion Gap 10.0 mmol/L Blood Urea Nitrogen 45 mg/dl Creatinine 1.50 mg/dl Est Creatinine Clear Calc Drug Dose 37.1 ml/min Estimated GFR () 41.6 Estimated GFR (Non- 35.9 BUN/Creatinine Ratio 29.7 Random Glucose 143 mg/dl Calcium Level 8.4 mg/dl Bedside Glucose 151 mg/dl 144 mg/dl 220 mg/dl Test 12/10/16 20:36 Bedside Glucose 235 mg/dl Assessment and Plan (1) Pneumonia Assessment & Plan: continue zosyn (2) C. difficile colitis Assessment & Plan: continue oral vanco patient is responding to tx (3) UTI (urinary tract infection) (4) Rheumatoid arthritis (5) Diabetes (6) Anemia requiring transfusions (7) Chronic kidney disease (CKD) stage G3b/A1, moderately decreased glomerular filtration rate (GFR) between 30-44 mL/min/1.73 square meter and albuminuria creatinine ratio less than 30 mg/g Assessment & Plan: renal function inproving Acute renal failure multifactorial secondary to contrast and ATN (8) Acute kidney injury Problem Qualifiers (1) Pneumonia: Pneumonia type: due to unspecified organism Laterality: left Lung location: unspecified part of lung Qualified Codes: J18.9 - Pneumonia, unspecified organism (2) UTI (urinary tract infection): Urinary tract infection type: site unspecified Hematuria presence: with hematuria Qualified Codes: N39.0 - Urinary tract infection, site not specified ; R31.9 - Hematuria, unspecified
[2016-12-11] MEDS: LEVALBUTEROL 1.25MG/0.5ML NEB INH SCH ×4 (01:50→19:41)
[2016-12-11] MEDS: IPRATROPIUM BROMIDE NEB SOLN 0.02% 2.5 ML VIAL INH SCH ×4 (01:50→19:41)
[2016-12-11] MEDS: SODIUM CHLORIDE 0.9% 1000ML 1,000 ML IV SCH (05:36)
[2016-12-11] MEDS: PIPERACILL/TAZOBAC IV 3.375 GM in DEXTROSE 5% 100ML 100 ML IV SCH ×3 (06:05→22:12)
[2016-12-11 06:15] LABS: HEMATOCRIT 30.1 % (37-47); MEAN CELL VOLUME 92.6 fL (80-100); MEAN CORPUSCULAR HEMOGLOBIN 29.2 pg (25-34); MEAN CORPUSCULAR HGB CONC 31.6 g/dl (32-36); MEAN PLATELET VOLUME 9.1 fL (7.4-10.4); PLATELET COUNT 142 K/uL (130-400); RED BLOOD COUNT 3.25 M/uL (4.2-5.4); WHITE BLOOD COUNT 3.01 K/uL (4.8-10.8)
[2016-12-11 06:48] LABS: BUN/CREATININE RATIO 31.8 (10-20); CALCIUM 8.1 mg/dl (8.5-10.1); CREATININE 1.1 mg/dl (0.60-1.20); POTASSIUM 4.3 mmol/L (3.5-5.1)
[2016-12-11] MEDS: VANCOMYCIN HCL 250 MG/5 ML SOLN PO SCH ×4 (07:42→21:49)
[2016-12-11] MEDS: RASPBERRY SYRUP 5 ML UDP PO SCH ×4 (07:42→21:49)
[2016-12-11] MEDS: LEVETIRACETAM 500 MG TAB PO SCH ×2 (07:43→21:56)
[2016-12-11] MEDS: POTASSIUM CHLORIDE 10 MEQ TABCR PO SCH ×2 (07:43→21:51)
[2016-12-11] MEDS: INSULIN ASPART 100 UNITS/ML 3 ML PEN SC SCH ×4 (07:49→22:13)
[2016-12-11] MEDS: INSULIN GLARGINE SOLOSTAR 100 UNITS/ML 3 ML PEN SC SCH (07:50)
[2016-12-11] MEDS: SODIUM CHLORIDE 0.65% NA SOLN 45 ML (OCEAN) NAE SCH ×3 (07:52→21:52)
--- NOTE | 2016-12-11 09:43 | Pharmacy Progress Note ---
Glycemic Control: Progress Nt Date of Service Dec 11, 2016. Scope Glycemic Pharmacist consulted by Dr Hull on 12/06 for glycemic control and to write orders per [facility] inpatient glycemic control protocol. Objective Accuchecks BSG (last 24hrs): Test 12/10/16 11:03 12/10/16 16:21 12/10/16 20:36 12/11/16 05:54 Bedside Glucose 144 mg/dl (70-90) 220 mg/dl (70-90) 235 mg/dl (70-90) Random Glucose 104 mg/dl (70-99) Test 12/11/16 06:18 Bedside Glucose 110 mg/dl (70-90) Laboratory Data (last 24hrs) Test 12/11/16 05:54 Anion Gap 9.0 mmol/L BUN/Creatinine Ratio 31.8 Blood Urea Nitrogen 35 mg/dl Creatinine 1.10 mg/dl Potassium Level 4.3 mmol/L Sodium Level 146 mmol/L White Blood Count 3.01 K/uL HbA1c: Test 12/07/16 06:03 Hemoglobin A1c 5.8 % (4.5-5.6) H Recent Pertinent Medications Outpatient Anti-diabetic Regimen: * Amaryl 1 mg PO daily * Januvia 100 mg PO daily The patient is currently receiving: * Basal insulin: Lantus 10-15 units (based upon BSG) every 24 hours * Correctional Insulin: Novolog Correction per scale ACHS Goal Range: Low 110 mg/dL - High 140 mg/dL Correction Factor: 25 mg/dL/unit * Prandial insulin: Per carb ratio of 1 unit per 8 grams CHO consumed * Oral Agents: None at this time Risk Factors for Insulin Resistance: * Steroids: prednisone 50 mg daily * Infection: on Zosyn + vanco po * Diet: type 2 diabetes - ave of 60 gm CHO w/ each meal Assessment & Plan ASSESSMENT: 12/11/16 * Patient rec'd 43 units of insulin yesterday w/ BSGs ranging from 104-235 mg/ dL in the past 24 hrs * She will receive another 10 units of Lantus this AM for BSG - appropriate since she rec'd this yesterday * Postprandial BSGs did tend to increase yesterday so will tighten CR slightly to provide more meal time coverage w/ steroids on board PLAN FOR INPATIENT GLYCEMIC CONTROL: * Continue Lantus 10-15 units (per BSG) qAM * Continue Novolog ACHS * Goal 110-140 * CF 25 * TIGHTEN CR from 8 -> 7 * Please note that the plan above was derived based on current level of insulin resistance and hospital stress. These recommendations are appropriate for inpatient admission only. Plan of care upon discharge will need to be reassessed to avoid potential outpatient hypo/hyperglycemia. Thank you.
--- NOTE | 2016-12-11 13:12 | Nephrology Progress Note ---
Nephrology Progress Note Date of Service Dec 11, 2016. Chief Complaint Follow-up for acute kidney injury. Leticia Gonzalez was seen and examined in her room this morning. She overall feels well, denies any shortness of breath or chest pain. Blood pressure has been stable. Renal function improved and creatinine 1.1 this morning. Sodium slightly elevated at 146. Has been having decent urine output. Diarrhea seems to have resolved. Review of Systems A complete review of systems was performed. Pertinent positives are noted above. All other systems are negative. Vital Signs Last 8 Hrs Date Time Temp Pulse Resp B/P Pulse Ox O2 Delivery O2 Flow Rate FiO2 12/11/16 11:13 36.6 82 18 131/55 94 Room Air 12/11/16 07:30 36.4 80 18 136/84 97 CPAP 12/11/16 07:23 79 14 97 BiPAP/CPAP I & O 24-Hour Column 12/11/16 08:00 Intake Total 3006 ml Output Total 1500 ml Balance 1506 ml Last Recorded Weight Weight (Kilograms): 93.000 Physical Exam GENERAL: Middle-aged female, AAA x 3, pleasant, healthy-appearing, not in any distress. NECK: Supple, no JVD. RESPIRATORY: Normal breathing efforts, no accessory muscle use, bibasilar rales. CARDIOVASCULAR: S1, S2 normal, rate rhythm regular. EXTREMITY: No lower extremity edema NEURO: speech fluent. PSYCHIATRY: Normal mood and judgment Family History Patient reports no known family medical history. 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 Laboratory Results Past 24 Hours 12/11/16 05:54 12/11/16 05:54 Test 12/10/16 16:21 12/10/16 20:36 12/11/16 05:54 12/11/16 06:18 Bedside Glucose 220 mg/dl (70-90) 235 mg/dl (70-90) 110 mg/dl (70-90) Red Blood Count 3.25 M/uL (4.2-5.4) Mean Corpuscular Volume 92.6 fL (80-100) Mean Corpuscular Hemoglobin 29.2 pg (25-34) Mean Corpuscular Hemoglobin Concent 31.6 g/dl (32-36) RDW Standard Deviation 54.5 fL (36.4-46.3) RDW Coefficient of Variation 16.3 % (11.5-14.5) Mean Platelet Volume 9.1 fL (7.4-10.4) Anion Gap 9.0 mmol/L (3-11) Est Creatinine Clear Calc Drug Dose 51.2 ml/min Estimated GFR () 60.6 Estimated GFR (Non- 52.3 BUN/Creatinine Ratio 31.8 (10-20) Calcium Level 8.1 mg/dl (8.5-10.1) Test 12/11/16 11:13 Bedside Glucose 132 mg/dl (70-90) Allergies Coded Allergies: No Known Allergies (Unverified , 12/05/16) Medications Current Inpatient Medications Medications (Trade) Dose Ordered Sig/Shirley Route Start Time Stop Time Status Last Admin Dose Admin Levetiracetam (Keppra Tab) 500 mg BID PO 12/05/16 21:00 01/04/17 20:59 12/11/16 07:43 500 MG Sodium Chloride ([place] Nasal [place]) 2 sprays TID LESTER 12/05/16 21:00 01/04/17 20:59 12/11/16 07:52 2 SPRAYS Ondansetron HCl (Zofran Inj) 4 mg Q6H PRN IV 12/05/16 19:15 01/04/17 19:14 Insulin Aspart (novoLOG ASPART) SLIDING SCALE If C... ACHS SC 12/05/16 21:00 01/04/17 20:59 12/11/16 12:07 11 UNITS Glucose (Glucose 40% Gel) UD PRN PO 12/05/16 19:15 01/04/17 19:14 Glucose (Glucose Chew Tab) 1 tabs UD PRN PO 12/05/16 19:15 01/04/17 19:14 Dextrose (Dextrose 50% 50ML Syringe) 50 ml UD PRN IV 12/05/16 19:15 01/04/17 19:14 Glucagon 1 mg 1 mg UD PRN SQ 12/05/16 19:15 01/04/17 19:14 Piperacillin Sod/ Tazobactam Sod/ Dextrose (Zosyn Iv/D5 100ml) 115 ml @ 28.75 mls/ hr Q8H IV 12/05/16 22:00 12/12/16 21:59 12/11/16 06:05 28.75 MLS/HR Vancomycin HCl (Vancomycin Oral Soln) 250 mg QID PO 12/05/16 21:00 12/19/16 20:59 12/11/16 07:42 250 MG Ipratropium [place] (Atrovent 0.02% 0.5MG/2.5ML Neb) 0.5 mg Q6R INH 12/05/16 21:00 01/04/17 20:59 12/11/16 07:23 0.5 MG Levalbuterol (Xopenex 1.25MG/ 0.5ML Neb) 1.25 mg Q6R INH 12/05/16 21:00 01/04/17 20:59 12/11/16 07:23 1.25 MG Raspberry (Raspberry Syrup 5ml Cup) 5 ml QID PO 12/05/16 21:00 12/19/16 20:59 12/11/16 07:42 5 ML Piperacillin Sod/ Tazobactam Sod (Consult) 1 UD PRN N/A 12/05/16 20:30 01/04/17 20:29 Miscellaneous Information (Consult Glycemic Management Pharmacy) 1 UD PRN N/A 12/06/16 12:45 01/05/17 12:44 Acetaminophen (Tylenol Tab) 650 mg QID PRN PO 12/07/16 22:30 01/06/17 22:29 Prednisone (PredniSONE TAB) 50 mg DAILY PO 12/09/16 09:00 01/08/17 08:59 12/11/16 07:43 50 MG Insulin Glargine (Lantus Solostar Pen) SEE PROTOCOL TEXT DAILY SC 12/10/16 09:00 01/09/17 08:59 12/11/16 07:50 10 UNIT Potassium Chloride (Klor-Con M10) 20 meq BID PO 12/09/16 21:00 01/08/17 20:59 12/11/16 07:43 20 MEQ Codeine Phosphate/ Guaifenesin (Robitussin-AC Sugar Free Syrup) 10 ml Q6H PRN PO 12/09/16 15:45 01/08/17 15:44 12/10/16 19:33 10 ML Temazepam (Restoril Cap) 15 mg HS PRN PO 12/09/16 15:45 01/08/17 15:44 12/10/16 20:33 15 MG Impression (1) Acute kidney injury (2) Chronic kidney disease (CKD) stage G3b/A1, moderately decreased glomerular filtration rate (GFR) between 30-44 mL/min/1.73 square meter and albuminuria creatinine ratio less than 30 mg/g (3) Dehydration (4) C. difficile colitis (5) Pneumonia (6) Anemia (7) Diabetes Mrs. Dunaway was admitted to the hospital for management of Clostridium Difficile colitis and dehydration. Her hospitalization has been complicated by IV contrast administration, relative hypotension, anemia and acute on chronic kidney injury. Urine sediment 12/05/16 revealed granular casts c/w ATN. creatinine peaked to 2.0 which has been improving and improved to 1.1 this morning. PMH - CKD w/ baseline creatinine 1.0, kidney stones (Dr. Hunt Urologist), AODM (no retinopathy), HTN, Sarcoidosis, RA, Hypothyroidism, Colorectal CA s/p partial colectomy, Anemia (on Procrit therapy q [address] Sloan), Chronic atrial fibrillation on anticoagulation therapy, Bioprosthetic mitral valve and pacemaker Recommendations ACUTE KIDNEY INJURY: -- acute kidney injury seems to have resolved, creatinine improved to her baseline of 1.1, non-oliguric. -- discontinue IV fluid and Cook catheter and continue to monitor urine output. Encourage p.o. intake. -- Urinalysis w/ low grade proteinuria. No significant blood. Urine casts have cleared -- Monitor PRP -- Patient is nearing baseline kidney function. If improved tomorrow will be able to stop IVF and remove cook catheter # hypernatremia: Mild with free water deficit -- discontinue normal saline, and encourage p.o. intake, if p.o. intake is not adequate consider giving D5 water however would continue to watch for now. CHRONIC KIDNEY DISEASE: -- Baseline creatinine 1.0 ANEMIA: -- Procrit as per Hematology ID: -- Oral Vancomycin for Clostridium difficile -- IV Zosyn for ARUNA pneumonia as per ID wound care center consultant
--- NOTE | 2016-12-11 15:59 | Hospitalist Progress Note ---
Hospitalist Progress Note Date of Service Dec 11, 2016. Subjective Pt evaluation today including: conversation w/ patient, physical exam Pain: 0 patient still has diarrhea Objective Vital Signs Date Time Temp Pulse Resp B/P Pulse Ox O2 Delivery O2 Flow Rate FiO2 12/11/16 15:17 36.4 80 20 153/58 94 Room Air 12/11/16 11:13 36.6 82 18 131/55 94 Room Air 12/11/16 07:30 36.4 80 18 136/84 97 CPAP 12/11/16 07:23 79 14 97 BiPAP/CPAP 12/11/16 04:37 36.7 77 18 128/73 94 BiPAP 12/11/16 04:00 CPAP 12/11/16 01:50 80 14 94 BiPAP/CPAP 12/10/16 23:59 CPAP 12/10/16 23:56 36.7 82 18 129/62 97 BiPAP 12/10/16 21:09 96 12/10/16 20:00 Room Air 12/10/16 19:58 36.5 81 18 144/65 96 Room Air 12/10/16 19:48 81 16 96 Nasal Cannula 12/10/16 16:00 Room Air Physical Exam General Appearance: no apparent distress ENT: hearing grossly normal Neck: trachea midline Respiratory/Chest: lungs clear Cardiovascular: regular rate, rhythm Abdomen: non tender Extremities: normal inspection Laboratory Results Last 24 Hours Test 12/10/16 16:21 12/10/16 20:36 12/11/16 05:54 12/11/16 06:18 Bedside Glucose 220 mg/dl 235 mg/dl 110 mg/dl White Blood Count 3.01 K/uL Red Blood Count 3.25 M/uL Hemoglobin 9.5 g/dL Hematocrit 30.1 % Mean Corpuscular Volume 92.6 fL Mean Corpuscular Hemoglobin 29.2 pg Mean Corpuscular Hemoglobin Concent 31.6 g/dl RDW Standard Deviation 54.5 fL RDW Coefficient of Variation 16.3 % Platelet Count 142 K/uL Mean Platelet Volume 9.1 fL Sodium Level 146 mmol/L Potassium Level 4.3 mmol/L Chloride Level 118 mmol/L Carbon Dioxide Level 19 mmol/L Anion Gap 9.0 mmol/L Blood Urea Nitrogen 35 mg/dl Creatinine 1.10 mg/dl Est Creatinine Clear Calc Drug Dose 51.2 ml/min Estimated GFR () 60.6 Estimated GFR (Non- 52.3 BUN/Creatinine Ratio 31.8 Random Glucose 104 mg/dl Calcium Level 8.1 mg/dl Test 12/11/16 11:13 Bedside Glucose 132 mg/dl Assessment and Plan (1) Pneumonia Assessment & Plan: continue Iv zosyn change to augmentin on dc plan on dc tomorrow (2) C. difficile colitis Assessment & Plan: will need continued overlapping treatment, and once pneumonia tx resolved will need tx just for c. diff with po vanco (3) UTI (urinary tract infection) (4) Rheumatoid arthritis (5) Diabetes (6) Anemia requiring transfusions (7) Chronic kidney disease (CKD) stage G3b/A1, moderately decreased glomerular filtration rate (GFR) between 30-44 mL/min/1.73 square meter and albuminuria creatinine ratio less than 30 mg/g (8) Acute kidney injury Assessment & Plan: improving back to baseline Problem Qualifiers (1) Pneumonia: Pneumonia type: due to unspecified organism Laterality: left Lung location: unspecified part of lung Qualified Codes: J18.9 - Pneumonia, unspecified organism (2) UTI (urinary tract infection): Urinary tract infection type: site unspecified Hematuria presence: with hematuria Qualified Codes: N39.0 - Urinary tract infection, site not specified ; R31.9 - Hematuria, unspecified
[2016-12-11] MEDS ORDERED: INSULIN HUMAN REGULAR PER IV SCH (21:15)
[2016-12-11] MEDS: TEMAZEPAM 15 MG CAP PO PRN (22:45)
[2016-12-12] MEDS: INSULIN ASPART 100 UNITS/ML 3 ML PEN SC SCH ×4 (00:13→12:19)
[2016-12-12 02:02] VITALS: PULSE 80; O2SAT 96
[2016-12-12] MEDS: LEVALBUTEROL 1.25MG/0.5ML NEB INH SCH ×2 (02:02→07:45)
[2016-12-12] MEDS: IPRATROPIUM BROMIDE NEB SOLN 0.02% 2.5 ML VIAL INH SCH ×2 (02:02→07:45)
[2016-12-12 04:17] VITALS: BP 122/55; PULSE 80; TEMP 36.7; O2SAT 96
[2016-12-12] MEDS: PIPERACILL/TAZOBAC IV 3.375 GM in DEXTROSE 5% 100ML 100 ML IV SCH ×2 (06:04→14:00)
[2016-12-12 06:30] LABS: BUN/CREATININE RATIO 29.1 (10-20); CALCIUM 8.3 mg/dl (8.5-10.1); CREATININE 0.96 mg/dl (0.60-1.20)
[2016-12-12 07:37] VITALS: BP 149/69; PULSE 80; TEMP 36.7; O2SAT 94
[2016-12-12 07:45] VITALS: PULSE 84; O2SAT 94
[2016-12-12] MEDS: VANCOMYCIN HCL 250 MG/5 ML SOLN PO SCH ×2 (07:58→12:21)
[2016-12-12] MEDS: RASPBERRY SYRUP 5 ML UDP PO SCH ×2 (07:59→12:21)
[2016-12-12] MEDS: POTASSIUM CHLORIDE 10 MEQ TABCR PO SCH (08:00)
[2016-12-12] MEDS: SODIUM CHLORIDE 0.65% NA SOLN 45 ML (OCEAN) NAE SCH ×2 (08:04→14:00)
[2016-12-12] MEDS: LEVETIRACETAM 500 MG TAB PO SCH (08:04)
[2016-12-12] MEDS: INSULIN GLARGINE SOLOSTAR 100 UNITS/ML 3 ML PEN SC SCH (08:04)
--- NOTE | 2016-12-12 09:22 | Pharmacy Progress Note ---
Glycemic Control: Progress Nt Date of Service Dec 12, 2016. Scope Glycemic Pharmacist consulted by Dr Hull on 12/06 for glycemic control and to write orders per [facility] inpatient glycemic control protocol. Objective Accuchecks BSG (last 24hrs): Test 12/11/16 11:13 12/11/16 15:56 12/11/16 20:40 12/12/16 00:01 Bedside Glucose 132 mg/dl (70-90) 287 mg/dl (70-90) 454 mg/dl (70-90) 345 mg/dl (70-90) Test 12/12/16 03:42 12/12/16 05:42 12/12/16 06:58 Bedside Glucose 175 mg/dl (70-90) 125 mg/dl (70-90) Random Glucose 131 mg/dl (70-99) Laboratory Data (last 24hrs) Test 12/12/16 05:42 Anion Gap 7.0 mmol/L BUN/Creatinine Ratio 29.1 Blood Urea Nitrogen 28 mg/dl Creatinine 0.96 mg/dl Potassium Level 4.0 mmol/L Sodium Level 144 mmol/L HbA1c: Test 12/07/16 06:03 Hemoglobin A1c 5.8 % (4.5-5.6) H Recent Pertinent Medications Outpatient Anti-diabetic Regimen: * Amaryl 1 mg PO daily * Januvia 100 mg PO daily The patient is currently receiving: * Basal insulin: Lantus 10-15 units (based upon BSG) every 24 hours * Correctional Insulin: Novolog Correction per scale ACHS Goal Range: Low 110 mg/dL - High 140 mg/dL Correction Factor: 25 mg/dL/unit * Prandial insulin: Per carb ratio of 1 unit per 7 grams CHO consumed * Oral Agents: None at this time Risk Factors for Insulin Resistance: * Steroids: prednisone 50 mg daily * Infection: on Zosyn + vanco po * Diet: type 2 diabetes - ave of 60 gm CHO w/ each meal Assessment & Plan ASSESSMENT: 12/11/16 * Patient rec'd 43 units of insulin yesterday w/ BSGs ranging from 104-235 mg/ dL in the past 24 hrs * She will receive another 10 units of Lantus this AM for BSG - appropriate since she rec'd this yesterday * Postprandial BSGs did tend to increase yesterday so will tighten CR slightly to provide more meal time coverage w/ steroids on board 12/12/16 * Patient's BSGs increased significantly last evening (as high as 454) but she had visitors and was eating pie * Evening glycemic pharmacist gave a one time bolus of IV insulin and added overnight checks to provide additional coverage * Since her pre-lunch BSG looked great yesterday with the change in CR, will plan to continue current regimen PLAN FOR INPATIENT GLYCEMIC CONTROL: * Continue Lantus 10-15 units (per BSG) qAM * Continue Novolog ACHS * Goal 110-140 * CF 25 * CR 7 * Please note that the plan above was derived based on current level of insulin resistance and hospital stress. These recommendations are appropriate for inpatient admission only. Plan of care upon discharge will need to be reassessed to avoid potential outpatient hypo/hyperglycemia. Thank you.
[2016-12-12 11:09] VITALS: BP 128/59; PULSE 80; TEMP 37.3; O2SAT 94
--- NOTE | 2016-12-12 11:40 | Nephrology Progress Note ---
Nephrology Progress Note Date of Service Dec 12, 2016. Chief Complaint Follow-up for acute kidney injury. Leticia Gonzalez was seen and examined in her room this morning. She is otherwise feeling well, appetite at seems to be better, denies shortness of breath or chest pain. Blood pressure stable. Remain non-oliguric. Renal function improved and creatinine now seems to be at baseline, 0.9, room serum sodium normalized other electrolyte acceptable. Review of Systems A complete review of systems was performed. Pertinent positives are noted above. All other systems are negative. Vital Signs Last 8 Hrs Date Time Temp Pulse Resp B/P Pulse Ox O2 Delivery O2 Flow Rate FiO2 12/12/16 11:09 37.3 80 18 128/59 94 Room Air 12/12/16 08:00 Room Air 12/12/16 07:45 84 14 94 Room Air 12/12/16 07:37 36.7 80 18 149/69 94 Room Air 12/12/16 04:17 36.7 80 18 122/55 96 Room Air 12/12/16 04:00 Room Air I & O 24-Hour Column 12/12/16 08:00 Intake Total 2785 ml Output Total 575 ml Balance 2210 ml Last Recorded Weight Weight (Kilograms): 93.900 Physical Exam GENERAL: Middle-aged female, AAA x 3, pleasant, healthy-appearing, not in any distress. NECK: Supple, no JVD. RESPIRATORY: Normal breathing efforts, no accessory muscle use, bibasilar rales. CARDIOVASCULAR: S1, S2 normal, rate rhythm regular. EXTREMITY: 1+ bilateral lower extremity edema NEURO: speech fluent. PSYCHIATRY: Normal mood and judgment Family History Patient reports no known family medical history. Negative for CKD / ESRD Social History Smokeless Tobacco Use: No Alcohol Use: none Drug Use: none Marital Status: Housing Status: lives with family Occupation: retired . Retired. 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 Laboratory Results Past 24 Hours 12/12/16 05:42 Test 12/11/16 15:56 12/11/16 20:40 12/12/16 00:01 12/12/16 03:42 Bedside Glucose 287 mg/dl (70-90) 454 mg/dl (70-90) 345 mg/dl (70-90) 175 mg/dl (70-90) Test 12/12/16 05:42 12/12/16 06:58 12/12/16 11:15 Anion Gap 7.0 mmol/L (3-11) Est Creatinine Clear Calc Drug Dose 59.0 ml/min Estimated GFR () 71.4 Estimated GFR (Non- 61.6 BUN/Creatinine Ratio 29.1 (10-20) Calcium Level 8.3 mg/dl (8.5-10.1) Bedside Glucose 125 mg/dl (70-90) 219 mg/dl (70-90) Allergies Coded Allergies: No Known Allergies (Unverified , 12/05/16) Medications Current Inpatient Medications Medications (Trade) Dose Ordered Sig/Shirley Route Start Time Stop Time Status Last Admin Dose Admin Levetiracetam (Keppra Tab) 500 mg BID PO 12/05/16 21:00 01/04/17 20:59 12/12/16 08:04 500 MG Sodium Chloride (Limon Nasal [place]) 2 sprays TID LESTER 12/05/16 21:00 01/04/17 20:59 12/12/16 08:04 2 SPRAYS Ondansetron HCl (Zofran Inj) 4 mg Q6H PRN IV 12/05/16 19:15 01/04/17 19:14 Insulin Aspart (novoLOG ASPART) SLIDING SCALE If C... ACHS SC 12/05/16 21:00 01/04/17 20:59 12/12/16 08:03 5 UNITS Glucose (Glucose 40% Gel) UD PRN PO 12/05/16 19:15 01/04/17 19:14 Glucose (Glucose Chew Tab) 1 tabs UD PRN PO 12/05/16 19:15 01/04/17 19:14 Dextrose (Dextrose 50% 50ML Syringe) 50 ml UD PRN IV 12/05/16 19:15 01/04/17 19:14 Glucagon 1 mg 1 mg UD PRN SQ 12/05/16 19:15 01/04/17 19:14 Piperacillin Sod/ Tazobactam Sod/ Dextrose (Zosyn Iv/D5 100ml) 115 ml @ 28.75 mls/ hr Q8H IV 12/05/16 22:00 12/12/16 21:59 12/12/16 06:04 28.75 MLS/HR Vancomycin HCl (Vancomycin Oral Soln) 250 mg QID PO 12/05/16 21:00 12/19/16 20:59 12/12/16 07:58 250 MG Ipratropium [place] (Atrovent 0.02% 0.5MG/2.5ML Neb) 0.5 mg Q6R INH 12/05/16 21:00 01/04/17 20:59 12/12/16 07:45 0.5 MG Levalbuterol (Xopenex 1.25MG/ 0.5ML Neb) 1.25 mg Q6R INH 12/05/16 21:00 01/04/17 20:59 12/12/16 07:45 1.25 MG Raspberry (Raspberry Syrup 5ml Cup) 5 ml QID PO 12/05/16 21:00 12/19/16 20:59 12/12/16 07:59 5 ML Piperacillin Sod/ Tazobactam Sod (Consult) 1 ea UD PRN N/A 12/05/16 20:30 01/04/17 20:29 Miscellaneous Information (Consult Glycemic Management Pharmacy) 1 ea UD PRN N/A 12/06/16 12:45 01/05/17 12:44 Acetaminophen (Tylenol Tab) 650 mg QID PRN PO 12/07/16 22:30 01/06/17 22:29 Prednisone (PredniSONE TAB) 50 mg DAILY PO 12/09/16 09:00 01/08/17 08:59 12/12/16 07:59 50 MG Insulin Glargine (Lantus Solostar Pen) SEE PROTOCOL TEXT DAILY SC 12/10/16 09:00 01/09/17 08:59 12/12/16 08:04 10 UNIT Potassium Chloride (Klor-Con M10) 20 meq BID PO 12/09/16 21:00 01/08/17 20:59 12/12/16 08:00 20 MEQ Codeine Phosphate/ Guaifenesin (Robitussin-AC Sugar Free Syrup) 10 ml Q6H PRN PO 12/09/16 15:45 01/08/17 15:44 12/10/16 19:33 10 ML Temazepam (Restoril Cap) 15 mg HS PRN PO 4/20/17 15:45 01/08/17 15:44 12/11/16 22:45 15 MG Impression (1) Acute kidney injury (2) Chronic kidney disease (CKD) stage G3b/A1, moderately decreased glomerular filtration rate (GFR) between 30-44 mL/min/1.73 square meter and albuminuria creatinine ratio less than 30 mg/g (3) Dehydration (4) C. difficile colitis (5) Pneumonia (6) Anemia (7) Diabetes Mrs. Dunaway was admitted to the hospital for management of Clostridium Difficile colitis and dehydration. Her hospitalization has been complicated by IV contrast administration, relative hypotension, anemia and acute on chronic kidney injury. Urine sediment 12/05/16 revealed granular casts c/w ATN. creatinine peaked to 2.0 which has been improving and improved to 1.1 this morning. PMH - CKD w/ baseline creatinine 1.0, kidney stones (Dr. Hunt Urologist), AODM (no retinopathy), HTN, Sarcoidosis, RA, Hypothyroidism, Colorectal CA s/p partial colectomy, Anemia (on Procrit therapy q [address] Sloan), Chronic atrial fibrillation on anticoagulation therapy, Bioprosthetic mitral valve and pacemaker Recommendations ACUTE KIDNEY INJURY: -- hemodynamically mediated, resolved resolved, creatinine improved to her baseline of 0.9, non-oliguric. # hypernatremia: Mild with free water deficit, resolved CHRONIC KIDNEY DISEASE: -- Baseline creatinine 1.0 ANEMIA: -- Procrit as per Hematology ID: -- Oral Vancomycin for Clostridium difficile -- IV Zosyn for ARUNA pneumonia as per ID employment consultant Will sign off.
--- NOTE | 2016-12-12 12:45 | Discharge Instructions ---
Discharge Instructions Date of Service Dec 12, 2016. Admission Reason for Admission: Acute Respiratory Failure With Hypoxia, Pneumonia Discharge Discharge Diagnosis / Problem: Pneumonia C. Dificile Colitis Discharge Goals Goal(s): Improve function, Improve disease control Activity Recommendations Activity Limitations: per Instructions/Follow-up section . Instructions / Follow-Up Instructions / Follow-Up follow up with primary care physician 1 week after discharge from snf Current Hospital Diet Patient's current hospital diet: Diabetes Type 2 Diet Discharge Diet Recommended Diet: Diabetes Type 2 Diet Pending Studies Studies pending at discharge: no Laboratory Results Hemoglobin A1c Test 12/07/16 06:03 Range/Units Estimated Average Glucose 120 mg/dl Hemoglobin A1c 5.8 H 4.5-5.6 % Medical Emergencies . Who to Call and When: Medical Emergencies: If at any time you feel your situation is an emergency, please call 911 immediately. . Non-Emergent Contact Non-Emergency issues call your: Primary Care Provider . Past History Medical & Surgical History: (1) Acute respiratory failure with hypoxia (2) C. difficile colitis (3) Pneumonia (4) Chronic kidney disease (CKD) stage G3b/A1, moderately decreased glomerular filtration rate (GFR) between 30-44 mL/min/1.73 square meter and albuminuria creatinine ratio less than 30 mg/g (5) Anemia (6) Rheumatoid arthritis . "Provider Documentation" section prepared by Bill Hull. . VTE Core Measure Inpt VTE Proph given/why not?: SCD's
[2016-12-12] MEDS ORDERED: XPNINS1255 INH (12:57)
[2016-12-12] MEDS ORDERED: TRAM-10 PO ×2 (12:57→13:08)
[2016-12-12] MEDS ORDERED: PRED10TA PO (12:57)
[2016-12-12] MEDS ORDERED: AMOX875T PO (13:00)
[2016-12-12 14:07] VITALS: BP 128/59; PULSE 80; TEMP 37.3; O2SAT 94
--- NOTE | 2016-12-14 19:50 | DISCHARGE SUMMARY ---
Please see dictated H and P for full details of her presentation. The patient is a 66-year-old who presented with acute respiratory failure, hypoxemia, pneumonia, had a history of diabetes, rheumatoid arthritis, and mitral valve replacement. She came in with shortness of breath and CAT scan showed patchy airspace opacities in the left upper lobe, cardiomegaly and cardiac pacemaker with evidence of pulmonary artery hypertension. CT scan of the cervical spine was done and there was no evidence of fracture or subluxation involving the cervical spine, osteopenia and spondylitic changes. CT of the abdomen and pelvis was performed with IV contrast. Liver was found to be cirrhotic, cardiomegaly, nonobstructing left renal calculi, postoperative changes consistent with partial left colon resection with colonic anastomosis, moderate colonic diverticulosis without evidence of diverticulitis, simple appearing fluid collection in the right groin, likely represents a postoperative seroma. She was admitted with C. diff colitis, vancomycin was started at 250 mg 4 times a day with left upper lobe pneumonia. She was treated with IV antibiotics and infectious disease was consulted. They recommended treating her pneumonia with IV Zosyn and her C. diff with p.o. vancomycin and recommended a tapering course of p.o. vancomycin after her antibiotics were done for pneumonia. Dr. Sloan saw for hematology/oncology. She has a history of colorectal cancer and chronic anemia. She usually receives erythropoietin 2 weeks, 40,000 units subcu for hemoglobin less than 11. Her hemoglobin at the time was 7.6. He suspected this was multifactorial. Two units of packed RBCs were transfused and he recommended resuming erythropoietin post-discharge. Nephrology was consulted secondary to renal failure. The patient was discovered to have acute on chronic kidney injury with acute tubular necrosis which responded to IV hydration and avoidance of nephrotoxic agents. Her creatinine returned to 1.1 on the date of discharge and she will follow up with her primary care doctor in 1 week. She will receive Augmentin for 2 more days, prednisone taper, and vancomycin. Time spent in review of the chart, discussion with the patient on the date of discharge was 31 minutes. ROMAN
[2016-12-21] MEDS ORDERED: ATOR-54 PO (11:49)
[2016-12-21] MEDS ORDERED: NRN300 PO (11:49)
[2016-12-21] MEDS ORDERED: SALI0.6517 NAE (11:49)
[2016-12-21] MEDS ORDERED: ASPCH81X PO (11:49)
[2016-12-21] MEDS ORDERED: LEVE500T13 PO (11:49)
[2016-12-21] MEDS ORDERED: LEVO25TA PO (11:49)
== END 2016-12-12 14:30 | DRG 193 ==
LOC: ENRESERVDT → ENRESERVTM → EDBD 14:54 → C.EDA 14:59 → C.2E 19:03
PROVIDERS: ADMIT Hospitalist; ATTEND Hospitalist
DX: J18.9 Pneumonia, unspecified organism (principal); J96.01 Acute respiratory failure with hypoxia; N17.0 Acute kidney failure with tubular necrosis; A04.7 Enterocolitis due to Clostridium difficile; K76.6 Portal hypertension; I42.9 Cardiomyopathy, unspecified; N39.0 Urinary tract infection, site not specified; I13.0 Hypertensive heart and chronic kidney disease with heart failure and stage 1 through stage 4 chronic kidney disease, or unspecified chronic kidney disease; I50.20 Unspecified systolic (congestive) heart failure; I27.2 Other secondary pulmonary hypertension; G40.909 Epilepsy, unspecified, not intractable, without status epilepticus; I48.2 Chronic atrial fibrillation; M06.9 Rheumatoid arthritis, unspecified; K74.60 Unspecified cirrhosis of liver; E83.42 Hypomagnesemia; E03.9 Hypothyroidism, unspecified; E86.0 Dehydration; N18.3 Chronic kidney disease, stage 3 (moderate); N20.0 Calculus of kidney; D63.1 Anemia in chronic kidney disease; E88.09 Other disorders of plasma-protein metabolism, not elsewhere classified; E11.42 Type 2 diabetes mellitus with diabetic polyneuropathy; E11.22 Type 2 diabetes mellitus with diabetic chronic kidney disease; R79.89 Other specified abnormal findings of blood chemistry; E78.00 Pure hypercholesterolemia, unspecified; Z85.038 Personal history of other malignant neoplasm of large intestine; Z90.49 Acquired absence of other specified parts of digestive tract; Z87.09 Personal history of other diseases of the respiratory system; Z79.01 Long term (current) use of anticoagulants; Z79.82 Long term (current) use of aspirin; Z79.84 Long term (current) use of oral hypoglycemic drugs; Z95.2 Presence of prosthetic heart valve; Z95.0 Presence of cardiac pacemaker; Z79.52 Long term (current) use of systemic steroids; Z79.899 Other long term (current) drug therapy; Z79.02 Long term (current) use of antithrombotics/antiplatelets

== ENCOUNTER 2016-12-21 12:44 | Inpatient (IN) | payer OTHER, MEDICARE ==
[~2016-12-21] VITALS: Ht 162.6 cm; Wt 80.5 kg
[~2016-12-21 12:44] MED LIST changes: -APIX1TAB3 PO; +ASPCH81X PO; +ATOR-54 PO; +FERR1TAB13 PO; -FURO40TA3 PO; +LEVE500T13 PO; +LEVO25TA PO; -MCRK20 PO; -METH4TAB31 PO; +NRN300 PO; +PRED10TA PO; +SALI0.6517 NAE; +TRAM-10 PO; +XPNINS1255 INH
--- NOTE | 2016-12-21 13:31 | DIAGNOSTIC IMAGING REPORT ---
SINGLE VIEW CHEST CLINICAL HISTORY: Dyspnea. Cough. FINDINGS: An AP, portable, upright chest radiograph is compared to study dated 12/08/2016 and correlated with chest CT dated 12/05/2016. The examination is degraded by portable technique and patient rotation. A 2-lead cardiac pacemaker is unchanged in position and partially obscures the left upper chest. The patient is status post midline sternotomy. The heart is markedly enlarged and there is atherosclerotic calcification of the thoracic aorta. There is pulmonary vascular congestion. No focal airspace consolidation or large pleural effusion is identified. No pneumothorax is seen. The skeletal structures are osteopenic. The bony thorax is grossly intact. IMPRESSION: 1. Cardiomegaly and cardiac pacemaker with evidence of mild congestive failure. 2. No focal airspace consolidation or large pleural effusion is identified. Electronically signed by: Aaron Higgins M.D. 12/21/2016 1:30 PM Dictated Date/Time: 12/21/2016 1:28 PM
[2016-12-21] MEDS ORDERED: FUROSEMIDE 40 MG/4 ML VIAL IV STA (13:39)
[2016-12-21 13:51] LABS: HEMATOCRIT 34.7 % (37-47); MEAN CELL VOLUME 95.6 fL (80-100); MEAN CORPUSCULAR HEMOGLOBIN 29.8 pg (25-34); MEAN CORPUSCULAR HGB CONC 31.1 g/dl (32-36); RED BLOOD COUNT 3.63 M/uL (4.2-5.4)
[2016-12-21] MEDS ORDERED: METO25TA56 PO (13:57)
[2016-12-21] MEDS ORDERED: TRAZ50TA35 PO (13:57)
[2016-12-21] MEDS ORDERED: ATRIN INH (13:57)
[2016-12-21] MEDS ORDERED: EPGI2M SQ (13:57)
[2016-12-21] MEDS ORDERED: FAMO20TA11 PO (13:57)
[2016-12-21] MEDS ORDERED: ACET-1311 PO (13:57)
[2016-12-21 14:07] LABS: PROTHROMBIN TIME (PATIENT) 10.8 SECONDS (9.0-12.0)
[2016-12-21 14:08] LABS: BUN/CREATININE RATIO 17.6 (10-20); CALCIUM 8.3 mg/dl (8.5-10.1); CREATININE 0.8 mg/dl (0.60-1.20); POTASSIUM 3.3 mmol/L (3.5-5.1)
[2016-12-21] MEDS ORDERED: FURO-85 PO (14:13)
[2016-12-21] MEDS ORDERED: NYSP TOP (14:13)
[2016-12-21 14:15] LABS: MEAN PLATELET VOLUME 9.5 fL (7.4-10.4); PLATELET COUNT 86 K/uL (130-400)
[2016-12-21 14:16] LABS: BASO % 0.2 %; BASO ABS # 0.01 K/uL (0-0.2); COMPLETE YES; EOS % 0.7 %; IG% 0.2 %; LYMPH % 31.8 %; LYMPH ABS # 1.43 K/uL (1.2-3.4); MONO % 5.6 %; NEUT % 61.5 %; PLT ESTIMATE DECREASED
[2016-12-21] MEDS ORDERED: TRAMADOL HCL 50 MG TAB PO PRN (15:15)
[2016-12-21] MEDS ORDERED: ACETAMINOPHEN 325 MG TAB PO PRN (15:15)
[2016-12-21] MEDS ORDERED: POLYETHYLENE (MIRALAX) 17 GM PACK PO PRN (15:15)
[2016-12-21] MEDS ORDERED: ONDANSETRON INJ 2 MG/ML 2 ML VIAL IV PRN (15:15)
[2016-12-21] MEDS ORDERED: MAGNESIUM HYDROXIDE SUSP 30 ML UDC PO PRN (15:15)
[2016-12-21] MEDS ORDERED: ALUMINUM/MAGNESIUM/SIMETH (MAALOX MAX) 30 ML UDC PO PRN (15:15)
[2016-12-21] MEDS ORDERED: POTASSIUM CHLORIDE 10 MEQ TABCR PO STA (15:41)
[2016-12-21] MEDS ORDERED: IV FLUIDS COMPLETED PRN (15:45)
[2016-12-21] MEDS ORDERED: GLIM1TAB2 PO (15:56)
[2016-12-21] MEDS ORDERED: SITA100T3 PO (15:56)
[2016-12-21] MEDS ORDERED: FERR1TAB13 PO (15:56)
[2016-12-21] MEDS ORDERED: MELATAB2 PO (15:56)
[2016-12-21] MEDS: IPRATROPIUM BROMIDE HFA INHALER INH SCH ×2 (17:00→21:33)
[2016-12-21] MEDS: VANCOMYCIN HCL 125 MG/2.5ML SOLN PO SCH ×2 (17:00→22:01)
[2016-12-21] MEDS: RASPBERRY SYRUP 5 ML UDP PO SCH ×2 (17:00→22:00)
--- NOTE | 2016-12-21 17:03 | EMERGENCY ROOM VISIT NOTE ---
History Report prepared by Amadou: Rosalva Begum Under the Supervision of: Dr. Aneesh Meyers M.D. First contact with patient: 12:47 Chief Complaint: SHORTNESS OF BREATH Stated Complaint: SHORTNESS OF BREATH History of Present Illness The patient is a 66 year old female who presents to the Emergency Room with complaints of persistent shortness of breath that began last evening around 1800. The patient notes that she is currently on prednisone and Augmentin for pneumonia, and is unsure if she is still taking Vancomycin for her c-diff. The patient associates increased edema to her bilateral lower extremities, and is unsure how much weight she has gained. She additionally notes a productive cough, stating that she brings up a white-yellow sputum. The patient denies being on supplemental nasal cannula oxygen at home. She notes that she has a history of heart failure. The patient's notes that during her last evaluation in the hospital the patient's Lasix was stopped. She notes that she is experiencing loose stools, but denies diarrhea. The patient states that she is a nonsmoker. She denies any chest pain or vomiting. Source of History: patient Onset: last evening around 1800 Position: other (global) Symptom Intensity: moderate Quality: other (shortness of breath) Timing: other (persistent) Associated Symptoms: + cough (productive, white-yellow sputum), No chest pain, No diarrhea, No fevers, No vomiting Note: Associated Symptoms: increased edema to her bilateral lower extremities Review of Systems See HPI for pertinent positives & negatives. A total of 10 systems reviewed and were otherwise negative. Past Medical & Surgical Medical Problems: (1) Abdominal pain (2) Acute respiratory failure with hypoxia (3) Anemia (4) Anemia requiring transfusions (5) Chronic kidney disease (CKD) stage G3b/A1, moderately decreased glomerular filtration rate (GFR) between 30-44 mL/min/1.73 square meter and albuminuria creatinine ratio less than 30 mg/g (6) Congestive heart failure (CHF) (7) Dehydration (8) Diabetes (9) Pneumonia (10) Rheumatoid arthritis Surgical Problems: (1) Mitral valve replaced Family History Patient reports no known family medical history. Social History Smoking Status: Never Smoker Drug Use: none Marital Status: Housing Status: lives with significant other Occupation Status: retired Current/Historical Medications Scheduled Aspirin (Aspirin Chewable), 81 MG PO DAILY Atorvastatin (Lipitor), 20 MG PO HS Epoetin [place] (Procrit), Unknown Dose SQ q tuesday Famotidine (Pepcid), 20 MG PO DAILY Ferrous Sulfate (Kp Ferrous Sulfate), 2 TAB PO QAM Furosemide (Lasix), 20 MG PO BID Gabapentin (Gabapentin), 1 CAP PO DAILY Glimepiride (Glimepiride), 1 TAB PO DAILY Ipratropium [place] (Atrovent Hfa), 2 PUFFS INH QID Levalbuterol (Levalbuterol), 1.25 MG INH Q6R Levetiracetam (Keppra), 500 MG PO BID Levothyroxine Sodium (Synthroid), 1 TAB PO DAILY Metoprolol Tartrate (Lopressor) (Lopressor), 1 TAB PO BID Nystatin (Nystop), 1 APPLN TOP BID Saline (Deep Sea Nasal [place]), 2 SPRAYS LESTER TID Sitagliptin Phosphate (Januvia), 100 MG PO DAILY Trazodone Hcl (Trazodone), 50 MG PO HS Scheduled PRN Acetaminophen (Tylenol), 325 MG PO Q4H PRN for irma Melatonin (Melatonin Maximum Strengt), 1 TAB PO HS PRN for Sleep Tramadol (Ultram), 50 MG PO Q6H PRN for Pain Allergies Coded Allergies: No Known Allergies (Unverified , 12/05/16) Physical Exam Vital Signs Date Time Temp Pulse Resp B/P Pulse Ox O2 Delivery O2 Flow Rate FiO2 12/21/16 15:00 121/59 12/21/16 14:54 80 18 129/62 94 12/21/16 14:51 129/62 12/21/16 14:49 82 26 94 12/21/16 14:39 209/105 12/21/16 14:19 80 16 96 12/21/16 14:14 80 22 97 12/21/16 13:44 80 20 96 12/21/16 13:14 80 17 97 12/21/16 13:12 80 12/21/16 13:02 91 Nasal Cannula 4.0 12/21/16 13:01 37.4 83 26 148/64 91 Nasal Cannula 4.0 12/21/16 13:01 91 Nasal Cannula 4.0 12/21/16 13:01 86 Room Air 12/21/16 12:55 148/64 Physical Exam Constitutional: Vital signs reviewed. Eyes: Pupils are equal round reactive to light. Conjunctiva are noninjected. ENT: Pharynx is clear without erythema or exudate. Mucous membranes are moist. Neck supple without meningeal signs. Respiratory: Bibasilar rales, hypoxic, room air saturation at 86%. Breath sounds are equal bilaterally. Cardiovascular: Regular rate and rhythm. No rubs or gallops. GI: Soft, nondistended and nontender. Bowel sounds are present. Musculoskeletal: Bilateral pitting edema to lower extremities. No lower extremity tenderness. Integumentary: No cyanosis. Neurological: The patient is awake and alert. No focal deficits. Psychiatric: Normal affect. Medical Decision & Procedures ER Provider Diagnostic Interpretation: X-ray results as stated below per interpretation by me and the radiologist: SINGLE VIEW CHEST CLINICAL HISTORY: Dyspnea. Cough. FINDINGS: An AP, portable, upright chest radiograph is compared to study dated 12/08/2016 and correlated with chest CT dated 12/05/2016. The examination is degraded by portable technique and patient rotation. A 2-lead cardiac pacemaker is unchanged in position and partially obscures the left upper chest. The patient is status post midline sternotomy. The heart is markedly enlarged and there is atherosclerotic calcification of the thoracic aorta. There is pulmonary vascular congestion. No focal airspace consolidation or large pleural effusion is identified. No pneumothorax is seen. The skeletal structures are osteopenic. The bony thorax is grossly intact. IMPRESSION: 1. Cardiomegaly and cardiac pacemaker with evidence of mild congestive failure. 2. No focal airspace consolidation or large pleural effusion is identified. Electronically signed by: Aaron Higgins M.D. 12/21/2016 1:30 PM Dictated Date/Time: 12/21/2016 1:28 PM Laboratory Results 12/21/16 13:30 Red Blood Count 3.63, Mean Corpuscular Volume 95.6, Mean Corpuscular Hemoglobin 29.8, Mean Corpuscular Hemoglobin Concent 31.1, Mean Platelet Volume 9.5, Neutrophils (%) (Auto) 61.5, Lymphocytes (%) (Auto) 31.8, Monocytes (%) (Auto) 5.6, Eosinophils (%) (Auto) 0.7, Basophils (%) (Auto) 0.2, Neutrophils # (Auto) 2.77, Lymphocytes # (Auto) 1.43, Monocytes # (Auto) 0.25, Eosinophils # (Auto) 0.03, Basophils # (Auto) 0.01 12/21/16 13:30 Test 12/21/16 13:23 12/21/16 13:30 Bedside Troponin I 0.000 ng/ml (0-0.045) ET-Bea-W-Type Natriuretic Peptide 3582 pg/ml (0-900) White Blood Count 4.50 K/uL (4.8-10.8) Red Blood Count 3.63 M/uL (4.2-5.4) Hemoglobin 10.8 g/dL (12.0-16.0) Hematocrit 34.7 % (37-47) Mean Corpuscular Volume 95.6 fL (80-100) Mean Corpuscular Hemoglobin 29.8 pg (25-34) Mean Corpuscular Hemoglobin Concent 31.1 g/dl (32-36) Platelet Count 86 K/uL (130-400) Mean Platelet Volume 9.5 fL (7.4-10.4) Neutrophils (%) (Auto) 61.5 % Lymphocytes (%) (Auto) 31.8 % Monocytes (%) (Auto) 5.6 % Eosinophils (%) (Auto) 0.7 % Basophils (%) (Auto) 0.2 % Neutrophils # (Auto) 2.77 K/uL (1.4-6.5) Lymphocytes # (Auto) 1.43 K/uL (1.2-3.4) Monocytes # (Auto) 0.25 K/uL (0.11-0.59) Eosinophils # (Auto) 0.03 K/uL (0-0.5) Basophils # (Auto) 0.01 K/uL (0-0.2) RDW Standard Deviation 62.9 fL (36.4-46.3) RDW Coefficient of Variation 18.3 % (11.5-14.5) Immature Granulocyte % (Auto) 0.2 % Immature Granulocyte # (Auto) 0.01 K/uL (0.00-0.02) Platelet Estimate DECREASED Prothrombin Time 10.8 SECONDS (9.0-12.0) Prothromb Time International Ratio 1.0 (0.9-1.1) Activated Partial Thromboplast Time 26.1 SECONDS (21.0-31.0) Partial Thromboplastin Ratio 1.0 Anion Gap 5.0 mmol/L (3-11) Est Creatinine Clear Calc Drug Dose 68.5 ml/min Estimated GFR () 89.0 Estimated GFR (Non- 76.8 BUN/Creatinine Ratio 17.6 (10-20) Calcium Level 8.3 mg/dl (8.5-10.1) Total Bilirubin 1.2 mg/dl (0.2-1) Direct Bilirubin 0.4 mg/dl (0-0.2) Aspartate Amino Transf (AST/SGOT) 18 U/L (15-37) Alanine Aminotransferase (ALT/SGPT) 27 U/L (12-78) Alkaline Phosphatase 87 U/L (45-117) Total Protein 6.3 gm/dl (6.4-8.2) Albumin 2.9 gm/dl (3.4-5.0) Laboratory results as reviewed by me. Medications Administered Medications (Trade) Dose Ordered Sig/Shirley Route Start Time Stop Time Status Last Admin Dose Admin Furosemide (Lasix Inj) 40 mg NOW STAT IV 12/21/16 13:39 12/21/16 13:40 DC 12/21/16 13:58 40 MG ECG Indication: SOB/dyspnea Rate (beats per minute): 86 Rhythm: normal sinus Findings: nonspecific-ST abn, no ectopy Comparison ECG Date: 12/06/16 Change: no significant change Change: EKG Change: No significant change when compared to EKG done on 12/06/16, except for intermittent atrial pacing. ED Course 1251: The patient was evaluated in room B11B. A complete history and physical exam was performed. 1339: Ordered Lasix Inj 40 mg IV. 1410: I reevaluated the patient and her O2 saturation on room air is 95%. I discussed all the exam findings with her and I discussed the treatment plan. She verbalized complete understanding and agreement. She will be evaluated for further treatment. 1414: I discussed the patients case with DANIEL Pagan. He is going to evaluate the patient for further treatment. Medical Decision This is a 66-year-old female presents with shortness of breath. Differential diagnosis includes pneumonia, bronchitis, CHF, pulmonary edema, anemia. I did perform a limited focused review of portions of the patient's old chart on the electronic medical record. The patient was admitted on December 05 and discharged on the with acute respiratory failure, hypoxia, and pneumonia. She was discharged on Augmentin, Prednisone, and Vancomycin for C-diff colitis. She was transfused two units for a hemoglobin of 7.6. Her hemoglobin on December 17 was 10.7. I did evaluate the patient as noted above. IV access was established. The patient was placed on a continuous monitoring tech. I did order and personally review the patient's 12-lead EKG and chest x-ray as described above. Chest x- ray demonstrates heart failure. I did order and review the patient's blood work as noted in the electronic medical record. She is anemic. Her BNP is elevated. Troponin is negative. I did treat the patient with Lasix IV. I did discuss the test results with the patient and her family. She will be hospitalized for further care and evaluation. I did discuss the case with the hospitalist and case monitor. Consults Time Called: 1410 Consulting Physician: DANIEL Pagan Returned Call: 1414 I discussed the patients case with DANIEL Pagan. He is going to evaluate the patient for further treatment. Impression Primary Impression: Hypoxia Additional Impressions: Acute exacerbation of congestive heart failure Anemia, unspecified Scribe Attestation The scribe's documentation has been prepared under my direct and personally reviewed by me in its entirety. I confirm that the note above accurately reflects all work, treatment, procedures, and medical decision making performed by me. Departure Information Dispostion Being Evaluated By Hospitalist Referrals Aneesh Palm M.D. (PCP) Problem Qualifiers Additional Impressions: Acute exacerbation of congestive heart failure Congestive heart failure type: unspecified congestive heart failure type Qualified Codes: I50.9 - Heart failure, unspecified
[2016-12-21] MEDS: FUROSEMIDE INJ 40 MG in SYRINGE 0 ML IV SCH (19:01)
[2016-12-21 19:17] VITALS: BP 188/68; PULSE 96; TEMP 38.5; O2SAT 96; Ht 162.6 cm; Wt 80.5 kg
[2016-12-21] MEDS: LEVALBUTEROL 1.25MG/3ML NEB INH SCH (19:55)
[2016-12-21 19:56] VITALS: PULSE 102
[2016-12-21] MEDS: SODIUM CHLORIDE 0.65% NA SOLN 45 ML (OCEAN) NAE SCH (21:33)
[2016-12-21] MEDS: TRAZODONE HCL 50 MG TAB PO SCH (21:33)
[2016-12-21] MEDS: NYSTATIN POWDER 15GM BTL EXT SCH (21:33)
[2016-12-21] MEDS: ATORVASTATIN 20 MG TAB PO SCH (21:34)
[2016-12-21] MEDS: POTASSIUM CHLORIDE 10 MEQ TABCR PO SCH (21:34)
[2016-12-21] MEDS: LEVETIRACETAM 500 MG TAB PO SCH (21:34)
[2016-12-21] MEDS: METOPROLOL TARTRATE 25 MG TAB PO SCH (21:35)
[2016-12-21] MEDS: ENOXAPARIN 40 MG/0.4 ML SYR SQ SCH (21:35)
--- NOTE | 2016-12-21 21:52 | History and Physical ---
History & Physical Date & Time of Service: December 21, 2016 at 21:46 Chief Complaint: Congestive Heart Failure Primary Care Physician: Aneesh Palm M.D. Past Medical/Surgical History Medical Problems: (1) Diabetes Status: Chronic (2) Rheumatoid arthritis Status: Chronic Surgical Problems: (1) Mitral valve replaced Status: Chronic Family History Patient reports no known family medical history. Social History Smoking Status: Never Smoker Drug Use: none Marital Status: Housing status: lives with family Occupational Status: retired Immunizations History of Influenza Vaccine: Yes Influenza Vaccine Date: Jul 22, 2015 History of Tetanus Vaccine?: Unknown History of Pneumococcal: Yes Pneumococcal Date: Jul 22, 2015 History of Hepatitis B Vaccine: Unknown Multi-Drug Resistant Organisms History of MDRO: Yes Type of MDRO: MRSA Allergies Coded Allergies: No Known Allergies (Unverified , 12/05/16) Home Medications Scheduled Aspirin (Aspirin Chewable), 81 MG PO DAILY Atorvastatin (Lipitor), 20 MG PO HS Epoetin [place] (Procrit), Unknown Dose SQ q tuesday Famotidine (Pepcid), 20 MG PO DAILY Ferrous Sulfate (Kp Ferrous Sulfate), 2 TAB PO QAM Furosemide (Lasix), 20 MG PO BID Gabapentin (Gabapentin), 1 CAP PO DAILY Glimepiride (Glimepiride), 1 TAB PO DAILY Ipratropium [place] (Atrovent Hfa), 2 PUFFS INH QID Levalbuterol (Levalbuterol), 1.25 MG INH Q6R Levetiracetam (Keppra), 500 MG PO BID Levothyroxine Sodium (Synthroid), 1 TAB PO DAILY Metoprolol Tartrate (Lopressor) (Lopressor), 1 TAB PO BID Nystatin (Nystop), 1 APPLN TOP BID Saline (Deep Sea Nasal [place]), 2 SPRAYS LESTER TID Sitagliptin Phosphate (Januvia), 100 MG PO DAILY Trazodone Hcl (Trazodone), 50 MG PO HS Scheduled PRN Acetaminophen (Tylenol), 325 MG PO Q4H PRN for irma Melatonin (Melatonin Maximum Strengt), 1 TAB PO HS PRN for Sleep Tramadol (Ultram), 50 MG PO Q6H PRN for Pain Physical Exam Vital Signs Date Time Temp Pulse Resp B/P Pulse Ox O2 Delivery O2 Flow Rate FiO2 12/21/16 19:56 102 22 Nasal Cannula 5.0 12/21/16 19:17 38.5 96 20 188/68 96 Nasal Cannula 5.0 12/21/16 16:28 82 22 134/72 94 Nasal Cannula 4.0 12/21/16 15:30 135/55 12/21/16 15:19 80 21 96 12/21/16 15:00 121/59 12/21/16 14:54 80 18 129/62 94 12/21/16 14:51 129/62 12/21/16 14:49 82 26 94 12/21/16 14:39 209/105 12/21/16 14:19 80 16 96 12/21/16 14:14 80 22 97 12/21/16 13:44 80 20 96 12/21/16 13:14 80 17 97 12/21/16 13:12 80 12/21/16 13:02 91 Nasal Cannula 4.0 12/21/16 13:01 37.4 83 26 148/64 91 Nasal Cannula 4.0 12/21/16 13:01 91 Nasal Cannula 4.0 12/21/16 13:01 86 Room Air 12/21/16 12:55 148/64 Diagnostics Laboratory Results Results Past 24 Hours Test 12/21/16 13:23 12/21/16 13:30 Range/Units Bedside Troponin I 0.000 0-0.045 ng/ml [id number]-[id number]-Type Natriuretic Peptide 3582 0-900 pg/ml White Blood Count 4.50 4.8-10.8 K/uL Red Blood Count 3.63 4.2-5.4 M/uL Hemoglobin 10.8 12.0-16.0 g/dL Hematocrit 34.7 37-47 % Mean Corpuscular Volume 95.6 80-100 fL Mean Corpuscular Hemoglobin 29.8 25-34 pg Mean Corpuscular Hemoglobin Concent 31.1 32-36 g/dl Platelet Count 86 130-400 K/uL Mean Platelet Volume 9.5 7.4-10.4 fL Neutrophils (%) (Auto) 61.5 % Lymphocytes (%) (Auto) 31.8 % Monocytes (%) (Auto) 5.6 % Eosinophils (%) (Auto) 0.7 % Basophils (%) (Auto) 0.2 % Neutrophils # (Auto) 2.77 1.4-6.5 K/uL Lymphocytes # (Auto) 1.43 1.2-3.4 K/uL Monocytes # (Auto) 0.25 0.11-0.59 K/uL Eosinophils # (Auto) 0.03 0-0.5 K/uL Basophils # (Auto) 0.01 0-0.2 K/uL RDW Standard Deviation 62.9 36.4-46.3 fL RDW Coefficient of Variation 18.3 11.5-14.5 % Immature Granulocyte % (Auto) 0.2 % Immature Granulocyte # (Auto) 0.01 0.00-0.02 K/uL Platelet Estimate DECREASED Prothrombin Time 10.8 9.0-12.0 SECONDS Prothromb Time International Ratio 1.0 0.9-1.1 Activated Partial Thromboplast Time 26.1 21.0-31.0 SECONDS Partial Thromboplastin Ratio 1.0 Sodium Level 143 136-145 mmol/L Potassium Level 3.3 3.5-5.1 mmol/L Chloride Level 106 98-107 mmol/L Carbon Dioxide Level 32 21-32 mmol/L Anion Gap 5.0 3-11 mmol/L Blood Urea Nitrogen 14 7-18 mg/dl Creatinine 0.80 0.60-1.20 mg/dl Est Creatinine Clear Calc Drug Dose 68.5 ml/min Estimated GFR () 89.0 Estimated GFR (Non- 76.8 BUN/Creatinine Ratio 17.6 10-20 Random Glucose 117 70-99 mg/dl Calcium Level 8.3 8.5-10.1 mg/dl Total Bilirubin 1.2 0.2-1 mg/dl Direct Bilirubin 0.4 0-0.2 mg/dl Aspartate Amino Transf (AST/SGOT) 18 15-37 U/L Alanine Aminotransferase (ALT/SGPT) 27 12-78 U/L Alkaline Phosphatase 87 45-117 U/L Total Protein 6.3 6.4-8.2 gm/dl Albumin 2.9 3.4-5.0 gm/dl Microbiology Results 12/21/16 Blood Culture, Received Pending 12/21/16 Blood Culture, Received Pending Impression Assessment and Plan obs #[id number] ED case management reviewed and noted obs most appropriate current status Advanced Directives Existing Living Will: No Existing Power of Satellite Communications Engineer: No VTE Prophylaxis VTE Risk Assessment Done? Y/N: Yes Risk Level: Moderate Given or contraindicated: Enoxaparin (Lovenox)SQ
[2016-12-21] MEDS: CHOLESTYRAMINE LIGHT 4 GM PKT PO SCH (22:01)
--- NOTE | 2016-12-21 22:44 | HISTORY & PHYSICAL EXAMINATION ---
DATE OF ADMISSION: 12/21/2016 CHIEF COMPLAINT: Shortness of breath and swelling. HISTORY OF PRESENT ILLNESS: The patient is a very pleasant 66-year-old female discharged from our facility about a week ago. She had been in with acute respiratory failure, pneumonia, as well as C. diff. During that time, she went into acute renal failure, her diuretics were held, she was discharged to rehab, and she apparently was doing fairly well, her creatinine was good, she was doing better, and then she progressively started to notice worsening weight gain, worsening edema, and worsening shortness of breath with exertion. Today, she came to the ER for further evaluation. She relates she is probably about 20 pounds up from what she was before and she was found to be in CHF, and we were asked to see her for further evaluation for admission. She denies fevers, chills or sweats. Denies purulent sputum. The diarrhea has slowed down, although she is still going probably 5-8 times a day, it is soft stool. She notes she does chronically have multiple bowel movements a day but probably more in the 3-4 range, so she is still running far more than she is used to. She feels the pneumonia has resolved and this is a new issue. REVIEW OF SYSTEMS: Otherwise negative except for as above. PAST MEDICAL HISTORY: Includes chronic diastolic CHF, valvular heart disease, rheumatoid arthritis, diabetes, recent C. 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 SURGICAL HISTORY: Aortic valve replacement x2, mitral valve replacement, tracheostomy, and a PEG placement. SOCIAL HISTORY: Never a smoker, no alcohol. , lives with her . Currently in rehab. ALLERGIES: No known drug allergies. FAMILY HISTORY: No notable family history. MEDICATIONS: Currently are Tylenol 325 q. 4 p.r.n. pain, aspirin 81 mg daily, Lipitor 20 mg at bedtime, Procrit subcu on Fridays, Pepcid 20 mg daily, iron sulfate 2 tabs in the morning, Lasix 20 mg b.i.d., gabapentin 1 tab daily, glimepiride 1 tab daily, ipratropium 2 puffs q.i.d., levalbuterol 1.25 mg q. 6 hours, Keppra 500 mg b.i.d., Synthroid daily, melatonin at bedtime, metoprolol 1 b.i.d., nystatin 1 topical b.i.d., saline nasal 2 sprays t.i.d., Januvia 100 mg daily, tramadol 50 mg q. 6 p.r.n., trazodone 50 mg at bedtime. PHYSICAL EXAMINATION: VITAL SIGNS: Temperature 37.4, pulse 83, respiratory rate initially 26, it slowed down to about 14 and nonlabored whenever I see her, 148/64, 86% on room air, up to 97% on 4 liters. GENERAL: She is awake, alert, oriented x3, pleasant, in no acute distress. HEENT: Normocephalic, atraumatic. Mucous membranes are moist. CARDIOVASCULAR: Regular. She has got mechanical sounding clicks and no murmurs, consistent with her valve replacement. LUNGS: Show bibasilar rales to about the mid lung. No rhonchi, no wheezes. No accessory muscle use. ABDOMEN: Soft, nondistended, nontender. No masses or organomegaly. EXTREMITIES: Without cyanosis or clubbing. She has approximately 2+ bilateral lower extremity edema, equal. No erythema, no calf tenderness, no cords. SKIN: Shows no rashes, no pallor or icterus. NEUROLOGIC: Shows cranial nerves II-XII to be grossly intact. Gross motor and sensory are intact. MUSCULOSKELETAL: Yields no gross lesions. MENTAL STATE: Good recent and remote recall. Normal mood and affect. Good judgment and insight. LABORATORY AND DIAGNOSTICS: CBC shows a white count of 4.5, hemoglobin 10.8, platelets 86. Complete metabolic panel with sodium 143, potassium 3.3, chloride 106, CO2 32, BUN 14, creatinine 0.8, calcium 8.3, glucose 117, total bilirubin 1.2 with a direct of 0.4, AST 18, ALT 27, alkaline phosphatase 87. Troponin of 0. BNP of 3582. Total protein 6.3 with an albumin 2.9. PT 10.8, PTT 26.1. Chest x-ray consistent with cardiomegaly, pacemaker, and mild CHF. No pneumonia, no large effusion. EKG shows sinus rhythm, flipped Ts in 1 and aVL. ASSESSMENT AND PLAN: 1. Acute on chronic diastolic congestive heart failure. This appears to be on the backend of having been in acute renal failure from septic and dehydrating processes with the pneumonia and the Clostridium difficile. I explained to the patient and her that management moving forward likely has to be fairly easy in terms of resuming diuresis and then working back to her home meds which appeared to have been Lasix 40 mg and spironolactone 25 mg. What is difficult is whenever somebody has longstanding but compensated CHF and then they have a process which cuts flow to the kidneys such as sepsis or dehydration from the C. diff, exactly when it is safe to resume the diuretic is extremely difficult. They expressed good understanding of this and appreciation of the explanations and care. She will be observed on med/surg with IV diuresis. Once she is improved well enough, we will resume her p.o. diuretics including her spironolactone and follow basic metabolic panel closely to ensure her creatinine does not rise again. Fortunately, right now she does not appear septic from pneumonia. She is afebrile, has no purulent sputum, her C. diff symptoms seem to have slowed down to where she is just having ongoing diarrhea, but it is formed but soft stools and hopefully we will be able to return her to rehab in short order. 2. Clostridium difficile colitis with ongoing diarrhea. It is unclear how much she has recovered. Certainly still having about 8 bowel movements a day is a bit worrisome. Given how recently she had C. diff, rechecking stool will almost certainly yield a positive. We will simply resume vancomycin at 125 q.i.d. in the form of what would be a longer taper and start cholestyramine to bind toxin and slow down her diarrhea. 3. Chronic pancytopenia. This appears to be slightly worse in recent times than what appears to be her baseline, likely relating to the acute illness. We will continue to follow. Certainly continue her Procrit and get heme/onc involved if things continue to worsen. 4. Hypokalemia, replete. 5. Mild protein malnutrition. Follow her p.o. intake. 6. Atrial fibrillation. She has got a pacemaker. Continue her metoprolol. 7. Deep venous thrombosis prophylaxis, Lovenox. 8. Diabetes. Continue her home meds. Check fingersticks and utilize supplemental insulin if needed. Her last A1c though was 5.8, so it is not very likely those will be needed, in fact her Januvia may be able to be discontinued as an outpatient in the near future.
[2016-12-21 23:51] VITALS: BP 123/66; PULSE 86; TEMP 37.7; O2SAT 92
[2016-12-22] VITALS (10 sets, daily range): BP systolic 111–184; BP diastolic 66–72; PULSE 78–106; TEMP 36.5–38.2; O2SAT 90–93
[2016-12-22] MEDS: LEVALBUTEROL 1.25MG/3ML NEB INH SCH ×4 (02:10→19:11)
[2016-12-22] MEDS: LEVOTHYROXINE 25 MCG TAB PO SCH (06:01)
[2016-12-22 07:23] LABS: HEMATOCRIT 38.8 % (37-47); MEAN CELL VOLUME 95.3 fL (80-100); MEAN CORPUSCULAR HEMOGLOBIN 30.5 pg (25-34); RED BLOOD COUNT 4.07 M/uL (4.2-5.4); WHITE BLOOD COUNT 5.42 K/uL (4.8-10.8)
[2016-12-22 07:25] LABS: MEAN PLATELET VOLUME 8.5 fL (7.4-10.4); PLATELET COUNT 69 K/uL (130-400)
[2016-12-22 07:51] LABS: BASO % 0.2 %; BASO ABS # 0.01 K/uL (0-0.2); COMPLETE YES; EOS % 0.2 %; IG% 0.6 %; LYMPH % 41.3 %; LYMPH ABS # 2.24 K/uL (1.2-3.4); MONO % 2.6 %; NEUT % 55.1 %
[2016-12-22 08:04] LABS: BUN/CREATININE RATIO 17.4 (10-20); CALCIUM 8.2 mg/dl (8.5-10.1); CREATININE 0.83 mg/dl (0.60-1.20); POTASSIUM 3.4 mmol/L (3.5-5.1)
[2016-12-22] MEDS: NYSTATIN POWDER 15GM BTL EXT SCH ×2 (08:23→21:33)
[2016-12-22] MEDS: IPRATROPIUM BROMIDE HFA INHALER INH SCH ×4 (08:23→21:33)
[2016-12-22] MEDS: FAMOTIDINE 20 MG TAB PO SCH (08:24)
[2016-12-22] MEDS: SODIUM CHLORIDE 0.65% NA SOLN 45 ML (OCEAN) NAE SCH ×3 (08:24→21:34)
[2016-12-22] MEDS: GABAPENTIN 300 MG CAP PO SCH (08:24)
[2016-12-22] MEDS: FUROSEMIDE INJ 40 MG in SYRINGE 0 ML IV SCH ×2 (08:24→17:19)
[2016-12-22] MEDS: FERROUS SULFATE 325 MG TAB PO SCH (08:25)
[2016-12-22] MEDS: LEVETIRACETAM 500 MG TAB PO SCH ×2 (08:25→21:34)
[2016-12-22] MEDS: SPIRONOLACTONE 25 MG TAB PO SCH (08:25)
[2016-12-22] MEDS: SITAGLIPTIN 100 MG TAB PO SCH (08:25)
[2016-12-22] MEDS: POTASSIUM CHLORIDE 10 MEQ TABCR PO SCH ×2 (08:26→21:34)
[2016-12-22] MEDS: ASPIRIN 81 MG ECTAB PO SCH (08:26)
[2016-12-22] MEDS: CHOLESTYRAMINE LIGHT 4 GM PKT PO SCH ×2 (08:26→22:33)
[2016-12-22] MEDS: METOPROLOL TARTRATE 25 MG TAB PO SCH ×2 (08:26→21:35)
[2016-12-22] MEDS: GLIMEPIRIDE 2 MG TAB PO SCH (08:26)
[2016-12-22] MEDS: LISINOPRIL 2.5 MG TAB PO SCH (08:27)
[2016-12-22] MEDS: RASPBERRY SYRUP 5 ML UDP PO SCH ×4 (08:27→21:35)
[2016-12-22] MEDS: VANCOMYCIN HCL 125 MG/2.5ML SOLN PO SCH ×4 (08:34→21:36)
[2016-12-22] MEDS ORDERED: POTASSIUM CHLORIDE 10 MEQ TABCR PO ONE (08:45)
--- NOTE | 2016-12-22 10:09 | Hospitalist Progress Note ---
Hospitalist Progress Note Date of Service December 22, 2016. Subjective Pt evaluation today including: conversation w/ patient, physical exam, chart review, lab review, review of studies, review of inpatient medication list Patient seen and evaluated. Patient feeling a little bit more short of breath. She has a negative balance of 2560 with current diuresis. Patient had a witnessed bowel movement that was formed a green in color. Patient also voided at the same time however this did not go into the bedpan. Additional Comments: REVIEW OF SYSTEMS: General/Constitutional: +weight gain (approx. 20 lbs per patient); Denies fever/ chills, fatigue, weakness ENT: Denies visual changes, nasal drainage, hearing loss, sore throat, trouble swallowing Cardiovascular: Denies chest pain, palpitations, edema Respiratory: +SOB, +cough; Denies wheezing GI: +frequent BMs - formed; Denies nausea, vomiting, abdominal pain, constipation, diarrhea, melena/hematochezia : Denies dysuria, frequency, hematuria Musculoskeletal: Denies joint/muscle aches, weakness Neurologic: Denies dizziness/lightheadedness, numbness/tingling, weakness Psychiatric: Deferred Endocrine: Deferred Hematologic/Lymphatic: Denies bleeding/clotting abnormalities Skin: Denies rash, itch, new skin changes, easy bruising Allergy/Immunologic: Deferred Medications Current Inpatient Medications Medications (Trade) Dose Ordered Sig/Shirley Route Start Time Stop Time Status Last Admin Dose Admin Enoxaparin Sodium (Lovenox Inj) 40 mg Q24H SQ 12/21/16 21:00 01/20/17 20:59 12/21/16 21:35 40 MG Acetaminophen (Tylenol Tab) 650 mg Q4H PRN PO 12/21/16 15:15 01/20/17 15:14 12/21/16 23:24 650 MG Al Hydrox/Mg Hydrox/Simethicone (Maalox Max Susp) 15 ml Q4H PRN PO 12/21/16 15:15 01/20/17 15:14 Magnesium Hydroxide (Milk Of Magnesia Susp) 30 ml Q6H PRN PO 12/21/16 15:15 01/20/17 15:14 Polyethylene (Miralax Powder Packet) 17 gm DAILY PRN PO 12/21/16 15:15 01/20/17 15:14 Ondansetron HCl (Zofran Inj) 4 mg Q6H PRN IV 12/21/16 15:15 01/20/17 15:14 Spironolactone (Aldactone Tab) 25 mg QAM PO 12/22/16 09:00 01/21/17 08:59 12/22/16 08:25 25 MG Potassium Chloride 10 meq 10 meq BID PO 12/21/16 21:00 01/20/17 20:59 12/22/16 08:26 10 MEQ Furosemide/Syringe (Lasix Inj/ Syringe) 4 ml @ 4 mls/min BID17 IV 12/21/16 17:30 01/20/17 17:29 12/22/16 08:24 4 MLS/MIN Aspirin (Ecotrin Tab) 81 mg DAILY PO 12/22/16 09:00 01/21/17 08:59 12/22/16 08:26 81 MG Atorvastatin Calcium (Lipitor Tab) 20 mg HS PO 12/21/16 21:00 01/20/17 20:59 12/21/16 21:34 20 MG Famotidine (Pepcid Tab) 20 mg DAILY PO 12/22/16 09:00 01/21/17 08:59 12/22/16 08:24 20 MG Gabapentin (Neurontin Cap) 300 mg DAILY PO 12/22/16 09:00 01/21/17 08:59 12/22/16 08:24 300 MG Ipratropium [place] (Atrovent Hfa Inhaler) 2 puffs QID INH 12/21/16 17:00 01/20/17 16:59 12/22/16 08:23 2 PUFFS Levalbuterol (Xopenex 1.25MG/ 3ML Neb) 1.25 mg Q6R INH 12/21/16 21:00 01/20/17 20:59 12/22/16 07:15 1.25 MG Levetiracetam (Keppra Tab) 500 mg BID PO 12/21/16 21:00 01/20/17 20:59 12/22/16 08:25 500 MG Levothyroxine Sodium (Synthroid Tab) 25 mcg DAILYBB PO 12/22/16 06:30 01/21/17 06:59 12/22/16 06:01 25 MCG Metoprolol Tartrate (Lopressor Tab) 25 mg BID PO 12/21/16 21:00 01/20/17 20:59 12/22/16 08:26 25 MG Nystatin (Mycostatin Powder) 1 appln BID EXT 12/21/16 21:00 01/20/17 20:59 12/22/16 08:23 1 APPLN Sodium Chloride ([place] Nasal [place]) 2 sprays TID LESTER 12/21/16 21:00 01/20/17 20:59 12/22/16 08:24 2 SPRAYS Sitagliptin Phosphate (Januvia Tab) 100 mg DAILY PO 12/22/16 09:00 01/21/17 08:59 12/22/16 08:25 100 MG Tramadol HCl (Ultram Tab) 50 mg Q6H PRN PO 12/21/16 15:15 01/20/17 15:14 Trazodone HCl (Desyrel Tab) 50 mg HS PO 12/21/16 21:00 01/20/17 20:59 12/21/16 21:33 50 MG Ferrous Sulfate (Feosol Tab) 650 mg QAM PO 12/22/16 09:00 01/21/17 08:59 12/22/16 08:25 650 MG Glimepiride (Amaryl Tab) 1 mg QDB PO 12/22/16 08:00 01/21/17 07:59 12/22/16 08:26 1 MG Miscellaneous Information (Order Awaiting Action) 1 ea TID N/A 12/21/16 16:00 01/20/17 15:59 Epoetin [place] (Procrit Inj) 2,000 units Fr@0900 SQ 12/24/16 09:00 01/23/17 08:59 Lisinopril (Zestril Tab) 2.5 mg QAM PO 12/22/16 09:00 01/21/17 08:59 12/22/16 08:27 2.5 MG Cholestyramine Resin (Questran Powder Light) 4 gm BID@10,22 PO 12/21/16 22:00 01/20/17 21:59 12/22/16 08:26 4 GM Vancomycin HCl (Vancomycin Oral Soln) 125 mg QID PO 12/21/16 17:00 12/31/16 16:59 12/22/16 08:34 125 MG Miscellaneous (Iv Fluids Completed) 1 ea PRN PRN N/A 12/21/16 15:45 12/21/17 15:44 Raspberry (Raspberry Syrup 5ml Cup) 5 ml QID PO 12/21/16 17:00 12/31/16 16:59 12/22/16 08:27 5 ML Objective Vital Signs Date Time Temp Pulse Resp B/P Pulse Ox O2 Delivery O2 Flow Rate FiO2 12/22/16 08:00 90 Nasal Cannula 6.0 12/22/16 07:15 105 20 90 Nasal Cannula 5.0 12/22/16 07:15 37.1 106 20 184/72 90 Nasal Cannula 5.0 12/22/16 02:10 84 18 92 Nasal Cannula 5.0 12/22/16 00:00 Nasal Cannula 5.0 12/22/16 00:00 36.9 12/21/16 23:51 37.7 86 20 123/66 92 Nasal Cannula 5.0 12/21/16 19:56 102 22 Nasal Cannula 5.0 12/21/16 19:17 38.5 96 20 188/68 96 Nasal Cannula 5.0 12/21/16 16:28 82 22 134/72 94 Nasal Cannula 4.0 12/21/16 15:30 135/55 12/21/16 15:19 80 21 96 12/21/16 15:00 121/59 12/21/16 14:54 80 18 129/62 94 12/21/16 14:51 129/62 12/21/16 14:49 82 26 94 12/21/16 14:39 209/105 12/21/16 14:19 80 16 96 12/21/16 14:14 80 22 97 12/21/16 13:44 80 20 96 12/21/16 13:14 80 17 97 12/21/16 13:12 80 12/21/16 13:02 91 Nasal Cannula 4.0 12/21/16 13:01 37.4 83 26 148/64 91 Nasal Cannula 4.0 12/21/16 13:01 91 Nasal Cannula 4.0 12/21/16 13:01 86 Room Air 12/21/16 12:55 148/64 Physical Exam Notes: PHYSICAL EXAM:: General Appearance: WDWN in NAD who is A&O x 3 HEENT: Head is normocephalic/atraumatic; EOMI; PERRLA; Hearing grossly intact; Mucous membranes moist; Pharynx negative for exudate/lesions Neck: Supple; Trachea midline; Neg JVD; Neg lymphadenopathy Heart: RRR with mechanical heart sounds; neg M/G/R Lungs: Bilateral rales; Respirations unlabored; Neg accessory muscle use Abdomen: Soft, non-tender, non-distended; Positive BS x 4 quadrants; Neg organomegaly Extremities: 2+ pitting edema bilateral lower extremities Neurological: Speech clear; Gross motor/sensory function intact; Neg focal neurologic deficits Psychiatric: Appropriate mood/affect Skin: Normal Color; Warm/Dry; Neg rashes, ecchymosis, lacerations/ulcerations Laboratory Results Last 24 Hours Test 12/21/16 13:23 12/21/16 13:30 12/21/16 22:02 12/22/16 00:31 Bedside Troponin I 0.000 ng/ml VC-[id number]-[id number]-Type Natriuretic Peptide 3582 pg/ml White Blood Count 4.50 K/uL Red Blood Count 3.63 M/uL Hemoglobin 10.8 g/dL Hematocrit 34.7 % Mean Corpuscular Volume 95.6 fL Mean Corpuscular Hemoglobin 29.8 pg Mean Corpuscular Hemoglobin Concent 31.1 g/dl Platelet Count 86 K/uL Mean Platelet Volume 9.5 fL Neutrophils (%) (Auto) 61.5 % Lymphocytes (%) (Auto) 31.8 % Monocytes (%) (Auto) 5.6 % Eosinophils (%) (Auto) 0.7 % Basophils (%) (Auto) 0.2 % Neutrophils # (Auto) 2.77 K/uL Lymphocytes # (Auto) 1.43 K/uL Monocytes # (Auto) 0.25 K/uL Eosinophils # (Auto) 0.03 K/uL Basophils # (Auto) 0.01 K/uL RDW Standard Deviation 62.9 fL RDW Coefficient of Variation 18.3 % Immature Granulocyte % (Auto) 0.2 % Immature Granulocyte # (Auto) 0.01 K/uL Platelet Estimate DECREASED Prothrombin Time 10.8 SECONDS Prothromb Time International Ratio 1.0 Activated Partial Thromboplast Time 26.1 SECONDS Partial Thromboplastin Ratio 1.0 Sodium Level 143 mmol/L Potassium Level 3.3 mmol/L Chloride Level 106 mmol/L Carbon Dioxide Level 32 mmol/L Anion Gap 5.0 mmol/L Blood Urea Nitrogen 14 mg/dl Creatinine 0.80 mg/dl Est Creatinine Clear Calc Drug Dose 68.5 ml/min Estimated GFR () 89.0 Estimated GFR (Non- 76.8 BUN/Creatinine Ratio 17.6 Random Glucose 117 mg/dl Calcium Level 8.3 mg/dl Total Bilirubin 1.2 mg/dl Direct Bilirubin 0.4 mg/dl Aspartate Amino Transf (AST/SGOT) 18 U/L Alanine Aminotransferase (ALT/SGPT) 27 U/L Alkaline Phosphatase 87 U/L Total Protein 6.3 gm/dl Albumin 2.9 gm/dl Bedside Glucose 116 mg/dl 106 mg/dl Test 12/22/16 07:03 12/22/16 07:27 White Blood Count 5.42 K/uL Red Blood Count 4.07 M/uL Hemoglobin 12.4 g/dL Hematocrit 38.8 % Mean Corpuscular Volume 95.3 fL Mean Corpuscular Hemoglobin 30.5 pg Mean Corpuscular Hemoglobin Concent 32.0 g/dl Platelet Count 69 K/uL Mean Platelet Volume 8.5 fL Neutrophils (%) (Auto) 55.1 % Lymphocytes (%) (Auto) 41.3 % Monocytes (%) (Auto) 2.6 % Eosinophils (%) (Auto) 0.2 % Basophils (%) (Auto) 0.2 % Neutrophils # (Auto) 2.99 K/uL Lymphocytes # (Auto) 2.24 K/uL Monocytes # (Auto) 0.14 K/uL Eosinophils # (Auto) 0.01 K/uL Basophils # (Auto) 0.01 K/uL RDW Standard Deviation 63.9 fL RDW Coefficient of Variation 18.7 % Immature Granulocyte % (Auto) 0.6 % Immature Granulocyte # (Auto) 0.03 K/uL Sodium Level 141 mmol/L Potassium Level 3.4 mmol/L Chloride Level 102 mmol/L Carbon Dioxide Level 32 mmol/L Anion Gap 7.0 mmol/L Blood Urea Nitrogen 14 mg/dl Creatinine 0.83 mg/dl Est Creatinine Clear Calc Drug Dose 69.6 ml/min Estimated GFR () 85.2 Estimated GFR (Non- 73.5 BUN/Creatinine Ratio 17.4 Random Glucose 110 mg/dl Calcium Level 8.2 mg/dl Bedside Glucose 104 mg/dl Assessment and Plan Ms. Dunaway is a 66 y/o female with PMHx of CKD Stage G3b/A1, Pancytopenia, Diastolic Congestive Heart Failure, RA, T2DM who presents with Acute Diastolic Congestive Heart Failure: Acute on Chronic Diastolic CHF: - Echo (November) - EF 55-60%, septal akinesis, bioprosthetic aortic and mitral valve - Lasix 40 mg IV BID - negative fluid balance of 2560 - continue to monitor kidney function in setting of diuresis - Spironolactone 25 mg daily Chronic Kidney Disease Stage G3b/A1: Cr baseline 1.0 - BMP - monitor Cr in setting of diuresis and avoid nephrotoxins Hypokalemia: Replete as necessary Clostridium Difficile: IMPROVING -Vancomycin 125 mg QID - Cholestyramine 4 g BID Recent Pneumonia: - Atrovent 2 puffs QID and Xopenex nebulizers Chronic Pancytopenia: - Procrit 2000 units SC weekly (Tuesday) - Ferrous sulfate 650 mg daily Paroxysmal Atrial Fibrillation S/P Pacer and Mechanical Aortic and Mitral Valve: - Metoprolol 25 mg BID - ASA 81 mg daily T2DM with Peripheral Neuropathy: A1c 5.8 - Glimepiride 1 g daily and Januvia 100 mg daily - Gabapentin 300 mg daily DVT Prophylaxis: Lovenox 40 mg SC daily Disposition: Recently at [facility] for SNF Continued [facility] stay due to: multiple IV medications needed Discharge planning: halfway facility
[2016-12-22 14:28] LABS: URINE APPEARANCE CLOUDY (CLEAR); URINE BILIRUBIN NEG (NEG); URINE COLOR DK YELLOW; URINE EPITHELIAL CELL AUTO >30 /lpf (0-5); URINE NITRITE NEG (NEG); URINE SPECIFIC GRAVITY 1.015 (1.000-1.030); UROBILINOGEN NEG (NEG)
[2016-12-22 14:33] LABS: MANUAL MICROSCOPIC REQUIRED? NO; REVIEW REQ? YES
[2016-12-22 14:50] LABS: URINE PATH CASTS 1-5 GRANULAR CASTS /lpf (0)
[2016-12-22] MEDS ORDERED: LEVOFLOXACIN 750 MG TAB PO ONE (15:40)
[2016-12-22] MEDS ORDERED: AZITHROMYCIN 250 MG TAB PO ONE (17:00)
[2016-12-22] MEDS: CEFDINIR 300 MG CAP PO SCH (17:19)
[2016-12-22] MEDS: TRAZODONE HCL 50 MG TAB PO SCH (21:34)
[2016-12-22] MEDS: ATORVASTATIN 20 MG TAB PO SCH (21:35)
[2016-12-22] MEDS: ENOXAPARIN 40 MG/0.4 ML SYR SQ SCH (21:36)
[2016-12-23] VITALS (11 sets, daily range): BP systolic 96–120; BP diastolic 58–67; PULSE 82–98; TEMP 37–37.4; O2SAT 88–97
[2016-12-23] MEDS: LEVALBUTEROL 1.25MG/3ML NEB INH SCH ×4 (02:07→19:20)
[2016-12-23] MEDS: LEVOTHYROXINE 25 MCG TAB PO SCH (06:11)
--- NOTE | 2016-12-23 07:03 | DIAGNOSTIC IMAGING REPORT ---
CHEST ONE VIEW PORTABLE CLINICAL HISTORY: pulmonary edema COMPARISON STUDY: December 21, 2016 FINDINGS: The heart is mildly enlarged. There is a left subclavian dual-chamber central venous pacemaker present. There is mild pulmonary vascular congestion. There is no lobar consolidation. There are no significant pleural effusions.[ Left midlung zone opacities are felt to be atelectatic. IMPRESSION: 1. Cardiomegaly and radiographic evidence of mild congestive failure/fluid overload 2. No evidence of focal pulmonary consolidation Electronically signed by: Jose Antoine M.D. 12/23/2016 7:01 AM Dictated Date/Time: 12/23/2016 7:00 AM
[2016-12-23 07:19] LABS: HEMATOCRIT 31.8 % (37-47); MEAN CELL VOLUME 93.3 fL (80-100); MEAN CORPUSCULAR HGB CONC 31.1 g/dl (32-36); RED BLOOD COUNT 3.41 M/uL (4.2-5.4); WHITE BLOOD COUNT 3.54 K/uL (4.8-10.8)
[2016-12-23 08:02] LABS: BUN/CREATININE RATIO 19.1 (10-20); CALCIUM 7.9 mg/dl (8.5-10.1); CREATININE 0.97 mg/dl (0.60-1.20)
[2016-12-23 08:07] LABS: MEAN PLATELET VOLUME 8.8 fL (7.4-10.4); PLATELET COUNT 56 K/uL (130-400)
[2016-12-23] MEDS: CEFDINIR 300 MG CAP PO SCH ×2 (08:13→20:40)
[2016-12-23] MEDS: METOPROLOL TARTRATE 25 MG TAB PO SCH ×2 (08:13→20:44)
[2016-12-23] MEDS: GLIMEPIRIDE 2 MG TAB PO SCH (08:13)
[2016-12-23] MEDS: FERROUS SULFATE 325 MG TAB PO SCH (08:13)
[2016-12-23] MEDS: ASPIRIN 81 MG ECTAB PO SCH (08:13)
[2016-12-23] MEDS: LEVETIRACETAM 500 MG TAB PO SCH ×2 (08:14→20:41)
[2016-12-23] MEDS: LISINOPRIL 2.5 MG TAB PO SCH (08:14)
[2016-12-23] MEDS: CHOLESTYRAMINE LIGHT 4 GM PKT PO SCH ×2 (08:14→22:11)
[2016-12-23] MEDS: SPIRONOLACTONE 25 MG TAB PO SCH (08:14)
[2016-12-23] MEDS: POTASSIUM CHLORIDE 10 MEQ TABCR PO SCH ×2 (08:14→20:41)
[2016-12-23] MEDS: FAMOTIDINE 20 MG TAB PO SCH (08:15)
[2016-12-23] MEDS: NYSTATIN POWDER 15GM BTL EXT SCH ×2 (08:15→20:37)
[2016-12-23] MEDS: VANCOMYCIN HCL 125 MG/2.5ML SOLN PO SCH ×4 (08:15→20:36)
[2016-12-23] MEDS: SITAGLIPTIN 100 MG TAB PO SCH (08:15)
[2016-12-23] MEDS: IPRATROPIUM BROMIDE HFA INHALER INH SCH ×4 (08:15→20:37)
[2016-12-23] MEDS: GABAPENTIN 300 MG CAP PO SCH (08:15)
[2016-12-23] MEDS: RASPBERRY SYRUP 5 ML UDP PO SCH ×4 (08:16→20:36)
[2016-12-23] MEDS: FUROSEMIDE INJ 40 MG in SYRINGE 0 ML IV SCH ×2 (08:18→16:59)
[2016-12-23] MEDS: SODIUM CHLORIDE 0.65% NA SOLN 45 ML (OCEAN) NAE SCH ×3 (08:24→20:42)
[2016-12-23] MEDS ORDERED: LEVOFLOXACIN 750 MG TAB PO SCH (11:00)
--- NOTE | 2016-12-23 11:36 | Hospitalist Progress Note ---
Hospitalist Progress Note Date of Service December 23, 2016. Subjective Pt evaluation today including: conversation w/ patient, physical exam, chart review, lab review, review of studies, review of inpatient medication list Voiding: cook catheter in place Patient seen and evaluated. Is currently -3500 with diuresis. Continues to have low-grade fever overnight. UA was not significant for bacteria. She feels breathing is less labored however still with shortness of breath. Creatinine is 0.97 and appears weak continue diuresing her. Continues to have a productive cough of clear sputum which she feels has worsened since D/C to [facility]. She was started on atypical coverage and awaiting UCx. Additional Comments: REVIEW OF SYSTEMS: General/Constitutional: +fever (labs - no symptoms per patient), +fatigue, + weight gain; Denies chills ENT: Denies visual changes, nasal drainage, hearing loss, sore throat, trouble swallowing Cardiovascular: Denies chest pain, palpitations, edema Respiratory: +cough, +sputum, +SOB GI: +frequent stools - formed; Denies nausea, vomiting, abdominal pain, constipation, diarrhea, melena/hematochezia : Denies dysuria, frequency, hematuria Musculoskeletal: Denies joint/muscle aches Neurologic: Denies dizziness/lightheadedness, numbness/tingling, weakness Psychiatric: Deferred Endocrine: Deferred Hematologic/Lymphatic: Denies bleeding/clotting abnormalities Skin: +reddened area to skin folds Allergy/Immunologic: Deferred Medications Current Inpatient Medications Medications (Trade) Dose Ordered Sig/Shirley Route Start Time Stop Time Status Last Admin Dose Admin Enoxaparin Sodium (Lovenox Inj) 40 mg Q24H SQ 12/21/16 21:00 01/20/17 20:59 12/22/16 21:36 40 MG Acetaminophen (Tylenol Tab) 650 mg Q4H PRN PO 12/21/16 15:15 01/20/17 15:14 12/21/16 23:24 650 MG Al Hydrox/Mg Hydrox/Simethicone (Maalox Max Susp) 15 ml Q4H PRN PO 12/21/16 15:15 01/20/17 15:14 Magnesium Hydroxide (Milk Of Magnesia Susp) 30 ml Q6H PRN PO 12/21/16 15:15 01/20/17 15:14 12/22/16 21:37 30 ML Polyethylene (Miralax Powder Packet) 17 gm DAILY PRN PO 12/21/16 15:15 01/20/17 15:14 Ondansetron HCl (Zofran Inj) 4 mg Q6H PRN IV 12/21/16 15:15 01/20/17 15:14 Spironolactone (Aldactone Tab) 25 mg QAM PO 12/22/16 09:00 01/21/17 08:59 12/23/16 08:14 25 MG Potassium Chloride 10 meq 10 meq BID PO 12/21/16 21:00 01/20/17 20:59 12/23/16 08:14 10 MEQ Furosemide/Syringe (Lasix Inj/ Syringe) 4 ml @ 4 mls/min BID17 IV 12/21/16 17:30 01/20/17 17:29 12/23/16 08:18 4 MLS/MIN Aspirin (Ecotrin Tab) 81 mg DAILY PO 12/22/16 09:00 01/21/17 08:59 12/23/16 08:13 81 MG Atorvastatin Calcium (Lipitor Tab) 20 mg HS PO 12/21/16 21:00 01/20/17 20:59 12/22/16 21:35 20 MG Famotidine (Pepcid Tab) 20 mg DAILY PO 12/22/16 09:00 01/21/17 08:59 12/23/16 08:15 20 MG Gabapentin (Neurontin Cap) 300 mg DAILY PO 12/22/16 09:00 01/21/17 08:59 12/23/16 08:15 300 MG Ipratropium [place] (Atrovent Hfa Inhaler) 2 puffs QID INH 12/21/16 17:00 01/20/17 16:59 12/23/16 08:15 2 PUFFS Levalbuterol (Xopenex 1.25MG/ 3ML Neb) 1.25 mg Q6R INH 12/21/16 21:00 01/20/17 20:59 12/23/16 07:00 1.25 MG Levetiracetam (Keppra Tab) 500 mg BID PO 12/21/16 21:00 01/20/17 20:59 12/23/16 08:14 500 MG Levothyroxine Sodium (Synthroid Tab) 25 mcg DAILYBB PO 12/22/16 06:30 01/21/17 06:59 12/23/16 06:11 25 MCG Metoprolol Tartrate (Lopressor Tab) 25 mg BID PO 12/21/16 21:00 01/20/17 20:59 12/23/16 08:13 25 MG Nystatin (Mycostatin Powder) 1 appln BID EXT 12/21/16 21:00 01/20/17 20:59 12/23/16 08:15 1 APPLN Sodium Chloride ([place] Nasal [place]) 2 sprays TID LESTER 12/21/16 21:00 01/20/17 20:59 12/23/16 08:24 2 SPRAYS Sitagliptin Phosphate (Januvia Tab) 100 mg DAILY PO 12/22/16 09:00 01/21/17 08:59 12/23/16 08:15 100 MG Tramadol HCl (Ultram Tab) 50 mg Q6H PRN PO 12/21/16 15:15 01/20/17 15:14 Trazodone HCl (Desyrel Tab) 50 mg HS PO 12/21/16 21:00 01/20/17 20:59 12/22/16 21:34 50 MG Ferrous Sulfate (Feosol Tab) 650 mg QAM PO 12/22/16 09:00 01/21/17 08:59 12/23/16 08:13 650 MG Glimepiride (Amaryl Tab) 1 mg QDB PO 12/22/16 08:00 01/21/17 07:59 12/23/16 08:13 1 MG Miscellaneous Information (Order Awaiting Action) 1 ea TID N/A 12/21/16 16:00 01/20/17 15:59 Epoetin [place] (Procrit Inj) 2,000 units Fr@0900 SQ 12/24/16 09:00 01/23/17 08:59 Lisinopril (Zestril Tab) 2.5 mg QAM PO 12/22/16 09:00 01/21/17 08:59 12/23/16 08:14 2.5 MG Cholestyramine Resin (Questran Powder Light) 4 gm BID@10,22 PO 12/21/16 22:00 01/20/17 21:59 12/23/16 08:14 4 GM Vancomycin HCl (Vancomycin Oral Soln) 125 mg QID PO 12/21/16 17:00 12/31/16 16:59 12/23/16 08:15 125 MG Miscellaneous (Iv Fluids Completed) 1 ea PRN PRN N/A 12/21/16 15:45 12/21/17 15:44 Raspberry (Raspberry Syrup 5ml Cup) 5 ml QID PO 12/21/16 17:00 12/31/16 16:59 12/23/16 08:16 5 ML Cefdinir (Cefdinir) 300 mg BID PO 12/22/16 17:00 12/29/16 16:59 12/23/16 08:13 300 MG Azithromycin (Zithromax Tab) 250 mg QPM PO 12/23/16 21:00 12/26/16 21:01 Objective Vital Signs Date Time Temp Pulse Resp B/P Pulse Ox O2 Delivery O2 Flow Rate FiO2 12/23/16 08:00 92 Nasal Cannula 6.0 12/23/16 07:10 97 20 120/67 97 BiPAP 5.0 12/23/16 07:00 98 20 88 BiPAP/CPAP 5.0 12/23/16 07:00 98 88 5.0 12/23/16 02:09 86 93 5.0 12/23/16 02:07 86 22 93 BiPAP/CPAP 5.0 12/23/16 00:00 Nasal Cannula 5.0 BiPAP 12/22/16 22:55 38.2 100 20 123/69 92 BiPAP 12/22/16 22:11 78 92 12/22/16 19:11 89 22 93 Nasal Cannula 5.0 12/22/16 16:00 CPAP 5.0 12/22/16 15:45 36.5 85 22 111/66 90 BiPAP 5.0 12/22/16 14:13 83 92 12/22/16 14:13 83 20 92 Nasal Cannula 5.0 Physical Exam Notes: PHYSICAL EXAM:: General Appearance: WDWN in NAD who is A&O x 3 HEENT: Head is normocephalic/atraumatic; Hearing grossly intact; Mucous membranes moist; Pharynx negative for exudate/lesions Neck: Supple; Trachea midline; Neg JVD; Neg lymphadenopathy Heart: RRR with mechanical heart sounds with no M/G/R Lungs: Bilateral rales; Respirations unlabored; Neg accessory muscle use Abdomen: Soft, non-tender, non-distended; Positive BS x 4 quadrants; Neg organomegaly Extremities: Capillary refill < 2 seconds; bilateral trace pitting edema; Neg cyanosis Neurological: Speech clear; Gross motor/sensory function intact; Neg focal neurologic deficits Psychiatric: Appropriate mood/affect Skin: Normal Color; Warm/Dry; reddened areas under skin folds Laboratory Results Last 24 Hours Test 12/22/16 11:23 12/22/16 14:00 12/22/16 16:35 12/22/16 19:47 Bedside Glucose 153 mg/dl 112 mg/dl 111 mg/dl Urine Color DK YELLOW Urine Appearance CLOUDY Urine pH 5.0 Urine Specific [place] 1.015 Urine Protein NEG Urine Glucose (UA) NEG Urine Ketones NEG Urine Occult Blood 3+ Urine Nitrite NEG Urine Bilirubin NEG Urine Urobilinogen NEG Urine Leukocyte Esterase SMALL Urine WBC (Auto) 5-10 /hpf Urine RBC (Auto) 0-4 /hpf Urine Hyaline Casts (Auto) 10-30 /lpf Urine Epithelial Cells (Auto) >30 /lpf Urine Bacteria (Auto) NEG Urine Renal Epithelial Cells 0-5 /lpf Urine Pathogenic Casts 1-5 GRANULAR CASTS /lpf Test 12/23/16 07:07 12/23/16 07:11 White Blood Count 3.54 K/uL Red Blood Count 3.41 M/uL Hemoglobin 9.9 g/dL Hematocrit 31.8 % Mean Corpuscular Volume 93.3 fL Mean Corpuscular Hemoglobin 29.0 pg Mean Corpuscular Hemoglobin Concent 31.1 g/dl RDW Standard Deviation 63.2 fL RDW Coefficient of Variation 18.8 % Platelet Count 56 K/uL Mean Platelet Volume 8.8 fL Sodium Level 139 mmol/L Potassium Level 4.0 mmol/L Chloride Level 102 mmol/L Carbon Dioxide Level 31 mmol/L Anion Gap 6.0 mmol/L Blood Urea Nitrogen 18 mg/dl Creatinine 0.97 mg/dl Est Creatinine Clear Calc Drug Dose 60.4 ml/min Estimated GFR () 70.5 Estimated GFR (Non- 60.9 BUN/Creatinine Ratio 19.1 Random Glucose 103 mg/dl Calcium Level 7.9 mg/dl Bedside Glucose 117 mg/dl Assessment and Plan Ms. Dunaway is a 66 y/o female with PMHx of CKD Stage G3b/A1, Pancytopenia, Diastolic Congestive Heart Failure, RA, T2DM who presents with Acute Diastolic Congestive Heart Failure: Acute on Chronic Diastolic CHF with Acute Hypoxic Respiratory Failure (12/22): - Echo (November) - EF 55-60%, septal akinesis, bioprosthetic aortic and mitral valve - Lasix 40 mg IV BID - negative fluid balance of 3530 - continue to monitor kidney function in setting of diuresis - BiPAP as needed with plans to wean off O2 as necessary - Spironolactone 25 mg daily Chronic Kidney Disease Stage G3b/A1: Cr baseline 1.0 - BMP - monitor Cr in setting of diuresis and avoid nephrotoxins Fever of Unknown Etiology: - UA unremarkable, UCx pending, CXR clear however recent PNA, question of drug fever - Zithromax dosepak and Cefdinir 300 mg BID Hypokalemia: Replete as necessary Clostridium Difficile: IMPROVING - Vancomycin 125 mg QID - Cholestyramine 4 g BID Recent Pneumonia: - Atrovent 2 puffs QID and Xopenex nebulizers Chronic Pancytopenia: - Procrit 2000 units SC weekly (Tuesday) - Ferrous sulfate 650 mg daily Paroxysmal Atrial Fibrillation S/P Pacer and Mechanical Aortic and Mitral Valve: - Metoprolol 25 mg BID - ASA 81 mg daily T2DM with Peripheral Neuropathy: A1c 5.8 - Glimepiride 1 g daily and Januvia 100 mg daily - Gabapentin 300 mg daily DVT Prophylaxis: Lovenox 40 mg SC daily Disposition: Recently at [facility] for SNF - possible [facility] upon D/C Continued [facility] stay due to: multiple IV medications needed
[2016-12-23] MEDS: ENOXAPARIN 40 MG/0.4 ML SYR SQ SCH (20:40)
[2016-12-23] MEDS: ATORVASTATIN 20 MG TAB PO SCH (20:41)
[2016-12-23] MEDS: TRAZODONE HCL 50 MG TAB PO SCH (20:41)
[2016-12-23] MEDS: AZITHROMYCIN 250 MG TAB PO SCH (20:41)
[2016-12-23] MEDS: GUAIFENESIN 600 MG TABCR PO SCH (20:41)
[2016-12-24] VITALS (9 sets, daily range): BP systolic 106–131; BP diastolic 60–71; PULSE 74–100; TEMP 35.7–36.5; O2SAT 88–95
[2016-12-24] MEDS: LEVALBUTEROL 1.25MG/3ML NEB INH SCH ×4 (02:13→19:14)
[2016-12-24 06:18] LABS: HEMATOCRIT 29.1 % (37-47); MEAN CELL VOLUME 93.6 fL (80-100); MEAN CORPUSCULAR HEMOGLOBIN 29.6 pg (25-34); MEAN CORPUSCULAR HGB CONC 31.6 g/dl (32-36); RED BLOOD COUNT 3.11 M/uL (4.2-5.4); WHITE BLOOD COUNT 2.41 K/uL (4.8-10.8)
[2016-12-24 06:19] LABS: MEAN PLATELET VOLUME 9.5 fL (7.4-10.4); PLATELET COUNT 49 K/uL (130-400)
[2016-12-24] MEDS: LEVOTHYROXINE 25 MCG TAB PO SCH (06:20)
[2016-12-24 06:48] LABS: BUN/CREATININE RATIO 22.3 (10-20); CALCIUM 7.5 mg/dl (8.5-10.1); CREATININE 1.1 mg/dl (0.60-1.20)
[2016-12-24] MEDS: METOPROLOL TARTRATE 25 MG TAB PO SCH ×2 (08:25→21:06)
[2016-12-24] MEDS: FAMOTIDINE 20 MG TAB PO SCH (08:26)
[2016-12-24] MEDS: FERROUS SULFATE 325 MG TAB PO SCH (08:26)
[2016-12-24] MEDS: GABAPENTIN 300 MG CAP PO SCH (08:26)
[2016-12-24] MEDS: LISINOPRIL 2.5 MG TAB PO SCH (08:27)
[2016-12-24] MEDS: LEVETIRACETAM 500 MG TAB PO SCH ×2 (08:34→21:06)
[2016-12-24] MEDS: GUAIFENESIN 600 MG TABCR PO SCH ×2 (08:34→21:05)
[2016-12-24] MEDS: FUROSEMIDE INJ 40 MG in SYRINGE 0 ML IV SCH (08:35)
[2016-12-24] MEDS: SPIRONOLACTONE 25 MG TAB PO SCH (08:35)
[2016-12-24] MEDS: CEFDINIR 300 MG CAP PO SCH ×2 (08:35→21:06)
[2016-12-24] MEDS: RASPBERRY SYRUP 5 ML UDP PO SCH ×4 (08:36→21:05)
[2016-12-24] MEDS: VANCOMYCIN HCL 125 MG/2.5ML SOLN PO SCH ×4 (08:36→21:05)
[2016-12-24] MEDS: ASPIRIN 81 MG ECTAB PO SCH (08:36)
[2016-12-24] MEDS: GLIMEPIRIDE 2 MG TAB PO SCH (08:37)
[2016-12-24] MEDS: IPRATROPIUM BROMIDE HFA INHALER INH SCH ×4 (08:38→21:08)
[2016-12-24] MEDS: SITAGLIPTIN 100 MG TAB PO SCH (08:38)
[2016-12-24] MEDS: POTASSIUM CHLORIDE 10 MEQ TABCR PO SCH ×2 (08:38→21:06)
[2016-12-24] MEDS: SODIUM CHLORIDE 0.65% NA SOLN 45 ML (OCEAN) NAE SCH ×3 (08:39→21:12)
[2016-12-24] MEDS: NYSTATIN POWDER 15GM BTL EXT SCH ×2 (08:50→21:13)
[2016-12-24] MEDS ORDERED: EPOETIN ALFA 2000 UNITS/ML VIAL SQ SCH (09:00)
[2016-12-24] MEDS: CHOLESTYRAMINE LIGHT 4 GM PKT PO SCH ×2 (10:32→21:08)
--- NOTE | 2016-12-24 12:00 | Hospitalist Progress Note ---
Hospitalist Progress Note Date of Service December 24, 2016. Subjective Pt evaluation today including: conversation w/ patient, physical exam, chart review, lab review, review of studies, review of inpatient medication list Voiding: cook catheter in place Patient seen and evaluated. No acute events overnight. She feels much improved today but continues to have a productive cough of thick white sputum. Upon entering room she is on room air since BIPAP removed from night use. She states she feels great without oxygen and is able to hold a full conversation without dyspnea. Did obtain pulse ox that largely was 88% and did place 1 L NC with quick response to 94-95% saturations. She was wheezing on exam and anticipate possible continued wean today hopefully to room air Verbalizes no new complaints at this time. Has been diuresing well but output is slowing down and Cr stablizing. Plan to reduce to once daily IV Lasix with hopeful conversion to po Lasix on Tuesday Constitutional: No chills, No fever ENT: No nasal symptoms, No sore throat, No trouble swallowing Respiratory: + cough, + dyspnea on exertion, + sputum, + wheezing, No dyspnea at rest Cardiovascular: No chest pain Abdomen: + problem reported (frequent BMs), No constipation, No diarrhea, No nausea, No pain, No vomiting Musculoskeletal: + swelling (bilateral lower extremity - improving), No calf pain Female : No dysuria Heme: No abnormal bleeding/bruising Skin: + rash (under skin folds) Medications Current Inpatient Medications Medications (Trade) Dose Ordered Sig/Shirley Route Start Time Stop Time Status Last Admin Dose Admin Acetaminophen (Tylenol Tab) 650 mg Q4H PRN PO 12/21/16 15:15 01/20/17 15:14 12/21/16 23:24 650 MG Al Hydrox/Mg Hydrox/Simethicone (Maalox Max Susp) 15 ml Q4H PRN PO 12/21/16 15:15 01/20/17 15:14 Magnesium Hydroxide (Milk Of Magnesia Susp) 30 ml Q6H PRN PO 12/21/16 15:15 01/20/17 15:14 12/22/16 21:37 30 ML Polyethylene (Miralax Powder Packet) 17 gm DAILY PRN PO 12/21/16 15:15 01/20/17 15:14 Ondansetron HCl (Zofran Inj) 4 mg Q6H PRN IV 12/21/16 15:15 01/20/17 15:14 Spironolactone (Aldactone Tab) 25 mg QAM PO 12/22/16 09:00 01/21/17 08:59 12/24/16 08:35 25 MG Potassium Chloride 10 meq 10 meq BID PO 12/21/16 21:00 01/20/17 20:59 12/24/16 08:38 10 MEQ Furosemide/Syringe (Lasix Inj/ Syringe) 4 ml @ 4 mls/min BID17 IV 12/21/16 17:30 01/20/17 17:29 12/24/16 08:35 4 MLS/MIN Aspirin (Ecotrin Tab) 81 mg DAILY PO 12/22/16 09:00 01/21/17 08:59 12/24/16 08:36 81 MG Atorvastatin Calcium (Lipitor Tab) 20 mg HS PO 12/21/16 21:00 01/20/17 20:59 12/23/16 20:41 20 MG Famotidine (Pepcid Tab) 20 mg DAILY PO 12/22/16 09:00 01/21/17 08:59 12/24/16 08:26 20 MG Gabapentin (Neurontin Cap) 300 mg DAILY PO 12/22/16 09:00 01/21/17 08:59 12/24/16 08:26 300 MG Ipratropium [place] (Atrovent Hfa Inhaler) 2 puffs QID INH 12/21/16 17:00 01/20/17 16:59 12/24/16 08:38 2 PUFFS Levalbuterol (Xopenex 1.25MG/ 3ML Neb) 1.25 mg Q6R INH 12/21/16 21:00 01/20/17 20:59 12/24/16 07:16 1.25 MG Levetiracetam (Keppra Tab) 500 mg BID PO 12/21/16 21:00 01/20/17 20:59 12/24/16 08:34 500 MG Levothyroxine Sodium (Synthroid Tab) 25 mcg DAILYBB PO 12/22/16 06:30 01/21/17 06:59 12/24/16 06:20 25 MCG Metoprolol Tartrate (Lopressor Tab) 25 mg BID PO 12/21/16 21:00 01/20/17 20:59 12/24/16 08:25 25 MG Nystatin (Mycostatin Powder) 1 appln BID EXT 12/21/16 21:00 01/20/17 20:59 12/24/16 08:50 1 APPLN Sodium Chloride ([place] Nasal [place]) 2 sprays TID LESTER 12/21/16 21:00 01/20/17 20:59 12/24/16 08:39 2 SPRAYS Sitagliptin Phosphate (Januvia Tab) 100 mg DAILY PO 12/22/16 09:00 01/21/17 08:59 12/24/16 08:38 100 MG Tramadol HCl (Ultram Tab) 50 mg Q6H PRN PO 12/21/16 15:15 01/20/17 15:14 Trazodone HCl (Desyrel Tab) 50 mg HS PO 12/21/16 21:00 01/20/17 20:59 12/23/16 20:41 50 MG Ferrous Sulfate (Feosol Tab) 650 mg QAM PO 12/22/16 09:00 01/21/17 08:59 12/24/16 08:26 650 MG Glimepiride (Amaryl Tab) 1 mg QDB PO 12/22/16 08:00 01/21/17 07:59 12/24/16 08:37 1 MG Miscellaneous Information (Order Awaiting Action) 1 ea TID N/A 12/21/16 16:00 01/20/17 15:59 Epoetin [place] (Procrit Inj) 2,000 units Fr@0900 SQ 12/24/16 09:00 01/23/17 08:59 12/24/16 10:32 2,000 UNITS Lisinopril (Zestril Tab) 2.5 mg QAM PO 12/22/16 09:00 01/21/17 08:59 12/24/16 08:27 2.5 MG Cholestyramine Resin (Questran Powder Light) 4 gm BID@10,22 PO 12/21/16 22:00 01/20/17 21:59 12/24/16 10:32 4 GM Vancomycin HCl (Vancomycin Oral Soln) 125 mg QID PO 12/21/16 17:00 12/31/16 16:59 12/24/16 08:36 125 MG Miscellaneous (Iv Fluids Completed) 1 ea PRN PRN N/A 12/21/16 15:45 12/21/17 15:44 Raspberry (Raspberry Syrup 5ml Cup) 5 ml QID PO 12/21/16 17:00 12/31/16 16:59 12/24/16 08:36 5 ML Cefdinir (Cefdinir) 300 mg BID PO 12/22/16 17:00 12/29/16 16:59 12/24/16 08:35 300 MG Azithromycin (Zithromax Tab) 250 mg QPM PO 12/23/16 21:00 12/26/16 21:01 12/23/16 20:41 250 MG Guaifenesin (Mucinex Contr Rel Tab) 600 mg Q12 PO 12/23/16 21:00 01/22/17 20:59 12/24/16 08:34 600 MG Objective Vital Signs Date Time Temp Pulse Resp B/P Pulse Ox O2 Delivery O2 Flow Rate FiO2 12/24/16 08:00 Nasal Cannula 1.0 BiPAP 12/24/16 07:56 36.5 86 17 106/66 95 CPAP 12/24/16 07:16 97 94 5.0 12/24/16 07:16 97 16 94 BiPAP/CPAP 6.0 12/24/16 02:15 100 16 88 BiPAP/CPAP 5.0 12/24/16 02:14 100 88 5.0 12/23/16 23:45 BiPAP 5.0 12/23/16 22:53 37.4 98 18 105/64 91 BiPAP 12/23/16 21:46 89 93 5.0 12/23/16 20:44 97 96/60 12/23/16 19:20 86 18 95 Nasal Cannula 6.0 12/23/16 18:38 Nasal Cannula 5.0 12/23/16 15:08 37.0 88 24 98/58 91 BiPAP 5.0 12/23/16 14:06 85 94 5.0 12/23/16 14:06 82 20 97 Nasal Cannula 6.0 Physical Exam General Appearance: WD/WN, no apparent distress Eyes: sclerae normal ENT: hearing grossly normal Neck: supple, no JVD, trachea midline Respiratory/Chest: no respiratory distress, no accessory muscle use, + wheezing (scattered expiratory wheeze), + pertinent finding (course breath sounds) Cardiovascular: regular rate, rhythm, no gallop, no murmur, + pertinent finding (mechanical heart tones 2/2 valve replacement) Abdomen: normal bowel sounds, non tender, soft Extremities: no calf tenderness, + swelling (trace pitting edema bilat) Neurologic/Psychiatric: alert, oriented x 3 Skin: normal color, warm/dry Laboratory Results Last 24 Hours Test 12/23/16 16:22 12/23/16 20:00 12/24/16 05:41 12/24/16 07:19 Bedside Glucose 104 mg/dl 125 mg/dl 104 mg/dl White Blood Count 2.41 K/uL Red Blood Count 3.11 M/uL Hemoglobin 9.2 g/dL Hematocrit 29.1 % Mean Corpuscular Volume 93.6 fL Mean Corpuscular Hemoglobin 29.6 pg Mean Corpuscular Hemoglobin Concent 31.6 g/dl RDW Standard Deviation 63.4 fL RDW Coefficient of Variation 18.8 % Platelet Count 49 K/uL Mean Platelet Volume 9.5 fL Sodium Level 142 mmol/L Potassium Level 4.0 mmol/L Chloride Level 103 mmol/L Carbon Dioxide Level 33 mmol/L Anion Gap 6.0 mmol/L Blood Urea Nitrogen 25 mg/dl Creatinine 1.10 mg/dl Est Creatinine Clear Calc Drug Dose 53.3 ml/min Estimated GFR () 60.6 Estimated GFR (Non- 52.3 BUN/Creatinine Ratio 22.3 Random Glucose 89 mg/dl Calcium Level 7.5 mg/dl Assessment and Plan Ms. Dunaway is a 66 y/o female with PMHx of CKD Stage G3b/A1, Pancytopenia, Diastolic Congestive Heart Failure, RA, T2DM who presents with Acute Diastolic Congestive Heart Failure: Acute on Chronic Diastolic CHF with Acute Hypoxic Respiratory Failure (12/22): - Echo (November) - EF 55-60%, septal akinesis, bioprosthetic aortic and mitral valve - Lasix 40 mg IV daily - negative fluid balance of 4050 - Cr at 1.1 and output is adequate but slowing -- Possible conversion to po Lasix - BiPAP as needed with plans to wean off O2 as necessary - oxygenating on 1 L at 94-95% - hopeful RA wean by end of day - Spironolactone 25 mg daily - Obtain follow-up CXR today Chronic Kidney Disease Stage G3b/A1: Cr baseline 1.0 - BMP - monitor Cr in setting of diuresis and avoid nephrotoxins Fever of Unknown Etiology: RESOLVED - Question atypical organism with recent pneumonia - patient appears to be clinically improving - Zithromax dosepak and Cefdinir 300 mg BID Hypokalemia: RESOLVED - Replete as necessary Clostridium Difficile: IMPROVING - Vancomycin 125 mg QID - Cholestyramine 4 g BID Recent Pneumonia: - Atrovent 2 puffs QID and Xopenex nebulizers - Abx as above - add Mucinex and Flutter valve Chronic Pancytopenia: - Procrit 2000 units SC weekly (Tuesday) - Ferrous sulfate 650 mg daily Paroxysmal Atrial Fibrillation S/P Pacer and Mechanical Aortic and Mitral Valve: - Metoprolol 25 mg BID - ASA 81 mg daily T2DM with Peripheral Neuropathy: A1c 5.8 - Glimepiride 1 g daily and Januvia 100 mg daily - Gabapentin 300 mg daily DVT Prophylaxis: D/C Lovenox in setting on thrombocytopenia Disposition: [facility] possibly Tuesday vs Tuesday Continued [facility] stay due to: multiple IV medications needed Discharge planning: rehab hospital
--- NOTE | 2016-12-24 13:26 | DIAGNOSTIC IMAGING REPORT ---
TWO VIEW CHEST CLINICAL HISTORY: CHF. FINDINGS: PA and lateral chest radiographs are compared to study dated 12/23/2016 and correlated with chest CT dated 12/05/2016. The PA view is degraded by patient rotation. A 2-lead cardiac pacemaker is unchanged in position and partially obscures the left upper chest. The patient is status post midline sternotomy and aortic valve replacement. The heart is markedly enlarged and there is atherosclerotic calcification of the thoracic aorta. There is mild pulmonary vascular congestion. This has improved from yesterday. Trace pleural effusions are identified on the lateral views. No airspace consolidation is seen typical for pneumonia. Linear scarring is seen in the right midlung. Dependent atelectasis is observed. No pneumothorax is seen. The skeletal structures are osteopenic. The bony thorax is grossly intact. IMPRESSION: 1. Cardiomegaly and cardiac pacemaker. There is mild pulmonary vascular congestion which has improved from yesterday. 2. Trace pleural effusions are identified. Electronically signed by: Aaron Higgins M.D. 12/24/2016 1:25 PM Dictated Date/Time: 12/24/2016 1:22 PM
[2016-12-24] MEDS: TRAZODONE HCL 50 MG TAB PO SCH (21:05)
[2016-12-24] MEDS: ATORVASTATIN 20 MG TAB PO SCH (21:07)
[2016-12-24] MEDS: AZITHROMYCIN 250 MG TAB PO SCH (21:07)
[2016-12-25] VITALS (10 sets, daily range): BP systolic 111–124; BP diastolic 58–71; PULSE 79–93; TEMP 36.3–36.6; O2SAT 90–95
[2016-12-25] MEDS ORDERED: INSULIN GLARGINE SOLOSTAR 100 UNITS/ML 3 ML PEN SC STA (01:10)
[2016-12-25] MEDS ORDERED: GLUCOSE 10 TABS/TUBE PO PRN (01:15)
[2016-12-25] MEDS ORDERED: DEXTROSE 50% 50 ML SYR IV PRN (01:15)
[2016-12-25] MEDS ORDERED: GLUCOSE 40% GEL 15 GM TUBE PO PRN (01:15)
[2016-12-25] MEDS ORDERED: GLUCAGON FOR INJ 1 MG VIAL SQ PRN (01:15)
[2016-12-25] MEDS: INSULIN ASPART 100 UNITS/ML 3 ML PEN SC SCH ×5 (01:33→21:23)
[2016-12-25] MEDS: LEVALBUTEROL 1.25MG/3ML NEB INH SCH ×4 (01:50→19:29)
[2016-12-25] MEDS: LEVOTHYROXINE 25 MCG TAB PO SCH (05:55)
[2016-12-25] MEDS: NYSTATIN POWDER 15GM BTL EXT SCH ×2 (08:30→21:16)
[2016-12-25] MEDS: GLIMEPIRIDE 2 MG TAB PO SCH (08:30)
[2016-12-25] MEDS: SODIUM CHLORIDE 0.65% NA SOLN 45 ML (OCEAN) NAE SCH ×3 (08:31→21:16)
[2016-12-25] MEDS: POTASSIUM CHLORIDE 10 MEQ TABCR PO SCH ×2 (08:31→21:14)
[2016-12-25] MEDS: CEFDINIR 300 MG CAP PO SCH ×2 (08:31→21:10)
[2016-12-25] MEDS: IPRATROPIUM BROMIDE HFA INHALER INH SCH ×4 (08:31→21:10)
[2016-12-25] MEDS: SPIRONOLACTONE 25 MG TAB PO SCH (08:31)
[2016-12-25] MEDS: LEVETIRACETAM 500 MG TAB PO SCH ×2 (08:31→21:12)
[2016-12-25] MEDS: ASPIRIN 81 MG ECTAB PO SCH (08:31)
[2016-12-25] MEDS: FERROUS SULFATE 325 MG TAB PO SCH (08:31)
[2016-12-25] MEDS: SITAGLIPTIN 100 MG TAB PO SCH (08:31)
[2016-12-25] MEDS: GUAIFENESIN 600 MG TABCR PO SCH ×2 (08:32→21:14)
[2016-12-25] MEDS: VANCOMYCIN HCL 125 MG/2.5ML SOLN PO SCH ×4 (08:32→21:10)
[2016-12-25] MEDS: FUROSEMIDE 20 MG TAB PO SCH ×2 (08:32→17:38)
[2016-12-25] MEDS: FAMOTIDINE 20 MG TAB PO SCH (08:32)
[2016-12-25] MEDS: METOPROLOL TARTRATE 25 MG TAB PO SCH ×2 (08:32→21:15)
[2016-12-25] MEDS: RASPBERRY SYRUP 5 ML UDP PO SCH ×4 (08:32→21:11)
[2016-12-25] MEDS: GABAPENTIN 300 MG CAP PO SCH (08:32)
[2016-12-25] MEDS: LISINOPRIL 2.5 MG TAB PO SCH (08:32)
[2016-12-25] MEDS ORDERED: FUROSEMIDE INJ 40 MG in SYRINGE 0 ML IV SCH (09:00)
[2016-12-25] MEDS: CHOLESTYRAMINE LIGHT 4 GM PKT PO SCH ×2 (10:18→22:43)
[2016-12-25 11:09] LABS: HEMATOCRIT 29.1 % (37-47); MEAN CELL VOLUME 91.2 fL (80-100); MEAN CORPUSCULAR HEMOGLOBIN 28.8 pg (25-34); MEAN CORPUSCULAR HGB CONC 31.6 g/dl (32-36); RED BLOOD COUNT 3.19 M/uL (4.2-5.4)
[2016-12-25 11:12] LABS: MEAN PLATELET VOLUME 9.5 fL (7.4-10.4); PLATELET COUNT 58 K/uL (130-400)
[2016-12-25 11:42] LABS: BUN/CREATININE RATIO 24.2 (10-20); CALCIUM 7.8 mg/dl (8.5-10.1); CREATININE 1.2 mg/dl (0.60-1.20); POTASSIUM 4.6 mmol/L (3.5-5.1)
[2016-12-25 11:52] LABS: BETA-HYDROXYBUTYRATE 0.83 mg/dL (0.2-2.81)
[2016-12-25] MEDS ORDERED: INSULIN GLARGINE SOLOSTAR 100 UNITS/ML 3 ML PEN SC SCH (13:15)
--- NOTE | 2016-12-25 13:23 | Progress Note ---
Subjective Date of Service: December 25, 2016. Subjective Pt evaluation today including: conversation w/ patient, physical exam, lab review, review of inpatient medication list Pain: denies pain PO Intake: adequate Voiding: no voiding problems (cook pulled) patient feeling really good today, breathing is stable on room air very minimal cough today, no rattle in her throat eating well, moving her bowels, no diarrhea no fevers over night Problem List Medical Problems: (1) Acute exacerbation of congestive heart failure Status: Acute (2) Anemia Status: Acute (3) Anemia, unspecified Status: Acute (4) C. difficile colitis Status: Acute (5) Diffuse abdominal pain Status: Acute (6) GI bleed Status: Acute (7) Hypoxia Status: Acute (8) Infection of PEG site Status: Acute (9) Sepsis Status: Acute (10) Upper GI bleeding Status: Acute (11) UTI (urinary tract infection) Status: Acute Review of Systems Constitutional: + fatigue, + weakness Respiratory: + cough (much improved), + dyspnea on exertion Cardiac: + edema (tops of feet) All Other Systems: Reviewed and Negative Medications Current Inpatient Medications Medications (Trade) Dose Ordered Sig/Shirley Route Start Time Stop Time Status Last Admin Dose Admin Acetaminophen (Tylenol Tab) 650 mg Q4H PRN PO 12/21/16 15:15 01/20/17 15:14 12/21/16 23:24 650 MG Al Hydrox/Mg Hydrox/Simethicone (Maalox Max Susp) 15 ml Q4H PRN PO 12/21/16 15:15 01/20/17 15:14 Magnesium Hydroxide (Milk Of Magnesia Susp) 30 ml Q6H PRN PO 12/21/16 15:15 01/20/17 15:14 12/22/16 21:37 30 ML Polyethylene (Miralax Powder Packet) 17 gm DAILY PRN PO 12/21/16 15:15 01/20/17 15:14 Ondansetron HCl (Zofran Inj) 4 mg Q6H PRN IV 12/21/16 15:15 01/20/17 15:14 Spironolactone (Aldactone Tab) 25 mg QAM PO 12/22/16 09:00 01/21/17 08:59 12/25/16 08:31 25 MG Potassium Chloride (Klor-Con M10) 10 meq BID PO 12/21/16 21:00 01/20/17 20:59 12/25/16 08:31 10 MEQ Aspirin (Ecotrin Tab) 81 mg DAILY PO 12/22/16 09:00 01/21/17 08:59 12/25/16 08:31 81 MG Atorvastatin Calcium (Lipitor Tab) 20 mg HS PO 12/21/16 21:00 01/20/17 20:59 12/24/16 21:07 20 MG Famotidine (Pepcid Tab) 20 mg DAILY PO 12/22/16 09:00 01/21/17 08:59 12/25/16 08:32 20 MG Gabapentin (Neurontin Cap) 300 mg DAILY PO 12/22/16 09:00 01/21/17 08:59 12/25/16 08:32 300 MG Ipratropium [place] (Atrovent Hfa Inhaler) 2 puffs QID INH 12/21/16 17:00 01/20/17 16:59 12/25/16 13:06 2 PUFFS Levalbuterol (Xopenex 1.25MG/ 3ML Neb) 1.25 mg Q6R INH 12/21/16 21:00 01/20/17 20:59 12/25/16 07:06 1.25 MG Levetiracetam (Keppra Tab) 500 mg BID PO 12/21/16 21:00 01/20/17 20:59 12/25/16 08:31 500 MG Levothyroxine Sodium (Synthroid Tab) 25 mcg DAILYBB PO 12/22/16 06:30 01/21/17 06:59 12/25/16 05:55 25 MCG Metoprolol Tartrate (Lopressor Tab) 25 mg BID PO 12/21/16 21:00 01/20/17 20:59 12/25/16 08:32 25 MG Nystatin (Mycostatin Powder) 1 appln BID EXT 12/21/16 21:00 01/20/17 20:59 12/25/16 08:30 1 APPLN Sodium Chloride ([place] Nasal [place]) 2 sprays TID LESTER 12/21/16 21:00 01/20/17 20:59 12/25/16 08:31 2 SPRAYS Sitagliptin Phosphate (Januvia Tab) 100 mg DAILY PO 12/22/16 09:00 01/21/17 08:59 12/25/16 08:31 100 MG Tramadol HCl (Ultram Tab) 50 mg Q6H PRN PO 12/21/16 15:15 01/20/17 15:14 Trazodone HCl (Desyrel Tab) 50 mg HS PO 12/21/16 21:00 01/20/17 20:59 12/24/16 21:05 50 MG Ferrous Sulfate (Feosol Tab) 650 mg QAM PO 12/22/16 09:00 01/21/17 08:59 12/25/16 08:31 650 MG Glimepiride (Amaryl Tab) 1 mg QDB PO 12/22/16 08:00 01/21/17 07:59 12/25/16 08:30 1 MG Miscellaneous Information (Order Awaiting Action) 1 ea TID N/A 12/21/16 16:00 01/20/17 15:59 Epoetin [place] (Procrit Inj) 2,000 units Fr@0900 SQ 12/24/16 09:00 01/23/17 08:59 12/24/16 10:32 2,000 UNITS Lisinopril (Zestril Tab) 2.5 mg QAM PO 12/22/16 09:00 01/21/17 08:59 12/25/16 08:32 2.5 MG Cholestyramine Resin (Questran Powder Light) 4 gm BID@, PO 12/21/16 22:00 01/20/17 21:59 12/25/16 10:18 4 GM Vancomycin HCl (Vancomycin Oral Soln) 125 mg QID PO 12/21/16 17:00 12/31/16 16:59 12/25/16 13:08 125 MG Miscellaneous (Iv Fluids Completed) 1 ea PRN PRN N/A 12/21/16 15:45 12/21/17 15:44 Raspberry (Raspberry Syrup 5ml Cup) 5 ml QID PO 12/21/16 17:00 12/31/16 16:59 12/25/16 13:08 5 ML Cefdinir (Cefdinir) 300 mg BID PO 12/22/16 17:00 12/29/16 16:59 12/25/16 08:31 300 MG Azithromycin (Zithromax Tab) 250 mg QPM PO 12/23/16 21:00 12/26/16 21:01 12/24/16 21:07 250 MG Guaifenesin (Mucinex Contr Rel Tab) 600 mg Q12 PO 12/23/16 21:00 01/22/17 20:59 12/25/16 08:32 600 MG Furosemide (Lasix Tab) 20 mg BID17 PO 12/25/16 09:00 01/24/17 08:59 12/25/16 08:32 20 MG Insulin Aspart (novoLOG ASPART) SLIDING SCAL... ACHS SC 12/25/16 06:30 01/24/17 06:29 12/25/16 13:06 16 UNITS Glucose (Glucose 40% Gel) UD PRN PO 12/25/16 01:15 01/24/17 01:14 Glucose (Glucose Chew Tab) 1 tabs UD PRN PO 12/25/16 01:15 01/24/17 01:14 Dextrose (Dextrose 50% 50ML Syringe) 50 ml UD PRN IV 12/25/16 01:15 01/24/17 01:14 Glucagon (Glucagon Inj) 1 mg UD PRN SQ 12/25/16 01:15 01/24/17 01:14 Prednisone (PredniSONE TAB) 20 mg QAM PO 12/26/16 09:00 01/25/17 08:59 Metolazone (Zaroxolyn Tab) 5 mg TODAY@0830 PO 12/26/16 08:30 12/26/16 08:31 Objective Vital Signs Date Time Temp Pulse Resp B/P Pulse Ox O2 Delivery O2 Flow Rate FiO2 12/25/16 08:30 Room Air 12/25/16 08:00 36.3 80 17 115/71 90 Room Air 12/25/16 07:06 80 16 91 Room Air 12/25/16 01:50 88 16 93 Room Air 12/25/16 00:00 BiPAP 12/24/16 23:13 35.7 81 18 119/71 93 BiPAP 12/24/16 22:28 87 93 2.0 12/24/16 20:00 Nasal Cannula 1.0 12/24/16 19:14 93 16 92 Nasal Cannula 1.0 12/24/16 16:00 Nasal Cannula 1.0 12/24/16 15:56 36.5 74 18 131/60 90 Humidified Oxygen 1.0 12/24/16 14:09 88 16 93 Nasal Cannula 5.0 Physical Exam General Appearance: WD/WN, no apparent distress Eyes: normal inspection, EOMI, sclerae normal Neck: supple, no adenopathy, no JVD, trachea midline Respiratory/Chest: chest non-tender, no respiratory distress, no accessory muscle use, + rhonchi (scattered, completely clear with cough, no wheezing today ) Cardiovascular: regular rate, rhythm, no gallop, no JVD, no murmur Abdomen: normal bowel sounds, non tender, soft, no organomegaly Extremities: normal range of motion, non-tender, normal inspection, no calf tenderness, pelvis stable, + pedal edema (tops of feet bilaterally) Neurologic/Psychiatric: 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 administration 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 II-XII nml as tested, alert, normal mood/affect, oriented x 3, + motor weakness (generalized) Skin: normal color, warm/dry, no rash Lymphatic: no adenopathy Laboratory Results Last 24 Hours Test 12/24/16 16:38 12/24/16 20:38 12/25/16 00:12 12/25/16 05:03 Bedside Glucose 158 mg/dl 396 mg/dl 412 mg/dl 292 mg/dl Test 12/25/16 07:30 12/25/16 10:55 12/25/16 11:29 Bedside Glucose 249 mg/dl 317 mg/dl White Blood Count 1.60 K/uL Red Blood Count 3.19 M/uL Hemoglobin 9.2 g/dL Hematocrit 29.1 % Mean Corpuscular Volume 91.2 fL Mean Corpuscular Hemoglobin 28.8 pg Mean Corpuscular Hemoglobin Concent 31.6 g/dl RDW Standard Deviation 58.5 fL RDW Coefficient of Variation 17.4 % Platelet Count 58 K/uL Mean Platelet Volume 9.5 fL Sodium Level 140 mmol/L Potassium Level 4.6 mmol/L Chloride Level 103 mmol/L Carbon Dioxide Level 30 mmol/L Anion Gap 7.0 mmol/L Blood Urea Nitrogen 29 mg/dl Creatinine 1.20 mg/dl Est Creatinine Clear Calc Drug Dose 48.2 ml/min Estimated GFR () 54.5 Estimated GFR (Non- 47.1 BUN/Creatinine Ratio 24.2 Random Glucose 306 mg/dl Calcium Level 7.8 mg/dl Beta-Hydroxybutyric Acid 0.83 mg/dL Assessment and Plan Ms. Dunaway is a 66 y/o female with PMHx of CKD Stage G3b/A1, Pancytopenia, Diastolic Congestive Heart Failure, RA, T2DM who presents with Acute Diastolic Congestive Heart Failure: Acute on Chronic Diastolic CHF with Acute Hypoxic Respiratory Failure (12/22): - Echo (November) - EF 55-60%, septal akinesis, bioprosthetic aortic and mitral valve initially treated with Lasix IV BID, adequate diuresis and resolution of pulmonary edema, improved oxygenation Cr up to 1.2, back on to Lasix 20mg PO BID which is home dose still with some edema in her feet bilaterally will give Zaroxolyn 5mg tomorrow AM to eradicate edema overall her acute component resolved and hypoxia is resolved, breathing comfortably on room air Pneumonia/bronchitis: vastly improved today, no fevers for 48 hours now, no wheezing on exam Prednisone really seemed to improve wheezing, will give short course, 5 days total, drop to 20mg tomorrow continue Nebulizers continue Cefdinir and Zithromax CKD stage 3b/A1: Cr stable at 1.2, making adequate urine repeat labs in the AM Pancytopenia: follows with hematology, gets EPO for anemia Hypokalemia: RESOLVED - Replete as necessary Clostridium Difficile: no diarrhea continue Vancomycin 125 mg QID continue Cholestyramine 4 g BID Paroxysmal Atrial Fibrillation S/P Pacer and Mechanical Aortic and Mitral Valve: Metoprolol 25 mg BID ASA 81 mg daily T2DM with Peripheral Neuropathy: A1c 5.8 Glimepiride 1 g daily and Januvia 100 mg daily Gabapentin 300 mg daily hyperglycemia today without any evidence of DKA, due to Prednisone given Lantus last night, will give an additional 10 units Lantus now and Novolog SS should improve with reducing Prednisone to 20mg tomorrow AM DVT Prophylaxis: CLARKEs, she has thrombocytopenia Disposition: [facility] possibly Tuesday vs Tuesday Continued [facility] stay due to: multiple IV medications needed Discharge planning: rehab hospital
[2016-12-25] MEDS ORDERED: LANTUS PER UNIT CHARGE SQ ONE (13:45)
[2016-12-25] MEDS: TRAZODONE HCL 50 MG TAB PO SCH (21:12)
[2016-12-25] MEDS: AZITHROMYCIN 250 MG TAB PO SCH (21:13)
[2016-12-25] MEDS: ATORVASTATIN 20 MG TAB PO SCH (21:15)
[2016-12-26] VITALS (9 sets, daily range): BP systolic 123–131; BP diastolic 57–70; PULSE 80–84; TEMP 36.4–36.6; O2SAT 92–96
[2016-12-26] MEDS: LEVALBUTEROL 1.25MG/3ML NEB INH SCH ×4 (02:11→19:53)
[2016-12-26 05:49] LABS: MEAN CELL VOLUME 92.4 fL (80-100); MEAN CORPUSCULAR HEMOGLOBIN 29.9 pg (25-34); MEAN CORPUSCULAR HGB CONC 32.4 g/dl (32-36); RED BLOOD COUNT 3.14 M/uL (4.2-5.4); WHITE BLOOD COUNT 1.77 K/uL (4.8-10.8)
[2016-12-26 05:50] LABS: COMPLETE YES; LYMPH % 28.2 %; MEAN PLATELET VOLUME 10.2 fL (7.4-10.4); NEUT % 67.8 %; PLATELET COUNT 75 K/uL (130-400)
[2016-12-26 06:16] LABS: BUN/CREATININE RATIO 32.8 (10-20); CALCIUM 8.2 mg/dl (8.5-10.1); CREATININE 0.95 mg/dl (0.60-1.20); MAGNESIUM 1.9 mg/dl (1.8-2.4); POTASSIUM 4.8 mmol/L (3.5-5.1)
[2016-12-26] MEDS: LEVOTHYROXINE 25 MCG TAB PO SCH (06:26)
[2016-12-26] MEDS: IPRATROPIUM BROMIDE HFA INHALER INH SCH ×4 (06:47→20:13)
[2016-12-26] MEDS ORDERED: METOLAZONE 5 MG TAB PO SCH (08:30)
[2016-12-26] MEDS: FERROUS SULFATE 325 MG TAB PO SCH (08:58)
[2016-12-26] MEDS: ASPIRIN 81 MG ECTAB PO SCH (08:58)
[2016-12-26] MEDS: LEVETIRACETAM 500 MG TAB PO SCH ×2 (08:58→20:10)
[2016-12-26] MEDS: GLIMEPIRIDE 2 MG TAB PO SCH (08:58)
[2016-12-26] MEDS: CEFDINIR 300 MG CAP PO SCH ×2 (08:58→20:10)
[2016-12-26] MEDS: GABAPENTIN 300 MG CAP PO SCH (08:58)
[2016-12-26] MEDS: LISINOPRIL 2.5 MG TAB PO SCH (08:59)
[2016-12-26] MEDS: FAMOTIDINE 20 MG TAB PO SCH (08:59)
[2016-12-26] MEDS: GUAIFENESIN 600 MG TABCR PO SCH ×2 (09:00→20:11)
[2016-12-26] MEDS: METOPROLOL TARTRATE 25 MG TAB PO SCH ×2 (09:01→20:10)
[2016-12-26] MEDS: SITAGLIPTIN 100 MG TAB PO SCH (09:01)
[2016-12-26] MEDS: NYSTATIN POWDER 15GM BTL EXT SCH ×2 (09:02→20:14)
[2016-12-26] MEDS: SPIRONOLACTONE 25 MG TAB PO SCH (09:02)
[2016-12-26] MEDS: SODIUM CHLORIDE 0.65% NA SOLN 45 ML (OCEAN) NAE SCH ×3 (09:02→20:14)
[2016-12-26] MEDS: POTASSIUM CHLORIDE 10 MEQ TABCR PO SCH ×2 (09:03→20:11)
[2016-12-26] MEDS: FUROSEMIDE 20 MG TAB PO SCH ×2 (09:03→17:24)
[2016-12-26] MEDS: INSULIN ASPART 100 UNITS/ML 3 ML PEN SC SCH ×4 (09:09→21:22)
[2016-12-26] MEDS: VANCOMYCIN HCL 125 MG/2.5ML SOLN PO SCH ×4 (09:12→20:12)
[2016-12-26] MEDS: RASPBERRY SYRUP 5 ML UDP PO SCH ×4 (09:13→20:12)
[2016-12-26] MEDS ORDERED: INSULIN GLARGINE SOLOSTAR 100 UNITS/ML 3 ML PEN SC SCH (09:45)
[2016-12-26] MEDS: CHOLESTYRAMINE LIGHT 4 GM PKT PO SCH ×2 (10:23→21:22)
[2016-12-26] MEDS ORDERED: INSULIN GLARGINE SOLOSTAR 100 UNITS/ML 3 ML PEN SC ONE (10:30)
[2016-12-26] MEDS ORDERED: LANTUS PER UNIT CHARGE SQ ONE (10:30)
--- NOTE | 2016-12-26 11:26 | Progress Note ---
Subjective Date of Service: December 26, 2016. Subjective Pt evaluation today including: conversation w/ patient, physical exam, lab review, review of inpatient medication list Pain: denies pain PO Intake: adequate Voiding: no voiding problems patient c/o cough ever since she woke up, slept fine last night cough is productive, yellow, thick sputum she is using flutter valve, had a nebulizer this AM that helped more wheezing today compared to yesterday asked if she had been seen by pulmonary in the past, said she saw a doctor in [place] thinks she had PFT's that were reportedly normal, this was done in anticipation of surgery last year she is scheduled to see the employee communications manager in January for follow up overall she is feeling well and a lot better compared to time of admission she still has some edema in her feet, discussed that she received the Zaroxolyn this AM she is anticipating going to [facility] tomorrow or Tuesday Problem List Medical Problems: (1) Acute exacerbation of congestive heart failure Status: Acute (2) Anemia Status: Acute (3) Anemia, unspecified Status: Acute (4) C. difficile colitis Status: Acute (5) Diffuse abdominal pain Status: Acute (6) GI bleed Status: Acute (7) Hypoxia Status: Acute (8) Infection of PEG site Status: Acute (9) Sepsis Status: Acute (10) Upper GI bleeding Status: Acute (11) UTI (urinary tract infection) Status: Acute Review of Systems Constitutional: + fatigue, + weakness Respiratory: + cough, + dyspnea on exertion, + sputum Cardiac: + edema (feet) Neurologic: + weakness (generalized) All Other Systems: Reviewed and Negative Medications Current Inpatient Medications Medications (Trade) Dose Ordered Sig/Shirley Route Start Time Stop Time Status Last Admin Dose Admin Acetaminophen (Tylenol Tab) 650 mg Q4H PRN PO 12/21/16 15:15 01/20/17 15:14 12/21/16 23:24 650 MG Al Hydrox/Mg Hydrox/Simethicone (Maalox Max Susp) 15 ml Q4H PRN PO 12/21/16 15:15 01/20/17 15:14 Magnesium Hydroxide (Milk Of Magnesia Susp) 30 ml Q6H PRN PO 12/21/16 15:15 01/20/17 15:14 12/22/16 21:37 30 ML Polyethylene (Miralax Powder Packet) 17 gm DAILY PRN PO 12/21/16 15:15 01/20/17 15:14 Ondansetron HCl (Zofran Inj) 4 mg Q6H PRN IV 12/21/16 15:15 01/20/17 15:14 Spironolactone (Aldactone Tab) 25 mg QAM PO 12/22/16 09:00 01/21/17 08:59 12/26/16 09:02 25 MG Potassium Chloride (Klor-Con M10) 10 meq BID PO 12/21/16 21:00 01/20/17 20:59 12/26/16 09:03 10 MEQ Aspirin (Ecotrin Tab) 81 mg DAILY PO 12/22/16 09:00 01/21/17 08:59 12/26/16 08:58 81 MG Atorvastatin Calcium (Lipitor Tab) 20 mg HS PO 12/21/16 21:00 01/20/17 20:59 12/25/16 21:15 20 MG Famotidine (Pepcid Tab) 20 mg DAILY PO 12/22/16 09:00 01/21/17 08:59 12/26/16 08:59 20 MG Gabapentin (Neurontin Cap) 300 mg DAILY PO 12/22/16 09:00 01/21/17 08:59 12/26/16 08:58 300 MG Ipratropium [place] (Atrovent Hfa Inhaler) 2 puffs QID INH 12/21/16 17:00 01/20/17 16:59 12/26/16 06:47 2 PUFFS Levalbuterol (Xopenex 1.25MG/ 3ML Neb) 1.25 mg Q6R INH 12/21/16 21:00 01/20/17 20:59 12/26/16 07:29 1.25 MG Levetiracetam (Keppra Tab) 500 mg BID PO 12/21/16 21:00 01/20/17 20:59 12/26/16 08:58 500 MG Levothyroxine Sodium (Synthroid Tab) 25 mcg DAILYBB PO 12/22/16 06:30 01/21/17 06:59 12/26/16 06:26 25 MCG Metoprolol Tartrate (Lopressor Tab) 25 mg BID PO 12/21/16 21:00 01/20/17 20:59 12/26/16 09:01 25 MG Nystatin (Mycostatin Powder) 1 appln BID EXT 12/21/16 21:00 01/20/17 20:59 12/26/16 09:02 1 APPLN Sodium Chloride ([place] Nasal [place]) 2 sprays TID LESTER 12/21/16 21:00 01/20/17 20:59 12/26/16 09:02 2 SPRAYS Sitagliptin Phosphate (Januvia Tab) 100 mg DAILY PO 12/22/16 09:00 01/21/17 08:59 12/26/16 09:01 100 MG Tramadol HCl (Ultram Tab) 50 mg Q6H PRN PO 12/21/16 15:15 01/20/17 15:14 Trazodone HCl (Desyrel Tab) 50 mg HS PO 12/21/16 21:00 01/20/17 20:59 12/25/16 21:12 50 MG Ferrous Sulfate (Feosol Tab) 650 mg QAM PO 12/22/16 09:00 01/21/17 08:59 12/26/16 08:58 650 MG Glimepiride (Amaryl Tab) 1 mg QDB PO 12/22/16 08:00 01/21/17 07:59 12/26/16 08:58 1 MG Miscellaneous Information (Order Awaiting Action) 1 ea TID N/A 12/21/16 16:00 01/20/17 15:59 Epoetin [place] (Procrit Inj) 2,000 units Fr@0900 SQ 12/24/16 09:00 01/23/17 08:59 12/24/16 10:32 2,000 UNITS Lisinopril (Zestril Tab) 2.5 mg QAM PO 12/22/16 09:00 01/21/17 08:59 12/26/16 08:59 2.5 MG Cholestyramine Resin (Questran Powder Light) 4 gm BID@10,22 PO 12/21/16 22:00 01/20/17 21:59 12/26/16 10:23 4 GM Vancomycin HCl (Vancomycin Oral Soln) 125 mg QID PO 12/21/16 17:00 12/31/16 16:59 12/26/16 09:12 125 MG Miscellaneous (Iv Fluids Completed) 1 ea PRN PRN N/A 12/21/16 15:45 12/21/17 15:44 Raspberry (Raspberry Syrup 5ml Cup) 5 ml QID PO 12/21/16 17:00 12/31/16 16:59 12/26/16 09:13 5 ML Cefdinir (Cefdinir) 300 mg BID PO 12/22/16 17:00 12/29/16 16:59 12/26/16 08:58 300 MG Azithromycin (Zithromax Tab) 250 mg QPM PO 12/23/16 21:00 12/26/16 21:01 12/25/16 21:13 250 MG Guaifenesin (Mucinex Contr Rel Tab) 600 mg Q12 PO 12/23/16 21:00 01/22/17 20:59 12/26/16 09:00 600 MG Furosemide (Lasix Tab) 20 mg BID17 PO 12/25/16 09:00 01/24/17 08:59 12/26/16 09:03 20 MG Insulin Aspart (novoLOG ASPART) SLIDING SCAL... ACHS SC 12/25/16 06:30 01/24/17 06:29 12/26/16 09:09 7 UNITS Glucose (Glucose 40% Gel) UD PRN PO 12/25/16 01:15 01/24/17 01:14 Glucose (Glucose Chew Tab) 1 tabs UD PRN PO 12/25/16 01:15 01/24/17 01:14 Dextrose (Dextrose 50% 50ML Syringe) 50 ml UD PRN IV 12/25/16 01:15 01/24/17 01:14 Glucagon (Glucagon Inj) 1 mg UD PRN SQ 12/25/16 01:15 01/24/17 01:14 Prednisone (PredniSONE TAB) 40 mg QAM PO 12/27/16 09:00 01/26/17 08:59 Insulin Glargine (Lantus Solostar Pen) 10 unit QAM SC 12/27/16 09:00 01/26/17 08:59 Objective Vital Signs Date Time Temp Pulse Resp B/P Pulse Ox O2 Delivery O2 Flow Rate FiO2 12/26/16 07:34 36.4 81 19 131/70 92 Room Air 12/26/16 07:30 81 16 93 Room Air 12/26/16 02:11 84 16 95 BiPAP/CPAP 21 12/25/16 23:59 BiPAP 12/25/16 22:59 80 95 2.0 12/25/16 22:49 36.6 79 20 111/64 91 Room Air 12/25/16 21:00 93 117/58 12/25/16 20:00 Room Air 12/25/16 19:30 83 16 93 Room Air 12/25/16 17:29 79 123/63 12/25/16 15:50 Room Air 12/25/16 15:49 36.5 83 16 124/71 91 12/25/16 14:22 82 16 92 Room Air Physical Exam General Appearance: WD/WN, no apparent distress Eyes: normal inspection, EOMI, sclerae normal ENT: normal ENT inspection, hearing grossly normal, pharynx normal Neck: supple, no adenopathy, no JVD, trachea midline Respiratory/Chest: chest non-tender, no respiratory distress, no accessory muscle use, + rhonchi, + wheezing (most prominent anteriorly, upper airways) Cardiovascular: regular rate, rhythm, no gallop, no JVD, no murmur Abdomen: normal bowel sounds, non tender, soft, no organomegaly Extremities: normal range of motion, non-tender, normal inspection, no calf tenderness, pelvis stable, + pedal edema (feet only) Neurologic/Psychiatric: 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, no motor/sensory deficits, alert, normal mood/affect, oriented x 3 Skin: normal color, warm/dry, no rash Laboratory Results Last 24 Hours Test 12/25/16 10:55 12/25/16 11:29 12/25/16 16:55 12/25/16 20:24 White Blood Count 1.60 K/uL Red Blood Count 3.19 M/uL Hemoglobin 9.2 g/dL Hematocrit 29.1 % Mean Corpuscular Volume 91.2 fL Mean Corpuscular Hemoglobin 28.8 pg Mean Corpuscular Hemoglobin Concent 31.6 g/dl RDW Standard Deviation 58.5 fL RDW Coefficient of Variation 17.4 % Platelet Count 58 K/uL Mean Platelet Volume 9.5 fL Sodium Level 140 mmol/L Potassium Level 4.6 mmol/L Chloride Level 103 mmol/L Carbon Dioxide Level 30 mmol/L Anion Gap 7.0 mmol/L Blood Urea Nitrogen 29 mg/dl Creatinine 1.20 mg/dl Est Creatinine Clear Calc Drug Dose 48.2 ml/min Estimated GFR () 54.5 Estimated GFR (Non- 47.1 BUN/Creatinine Ratio 24.2 Random Glucose 306 mg/dl Calcium Level 7.8 mg/dl Beta-Hydroxybutyric Acid 0.83 mg/dL Bedside Glucose 317 mg/dl 182 mg/dl 264 mg/dl Test 12/26/16 05:03 12/26/16 07:36 White Blood Count 1.77 K/uL Red Blood Count 3.14 M/uL Hemoglobin 9.4 g/dL Hematocrit 29.0 % Mean Corpuscular Volume 92.4 fL Mean Corpuscular Hemoglobin 29.9 pg Mean Corpuscular Hemoglobin Concent 32.4 g/dl Platelet Count 75 K/uL Mean Platelet Volume 10.2 fL Neutrophils (%) (Auto) 67.8 % Lymphocytes (%) (Auto) 28.2 % Monocytes (%) (Auto) 4.0 % Eosinophils (%) (Auto) 0.0 % Basophils (%) (Auto) 0.0 % Neutrophils # (Auto) 1.20 K/uL Lymphocytes # (Auto) 0.50 K/uL Monocytes # (Auto) 0.07 K/uL Eosinophils # (Auto) 0.00 K/uL Basophils # (Auto) 0.00 K/uL RDW Standard Deviation 58.4 fL RDW Coefficient of Variation 17.4 % Immature Granulocyte % (Auto) 0.0 % Immature Granulocyte # (Auto) 0.00 K/uL Sodium Level 140 mmol/L Potassium Level 4.8 mmol/L Chloride Level 106 mmol/L Carbon Dioxide Level 28 mmol/L Anion Gap 6.0 mmol/L Blood Urea Nitrogen 31 mg/dl Creatinine 0.95 mg/dl Est Creatinine Clear Calc Drug Dose 60.9 ml/min Estimated GFR () 72.3 Estimated GFR (Non- 62.4 BUN/Creatinine Ratio 32.8 Random Glucose 169 mg/dl Calcium Level 8.2 mg/dl Magnesium Level 1.9 mg/dl Bedside Glucose 116 mg/dl Assessment and Plan Ms. Dunaway is a 66 y/o female with PMHx of CKD Stage G3b/A1, Pancytopenia, Diastolic Congestive Heart Failure, RA, T2DM who presents with Acute Diastolic Congestive Heart Failure Review of records shows that the patient had tricuspid and mitral valve replacement, bioprosthetic, in August 2016 at [facility] in [place]. She subsequently developed ARDS, required intubation and eventual tracheostomy and PEG tube. After prolonged hospitalization she was sent to [facility] for rehab. She was admitted to our hospital in October with pain associated with PEG tube, right chest wall wound from surgery as well as heart failure, hypoxia. She was discharged to home with home nursing, followed with wound clinic and followed up with [facility] and had PEG removed. She did well for approximately one month, then developed acute respiratory failure due to bilateral pneumonia. She also had TEA and her Lasix was held. She was discharged on Augmenting and diuretics held, went to [facility]. Returned here one week later with 20lbs weight gain in fulminant heart failure. Acute on Chronic Diastolic CHF with Acute Hypoxic Respiratory Failure (12/22): - Echo (November) - EF 55-60%, septal akinesis, bioprosthetic aortic and mitral valve and tricuspid valve initially treated with Lasix IV BID, adequate diuresis and resolution of pulmonary edema, improved oxygenation, on room air now Cr stable at 0.95, on home dose of Lasix 20mg PO BID (she was not taking this prior to admission which lead to volume overload) still with some edema in her feet bilaterally Zaroxolyn 5mg this AM prior to Lasix, follow for increased diuresis if the Zaroxolyn is effective, could be a reasonable option for her as outpatient to take PRN for edema overall her acute component resolved and hypoxia is resolved, breathing comfortably on room air Pneumonia/bronchitis: was improved yesterday, no with increased cough and wheezing today, no fevers for 72 hours now Prednisone really seemed to improve wheezing, will now plan for Prednisone 40mg daily x 7 days total, today is day 3, then taper continue Nebulizers continue Cefdinir (day 4) and Zithromax (day 4) - stop Zithromax after tomorrow, stop Cefdinir after doses on 12/29 CKD stage 3b/A1: Cr stable at 0.95, making adequate urine repeat labs in the AM after getting Zaroxolyn this AM Pancytopenia: follows with hematology, gets EPO for anemia, counts generally low but stable Hypokalemia: RESOLVED - Replete as necessary Clostridium Difficile: no diarrhea continue Vancomycin 125 mg QID continue Cholestyramine 4 g BID s/p bioprosthetic AVR x 2, MVR, TVR: she had a follow up with cardiothoracic surgeon in November, pleased with progress Paroxysmal Atrial Fibrillation S/P Pacer and Mechanical Aortic and Mitral Valve: Metoprolol 25 mg BID ASA 81 mg daily Eliquis 5mg BID (note that this was missed on med rec) T2DM with Peripheral Neuropathy: A1c 5.8 Glimepiride 1 g daily and Januvia 100 mg daily Gabapentin 300 mg daily hyperglycemia due to Prednisone responds well to Lantus 10 units qAM should continue Lantus on d/c while on the Prednisone, can stop once Prednisone complete DVT Prophylaxis: on Eliquis due to atrial fibrillation Disposition: [facility] possibly Tuesday vs Tuesday, already authorized but discuss with CM plan on d/c would be the following... heart failure, continue Lasix 20mg BID, weight daily, fluid restrict to 1800cc/day, use Zaroxolyn PRN for weight gain/edema pneumonia/bronchitis, complete 2 more days of Cefdinir, complete 7 days total of Prednisone 40mg atrial fibrillation, make sure she is taking Eliquis again on d/c, needs to follow up with her director of community education in [place] pancytopenia, follow up with hematology as previously scheduled Continued [facility] stay due to: multiple IV medications needed Discharge planning: rehab hospital
[2016-12-26] MEDS: APIXABAN 2.5 MG TAB PO SCH (20:10)
[2016-12-26] MEDS: AZITHROMYCIN 250 MG TAB PO SCH (20:11)
[2016-12-26] MEDS: ATORVASTATIN 20 MG TAB PO SCH (20:11)
[2016-12-26] MEDS: TRAZODONE HCL 50 MG TAB PO SCH (20:12)
[2016-12-27] VITALS (12 sets, daily range): BP systolic 110–144; BP diastolic 61–78; PULSE 78–84; TEMP 36.3–36.5; O2SAT 90–97
[2016-12-27] MEDS: LEVALBUTEROL 1.25MG/3ML NEB INH SCH ×4 (01:50→19:32)
[2016-12-27] MEDS: LEVOTHYROXINE 25 MCG TAB PO SCH (06:26)
[2016-12-27 07:04] LABS: BUN/CREATININE RATIO 26.4 (10-20); CALCIUM 8.3 mg/dl (8.5-10.1); CREATININE 1.2 mg/dl (0.60-1.20); POTASSIUM 4.8 mmol/L (3.5-5.1)
[2016-12-27] MEDS: VANCOMYCIN HCL 125 MG/2.5ML SOLN PO SCH ×4 (08:26→21:25)
[2016-12-27] MEDS: LEVETIRACETAM 500 MG TAB PO SCH ×2 (08:49→21:09)
[2016-12-27] MEDS: POTASSIUM CHLORIDE 10 MEQ TABCR PO SCH ×2 (08:49→21:12)
[2016-12-27] MEDS: FERROUS SULFATE 325 MG TAB PO SCH (08:49)
[2016-12-27] MEDS: METOPROLOL TARTRATE 25 MG TAB PO SCH ×2 (08:50→21:11)
[2016-12-27] MEDS: ASPIRIN 81 MG ECTAB PO SCH (08:50)
[2016-12-27] MEDS: GABAPENTIN 300 MG CAP PO SCH (08:50)
[2016-12-27] MEDS: LISINOPRIL 2.5 MG TAB PO SCH (08:50)
[2016-12-27] MEDS: FAMOTIDINE 20 MG TAB PO SCH (08:51)
[2016-12-27] MEDS: SITAGLIPTIN 100 MG TAB PO SCH (08:51)
[2016-12-27] MEDS: APIXABAN 2.5 MG TAB PO SCH ×2 (08:51→21:13)
[2016-12-27] MEDS: GLIMEPIRIDE 2 MG TAB PO SCH (08:51)
[2016-12-27] MEDS: CEFDINIR 300 MG CAP PO SCH ×2 (08:52→21:12)
[2016-12-27] MEDS: SPIRONOLACTONE 25 MG TAB PO SCH (08:53)
[2016-12-27] MEDS: RASPBERRY SYRUP 5 ML UDP PO SCH ×4 (08:54→21:11)
[2016-12-27] MEDS: FUROSEMIDE 20 MG TAB PO SCH (08:54)
[2016-12-27] MEDS: GUAIFENESIN 600 MG TABCR PO SCH ×2 (08:54→21:10)
[2016-12-27] MEDS: IPRATROPIUM BROMIDE HFA INHALER INH SCH ×4 (08:57→21:04)
[2016-12-27] MEDS: INSULIN ASPART 100 UNITS/ML 3 ML PEN SC SCH ×4 (08:59→21:31)
[2016-12-27] MEDS: INSULIN GLARGINE SOLOSTAR 100 UNITS/ML 3 ML PEN SC SCH (09:00)
[2016-12-27] MEDS: SODIUM CHLORIDE 0.65% NA SOLN 45 ML (OCEAN) NAE SCH ×3 (09:00→21:05)
[2016-12-27] MEDS: NYSTATIN POWDER 15GM BTL EXT SCH ×2 (09:01→21:04)
--- NOTE | 2016-12-27 09:36 | Hospitalist Progress Note ---
Hospitalist Progress Note Date of Service December 27, 2016. (Milly Silva PA-C) Subjective Pt evaluation today including: conversation w/ patient, physical exam, chart review, lab review, review of studies, conversation w/ compliance consultant Pain: None PO Intake: Good Voiding: no voiding problems The patient was seen and examined this morning. Pt reports doing very well today. Her breathing is much improved. She has a cough and is bringing up some white sputum but also says this has significantly improved/reduced. She has been walking about the room, to bathroom, without difficulty. Her swelling in bilateral lower extremities is going down nicely. She had 3 bowel movements yesterday but denies that they are loose, she has been taking Vanc PO since September. She denies any acute complaints and is hoping for discharge today. She wishes to be out of [facility] and home by mother's day. Constitutional: No chills, No fatigue, No fever, No sweats Eyes: No diplopia, No redness ENT: No nasal symptoms, No sore throat Respiratory: + cough, + sputum, No dyspnea on exertion, No shortness of breath, No wheezing Cardiovascular: No chest pain, No palpitations Abdomen: No nausea, No pain, No vomiting Musculoskeletal: No joint pain, No muscle pain Female : No dysuria Neurologic: No numbness/tingling, No weakness Endo: No fatigue Skin: No itch, No rash (Milly Silva PA-C) Objective Vital Signs Date Time Temp Pulse Resp B/P Pulse Ox O2 Delivery O2 Flow Rate FiO2 12/27/16 07:30 36.5 78 16 123/61 92 Room Air 12/27/16 07:22 78 16 92 Room Air 12/27/16 01:50 80 16 96 BiPAP/CPAP 21 12/27/16 00:02 36.4 80 18 137/78 97 CPAP 12/26/16 23:59 BiPAP 12/26/16 22:17 95 2.0 12/26/16 19:53 84 16 93 Room Air 12/26/16 19:51 Room Air 90.0 12/26/16 17:20 80 123/61 12/26/16 15:43 36.6 80 18 124/57 92 Room Air 12/26/16 14:18 84 16 93 Room Air 12/26/16 10:53 96 Room Air (Milly Silva PA-C) Physical Exam General Appearance: WD/WN, no apparent distress, + obese Eyes: PERRL, EOMI ENT: hearing grossly normal, pharynx normal Neck: no adenopathy, no JVD Respiratory/Chest: + pertinent finding (on room air, +cough with white sputum production, +expiratory wheeze worse in anterior morin, breath sounds present in all morin.) Cardiovascular: regular rate, rhythm, no murmur Abdomen: normal bowel sounds, non tender, soft Extremities: no calf tenderness, + pedal edema (+2 pitting in feet, +2 pitting present on anterior tibial region) Neurologic/Psychiatric: no motor/sensory deficits, alert, oriented x 3 Skin: normal color, warm/dry (Milly Silva PA-C) Laboratory Results Last 24 Hours Test 12/26/16 11:54 12/26/16 16:53 12/26/16 20:12 12/27/16 05:30 Bedside Glucose 112 mg/dl 168 mg/dl 292 mg/dl Sodium Level 141 mmol/L Potassium Level 4.8 mmol/L Chloride Level 108 mmol/L Carbon Dioxide Level 28 mmol/L Anion Gap 5.0 mmol/L Blood Urea Nitrogen 32 mg/dl Creatinine 1.20 mg/dl Est Creatinine Clear Calc Drug Dose 48.4 ml/min Estimated GFR () 54.5 Estimated GFR (Non- 47.1 BUN/Creatinine Ratio 26.4 Random Glucose 165 mg/dl Calcium Level 8.3 mg/dl Test 12/27/16 07:09 Bedside Glucose 145 mg/dl (Milly Silva PA-C) Assessment and Plan Ms. Dunaway is a 66 y/o female with PMHx of CKD Stage G3b/A1, Pancytopenia, Diastolic Congestive Heart Failure, RA, T2DM who presents with Acute Diastolic Congestive Heart Failure Acute on Chronic Diastolic CHF with Acute Hypoxic Respiratory Failure (12/22): - Echo (November) - EF 55-60%, septal akinesis, bioprosthetic aortic and mitral valve and tricuspid valve - initially treated with Lasix IV BID, adequate diuresis and resolution of pulmonary edema, improved oxygenation, on room air now - Cr stable at 1.2, on home dose of Lasix 20mg PO BID (she was not taking this prior to admission which lead to volume overload) - still with some edema in her feet bilaterally but pt reports this is improved significantly - Zaroxolyn 5mg given yesterday, if the Zaroxolyn is effective, could be a reasonable option for her as outpatient to take PRN for edema - on room air, appears comfortable - Will hold Lasix PO 20 mg tonight, and order IV lasix 40 mg for this afternoon and then resume 20 mg PO tomorrow morning with repeat CXR showing pulmonary edema slightly improved. Pneumonia/bronchitis: was improved yesterday, no with increased cough and wheezing today, no fevers x 4 days now - Prednisone really seemed to improve wheezing, will now plan for Prednisone 40mg daily x 7 days total, (day 4), then taper - continue Nebulizers - continue Cefdinir (day 5) and Zithromax (day 5 - last day), stop Cefdinir after doses on 12/29 CKD stage 3b/A1: Cr stable at 1.2, making adequate urine -follow AM labs, note pt got Zaroxolyn yesterday Pancytopenia: follows with hematology for hx of colon cancer, gets EPO for anemia, counts generally low but stable Hypokalemia: RESOLVED - Replete as necessary Clostridium Difficile: pt is having ~3 bowel movements daily but denies diarrhea - continue Vancomycin 125 mg QID - continue Cholestyramine 4 g BID s/p bioprosthetic AVR x 2, MVR, TVR: she had a follow up with cardiothoracic surgeon in November, pleased with progress Paroxysmal Atrial Fibrillation S/P Pacer and Mechanical Aortic and Mitral Valve: - Metoprolol 25 mg BID - ASA 81 mg daily - Eliquis 5mg BID - needs Rx at discharge, was not on med rec T2DM with Peripheral Neuropathy: A1c 5.8 - Glimepiride 1 g daily and Januvia 100 mg daily - Gabapentin 300 mg daily - hyperglycemia due to Prednisone - responds well to Lantus 10 units qAM - should continue Lantus on d/c while on the Prednisone, can stop once Prednisone complete DVT ppx: Eliquis for afib Disposition: [facility] today, already authorized, discussed with CM to assist with transportation arrangements plan on d/c would be the following: heart failure, continue Lasix 20mg BID, weight daily, fluid restrict to 1800cc/day, use Zaroxolyn PRN for weight gain/edema pneumonia/bronchitis, complete 2 more days of Cefdinir, complete 7 days total of Prednisone 40mg atrial fibrillation, make sure she is taking Eliquis again on d/c, 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 I agree w/ the mccabe components of her documentation except - no hospital discharge today. Still with cough and considerable LE edema. She is unsure about her baseline dry weight. However, her weight was 81kg when she was discharged earlier this spring. VSS no fever gen - nad neck - JVD present heart - RRR lungs - bibasilar rales with extensive wheezing b/l abd - soft ext - 2-3+ edema b/l A/P: 1. acute/chronic diastolic CHF - repeat cxr today still with congestion. Clinically also with ongoing volume overload. Hold PO lasix; give lasix 40mg IV x 1 and re-eval in AM. 2. ?cirrhosis based on CT scan of abdomen earlier this spring - due to ALMENDAREZ? sarcoid? other? cont fluid/salt restriction, aldactone, lasix 3. pneumonia - finish abx course 4. c. diff - in November had + c. diff toxin; has been taking vanco since??? seems that she can stop such no D/C today labs in AM Buddy Dunn MD (Buddy Dunn MD)
[2016-12-27] MEDS ORDERED: PRED10TA PO (10:20)
[2016-12-27] MEDS ORDERED: CEFD300C3 PO (10:20)
[2016-12-27] MEDS ORDERED: INSDGIPEN SC (10:20)
[2016-12-27] MEDS ORDERED: APIX1TAB3 PO (10:20)
--- NOTE | 2016-12-27 10:30 | Discharge Instructions ---
Discharge Instructions Date of Service December 27, 2016. Admission Reason for Admission: Congestive Heart Failure Discharge Discharge Diagnosis / Problem: Acute on chronic diastolic heart failure Discharge Goals Goal(s): Decrease discomfort, Improve function, Increase independence, Improve disease control Activity Recommendations Activity Limitations: per Instructions/Follow-up section Lifting Limitations: no more than 25 pounds, gradually increase as tolerated Exercise/Sports Limitations: gradually increase as tolerated Shower/Bathe: no limitations Driving or Machine Use: Do not drive until cleared by your PCP . Instructions / Follow-Up Instructions / Follow-Up You were admitted to [facility] with Shortness of breath and swelling of your feet and legs and diagnosed with acute on chronic diastolic heart failure. During your stay here you were treated with intravenous diuretics, antibiotics and other supportive therapy. Your medications regarding diuresis (getting rid of extra volume) have been changed to the following: - Lasix 40 mg by mouth once daily in the morning instead of 20 mg twice daily. - Spironolactone 25 mg daily in the morning Chronic Heart Failure instructions: Call 911 and go to the Emergency Room if: * You have tightness or pain in your chest that does not go away with rest or Nitroglycerin * You are very short of breath even with rest Call your doctor if any of the following symptoms or problems start or get worse: * Shortness of breath or difficulty breathing * Wake up at night short of breath * Chest pain * Cough * Swelling of your hands, fee, or legs * More fatigued or tired with your normal activity * Palpitations - sudden fast heart beats WEIGHT * Weigh yourself every morning after using the bathroom. * Use the same scale. * Wear the same amount of clothing. * Write your weight down on your chart. * Call your doctor if you gain more than 2-3 pounds in 1-2 days. MEDICATIONS * Use this discharge instruction sheet for instructions. * Take your medications at the time your doctor ordered. * Do not skip a dose of your medicines. * If you miss a dose of medicine, take as soon as possible, but DO NOT DOUBLE A DOSE. * Read your medicine information when you get home. * Know all of the side effects of your medicine. * Call your doctor's office if you have any side effects. * Be sure all of your doctors know what medicine and herbs you take (including cold, flu, and herbal medicine). * Pain Medicine: If you do not get relief from your pain, please call your doctor for help. Take the following with you to your follow-up doctor appointments: * Weight Chart * Medication List * List of questions Do not drink excessive alcohol, beer or wine. Bronchitis/pneumonia - You were treated with an antibiotic, called cefdinir x 7 days to complete therapy - You were also treated with zithromax x 5 days - Continue using incentive spirometer and flutter valve to help with airway opening and to knock mucous loose - You have been placed on a prednisone taper and should continue this for the next 12 days as follows Take 40 mg (4 tabs) x 1 days Then 30 mg (3tabs) x 3 days Then 20 mg (2 tabs) x 3 days Then 10 mg (1 tab) x 3 days, then stop. Finish on 01/08/17 Clostridium Difficile - Continue taking vancomycin by mouth,twice daily x 2 weeks, then take it once daily for 2 more weeks. - Continue taking cholycystiramine as directed. - Follow up with infectious disease in 4 weeks. Follow up with your new Primary Care Provider within 1 week, an appointment has been requested for you. Follow up with Gastroenterology within 1-2 weeks, an appointment has been requested for you. Follow up with infectious disease in 4 weeks, an appointment has been requested for you. Follow up with cardiology in [place] within 2 weeks, an appointment has been requested for you. Follow up with Hematology Oncololgy as already scheduled. Current Hospital Diet Patient's current hospital diet: Low Sodium Diet (2gm Na), Diabetes Type 2 Diet Discharge Diet Recommended Diet: AHA Diet (Heart Healthy) Fluid Restriction: 1500 ml (6 cups) Pending Studies Studies pending at discharge: no Laboratory Results Hemoglobin A1c Test 12/07/16 06:03 Range/Units Estimated Average Glucose 120 mg/dl Hemoglobin A1c 5.8 H 4.5-5.6 % Medical Emergencies . Who to Call and When: Medical Emergencies: If at any time you feel your situation is an emergency, please call 911 immediately. . Non-Emergent Contact Non-Emergency issues call your: Primary Care Provider Call Non-Emergent contact if: you have a fever, temperature is above 100.5, your pain is not controlled, you have any medication questions . Past History Medical & Surgical History: (1) Pneumonia (2) Chronic kidney disease (CKD) stage G3b/A1, moderately decreased glomerular filtration rate (GFR) between 30-44 mL/min/1.73 square meter and albuminuria creatinine ratio less than 30 mg/g (3) Diabetes (4) Acute exacerbation of congestive heart failure (5) Anemia . "Provider Documentation" section prepared by Viky Silva. Attending Attestation: Pt seen/examined on day of discharge and care plan d/w RENETTA Silva. I agree w/ her discharge instructions as outlined as well as recommendations. Buddy Dunn MD . VTE Core Measure Inpt VTE Proph given/why not?: Enoxaparin (Lovenox)SQ, T.E.D. Stockings, SCD's
[2016-12-27] MEDS: CHOLESTYRAMINE LIGHT 4 GM PKT PO SCH ×2 (11:21→22:24)
--- NOTE | 2016-12-27 11:27 | DIAGNOSTIC IMAGING REPORT ---
CHEST 2 VIEWS ROUTINE CLINICAL HISTORY: Assess pulmonary edema COMPARISON STUDY: Chest radiograph December 24, 2016. FINDINGS: There are are median sternotomy wires, mediastinal surgical clips, dual lead left subclavian pacemaker and prosthetic aortic valve. Moderate cardiomegaly is unchanged. There are trace bilateral pleural effusions. Pulmonary edema has improved since prior exam. IMPRESSION: Interval improvement in pulmonary edema. Electronically signed by: Damien Ruiz M.D. 12/27/2016 11:26 AM Dictated Date/Time: 12/27/2016 11:25 AM
[2016-12-27] MEDS ORDERED: FUROSEMIDE INJ 40 MG in SYRINGE 0 ML IV SCH (13:45)
[2016-12-27] MEDS: ATORVASTATIN 20 MG TAB PO SCH (21:10)
[2016-12-27] MEDS: TRAZODONE HCL 50 MG TAB PO SCH (21:13)
[2016-12-28] VITALS (10 sets, daily range): BP systolic 105–152; BP diastolic 55–77; PULSE 77–85; TEMP 36.3–36.7; O2SAT 91–97
[2016-12-28] MEDS: LEVALBUTEROL 1.25MG/3ML NEB INH SCH ×4 (01:56→20:43)
[2016-12-28] MEDS: LEVOTHYROXINE 25 MCG TAB PO SCH (06:18)
[2016-12-28] MEDS: NYSTATIN POWDER 15GM BTL EXT SCH ×2 (08:14→21:20)
[2016-12-28] MEDS: GLIMEPIRIDE 2 MG TAB PO SCH (08:14)
[2016-12-28] MEDS: IPRATROPIUM BROMIDE HFA INHALER INH SCH ×4 (08:15→20:58)
[2016-12-28] MEDS: SPIRONOLACTONE 25 MG TAB PO SCH (08:16)
[2016-12-28] MEDS: CEFDINIR 300 MG CAP PO SCH ×2 (08:16→21:02)
[2016-12-28] MEDS: GUAIFENESIN 600 MG TABCR PO SCH ×2 (08:16→21:05)
[2016-12-28] MEDS: SODIUM CHLORIDE 0.65% NA SOLN 45 ML (OCEAN) NAE SCH ×3 (08:16→21:20)
[2016-12-28] MEDS: METOPROLOL TARTRATE 25 MG TAB PO SCH ×2 (08:16→21:05)
[2016-12-28] MEDS: FERROUS SULFATE 325 MG TAB PO SCH (08:17)
[2016-12-28] MEDS: RASPBERRY SYRUP 5 ML UDP PO SCH ×4 (08:17→21:00)
[2016-12-28] MEDS: GABAPENTIN 300 MG CAP PO SCH (08:17)
[2016-12-28] MEDS: ASPIRIN 81 MG ECTAB PO SCH (08:17)
[2016-12-28] MEDS: LEVETIRACETAM 500 MG TAB PO SCH ×2 (08:18→21:04)
[2016-12-28] MEDS: FAMOTIDINE 20 MG TAB PO SCH (08:18)
[2016-12-28] MEDS: APIXABAN 2.5 MG TAB PO SCH ×2 (08:18→21:04)
[2016-12-28] MEDS: POTASSIUM CHLORIDE 10 MEQ TABCR PO SCH (08:18)
[2016-12-28] MEDS: SITAGLIPTIN 100 MG TAB PO SCH (08:18)
[2016-12-28] MEDS: LISINOPRIL 2.5 MG TAB PO SCH (08:19)
[2016-12-28] MEDS: INSULIN GLARGINE SOLOSTAR 100 UNITS/ML 3 ML PEN SC SCH (08:25)
[2016-12-28] MEDS: INSULIN ASPART 100 UNITS/ML 3 ML PEN SC SCH ×4 (08:26→21:16)
[2016-12-28] MEDS: VANCOMYCIN HCL 125 MG/2.5ML SOLN PO SCH ×4 (08:27→20:57)
[2016-12-28] MEDS: CHOLESTYRAMINE LIGHT 4 GM PKT PO SCH ×2 (10:38→22:37)
[2016-12-28 10:46] LABS: BUN/CREATININE RATIO 33.2 (10-20); CALCIUM 8.7 mg/dl (8.5-10.1); POTASSIUM 4.1 mmol/L (3.5-5.1)
[2016-12-28 10:50] LABS: ALB/GLOB RATIO 0.8 (0.9-2); FERRITIN 455.3 ng/ml (8.0-388.0)
[2016-12-28 10:52] LABS: HEPATITIS B AB NEG
--- NOTE | 2016-12-28 11:49 | Hospitalist Progress Note ---
Hospitalist Progress Note Date of Service December 28, 2016. (Milly Silva PA-C) Subjective Pt evaluation today including: conversation w/ patient, physical exam, chart review, lab review, review of studies Pain: None PO Intake: Good Voiding: no voiding problems The patient was seen and examined this morning. Pt reports doing well, she feels her breathing is about the same as yesterday, she is still coughing up some white mucous. Her swelling in feet is the same, but leg swelling has gone down some. She is ambulating without difficulty in the room and to the bathroom. She notes some aural fullness but says this has been ongoing for several weeks now, no pain, no discharge from ears, no trouble with hearing. Constitutional: No sweats Eyes: No diplopia, No worsening of vision ENT: + problem reported (aural fullness L>R), No dental problems, No hearing loss, No nasal symptoms, No sore throat, No tinnitus, No trouble swallowing Respiratory: + cough, + sputum, + wheezing, No dyspnea on exertion, No shortness of breath Cardiovascular: No chest pain, No palpitations Abdomen: + diarrhea (5-6 bms yesterday), No constipation, No nausea, No pain , No vomiting Musculoskeletal: No joint pain, No muscle pain Neurologic: No numbness/tingling, No weakness Psychiatric: No anxiety, No insomnia Skin: No itch, No rash (Milly Silva, JESUS MANUEL) Objective Vital Signs Date Time Temp Pulse Resp B/P Pulse Ox O2 Delivery O2 Flow Rate FiO2 12/28/16 08:00 Room Air 12/28/16 07:15 36.7 81 20 113/65 91 Room Air 12/28/16 06:51 82 16 91 Room Air 12/28/16 01:56 77 18 97 BiPAP/CPAP 2.0 12/28/16 00:00 BiPAP 2.0 12/27/16 23:33 36.3 79 16 140/72 97 CPAP 12/27/16 23:06 84 95 2.0 12/27/16 21:34 80 110/66 12/27/16 19:32 81 16 92 Room Air 12/27/16 17:43 Room Air 12/27/16 15:40 36.4 79 18 144/71 90 12/27/16 14:02 82 16 93 Room Air (Milly Silva PA-C) Physical Exam Notes: General Appearance: WD/WN, no apparent distress, + obese Eyes: PERRL, EOMI ENT: hearing grossly normal, pharynx normal Neck: no adenopathy, no JVD Respiratory/Chest: + pertinent finding (on room air, +cough with white sputum production, +expiratory wheeze worse in anterior morin, + crackles improved, overall improved breath sounds throughout compared to yesterday) Cardiovascular: regular rate, rhythm, no murmur Abdomen: normal bowel sounds, non tender, soft Extremities: no calf tenderness, + pedal edema (+2 pitting in feet, +2 pitting present above [place] stocking line) Neurologic/Psychiatric: no motor/sensory deficits, alert, oriented x 3 (Milly Silva PA-C) Laboratory Results Last 24 Hours Test 12/27/16 16:06 12/27/16 20:14 12/28/16 09:50 Bedside Glucose 215 mg/dl 278 mg/dl Sodium Level 144 mmol/L Potassium Level 4.1 mmol/L Chloride Level 109 mmol/L Carbon Dioxide Level 29 mmol/L Anion Gap 6.0 mmol/L Blood Urea Nitrogen 33 mg/dl Creatinine 1.00 mg/dl Est Creatinine Clear Calc Drug Dose 57.5 ml/min Estimated GFR () 68.0 Estimated GFR (Non- 58.7 BUN/Creatinine Ratio 33.2 Random Glucose 138 mg/dl Calcium Level 8.7 mg/dl Magnesium Level 2.0 mg/dl Ferritin 455.3 ng/ml Total Bilirubin 0.8 mg/dl Aspartate Amino Transf (AST/SGOT) 29 U/L Alanine Aminotransferase (ALT/SGPT) 34 U/L Alkaline Phosphatase 75 U/L Total Protein 6.0 gm/dl Albumin 2.7 gm/dl Globulin 3.3 gm/dl Albumin/Globulin Ratio 0.8 Hepatitis B Surface Antigen NEG Hepatitis B Surface Antibody NEG (Milly Silva PA-C) Assessment and Plan Ms. Dunaway is a 66 y/o female with PMHx of CKD Stage G3b/A1, Pancytopenia, Diastolic Congestive Heart Failure, RA, T2DM who presents with Acute Diastolic Congestive Heart Failure Acute on Chronic Diastolic CHF with Acute Hypoxic Respiratory Failure (12/22): - Echo (November) - EF 55-60%, septal akinesis, bioprosthetic aortic and mitral valve and tricuspid valve - initially treated with Lasix IV BID, adequate diuresis and resolution of pulmonary edema, improved oxygenation, on room air now - Cr actually improved after extra lasix IV yesterday to 1.00 from 1.2.: outs were ~1300mL in 24 hrs s/p lasix IV. - still has 2+ pedal edema and up legs bilaterally -- Will hold Lasix PO 20 mg tonight, and order IV lasix 40 mg again - will resume home dose of Lasix 20mg PO BID when able (she was not taking this prior to admission which lead to volume overload) - on room air, appears comfortable - Continue fluid restriction of 1500cc/d, strict I/Os Pneumonia/bronchitis: still has residual cough with some white sputum production , afebrile x 5days - Prednisone is improving wheezing, continue with plan for Prednisone 40mg daily x 7 days total, (day 5), then taper - continue Nebulizers - continue Cefdinir (day 6) and finished Zithromax 5ds on 12/27/16. Stop Cefdinir after doses on 12/29 CKD stage 3b/A1: Cr improved to 1.00. - making adequate urine - Continue to trend Cr. - strict I/Os Sarcoidosis - Pt has liver cirrhosis on imaging as per chart review, pt notes this was diagnosed 2-3 years ago while she was at [facility]. It is possible that her volume status could be worsening due to cirrhosis. - Will obtain liver U/S today to assess - Continue spironolactone 25 mg QAM Pancytopenia: follows with hematology for hx of colon cancer, gets EPO for anemia, counts generally low but stable, could possibly be from sarcoidosis? Hypokalemia: RESOLVED - Replete as necessary Clostridium Difficile: pt is having ~5-6 bowel movements yesterday but denies diarrhea - Started on Vancomycin 125 mg QID on 12/12 - continue for now. - continue Cholestyramine 4 g BID s/p bioprosthetic AVR x 2, MVR, TVR: she had a follow up with cardiothoracic surgeon in November, pleased with progress Paroxysmal Atrial Fibrillation S/P Pacer and Mechanical Aortic and Mitral Valve: - Metoprolol 25 mg BID - ASA 81 mg daily - Eliquis 5mg BID - needs Rx at discharge, was not on med rec T2DM with Peripheral Neuropathy: A1c 5.8 - Glimepiride 1 g daily and Januvia 100 mg daily - Gabapentin 300 mg daily - hyperglycemia due to Prednisone - responds well to Lantus 10 units qAM - should continue Lantus on d/c while on the Prednisone, can stop once Prednisone complete DVT ppx: Eliquis for afib Disposition: [facility] when medically stable, already authorized, discussed with CM to assist with transportation arrangements, likely tomorrow. 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 I agree w/ the mccabe components of her documentation. Pt still w/ cough but less than yesterday. VSS no fever gen - nad neck - JVD still present heart - RRR lungs - bibasilar rales with extensive wheezing b/l - modestly improved today abd - soft ext - 2+ edema b/l - improved A/P: 1. acute/chronic diastolic CHF - improving. Cont IV lasix Reviewing records baseline weight appears to be about 80kg 2. cirrhosis - due to ALMENDAREZ? sarcoid? other? cont fluid/salt restriction, aldactone, lasix needs GI f/u at after d/c 3. pneumonia - finish abx course; wean steroids 4. c. diff - vanco progressing, maybe d/c tomorrow await liver u/s Buddy Dunn MD (Buddy Dunn MD)
[2016-12-28] MEDS ORDERED: FUROSEMIDE INJ 40 MG in SYRINGE 0 ML IV ONE (12:30)
--- NOTE | 2016-12-28 15:04 | Discharge Summary ---
Discharge Summary Date of Service December 28, 2016. (Milly Silva PA-C) Discharge Summary Admission Date: December 22, 2016 at 13:23 Discharge Date: December 27, 2016 Discharge Disposition: Rehab ([facility]) Principal Diagnosis: Acute on Chronic Diastolic CHF with Acute Hypoxic Respiratory Failure Problems/Secondary Diagnoses: CKD Stage G3b/A1, Pancytopenia, Diastolic Congestive Heart Failure, RA, T2DM who presents with Acute Diastolic Congestive Heart Failure, Sarcoidosis, liver cirrhosis, Immunizations: Have You Had Influenza Vaccine: Yes Influenza Vaccine Date: Jul 22, 2015 History of Tetanus Vaccine?: Unknown History of Pneumococcal: Yes Pneumococcal Date: Jul 22, 2015 History of Hepatitis B Vaccine: Unknown Procedures: SINGLE VIEW CHEST 12/21/16 IMPRESSION: 1. Cardiomegaly and cardiac pacemaker with evidence of mild congestive failure. 2. No focal airspace consolidation or large pleural effusion is identified. CHEST ONE VIEW PORTABLE 12/23/16 IMPRESSION: 1. Cardiomegaly and radiographic evidence of mild congestive failure/fluid overload 2. No evidence of focal pulmonary consolidation TWO VIEW CHEST 12/24/16 IMPRESSION: 1. Cardiomegaly and cardiac pacemaker. There is mild pulmonary vascular congestion which has improved from yesterday. 2. Trace pleural effusions are identified. CHEST 2 VIEWS ROUTINE 12/27/16 IMPRESSION: Interval improvement in pulmonary edema. LIVER ULTRASOUND 12/29/16 IMPRESSION: 1. Suspected cirrhosis. No hepatic lesions identified by sonography. 2. No biliary ductal dilatation status post cholecystectomy. (Milly Silva PA-C) Problems/Secondary Diagnoses: 1. valvular heart disease with AVR x 2, MVR, TVR 2. recent C. diff colitis 3. recent pneumonia 4. atrial fibrillation 5. h/o colon cancer 6. h/o TIA 7. h/o peptic ulcer disease & GERD 8. h/o ARDS and tracheostomy/PEG placement after valvular surgery - 2017 (Buddy Dunn MD) Medication Reconciliation New Medications: Prednisone (Prednisone) 10 Mg Tab 10 MG PO UD for 10 Days, #21 TAB Take 40 mg (4tabs) x 1 days, then 30 mg(3tab) x 3 days, then 20 mg x 3 days, then 10 mg x 3 days then stop. Spironolactone (Aldactone) 25 Mg Tab 1 TAB PO DAILY for 30 Days, #30 TAB 0 Refills Apixaban (Eliquis) 5 Mg Tab 5 MG PO BID for 30 Days, #60 TAB Insulin Glargine (Lantus Solostar) 100 Unit/Ml Inj 10 UNIT SC QAM for 5 Days, #5 DOSE Vancomycin HCl (Vancomycin HCl) 125 Mg/2.5 Ml Susp 125 MG PO UD for 28 Days, #48 DOSE Take 125 mg by mouth every 12 hours x 2 weeks starting 12/30/16, then take 125 mg by mouth once daily x 2 weeks. Changed Medications: Furosemide (Lasix) 20 Mg Tab 40 MG PO QAM for 30 Days, #60 TAB (Changed from: 20 MG; BID) Continued Medications: Acetaminophen (Tylenol) 325 Mg Tab 325 MG PO Q4H PRN for irma, TAB Aspirin (Aspirin Chewable) 81 Mg Chew 81 MG PO DAILY, TAB Atorvastatin (Lipitor) 20 Mg Tab 20 MG PO HS, TAB Epoetin [place] (Procrit) Unknown Strength Inj Unknown Dose SQ q tuesday for stop if HGB is greator than 10 Famotidine (Pepcid) 20 Mg Tab 20 MG PO DAILY, TAB Ferrous Sulfate (Kp Ferrous Sulfate) 325 Mg Tab 2 TAB PO QAM for 30 Days, #60 TAB 3 Refills Gabapentin (Gabapentin) 300 Mg Cap 1 CAP PO DAILY Glimepiride (Glimepiride) 1 Mg Tab 1 TAB PO DAILY for 90 Days, #90 TAB 3 Refills Ipratropium [place] (Atrovent Hfa) 200 Puffs/3400 Mcg Aers 2 PUFFS INH QID, #12.9 GM 5 Refills Levalbuterol (Levalbuterol) 1.25 Mg/0.5 Ml Nebu 1.25 MG INH Q6R for 15 Days Levetiracetam (Keppra) 500 Mg Tab 500 MG PO BID, TAB Levothyroxine Sodium (Synthroid) 25 Mcg Tab 1 TAB PO DAILY for 30 Days, #30 TAB 5 Refills Melatonin (Melatonin Maximum Strengt) 5 Mg Tab 1 TAB PO HS PRN for Sleep for 30 Days, #30 TAB 1 Refill Metoprolol Tartrate (Lopressor) (Lopressor) 25 Mg Tab 1 TAB PO BID for 90 Days, #180 TAB 1 Refill Nystatin (Nystop) 45 Appln/15 Gm Powd 1 APPLN TOP BID Saline (Deep Sea Nasal [place]) 0.65 % Spr 2 SPRAYS LESTER TID Sitagliptin Phosphate (Januvia) 100 Mg Tab 100 MG PO DAILY, TAB Tramadol (Ultram) 50 Mg Tab 50 MG PO Q6H PRN for Pain for 15 Days, #40 TAB Trazodone Hcl (Trazodone) 50 Mg Tab 50 MG PO HS for Sleep, TAB Discharge Exam Pt evaluation today including: conversation w/ patient, physical exam, chart review, lab review, review of studies Pain: None PO Intake: Good Voiding: no voiding problems The patient was seen and examined this morning. Pt reports she feels well this morning. Swelling in her legs has gone down even more since lasix 40 mg IV was given twice yesterday. She reports her breathing is the same, still with a productive cough (white mucous). She denies feeling short of breath or having any cp, palpitations. Pt is requesting follow up with new PCP from [facility], along with GI follow up for liver cirrhosis. Plan to have repeat CXR done this morning and possible discharge later today. All her questions and concerns were addressed. Constitutional: No chills, No fatigue, No fever Eyes: No diplopia, No redness ENT: No sore throat, No trouble swallowing Respiratory: + cough, + sputum, No dyspnea on exertion, No shortness of breath Cardiovascular: No chest pain, No palpitations Abdomen: + diarrhea, No constipation, No nausea, No pain, No vomiting Musculoskeletal: + swelling, No calf pain, No joint pain Female : No dysuria Neurologic: No numbness/tingling, No weakness Endo: No fatigue Skin: No itch, No rash Objective Vital Signs Date Time Temp Pulse Resp B/P Pulse Ox O2 Delivery O2 Flow Rate FiO2 12/29/16 07:14 88 16 96 Room Air 12/29/16 07:02 36.6 79 18 133/69 91 Room Air 12/29/16 01:55 84 14 94 BiPAP/CPAP 2.0 12/29/16 00:00 Room Air CPAP 12/28/16 23:13 82 94 2.0 12/28/16 23:07 36.3 80 18 152/77 92 Room Air 12/28/16 21:15 81 105/55 12/28/16 19:15 85 16 95 Room Air 12/28/16 16:00 Room Air 21 12/28/16 15:37 36.4 83 18 128/74 91 Room Air 12/28/16 14:00 85 16 92 Room Air 12/28/16 12:35 81 118/68 Physical Exam Notes: General Appearance: WD/WN, no apparent distress, + obese, + sitting up in bedside chair eating breakfast Eyes: PERRL, EOMI ENT: hearing grossly normal, pharynx normal Neck: no adenopathy, no JVD Respiratory/Chest: + pertinent finding (on room air, +cough with white sputum production, minimal expiratory wheeze, no crackles, good breath sounds throughout.) Cardiovascular: regular rate, rhythm, no murmur Abdomen: normal bowel sounds, non tender, soft Extremities: no calf tenderness, + pedal edema (+2 pitting in feet, +1 pitting present on anterior tibial region, edema surrounding CLARKE stocking line) Neurologic/Psychiatric: no motor/sensory deficits, alert, oriented x 3 (Milly Silva, PA-C) Hospital Course H&P per Jaime Paz MD. HISTORY OF PRESENT ILLNESS: The patient is a very pleasant 66-year-old female discharged from our facility about a week ago. She had been in with acute respiratory failure, pneumonia, as well as C. diff. During that time, she went into acute renal failure, her diuretics were held, she was discharged to rehab, and she apparently was doing fairly well, her creatinine was good, she was doing better, and then she progressively started to notice worsening weight gain, worsening edema, and worsening shortness of breath with exertion. Today, she came to the ER for further evaluation. She relates she is probably about 20 pounds up from what she was before and she was found to be in CHF, and we were asked to see her for further evaluation for admission. She denies fevers, chills or sweats. Denies purulent sputum. The diarrhea has slowed down, although she is still going probably 5-8 times a day, it is soft stool. She notes she does chronically have multiple bowel movements a day but probably more in the 3-4 range, so she is still running far more than she is used to. She feels the pneumonia has resolved and this is a new issue. PHYSICAL EXAMINATION: VITAL SIGNS: Temperature 37.4, pulse 83, respiratory rate initially 26, it slowed down to about 14 and nonlabored whenever I see her, 148/64, 86% on room air, up to 97% on 4 liters. GENERAL: She is awake, alert, oriented x3, pleasant, in no acute distress. HEENT: Normocephalic, atraumatic. Mucous membranes are moist. CARDIOVASCULAR: Regular. She has got mechanical sounding clicks and no murmurs, consistent with her valve replacement. LUNGS: Show bibasilar rales to about the mid lung. No rhonchi, no wheezes. No accessory muscle use. ABDOMEN: Soft, nondistended, nontender. No masses or organomegaly. EXTREMITIES: Without cyanosis or clubbing. She has approximately 2+ bilateral lower extremity edema, equal. No erythema, no calf tenderness, no cords. SKIN: Shows no rashes, no pallor or icterus. NEUROLOGIC: Shows cranial nerves II-XII to be grossly intact. Gross motor and sensory are intact. MUSCULOSKELETAL: Yields no gross lesions. MENTAL STATE: Good recent and remote recall. Normal mood and affect. Good judgment and insight. Hospital Course: Ms. Dunaway is a 66 y/o female with PMHx of CKD Stage G3b/A1, Pancytopenia, Diastolic Congestive Heart Failure, RA, T2DM, sarcoidosis and liver cirrhosis ( [place]) who presents with Acute Diastolic Congestive Heart Failure admitted with respiratory failure. The patient was adequately diuresed during admission and back to her dry weight of 80.5 kg. Pneumonia and bronchitis were treated with a course of antibiotics including cefdinir and steriods with a plan to finish a prednisone taper once discharged. Pt was continued on vanc PO for c.diff recurrence which was diagnosed during her last hospital stay and should continue the taper as prescribed. Follow up has been requested with a new PCP per pt request in 1 week, GI for cirrhosis within 1-2 weeks, ID for c.diff recurrence follow up in 4 weeks, and heme/onc as already scheduled. The patient was stable for discharge to [place] [facility] today. Acute on Chronic Diastolic CHF with Acute Hypoxic Respiratory Failure (12/22): - Echo (November) - EF 55-60%, septal akinesis, bioprosthetic aortic and mitral valve and tricuspid valve - initially treated with Lasix IV BID, adequate diuresis and resolution of pulmonary edema, improved oxygenation, on room air now - Cr actually improved after extra lasix 40 mg IV x 2 yesterday from 1.00 - 0.93 : outs were ~1250mL in past 24 hrs. - Breath sounds are significantly improved, still has 1+ pedal edema and up legs bilaterally, creatinine improved, repeat CXR this morning appears improved- - Will hold Lasix PO 20 mg this morning and order IV lasix 40 mg once more- will change home dose of Lasix to 40mg PO QAM along with spironolactone - on room air, appears comfortable - Continue fluid restriction of 1500cc/d, strict I/Os Pneumonia/bronchitis: still has residual cough with some white sputum production , afebrile x 5days - Prednisone is improving wheezing, continue with plan for Prednisone 40mg daily x 7 days total, (day 6), then taper - continue Nebulizers - continue Cefdinir (day 7- finish today) and finished Zithromax 5ds on 12/27/16. CKD stage 3b/A1: Cr improved to 0.93 - making adequate urine - still has a little room to diurese more since creatinine hasn't bumped. Will do one more IV lasix dose later today pending CXR. - strict I/Os Sarcoidosis - Pt has liver cirrhosis on imaging as per chart review, pt notes this was diagnosed 2-3 years ago while she was at [facility]. It is possible that her volume status could be worsening due to cirrhosis. - Liver U/S complete- IMPRESSION: 1. Suspected cirrhosis. No hepatic lesions identified by sonography. 2. No biliary ductal dilatation status post cholecystectomy. - Continue spironolactone 25 mg QAM Pancytopenia: follows with hematology for hx of colon cancer, gets EPO for anemia, counts generally low but stable, could possibly be from sarcoidosis? Hypokalemia: RESOLVED - Replete as necessary Clostridium Difficile: pt is having ~4-5 bowel movements in past 24 hrs but denies diarrhea - Started on Vancomycin 125 mg QID on 12/12 - continue for now. - continue Cholestyramine 4 g BID s/p bioprosthetic AVR x 2, MVR, TVR: she had a follow up with cardiothoracic surgeon in November, pleased with progress Paroxysmal Atrial Fibrillation S/P Pacer and Mechanical Aortic and Mitral Valve: - Metoprolol 25 mg BID - ASA 81 mg daily - Eliquis 5mg BID - needs Rx at discharge, was not on med rec T2DM with Peripheral Neuropathy: A1c 5.8 - Glimepiride 1 g daily and Januvia 100 mg daily - Gabapentin 300 mg daily - hyperglycemia due to Prednisone - responds well to Lantus 10 units qAM - should continue Lantus on d/c while on the Prednisone, can stop once Prednisone complete DVT ppx: Eliquis for afib Disposition: [facility] when medically stable, already authorized, discussed with CM to assist with transportation arrangements, likely tomorrow. plan on d/c would be the following: heart failure, changed Lasix 40mg QAM, weight daily, fluid restrict to 1500cc /day, continue spironolactone 25 mg daily pneumonia/bronchitis, completed Cefdinir 7 days total, and finish one more day of Prednisone 40mg then taper atrial fibrillation, make sure she is taking Eliquis again on d/c, needs to follow up with her manager shift in [place] pancytopenia, follow up with hematology as previously scheduled Follow up with new PCP here with [facility], GI and Infectious disease. Total Time Spent: Greater than 30 minutes This includes examination of the patient, discharge planning, medication reconciliation, and communication with other providers. (Milly Silva, JESUS MANUEL) Attending Discharge Note & Attestation: Pt seen/examined and care plan d/w RENETTA Silva on day of discharge. I agree w/ the mccabe components of her discharge summary. Complicated 66yo female with h/o valvular heart disease, s/p AVR earlier in 2017 complicated by resp failure, ARDS, and trach/PEG placement. She has been hospitalized multiple times at [facility] this winter/spring for various issues including CHF, pneumonia, etc. She has had multiple rehab stays following these hospitalizations. This admission she presented with acute/chronic diastolic CHF along with ongoing diarrhea from recent c. diff colitis. During her stay she was aggressively diuresed and discharge weight is nearly 80kg. She remains on a vancomycin taper for c. diff. She completed steroids and antibiotics for possible superimposed bronchitis/ infectious process. Records and past imaging suggest the presence of cirrhosis. She reports having been told several years ago she has such, but has not had follow-up with GI for it. JAVY, ferritin, HepB/C serologies were all negative. I suspect her cirrhosis is from [place]. However, given her h/o sarcoid, she could also have sarcoid induced liver disease. Either way she needs follow-up for the cirrhosis with [facility]. She will take lasix 40mg once daily and aldactone 25mg once daily for her diastolic CHF and cirrhosis to maintain a euvolemic state. She was counseled about the importance of daily weights, fluid & salt restriction, etc. Her pancytopenia may in fact be related to her liver disease. This will need follow-up with hematology. Consider pulmonary consultation to ensure sarcoid is not active. Discharge exam - gen - nad neck - JVD resolved heart - RRR, s1, s2, 2/6 JOSEPH LSB lungs - minimal end-exp wheezing, no rales, no increased wob abd - soft, NT, no HSM, BS+ ext - 1+ edema b/l, pulses 2+ b/l I agree with the follow-up appointments that Ms. Silva has outlined in her portion of the discharge summary. She remains at high risk for readmission due to her complicated medical conditions. Buddy Dunn MD (Buddy Dunn MD) Discharge Instructions Please refer to the electronic Patient Visit Report (Discharge Instructions) for additional information. (Milly Silva PA-C) Follow-Up Follow up with your new Primary Care Provider within 1 week, an appointment has been requested for you. Follow up with Gastroenterology within 1-2 weeks, an appointment has been requested for you. Follow up with infectious disease in 4 weeks, an appointment has been requested for you. Follow up with cardiology in [place] within 2 weeks, an appointment has been requested for you. Follow up with Hematology Oncololgy as already scheduled. (Milly Silva PA-C) Additional Copies To Jaleesa Law .JESUS MANUEL; [facility]; Muriel Wilson; Aneesh Palm M.D.; Shaila Leon CRNP
--- NOTE | 2016-12-28 15:29 | DIAGNOSTIC IMAGING REPORT ---
ABDOMINAL ULTRASOUND, RIGHT UPPER QUADRANT HISTORY: Assess cirrhosis. COMPARISON: CT of the abdomen and pelvis December 05, 2016. FINDINGS: The liver is slightly echogenic. There is slight coarsening of hepatic echotexture. No hepatic lesions are identified. There is no biliary ductal dilatation status post cholecystectomy. The pancreas is partially obscured on this exam. No pancreatic abnormalities are identified. There is no right hydronephrosis. IMPRESSION: 1. Suspected cirrhosis. No hepatic lesions identified by sonography. 2. No biliary ductal dilatation status post cholecystectomy. Electronically signed by: Damien Ruiz M.D. 12/28/2016 3:28 PM Dictated Date/Time: 12/28/2016 3:26 PM
[2016-12-28] MEDS ORDERED: FUROSEMIDE INJ 20 MG in SYRINGE 0 ML IV SCH (19:00)
[2016-12-28] MEDS: POTASSIUM CHLORIDE 20 MEQ TABCR PO SCH (21:00)
[2016-12-28] MEDS: TRAZODONE HCL 50 MG TAB PO SCH (21:04)
[2016-12-28] MEDS: ATORVASTATIN 20 MG TAB PO SCH (21:05)
[2016-12-29 01:55] VITALS: PULSE 84; O2SAT 94
[2016-12-29] MEDS: LEVALBUTEROL 1.25MG/3ML NEB INH SCH ×3 (01:55→14:57)
[2016-12-29] MEDS: LEVOTHYROXINE 25 MCG TAB PO SCH (05:54)
[2016-12-29 06:32] LABS: BUN/CREATININE RATIO 36.5 (10-20); CALCIUM 8.7 mg/dl (8.5-10.1); CREATININE 0.93 mg/dl (0.60-1.20)
[2016-12-29 07:02] VITALS: BP 133/69; PULSE 79; TEMP 36.6; O2SAT 91
[2016-12-29 07:14] VITALS: PULSE 88; O2SAT 96
[2016-12-29] MEDS: RASPBERRY SYRUP 5 ML UDP PO SCH ×2 (08:18→12:44)
[2016-12-29] MEDS: VANCOMYCIN HCL 125 MG/2.5ML SOLN PO SCH ×2 (08:18→12:44)
[2016-12-29] MEDS: GABAPENTIN 300 MG CAP PO SCH (08:18)
[2016-12-29] MEDS: SITAGLIPTIN 100 MG TAB PO SCH (08:18)
[2016-12-29] MEDS: FERROUS SULFATE 325 MG TAB PO SCH (08:18)
[2016-12-29] MEDS: ASPIRIN 81 MG ECTAB PO SCH (08:18)
[2016-12-29] MEDS: METOPROLOL TARTRATE 25 MG TAB PO SCH (08:19)
[2016-12-29] MEDS: SPIRONOLACTONE 25 MG TAB PO SCH (08:19)
[2016-12-29] MEDS: LEVETIRACETAM 500 MG TAB PO SCH (08:20)
[2016-12-29] MEDS: FAMOTIDINE 20 MG TAB PO SCH (08:20)
[2016-12-29] MEDS: GUAIFENESIN 600 MG TABCR PO SCH (08:20)
[2016-12-29] MEDS: LISINOPRIL 2.5 MG TAB PO SCH (08:20)
[2016-12-29] MEDS: APIXABAN 2.5 MG TAB PO SCH (08:21)
[2016-12-29] MEDS: POTASSIUM CHLORIDE 20 MEQ TABCR PO SCH (08:21)
[2016-12-29] MEDS: GLIMEPIRIDE 2 MG TAB PO SCH (08:21)
[2016-12-29] MEDS: IPRATROPIUM BROMIDE HFA INHALER INH SCH ×2 (08:22→12:45)
[2016-12-29] MEDS: NYSTATIN POWDER 15GM BTL EXT SCH (08:22)
[2016-12-29] MEDS: CEFDINIR 300 MG CAP PO SCH (08:22)
[2016-12-29] MEDS: SODIUM CHLORIDE 0.65% NA SOLN 45 ML (OCEAN) NAE SCH ×2 (08:23→12:46)
[2016-12-29] MEDS: INSULIN ASPART 100 UNITS/ML 3 ML PEN SC SCH ×2 (08:31→12:49)
[2016-12-29] MEDS: CHOLESTYRAMINE LIGHT 4 GM PKT PO SCH (08:32)
[2016-12-29] MEDS: INSULIN GLARGINE SOLOSTAR 100 UNITS/ML 3 ML PEN SC SCH (08:32)
--- NOTE | 2016-12-29 09:03 | Hospitalist Progress Note ---
Hospitalist Progress Note Date of Service December 29, 2016. (Milly Silva PA-C) Subjective Pt evaluation today including: conversation w/ patient, physical exam, chart review, lab review, review of studies Pain: None PO Intake: Good Voiding: no voiding problems The patient was seen and examined this morning. Pt reports she feels well this morning. Swelling in her legs has gone down even more since lasix 40 mg IV was given twice yesterday. She reports her breathing is the same, still with a productive cough (white mucous). She denies feeling short of breath or having any cp, palpitations. Pt is requesting follow up with new PCP from [facility], along with GI follow up for liver cirrhosis. Plan to have repeat CXR done this morning and possible discharge later today. All her questions and concerns were addressed. Constitutional: No chills, No fatigue, No fever Eyes: No diplopia, No redness ENT: No sore throat, No trouble swallowing Respiratory: + cough, + sputum, No dyspnea on exertion, No shortness of breath Cardiovascular: No chest pain, No palpitations Abdomen: + diarrhea, No constipation, No nausea, No pain, No vomiting Musculoskeletal: + swelling, No calf pain, No joint pain Female : No dysuria Neurologic: No numbness/tingling, No weakness Endo: No fatigue Skin: No itch, No rash (Milly Silva PA-C) Objective Vital Signs Date Time Temp Pulse Resp B/P Pulse Ox O2 Delivery O2 Flow Rate FiO2 12/29/16 07:14 88 16 96 Room Air 12/29/16 07:02 36.6 79 18 133/69 91 Room Air 12/29/16 01:55 84 14 94 BiPAP/CPAP 2.0 12/29/16 00:00 Room Air CPAP 12/28/16 23:13 82 94 2.0 12/28/16 23:07 36.3 80 18 152/77 92 Room Air 12/28/16 21:15 81 105/55 12/28/16 19:15 85 16 95 Room Air 12/28/16 16:00 Room Air 21 12/28/16 15:37 36.4 83 18 128/74 91 Room Air 12/28/16 14:00 85 16 92 Room Air 12/28/16 12:35 81 118/68 (Milly Silva PA-C) Physical Exam Notes: General Appearance: WD/WN, no apparent distress, + obese, + sitting up in bedside chair eating breakfast Eyes: PERRL, EOMI ENT: hearing grossly normal, pharynx normal Neck: no adenopathy, no JVD Respiratory/Chest: + pertinent finding (on room air, +cough with white sputum production, minimal expiratory wheeze, no crackles, good breath sounds throughout.) Cardiovascular: regular rate, rhythm, no murmur Abdomen: normal bowel sounds, non tender, soft Extremities: no calf tenderness, + pedal edema (+2 pitting in feet, +1 pitting present on anterior tibial region, edema surrounding CLARKE stocking line) Neurologic/Psychiatric: no motor/sensory deficits, alert, oriented x 3 Skin: normal color, warm/dry (Milly Silva PA-C) Laboratory Results Last 24 Hours Test 12/28/16 09:50 12/28/16 11:16 12/28/16 16:26 12/28/16 19:58 Sodium Level 144 mmol/L Potassium Level 4.1 mmol/L Chloride Level 109 mmol/L Carbon Dioxide Level 29 mmol/L Anion Gap 6.0 mmol/L Blood Urea Nitrogen 33 mg/dl Creatinine 1.00 mg/dl Est Creatinine Clear Calc Drug Dose 57.5 ml/min Estimated GFR () 68.0 Estimated GFR (Non- 58.7 BUN/Creatinine Ratio 33.2 Random Glucose 138 mg/dl Calcium Level 8.7 mg/dl Magnesium Level 2.0 mg/dl Ferritin 455.3 ng/ml Total Bilirubin 0.8 mg/dl Aspartate Amino Transf (AST/SGOT) 29 U/L Alanine Aminotransferase (ALT/SGPT) 34 U/L Alkaline Phosphatase 75 U/L Total Protein 6.0 gm/dl Albumin 2.7 gm/dl Globulin 3.3 gm/dl Albumin/Globulin Ratio 0.8 Hepatitis B Surface Antigen NEG Hepatitis B Surface Antibody NEG Bedside Glucose 133 mg/dl 258 mg/dl 297 mg/dl Test 12/29/16 05:14 12/29/16 07:39 Sodium Level 142 mmol/L Potassium Level 4.0 mmol/L Chloride Level 107 mmol/L Carbon Dioxide Level 30 mmol/L Anion Gap 5.0 mmol/L Blood Urea Nitrogen 34 mg/dl Creatinine 0.93 mg/dl Est Creatinine Clear Calc Drug Dose 61.1 ml/min Estimated GFR () 74.2 Estimated GFR (Non- 64.0 BUN/Creatinine Ratio 36.5 Random Glucose 94 mg/dl Calcium Level 8.7 mg/dl Bedside Glucose 92 mg/dl (Milly Silva, JESUS MANUEL) Assessment and Plan Ms. Dunaway is a 66 y/o female with PMHx of CKD Stage G3b/A1, Pancytopenia, Diastolic Congestive Heart Failure, RA, T2DM who presents with Acute Diastolic Congestive Heart Failure Acute on Chronic Diastolic CHF with Acute Hypoxic Respiratory Failure (12/22): - Echo (November) - EF 55-60%, septal akinesis, bioprosthetic aortic and mitral valve and tricuspid valve - initially treated with Lasix IV BID, adequate diuresis and resolution of pulmonary edema, improved oxygenation, on room air now - Cr actually improved after extra lasix 40 mg IV x 2 yesterday from 1.00 - 0.93 : outs were ~1250mL in past 24 hrs. - Breath sounds are significantly improved, still has 1+ pedal edema and up legs bilaterally, creatinine improved, plan to repeat CXR this morning-- Will hold Lasix PO 20 mg this morning and order IV lasix 40 mg once more- will resume home dose of Lasix 20mg PO BID tonight- possibly will need increased dosage to 40 mg BID or some combination of this 20 and 40 mg. (she was not taking this prior to admission which lead to volume overload) - on room air, appears comfortable - Continue fluid restriction of 1500cc/d, strict I/Os Pneumonia/bronchitis: still has residual cough with some white sputum production , afebrile x 5days - Prednisone is improving wheezing, continue with plan for Prednisone 40mg daily x 7 days total, (day 6), then taper - continue Nebulizers - continue Cefdinir (day 7- finish today) and finished Zithromax 5ds on 12/27/16. CKD stage 3b/A1: Cr improved to 0.93 - making adequate urine - still has a little room to diurese more since creatinine hasn't bumped. Will do one more IV lasix dose later today pending CXR. - Continue to trend Cr. - strict I/Os Sarcoidosis - Pt has liver cirrhosis on imaging as per chart review, pt notes this was diagnosed 2-3 years ago while she was at [facility]. It is possible that her volume status could be worsening due to cirrhosis. - Liver U/S complete- IMPRESSION: 1. Suspected cirrhosis. No hepatic lesions identified by sonography. 2. No biliary ductal dilatation status post cholecystectomy. - Continue spironolactone 25 mg QAM Pancytopenia: follows with hematology for hx of colon cancer, gets EPO for anemia, counts generally low but stable, could possibly be from sarcoidosis? Hypokalemia: RESOLVED - Replete as necessary Clostridium Difficile: pt is having ~4-5 bowel movements in past 24 hrs but denies diarrhea - Started on Vancomycin 125 mg QID on 12/12 - continue for now. - continue Cholestyramine 4 g BID s/p bioprosthetic AVR x 2, MVR, TVR: she had a follow up with cardiothoracic surgeon in November, pleased with progress Paroxysmal Atrial Fibrillation S/P Pacer and Mechanical Aortic and Mitral Valve: - Metoprolol 25 mg BID - ASA 81 mg daily - Eliquis 5mg BID - needs Rx at discharge, was not on med rec T2DM with Peripheral Neuropathy: A1c 5.8 - Glimepiride 1 g daily and Januvia 100 mg daily - Gabapentin 300 mg daily - hyperglycemia due to Prednisone - responds well to Lantus 10 units qAM - should continue Lantus on d/c while on the Prednisone, can stop once Prednisone complete DVT ppx: Eliquis for afib Disposition: [facility] when medically stable, already authorized, discussed with CM to assist with transportation arrangements, likely tomorrow. plan on d/c would be the following: heart failure, continue Lasix 20mg BID, weight daily, fluid restrict to 1800cc/day, use Zaroxolyn PRN for weight gain/edema pneumonia/bronchitis, complete 1 more day of Cefdinir, complete 7 days total of Prednisone 40mg then taper atrial fibrillation, make sure she is taking Eliquis again on d/c, needs to follow up with her pr intern in [place] pancytopenia, follow up with hematology as previously scheduled (Milly Silva PA-C) Attending Attestation: Pt seen/examined, chart reviewed, and care plan d/w RENETTA Silva I agree w/ the mccabe components of her documentation. Please see my attestation/note on today's discharge summary for my personal comments/suggestions and exam findings. Ok for d/c to [facility] today. Sri DUNN MD (Buddy Dunn MD)
--- NOTE | 2016-12-29 09:13 | DIAGNOSTIC IMAGING REPORT ---
CHEST 2 VIEWS ROUTINE CLINICAL HISTORY: Assess pulmonary edema COMPARISON STUDY: Chest CT December 27, 2016. FINDINGS: A dual lead left pacemaker, median sternotomy wires and mediastinal surgical clips are noted. Moderate cardiomegaly is noted. There are trace bilateral pleural effusions. There is mild left lung hazy opacity. There is pulmonary vascular congestion without overt pulmonary edema. IMPRESSION: 1. Pulmonary vascular congestion without overt pulmonary edema. 2. Mild left midlung opacity which could reflect atelectasis or consolidation. 3. Trace bilateral pleural effusions. Electronically signed by: Damien Ruiz M.D. 12/29/2016 9:12 AM Dictated Date/Time: 12/29/2016 9:10 AM
[2016-12-29] MEDS: FUROSEMIDE 20 MG TAB PO SCH (09:24)
[2016-12-29] MEDS ORDERED: FUROSEMIDE INJ 40 MG in SYRINGE 0 ML IV ONE (09:30)
[2016-12-29] MEDS ORDERED: SPIR25TA89 PO (10:02)
[2016-12-29] MEDS ORDERED: VNCS125 PO (10:02)
[2016-12-29] MEDS ORDERED: PRED10TA PO (10:02)
[2016-12-29] MEDS ORDERED: FURO-85 PO (10:02)
[2016-12-29 14:57] VITALS: PULSE 88; O2SAT 96
[2016-12-29 15:11] VITALS: BP 105/67; PULSE 80; TEMP 36.5; O2SAT 93
== END 2016-12-29 17:05 | DRG 291 ==
LOC: ENRESERVDT → ENRESERVTM → EDSEX 12:44 → EDBD 12:44 → C.EDB 12:46 → C.MS2W 15:18 → EDBEDREQ 16:29 → OBSVTOIN 12-22 13:23 → C.MS2W 12-22 15:37
PROVIDERS: ADMIT Family Medicine; ATTEND Internal Medicine
DX: I50.33 Acute on chronic diastolic (congestive) heart failure (principal); J18.9 Pneumonia, unspecified organism; J96.01 Acute respiratory failure with hypoxia; D61.89 Other specified aplastic anemias and other bone marrow failure syndromes; A04.7 Enterocolitis due to Clostridium difficile; D61.818 Other pancytopenia; E44.1 Mild protein-calorie malnutrition; Z94.81 Bone marrow transplant status; N18.3 Chronic kidney disease, stage 3 (moderate); J40 Bronchitis, not specified as acute or chronic; D86.9 Sarcoidosis, unspecified; E87.6 Hypokalemia; I48.0 Paroxysmal atrial fibrillation; E11.22 Type 2 diabetes mellitus with diabetic chronic kidney disease; E11.42 Type 2 diabetes mellitus with diabetic polyneuropathy; K74.60 Unspecified cirrhosis of liver; K75.81 Nonalcoholic steatohepatitis (NASH); R50.9 Fever, unspecified; M06.9 Rheumatoid arthritis, unspecified; K21.9 Gastro-esophageal reflux disease without esophagitis; K27.9 Peptic ulcer, site unspecified, unspecified as acute or chronic, without hemorrhage or perforation; D64.81 Anemia due to antineoplastic chemotherapy; Z95.0 Presence of cardiac pacemaker; Z79.82 Long term (current) use of aspirin; Z86.73 Personal history of transient ischemic attack (TIA), and cerebral infarction without residual deficits; Z95.2 Presence of prosthetic heart valve; Z79.84 Long term (current) use of oral hypoglycemic drugs; Z85.038 Personal history of other malignant neoplasm of large intestine; Z87.09 Personal history of other diseases of the respiratory system; Z79.899 Other long term (current) drug therapy; Z79.891 Long term (current) use of opiate analgesic